=== PATIENT | male | born 1950 | race Caucasian/White ===

== ENCOUNTER 2018-05-24 09:47 | Emergency (ER) | payer MEDICARE, SELFPAY ==
[2018-05-24 09:50] VITALS: BP 138/83; PULSE 81; RESP 18; TEMP 36.7; O2SAT 98; BMI 30.6
--- NOTE | 2018-05-24 10:05 | ED.DCSUM_ITS ---
- ER Visit Summary Date of Service: 05/24/18 Chief Complaint: [] Nausea this morning History of Present Illness: The patient is a 68 M [] 3 cardiac stents his cardiovascular status has been stable he has had no fever cough chest pain or abdominal pain indicates he went to sleep feeling fine he woke up today persistently nauseated he was able to eat and drink he has had normal bowel bladder habits, no fever no cough no exposure to tainted food or sick individuals or antibiotics he is on antacid type medications but generally all of his health conditions including his chronic condition has been stable with no complications, his symptoms are not related to exertion or intake of food Physical Examination: [] 140/80 afebrile General, no distress resting comfortably HEENT is generally unremarkable The neck is supple no adenopathy Cardiovascular, regular rate and rhythm Lungs, clear bilateral Abdomen, soft nontender guarding organomegaly Extremities, no clubbing cyanosis or edema Neurologic, awake alert answering questions appropriately moving all 4 extremities Test Results: [] Emergency Department Course and Treatment: [] All of his complaints his screening labs EKG fluids IV EKG screening labs troponin are all generally unremarkable, UA negative, CT of the abdomen shows about a 2 mm right proximal ureteral kidney stone creatinine 1.34, patient on CT was also found to have distended bladder but he indicates after he returned from CT he had to void he voided quite a bit a urine he does not feels if his urinary retention and does not feel the urge to void and again he is taking Flomax for BPH Patient is feeling better Long conversation with him he wants to go home he has seen Dr. Lopez of [facility] urology he will follow-up with them return for change in symptoms he is discharged on Zofran [place] PRN and will return for change in symptoms Treatment Plan: [] Disposition: [] Home stable Impression: [] 2-3 mm right proximal ureteral kidney stone, creatinine 1.34 This note was generated with [employer] dictation software. It may contain incorrect words, spelling, and punctuation that were not noted in review of the chart prior to signing ED Disposition - Plan for ED Patient: Referrals: Jamie Humphrey MD [Primary Care Provider] -
--- NOTE | 2018-05-24 10:05 | CT_ITS ---
STUDY: CT ABDOMEN AND PELVIS WITHOUT CONTRAST REASON FOR EXAM: Male, 68 years old. Nausea. Hypertension. RADIATION DOSAGE (If Supplied By Facility): CTDIvol = ( 14.85 ) mGy, DLP = ( 797.43 ) mGycm TECHNIQUE: Transaxial images were obtained from the dome of the diaphragm to the symphysis pubis without oral contrast, and without intravenous contrast. Sagittal and coronal images were reconstructed. Individualized dose optimization techniques were used for this CT. COMPARISON: Comparison is made with prior study dated April 15, 2017. FINDINGS: Stable 7 mm noncalcified nodule in the peripheral lateral aspect of the left lower lobe as seen on axial image #18. Mild degree of scarring at the lung bases. Coronary artery calcification. Normal liver. Normal gallbladder and extrahepatic biliary system. Normal spleen. Normal pancreas. Normal bilateral adrenal glands. 6 mm nonobstructive calculus in the inferior pole of the right kidney. There is a 3 mm calculus in the proximal portion of the right ureter suggestive of obstructive calculus. 2 mm nonobstructive calculus in the upper pole of the left kidney. Punctate calcification in the lower pole calyx of the left kidney. Normal visualized stomach. Normal small intestine. Normal colon. The appendix is visualized and appears normal. There is diffuse atherosclerotic calcification of the abdominal aorta and its major visceral branches., without a demonstrated aneurysm. Normal inferior vena cava. Normal retroperitoneum. Distended urinary bladder. There are prostatic calcifications. There is a left-sided inguinal hernia containing adipose tissue. There are diffuse degenerative changes of the visualized lumbar spine. Stable grade 1 anterior listhesis of L4 on L5. CT/Abdomen/Pelvis without Cont IMPRESSION: 3 mm calculus in the proximal right ureter. Nonobstructive bilateral intrarenal calculi. Distended urinary bladder. Electronically Signed: Gen Hill MD at 11:23 EST , Service support ,
--- NOTE | 2018-05-24 10:05 | EKG12_ITS ---
Test Reason : N AND V Blood Pressure : / mmHG Vent. Rate : 087 BPM Atrial Rate : 087 BPM P-R Int : 152 ms QRS Dur : 068 ms QT Int : 368 ms P-R-T Axes : -13 -14 026 degrees QTc Int : 442 ms Normal sinus rhythm Normal ECG Confirmed by PATRICIA MONTERO, GERONIMO ([id number]), news videotape editor TON SMALL ([id number]) on 05/28/2018 4:52:42 PM Referred By: CYNTHIA Confirmed By:GERONIMO GOMEZ MD
[2018-05-24] MEDS: Ondansetron 4 MG/2 ML Vial IV (10:12)
[2018-05-24] MEDS: 0.9% Normal Saline 1,000 ML 125 ML IV (10:12)
[2018-05-24 10:18] LABS: Absolute Lymphocyte Count 1.67 X10^3/ul (0.83-4.51); Absolute Neutrophil Count 4.9 X10^3/uL (2.0-7.7); Basophil# 0.02 X10^3/uL; Basophil% 0.3 % (0-1); Eosinophil# 0.19 X10^3/uL; Eosinophils% 2.6 % (0-5); Hemoglobin 14.9 g/dl (13.0-16.5); Lymphocyte # 1.67 X10^3/ul (4.0); Lymphocyte % 23.1 % (19-41); Mean Corp Hgb Conc 33.9 g/gl (32-36); Mean Corpuscular Hgb 30.9 pg (27.0-32.0); Mean Corpuscular Volume 91.3 fL (80-94); Mean Platelet Vol. 9.6 fl (6.2-12.0); Monocyte# 0.47 X10^3/uL; Monocyte% 6.5 % (0-10); Neutrophil # 4.85 X10^3/uL (2.7-7.7); Neutrophil % 66.9 % (47-70); Platelet Count 187 K/mm3 (150-450); RBC Distribution Width CV 13.5 % (11.6-14.6); RBC Distribution Width SD 44.7 fl (35.1-43.9); Red Blood Count 4.82 M/mm3 (4.6-6.2); White Blood Count 7.2 K/mm3 (4.4-11.0)
[2018-05-24 10:21] LABS: POSITIVE COUNT NO; POSITIVE DIFFERENTIAL NO; POSITIVE MORPHOLOGY NO
[2018-05-24 10:38] LABS: AST(SGOT) 13 U/L (15-37); Alanine Aminotransfer ALT/SGPT 16 U/L (16-61); Albumin, Serum 3.7 g/dL (3.2-5.0); Alkaline Phosphatase 86 U/L (45-117); Anion Gap 12 (5-15); BUN 18 mg/dL (7-18); Calcium,Total 8.8 mg/dL (8.5-10.1); Chloride 107 mmol/L (98-107); Creatinine, Serum 1.38 mg/dL (0.70-1.30); EST Glomerular Filtration Rate 54 mL/min (>60); Est Glom Filt Rate - Afr Amer 65 mL/min (>60); Estimated Creatinine Clearance 44.95 ml/min; Glucose 153 mg/dL (74-106); Lipase 107 U/L (73-393); Potassium 4.2 mmol/L (3.5-5.1); Protein, Total 7.7 g/dL (6.4-8.2); Sodium Level 142 mmol/L (136-145)
[2018-05-24 12:18] LABS: Bacteria 0 SEEN /hpf (None Seen); Mucous, Urine 0 SEEN /hpf (<or=2+); Red Blood Cells-Urine 0 SEEN /hpf (0-5); Squamous Epithelial Cells - UA 0 SEEN /hpf (0-5)
[2018-05-24 12:22] LABS: Color, Urine Yellow (Yellow); Glucose, Dipstick 100 mg/dl (Normal); Ketone-Dipstick Negative (Negative); Leukocyte Esterase-Dipstick Negative /ul (Negative); Nitrite-Dipstick Negative (Negative); Occult Blood-Urine Negative /ul (Negative); Protein-Dipstick Negative (Negative); Urine Bilirubin Dipstick Negative (Negative); Urine Clarity Clear (Clear); Urine Urobilinogen Normal (Normal)
[2018-05-24 12:31] LABS: White Blood Cells 0-5 SEEN /hpf (0-5)
--- NOTE | 2018-05-24 13:12 | ED.DEP ---
ED Disposition - Plan for ED Patient: Instructions: ED Stone Kidney Undescended No Sx, ED Stone Renal W Colic Referrals: Jamie Humphrey MD [Primary Care Provider] - Additional Instructions: These follow-up with your urologist
[2018-05-24 13:37] VITALS: BP 115/74; PULSE 82; RESP 16; O2SAT 97
--- NOTE | 2018-05-24 13:49 | DCINST.ED_ITS ---
ED Disposition - Plan for ED Patient: Instructions: ED Stone Kidney Undescended No Sx, ED Stone Renal W Colic Prescriptions: Hydrocodone Bitart/Apap 5-325 [[place] 5MG-325MG] 1 tab PO Q4H PRN PRN 2 Days #7 tab PRN Reason: Pain Ondansetron [Zofran Odt] 4 mg PO Q8H PRN PRN #10 tab PRN Reason: Nausea Referrals: Jamie Humphrey MD [Primary Care Provider] - Additional Instructions: These follow-up with your urologist
== END 2018-05-24 13:51 | disposition home or self-care (01) ==
PROVIDERS: Emergency Provider Emergency Medicine; Family Provider Family Medicine; PCP Family Medicine
DX: N20.1 Calculus of ureter (principal); N40.0 Benign prostatic hyperplasia without lower urinary tract symptoms; Z79.899 Other long term (current) drug therapy
CPT/HCPCS: 74176; 80048; 80076; 81001; 83690; 84484; 85025; 93005; 96361; 96374; 99283; J7030; J7040; A4216; J2405

== ENCOUNTER → 2018-07-10 | Outpatient (CLI) | payer MEDICARE, SELFPAY ==
[2018-06-28 14:48] VITALS: BMI 30.2
--- NOTE | 2018-07-10 10:16 | STRESSREP_ITS ---
Stress Test Report Date: 07-10-18 Procedure: Exercise tolerance test/imaging study Indications: Chest pain; CAD; PCI Consent: Per the patient Procedure: The patient exercised on a Bartolo protocol for 6 minutes completing Stage II achieving a peak heart rate of 162 bpm (108 % predicted maximal heart rate) with a peak blood pressure 154/76 mmHg and a peak MET capacity of 7 METs. The baseline ECG demonstrated normal sinus rhythm. The peak exercise ECG demonstrated no obvious ECG changes. There was a rare PVC during recovery. The functional capacity was considered average. There was [no complaint of chest discomfort during exercise or recovery]. The examination was discontinued secondary to nausea and leg discomfort. Impression: 1. Technically adequate (percent predicted maximal heart rate greater than 85%) exercise tolerance test 2. Peak exercise ECG with no obvious ECG changes 3. There was a rare PVC during recovery 4. Nuclear images pending Myocardial perfusion imaging study: Technique: The patient was injected with 11.9 mCi of technetium 99m Cardiolite and subsequently rest SPECT Cardiolite nuclear imaging was obtained in the horizontal long, vertical long, and short axis views. The patient exercised on a Bartolo protocol for 6 minutes completing Stage II achieving a peak heart rate of 162 bpm (108 % predicted maximal heart rate) with a peak blood pressure 154/76 mmHg and a peak MET capacity of 7 METs. The patient was injected with 33.2 mCi of technetium 99m Cardiolite and subsequently stress SPECT Cardiolite nuclear imaging was obtained in the horizontal long, vertical long, and short axis views. A gated Cardiolite study at peak stress was obtained. Interpretation: Rest and stress SPECT Cardiolite nuclear imaging status post realignment, normalization, and attenuation correction, demonstrates the appearance of extracardiac/gastrointestinal tracer uptake being more prominent at rest as opposed to stress. At rest there appears to be relative to form tracer uptake with the exception of a small area of subtle diminished tracer uptake near the apical segments. Status post stress there appears to be relative uniform tracer uptake with the exception of diminished tracer uptake near the apical segments being somewhat more prominent compared to rest. [There is end systolic thickening and brightening]. The gated Cardiolite study demonstrates [myocardial thickening and inward wall motion]. The reported LVEF is 69 %. Impression: 1. Rest and stress SPECT Cardiolite nuclear imaging demonstrate nocardial perfusion changes potentially compatible with physiologic apical thinning and shifting soft tissue attenuation/artifact although an area of stress-induced myocardial ischemia in the apical areas cannot necessarily be excluded. 2. The gated Cardiolite study reports an LVEF of 69 %. This note was generated with [employer]ation software. It may contain incorrect words, spelling, and punctuation that were not noted in checking the note before signing.
== END | disposition home or self-care (01) ==
PROVIDERS: Family Provider Family Medicine; PCP Family Medicine; Referring Provider Internal Medicine Cardiovascular Disease; Visit Provider Internal Medicine Cardiovascular Disease
DX: I25.10 Atherosclerotic heart disease of native coronary artery without angina pectoris (principal); Z95.5 Presence of coronary angioplasty implant and graft
CPT/HCPCS: 78452; 93017; A9500; A4216

== ENCOUNTER 2018-07-20 07:49 | Day surgery (SDC) | payer MEDICARE, SELFPAY ==
[2018-06-28 14:48] VITALS: BMI 30.2
[2018-07-12 14:00] VITALS: BMI 30.2
--- NOTE | 2018-07-12 14:25 | RAD_ITS ---
STUDY: X-RAY CHEST REASON FOR EXAM: Male, 68 years old. Chest pain TECHNIQUE: PA and lateral views of the chest. COMPARISON: None. FINDINGS: The lungs are clear and expanded. There is no demonstrated pleural abnormality. Normal size heart. Normal mediastinum and raimundo. Normal visualized pulmonary arteries. Normal visualized aortic arch and descending thoracic aorta. Normal visualized thoracic spine. Normal visualized ribs, clavicles, and shoulders. There is no demonstrated abnormality of the visualized soft tissue structures of the upper abdomen. RAD/Chest PA and Lateral IMPRESSION: Normal x-ray examination of the chest. Electronically Signed: Raffaele Alfonso DO at 14:40 EDT Tel , Service support ,
[2018-07-12 16:45] LABS: Hemoglobin 14.8 g/dl (13.0-16.5); Mean Corp Hgb Conc 35.2 g/gl (32-36); Mean Corpuscular Hgb 31.1 pg (27.0-32.0); Mean Corpuscular Volume 88.2 fL (80-94); Mean Platelet Vol. 10.5 fl (6.2-12.0); Platelet Count 203 K/mm3 (150-450); RBC Distribution Width CV 13.5 % (11.6-14.6); RBC Distribution Width SD 43.3 fl (35.1-43.9); Red Blood Count 4.76 M/mm3 (4.6-6.2); White Blood Count 7.3 K/mm3 (4.4-11.0)
[2018-07-12 16:47] LABS: Scan Indicated on CBC? Y/N NO
[2018-07-12 16:48] LABS: Partial Thromboplast Time 29.1 Seconds (24.1-36.2)
[2018-07-12 17:15] LABS: Anion Gap 7 (5-15); BUN 15 mg/dL (7-18); Calcium,Total 8.7 mg/dL (8.5-10.1); Chloride 106 mmol/L (98-107); Creatinine, Serum 1.25 mg/dL (0.70-1.30); EST Glomerular Filtration Rate 61 mL/min (>60); Est Glom Filt Rate - Afr Amer 73 mL/min (>60); Glucose 85 mg/dL (74-106); Potassium 3.9 mmol/L (3.5-5.1); Sodium Level 140 mmol/L (136-145)
[2018-07-19 10:20] VITALS: BMI 30.2
--- NOTE | 2018-07-20 11:09 | CL.D_ITS ---
Patient Name: CORDELIA BALL Study Date: 07/20/2018 Performing: Javan Silva MD Ht: 66.14 inches 168 cm : 1950 Wt: 187.39 lbs 85 kg Age: 68 Gender: male BSA: 1.95 PROCEDURE(S) PERFORMED TQ15-PCP/COR/LV CLINICAL PROFILE AND INDICATIONS Indications: Suspected CAD Heart Failure: None Stress/Imaging Date: 07/10/2018Stress Test with SPECT MPI: Positive Angina Classification Anginal Classification w/in 2 Weeks: CCS II CAD Presentations: Stable angina. CONCLUSIONS Elevated Left Ventricular End Diastolic Pressure Normal Left Ventricular systolic function LVEF: by LV gram 65 % [place] Multivessel CAD RECOMMENDATIONS Risk factor modification Medical therapy Surgery consult for coronary revascularization DESCRIPTION OF PROCEDURE The patient arrived to the procedure lab. The risks and benefits of the procedure as well as a full d escription of our services here and current unavailability of surgical backup were fully explained to the patient and/or their significant other prior to the catheterization. The Timeout was completed, verifying the correct patient and procedure. The patient's procedural site was prepped and draped in the usual fashion. Local anesthetic was given subcutaneously to right radial region with Lidocaine 2% . Using a modified Seldinger technique, arterial access was obtained via the right radial artery, a 6 Fr sheath was inserted. Right Coronary Artery selective angiography was then performed in multiple v iews using a 5 Fr. 4.0 [place] catheter. Left Coronary Artery selective angiography was performed in mu ltiple views using a 5 Fr. 4.0 [place] catheter.The arterial sheath was pulled and a TR Band was applie d for hemostasis CORONARY ANGIOGRAPHY DOMINANCE: Right Dominant LEFT HEART ASSESSMENT Left Ventricular Ejection Fraction: by LV Gram 65 % Normal LV wall motion Elevated Left Ventricular End Diastolic Pressure LVEDP: 15 mmHg LEFT MAIN: Mild luminal irregularities LEFT ANTERIOR DECENDING ARTERY: PROX LAD: Moderate calcification, Previously placed stent has an instent Distal: 85 % restenosis DIAGONAL 1: Proximal - Diffuse: 50-75 % Stenosis CIRCUMFLEX ARTERY: PROX CIRC: 75 % Stenosis, Previously placed stent is patent MID CIRC: Diffuse: 75 % Stenosis RIGHT CORONARY ARTERY: Mild luminal irregularities MID RCA: 75 % Stenosis RT PDA: Proximal - Long: Diffuse: 85 % Stenosis VALVE FINDINGS: Normal Aortic Valve function Normal Mitral Valve function AORTIC ROOT: Angiographically normal COMPLICATIONS No Complications PROCEDURE MEDICATIONS Versed 1 mg IV Fentanyl 50 mcg IV Versed 1 mg IV Fentanyl 50 mcg IV Oxygen: 2 L/min via nasal cannula SUMMARY OF HEMODYNAMIC DATA Time AIR REST ECG 08:10:43 AO 102/56 (72) SA 10:02:55 LV 108/13, 26 10:11:55 LV 114/8, 13 10:12:02 LV 106/9, 15 10:13:21 LV 106/7, 10 10:13:28 LVp 108/23, 31 10:13:36 AOp 112/56 (80) 10:13:41 LV 112/56, 59 10:13:46 Signed By Javan Silva MD On 07/20/2018 11:08:37 AM Javan Silva MD
== END 2018-07-20 13:00 | disposition home or self-care (01) ==
LOC: CLSP 07:50
PROVIDERS: Family Provider Family Medicine; PCP Family Medicine; Referring Provider Internal Medicine Cardiovascular Disease; Visit Provider Internal Medicine Cardiovascular Disease
DX: I25.118 Atherosclerotic heart disease of native coronary artery with other forms of angina pectoris (principal); I11.0 Hypertensive heart disease with heart failure; I50.1 Left ventricular failure, unspecified; E78.5 Hyperlipidemia, unspecified; E11.9 Type 2 diabetes mellitus without complications; E03.9 Hypothyroidism, unspecified; N40.0 Benign prostatic hyperplasia without lower urinary tract symptoms; R07.9 Chest pain, unspecified; Z95.5 Presence of coronary angioplasty implant and graft; Z79.84 Long term (current) use of oral hypoglycemic drugs; Z79.82 Long term (current) use of aspirin; Z79.899 Other long term (current) drug therapy
CPT/HCPCS: 36415; 71046; 80048; 85027; 85610; 85730; 93458; 99152; 99153; J7040; C1769; C1894; Q9967

== ENCOUNTER → 2018-07-23 08:44 | Outpatient (CLI) | payer MEDICARE, SELFPAY ==
[2018-07-19 10:20] VITALS: BMI 30.2
[2018-07-23 09:44] LABS: Anion Gap 7 (5-15); BUN 17 mg/dL (7-18); BUN/Creat Ratio 12.5 RATIO (10-20); Calcium,Total 8.4 mg/dL (8.5-10.1); Chloride 106 mmol/L (98-107); Creatinine, Serum 1.36 mg/dL (0.70-1.30); EST Glomerular Filtration Rate 55 mL/min (>60); Est Glom Filt Rate - Afr Amer 67 mL/min (>60); Glucose 238 mg/dL (74-106); Potassium 4.3 mmol/L (3.5-5.1); Sodium Level 139 mmol/L (136-145)
== END ==
PROVIDERS: Family Provider Family Medicine; PCP Family Medicine; Referring Provider Internal Medicine Cardiovascular Disease; Visit Provider Internal Medicine Cardiovascular Disease
DX: E11.9 Type 2 diabetes mellitus without complications (principal)
CPT/HCPCS: 36415; 80048

== ENCOUNTER → 2018-11-27 08:40 | Outpatient (CLI) | payer MEDICARE, SELFPAY ==
[2018-11-16 14:40] VITALS: BMI 28.8
--- NOTE | 2018-11-27 09:08 | CR.HP_ITS ---
CR - History & Physical - General Arrival date:: 11/27/18 Date of CR Evaluation:: 11/27/18 Referring Physician: DR. GOMEZ Primary Diagnosis: CABG - History of Present Cardiac Event Onset Date: Enter Onset Date of cardiac illnesses in Comment field below Current stable Angina Pectoris:: No Acute Myocardial Infarction within 12 months:: No Coronary Artery Bypass Graft:: Yes Heart valve replacement or repair:: No PTCA or coronary stenting:: Yes - ,, Heart or Heart-Lung Transplant:: No Heart Failure EF <35%:: No Type of Symptoms:: CHEST PRESSURE Interventions with present event:: CABG X4 - Medications Home Medications: Ambulatory Orders Medication Instructions Recorded Citalopram Hydrobromide 10 mg PO DAILY 05/24/18 [Citalopram HBr] Finasteride 5 mg PO DAILY 05/24/18 Glimepiride 2 mg PO DAILY 05/24/18 Levothyroxine [Synthroid] 100 mcg PO DAILY 05/24/18 Metformin HCl 1,000 mg PO BID 05/24/18 Sitagliptin Phosphate [Januvia] 50 mg PO DAILY 05/24/18 Tamsulosin HCl 0.4 mg PO DAILY 05/24/18 nitroglycerin 0.4 mg sublingual 0.4 mg SUBLINGUAL Q5-15M PRN 06/21/18 tablet atorvastatin 40 mg tablet 40 mg PO QHS #90 tab 07/20/18 aspirin 81 mg tablet,delayed 81 mg PO DAILY 11/16/18 release clopidogrel 75 mg tablet 75 mg PO DAILY #30 tab 11/16/18 omeprazole 40 mg capsule,delayed 20 mg PO DAILY cap 11/16/18 release - Allergies Allergies/Adverse Reactions: Allergies phenazopyridine [From Pyridium] Adverse Reaction (Unknown, Verified 11/16/18 14:40) Unknown beta blockers Adverse Reaction (Unknown, Uncoded 07/19/18 10:22) Intolerant - Sleep Disorder Evaluation Hx of Sleep Apnea: No Do you snore loudly (louder than talking or can be heard through closed doors)?: No Do you often feel tired/ fatigued/ sleepy during daytime?: Yes Has anyone observed you stop breathing during sleep?: No History of Hypertension (for STOP score): No STOP Results: Negative Advanced Directives - Advanced Directives Power of Development Coach: Yes Living Will: Yes Advance Directives Information Provided: Yes Advance Directives on File: No - PT ENCOURAGED TO BRING COPIES OF THESE IN TO FILE IN HR DNR Order?:: No Past Medical History - Past Medical Illness Medical History: Past Medical History (Last Updated 11/26/18 @ 11:11 by KRISTY Starr) Presence of stent in coronary artery (Chronic) Onset Date: ~09/19/05 Z95.5 PTCA/DORI to the prox LAD , Stent to Cx 1995 Type 2 diabetes mellitus (Chronic) E11.9 Atherosclerotic heart disease of [place] coronary artery without angina pectoris (Chronic) I25.10 Essential hypertension (Chronic) I10 Acquired hypothyroidism (Chronic) E03.9 History of agent [place] exposure Z77.098 BPH (benign prostatic hyperplasia) N40.0 Benign neoplasm of colon D12.6 - Past Surgical History Surgical History: Past Surgical History (Last Reviewed 11/16/18 @ 15:35 by KRISTY Starr) Status post coronary artery bypass graft (Chronic) Onset Date: ~09/12/18 Z95.1 CABG x4-ACOSTA to the mid LAD; SVG to the first diagonal branch; SVG to the first OM branch; SVG to the PDA. Presence of coronary angioplasty implant and graft Z95.5 PCI CX 1995,PCI LAD 2001, PCI/DORI to procx LAD 2005; Per cath 09/19/05, LAD- stent present mid segment which was patent, CX-stent present mid segment which was patent with 20% stenosi in stent History of appendectomy Z90.49 History of left heart catheterization (LHC) Z98.890 PCI CX 1995,PCI LAD 2001, PCI/DORI to procx LAD 2005; Per cath 09/19/05, LAD- stent present mid segment which was patent, CX-stent present mid segment which was patent with 20% stenosi in stent History of tonsillectomy Z90.89 - Family History Summary Family History: Family History (Last Reviewed 11/16/18 @ 15:35 by KRISTY Starr) Mother CHF (congestive heart failure) Hypertension Father CAD (coronary artery disease) Myocardial infarction Cancer Colon Social History - Smoking History Smoking Status: Never smoker - Alcohol Use Alcohol Usage: No - Substance Abuse Hx Substance Use: No - Occupation Occupation (List type of work in comments):: Retired - Hobbies, Recreation, Social Activities Hobbies: Reading, Other - GARDENING,PLAY CARDS Recreational Activities: I am able to engage in most, but not all activities Social Environment - Status Marital Status: - Current Living Arrangements Living Environment:: Spouse - Children How many children do you have?: 1 Do any of your children live nearby?: No - Safety Do you feel safe in your surroundings?: Yes - Assistance Do you need any assistance at home?: NONE Review of Systems - Review of Systems Hints: Right click = Denies (Slash). Left click = Reports ([place]) Review of Present Symptoms: Reports: Shortness of Breath with Exertion, Fatigue, Appetite - Normal, Sleep - Normal - DIFFICULTY WAKING UP IN MIDDLE OF NIGHT AND RETURNING BACK TO SLEEP. Denies: Shortness of Breath at Rest, PVD, Operative Discomfort, Angina, Wound Healing, Dizziness/Lightheadedness, Heart Arrhythmia/Irregularities, Appetite - Special Diet, Sexual Changes - Pain Is Patient Pain Free?: Yes Risk Factor Assessment - Chief Complaint Chief Complaint: CURRENT CABG PT WHO PRESENTS TODAY TO CR FOR INITIAL EVALUATION - Vital Signs Temperature: 98.6 F Respiratory Rate: 16 Pulse Ox: 95 Blood Pressure: 98/58 Nailbeds:: PINK - Pulse Pulse Rate: 80 Pulse Rhythm: Regular - Hypertension How long have you been treated?: PT DENIES HAVING HTN On medication(s)?: YES, PREVENTITIVE FOR KIDNEY Blood Pressure Sitting - Left Arm: 98/58 - Stress Stress: Recent - RECENTLY HAD SD - Diabetes Diabetic History: Type II Nutrition Referral for Diabetes: No - Obesity Height: 5 ft 6 in Weight:: 179 lb Weight in Pounds: 179.0 lbs Weight Source: Standing Scale Body Mass Index (BMI): 28.8 Nutritional Referral for Obesity: No - Physical Inactivity Physical Inactivity: Recreational activity - Risk Stratification Risk Guidelines: Lowest Risk: Risk Factor for Smoking, Risk Factor for Dyslipidemia, Risk Factor for Diabetes - 5.7 , Risk Factor for Obesity, Risk Factor for Hypertension, Risk Factor for Sedentary Lifestyle, Moderate Risk: Risk Factor for Depression - ACTUALLY STARTED AFTER MY FIRST STENT - For Smoking Smoking Risk Guidelines: Smoking Low Risk: None or quit greater than 6 months ago. Smoking Moderate Risk: Smoker or quit 6 months or less ago. Smoking High Risk: Smoker - For Dyslipidemia Dyslipidemia Risk Guidelines: Low Risk: Moderate Risk: High Risk: 15-25% fat 25.1-29% fat >/= 30% fat. <7% sat fat 7-9% sat fat >9% sat fat. <150 mg chol 150-299 mg chol >/= 300 mg chol. LDL <100 LDL 100-129 LDL >/= 130. Chol/HDL ratio <5.0 Chol/HDL ratio 5.0-6.0 Chol/HDL ratio >6.0. Triglycerides <100 Triglycerides 100-149 Triglycerides >/= 150 - For Diabetes Mellitus Diabetes Risk Guidelines: Diabetes Low Risk: HgA1c <6.5% and/or FBG <120. Diabetes Moderate Risk: HgA1c 6.6-7.9% and/or FBG 120-180. Diabetes High Risk: HgA1c >/= 8% and/or FBG >180 - For Obesity/Overweight Obesity/Overweight Risk Guidelines: Obesity Low Risk: BMI <25.0. Obesity Moderate Risk: BMI 25-29.9. Obesity High Risk: BMI >/= 30.0 - For Hypertension Hypertension Risk Guidelines: Hypertension Low Risk: Systolic <120 and Diastolic <80. Hypertension Moderate Risk: Systolic 120-139 and Diastolic 80-89. Hypertension High Risk: Systolic >/= 140 and Diastolic >/= 90 - For Sedentary Lifestyle Sedentary Lifestyle Risk Guidelines: Sedentary Lifestyle Low Risk: >/= 1,500 kcal/week. Sedentary Lifestyle Moderate Risk: 700-1,499 kcal/week. Sedentary Lifestyle High Risk: < 700 kcal/week - For Depression Depression Risk Guidelines: Depression Low Risk: Not clinically depressed. Depression Moderate Risk: Mildly depressed. Depression High Risk: Clinically depressed - Family History Family History: Family History (Last Reviewed 11/16/18 @ 15:35 by KRISTY Starr) Mother CHF (congestive heart failure) Hypertension Father CAD (coronary artery disease) Myocardial infarction Cancer Motivation - Motivation to Participate On a scale of 1 to 10, how prepared are you to commit to attending program?: 10 What do you see as barriers to successfully being able to complete the program?: NONE What do you see as the benefits of succesfully completing the program? In other words, what do you hope to get out of participating in the program?: ELIMINATE FATIGUE AND STREGTHEN MUSCLES Are there issues you are dealing with that will interfere with completing the program?: POSSIBLY HEALTH Do you have a spouse or signficant other, family or friends who will help support you to complete the program?: SPOUSE
[2018-11-27 09:38] VITALS: BP 98/58; PULSE 80; RESP 16; TEMP 37; O2SAT 95; BMI 28.8
--- NOTE | 2018-11-27 09:39 | CR.ITP_ITS ---
General Information - General Information Admitting Diagnosis: CABG Special Needs: NONE Oxygen: NONE - Education/Goals Barriers to Learning: None Individual Counseling: Initial Assessment: Diabetes, Stress Cardiac Rehabilitation Goals: 1. Maintain the individual as the primary focus of care. 2. To improve the patient's quality of life. 3. Identification of cardiac risk factors and provide cardiac risk factor management. 4. Enhance the psychosocial status of the patient. 5. Reconditioning enough to allow the patient to resume customary activities. 6. Control symptoms of cardiac disease Scale for measuring improvement of personal goals: Enter appropriate number in Comments. 2 = Unchanged. 3 = Slightly Better. 4 = Moderate Improvement. 5 = Met my Goal Personal Goals: Initial Assessment: Improve management of stress and emotions, Improve energy level, Improve muscle strength and endurance, Improve diet and eating habits (eat healthier) Exercise - Initial Assessment - Visit Date of Eval: 11/27/18 - Stages of Change Stages of Change:: Action - Physician Prescribed Exercise Modalities: Treadmill, Biodyne, Airdyne, NuStep, SciFit Frequency (days/week): 3x/week for 12 weeks [36 sessions] Intensity: 60-80% age predicted maximum heart rate reserve Target Heart Rate:: 98-127 - Hypertension Do any of the following apply?: Medication Resting Blood Pressure:: 98/58 - Intervention Home Exercise/Activity Goal:: Moderate Exercise 30 min/day x 5 days/wk - Education Goals:: Warm-up, RPE DARIO Scale, S/S, Safe Exercise, Self-Monitoring Nutrition - Initial Assessment - Program Goals Nutrition Program Goals: LDL <70. Total Cholesterol <200. HDL >45. Triglycerides <150. HgbA1C <7%. BMI <25 - Stages of Change Stages of Change:: Action - Diabetes Diabetes:: Yes Hgb A1C: 5.7 Insulin: No Do you monitor your blood sugar at home?: Yes - ENCOURAGED PT TO BRING MONITOR TO CR - Weight Management Height: 5 ft 6 in Weight:: 179 lb - Intervention Referral to dietitian:: No Referral to Diabetic Clinic:: No - PT STATES IS DIAB WELL FOR MANY YEARS AND HAS GRASP ON DIET Will attend diet classes:: Yes - IN CR Tobacco - Initial Assessment - Program Goals Tobacco Program Goals: Complete smoking cessation. Attend education classes. Improve Knowledge Test score - Stage of Change Stages of Change:: Action - Learning Barriers Learning Barriers: Ready to Learn - Family Support Do you have family support?: Yes - - Tobacco Use Tobacco Use: Non-smoker - Education Attended class for:: Treating Heart Disease, How The Heart Works, What it means to have Heart Disease, How Coronary Artery Disease is Diagnosed, Heart Procedures, What Heart Medications Do, Risk Factors & Modifications, Living an Active Life, Nutrition, Emotions & Heart Disease, Stress Management & Relaxation, Sleep Disorders & Heart Disease Psychosocial - Initial Assess - Target Goals Target Goals: Assess presence or absence of depression. Using a valid screening tool, maximizes coping skills. Positive support system - Stages of Change Stages of Change:: Action - Psychosocial Test Tool Used:: HANDS Depression Questionnaire - Intervention PS - Interventions: Yes Attend Stress Management Classes - IN CR CLASSROOM, Yes Uses Stress Management Skills, No Referral to Mental Health, No Referral to [facility] Case Management, No Referral to Physician - Education Gave educational materials for:: Coping techniques, Signs & symptoms of depression, Stress management, Relaxation techniques - INFORMED ABOUT EDUCATION MATERIAL AVAILABLE ON LINE WELL IN CLASSROOM - Patient/Program Goal Preventative Medication(s):: Aspirin, Clopidogrel, Statin/lipid - Assistive Devices Assistive Devices:: None Fall Risk Assessed:: No Patient Health Questionnaire Initial Assessment 1. Little interest or pleasure in doing things: Several days 2. Feeling down, depressed, or hopeless: Several days 3. Trouble falling or staying asleep, or sleeping too much: Several days 4. Feeling tired or having little energy: More than half the days 5. Poor appetite or overeating: Not at all 6. Feeling bad about yourself -- or that you are a failure or have let yourself or your family down: Not at all 7. Trouble concentrating on things, such as reading the newspaper or watching television: Not at all 8. Moving or speaking so slowly that other people could have noticed. Or the opposite - being so fidgety or restless that you have been moving around a lot more than usual: Not at all 9. Thoughts that you would be better off , or of hurting yourself in some way: Not at all How difficult have these problems made it for you to do your work, take care of things at home, or get along with other people?: Not difficult at all Total Score: 5 RACHEL-Q SV Test - Statements CAD is a disease of the arteries in the heart: False Examples of risk factors for heart disease: True Angina is chest pain or discomfort: True The benefits of resistance training include: True Eating more meat and dairy products: False Anti-platelet medications such as aspirin are important: True The only effective way to manage stress: False An exercise warm-up slowly increases heart rate: I Don't Know Prepared, processed foods usually have high sodium: True Depression is common after a heart attack: True The statin medications lower cholesterol: True To control blood pressure, lower the amount of sodium: I Don't Know If someone gets chest discomfort during walking: False Transfats are partially hydrogenated vegetable oils: True Sleep apnea that is not treated increases the risk: I Don't Know To control cholesterol, one should become a vegetarian: False Someone knows if he/she is exercising at the right level: I Don't Know Diabetes cannot be prevented with exercise & health eating: I Don't Know Stress is a large risk for heart attack: I Don't Know A diet that can help lower blood pressure is rich in: I Don't Know - Total Score Total Correct Responses: 13 Self-Efficacy Initial Assessment We would like to know how confident you are in doing certain activities. Please select your confidence level for:: Select your confidence level for the following using the scale 1-10 where 1 is not at all confident and 10 is totally confident. Your score is the average of all 6 responses. Fatigue: How confident are you that you can keep the fatigue caused by your disease from interfering with the things you want to do? Select Number: 8 Physical Discomfort or Pain: How confident are you that you can keep the physical discomfort or pain of your disease from interfering with the things you want to do? Select Number: 9 Emotional Distress: How confident are you that you can keep the emotional distress caused by your disease from interfering with the things you want to do? Select Number: 7 Other Symptoms or Health Problems: How confident are you that you can keep other symptoms or health problems from interfering with the things you want to do? Select Number: 7 Different Tasks and Activities: How confident are you that you can do the different tasks and activities needed to manage your health condition so as to reduce your need to see a doctor? Select Number: 7 Medication: How confident are you that you can do things other than just taking medication to reduce how much your illness affects your everyday life? Select Number: 7 Total Score:: 7 Nutrition Survey - Nutrition Survey Instructions Scoring Instructions: Scoring is as follows: Yes = 1 points. No = 0 point. Patient score that is >/=12 is considered to be at potential nutritional risk and could benefit from a referral to a registered dietitian. - Nutrition Survey Initial Have you lost >10 lbs over the past 2 months without trying?: No Are you following a special diet at home for diabetes, low fat, or low salt?: Yes Are you interested in meeting with a dietitian for help understanding your diet?: No Do you eat less than 3 meals a day?: No Do you eat fatty meats (ott, sausage, ribs, etc), fried foods, desserts, large amounts of salad dressings, margarine, butter, or cheese most days?: No Do you have food allergies? [Enter types in comment field]: No Do you eat in restaurants more than 3 times a week?: No Do you season food with salt, seasoning salt, or garlic salt?: Yes Do you used canned, boxed, frozen meals, or soups, seasoning packets?: Yes Total Score:: 3
[2018-11-27 09:57] VITALS: BP 98/58
== END ==
PROVIDERS: Family Provider Family Medicine; PCP Family Medicine; Referring Provider Internal Medicine Cardiovascular Disease; Visit Provider Internal Medicine Cardiovascular Disease
DX: Z95.1 Presence of aortocoronary bypass graft (principal)

== ENCOUNTER 2018-11-30 09:15 | Outpatient (RCR) | payer MEDICARE, SELFPAY ==
[2018-11-27 09:38] VITALS: BMI 28.8
== END 2018-12-01 23:59 ==
LOC: CR 09:15
PROVIDERS: Family Provider Family Medicine; PCP Family Medicine; Referring Provider Internal Medicine Cardiovascular Disease; Visit Provider Internal Medicine Cardiovascular Disease
DX: Z95.1 Presence of aortocoronary bypass graft (principal)
CPT/HCPCS: 93798

== ENCOUNTER 2018-12-31 09:15 | Outpatient (RCR) | payer MEDICARE, SELFPAY ==
[2018-11-27 09:38] VITALS: BMI 28.8
== END 2018-12-31 23:59 ==
LOC: CR 09:15
PROVIDERS: Family Provider Family Medicine; PCP Family Medicine; Referring Provider Internal Medicine Cardiovascular Disease; Visit Provider Internal Medicine Cardiovascular Disease
DX: Z95.1 Presence of aortocoronary bypass graft (principal)
CPT/HCPCS: 93798

== ENCOUNTER 2019-01-30 09:15 | Outpatient (RCR) | payer MEDICARE, SELFPAY ==
[2018-11-27 09:38] VITALS: BMI 28.8
--- NOTE | 2019-01-25 08:47 | CR.ITP_ITS ---
Exercise - 60-Day Assessment - Visit Date of Eval: 01/25/19 Session #:: 24 - has only missed one session due to conflict - Stages of Change Stages of Change:: Action - Physician Prescribed Exercise Modalities: Treadmill, Rower, Airdyne, NuStep Frequency (days/week): 3 Duration (Minutes):: 30-45 Intensity: 60-80% age predicted maximum heart rate reserve METs - Progression: 0.5-1.0 MET, RPE 11-14 WEEK: 4 no increase due to patient's perceived exertion ratings Target Heart Rate:: 98-127 w max HR 132 - Hypertension Resting Blood Pressure:: 120/64 Peak Exercise Blood Pressure:: 164/78 Medication Changes:: No - Intervention Home Exercise/Activity Goal:: Moderate Exercise 30 min/day x 5 days/wk - Education Goals:: Warm-up, RPE DARIO Scale, S/S, Safe Exercise, Self-Monitoring - Exercise Program Goals Exercise Program Goals: Aerobic Activity >30 min Nutrition - Initial Assessment - Program Goals Nutrition Program Goals: LDL <70. Total Cholesterol <200. HDL >45. Triglycerides <150. HgbA1C <7%. BMI <25 - Diabetes Do you monitor your blood sugar at home?: Yes - ENCOURAGED PT TO BRING MONITOR TO CR Nutrition - 60-Day Assessment - Program Goals Nutrition Program Goals: LDL <70. Total Cholesterol <200. HDL >45. Triglycerides <150. HgbA1C <7%. BMI <25 - Visit Date of Eval: 01/25/19 - Stages of Change Stages of Change:: Action - Lipids Has the patient seen the dietitian?: No - Diabetes Diabetes:: No Insulin: No Non-Insulin Dependent?: No - Weight Management Weight:: 181 lb - Intervention Referral to dietitian:: No Referral to Diabetic Clinic:: No Will attend diet classes:: Yes - Education Attended class for:: Healthy eating Tobacco - Initial Assessment - Program Goals Tobacco Program Goals: Complete smoking cessation. Attend education classes. Improve Knowledge Test score - Learning Barriers Learning Barriers: Ready to Learn Tobacco - 60-Day Assessment - Program Goals Tobacco Program Goals: Complete smoking cessation. Attend education classes. Improve Knowledge Test score - Stage of Change Stages of Change:: Action - Learning Barriers Learning Barriers: Participates in education - Family Support Do you have family support?: Yes - Tobacco Use Tobacco Use: Non-smoker Do you use smokeless tobacco?: No - Intervention Smoking Cessation Referral:: No Individual Education/Counseling:: No Education Schedule Given:: Yes - Education Attended class for:: Heart Procedures, What Heart Medications Do, Risk Factors & Modifications, Living an Active Life, Nutrition, Emotions & Heart Disease, Stress Management & Relaxation, Sleep Disorders & Heart Disease Psychosocial - Initial Assess - Target Goals Target Goals: Assess presence or absence of depression. Using a valid screening tool, maximizes coping skills. Positive support system - Psychosocial Test Tool Used:: HANDS Depression Questionnaire - Assistive Devices Fall Risk Assessed:: No Psychosocial - 60-Day Assess - Target Goals Target Goals: Assess presence or absence of depression. Using a valid screening tool, maximizes coping skills. Positive support system - Psychosocial Test Tool Used:: HANDS Depression Questionnaire - Intervention PS - Interventions: Yes Attend Stress Management Classes, Yes Uses Stress Management Skills, No Referral to Mental Health, No Referral to [facility] Case Management, No Referral to Physician - Education Attended classes for:: Coping techniques, Signs & symptoms of depression, Stress management, Relaxation techniques - Patient/Program Goal Preventative Medication(s):: Aspirin - Patient is compliant with medications, GRISELDA inhibitor, Clopidogrel, Beta lissa, Statin/lipid - Assistive Devices Assistive Devices:: None Fall Risk Assessed:: Yes Patient Health Questionnaire 60-Day Re-eval Assessment 1. Little interest or pleasure in doing things: Several days 2. Feeling down, depressed, or hopeless: Not at all 3. Trouble falling or staying asleep, or sleeping too much: Several days 4. Feeling tired or having little energy: Not at all 5. Poor appetite or overeating: Not at all 6. Feeling bad about yourself -- or that you are a failure or have let yourself or your family down: Not at all 7. Trouble concentrating on things, such as reading the newspaper or watching television: Not at all 8. Moving or speaking so slowly that other people could have noticed. Or the opposite - being so fidgety or restless that you have been moving around a lot more than usual: Not at all 9. Thoughts that you would be better off , or of hurting yourself in some way: Not at all How difficult have these problems made it for you to do your work, take care of things at home, or get along with other people?: Not difficult at all Total Score: 2 Self-Efficacy 60-Day Re-eval Assessment We would like to know how confident you are in doing certain activities. Please select your confidence level for:: Select your confidence level for the following using the scale 1-10 where 1 is not at all confident and 10 is totally confident. Your score is the average of all 6 responses. Fatigue: How confident are you that you can keep the fatigue caused by your disease from interfering with the things you want to do? Select Number: 9 Physical Discomfort or Pain: How confident are you that you can keep the physical discomfort or pain of your disease from interfering with the things you want to do? Select Number: 10 Emotional Distress: How confident are you that you can keep the emotional distress caused by your disease from interfering with the things you want to do? Select Number: 10 Other Symptoms or Health Problems: How confident are you that you can keep other symptoms or health problems from interfering with the things you want to do? Select Number: 10 Different Tasks and Activities: How confident are you that you can do the different tasks and activities needed to manage your health condition so as to reduce your need to see a doctor? Select Number: 10 Medication: How confident are you that you can do things other than just taking medication to reduce how much your illness affects your everyday life? Select Number: 10 Total Score:: 9
[2019-01-25 08:55] VITALS: BP 120/64; BP 164/78
== END 2019-01-31 23:59 ==
LOC: CR 09:15
PROVIDERS: Family Provider Family Medicine; PCP Family Medicine; Referring Provider Internal Medicine Cardiovascular Disease; Visit Provider Internal Medicine Cardiovascular Disease
DX: Z95.1 Presence of aortocoronary bypass graft (principal)
CPT/HCPCS: 93798

== ENCOUNTER 2019-02-25 09:15 | Outpatient (RCR) | payer MEDICARE, SELFPAY ==
[2018-11-27 09:38] VITALS: BMI 28.8
[2019-02-01 01:03] VITALS: BP 120/64; BP 164/78
== END 2019-03-02 23:59 ==
LOC: CR 09:15
PROVIDERS: Family Provider Family Medicine; PCP Family Medicine; Referring Provider Internal Medicine Cardiovascular Disease; Visit Provider Internal Medicine Cardiovascular Disease
DX: Z95.1 Presence of aortocoronary bypass graft (principal)
CPT/HCPCS: 93798

== ENCOUNTER 2020-06-06 08:47 | Emergency (ER) | payer MEDICARE, SELFPAY ==
[2020-05-14 14:33] VITALS: BMI 29.2
[2020-06-06 08:48] VITALS: BP 112/60; PULSE 89; RESP 17; TEMP 36.6; O2SAT 100; BMI 28.1
--- NOTE | 2020-06-06 09:12 | ED.VIS.GEN ---
History of Present Illness Chief Complaint: Abd Pain Informant: Patient Narrative: 70-year-old male presenting with sharp mid abdominal pain for 5 weeks. He states the pain is different in severity depending on the timeframe. Currently he states is 5/10. Last night he states it was 9/10. Patient has no associated nausea, vomiting, diarrhea, constipation. Patient states that he has seen his nurse practitioner. He is not had imaging done previously. Patient states that he recently was told his A1c is greater than 10. Patient also is stating that he has history of urinary retention and has to self catheterize himself. Past Medical History - Allergies and Home Meds Allergies/Adverse Reactions: Allergies phenazopyridine [From Pyridium] Adverse Reaction (Unknown, Verified 06/06/20 08:48) Vomiting beta blockers Adverse Reaction (Unknown, Uncoded 06/06/20 08:48) Intolerant- Extreme fatigue Primary Care Physician: Jamie Humphrey MD [Primary Care Provider] - Servando Juarez MD [STAFF PHYSICIAN] - Surgical History: noncontributory Lives: Spouse/ Significant Other Smoking Status: Never smoker Alcohol: None Drugs: None Review of Systems General: Denies: Chills, Fever, Sweats Eyes: Denies: Visual changes - bilaterally, Diplopia ENT: Denies: Rhinorrhea, Sore throat Cardiovascular: Denies: Chest pain, Palpitations Respiratory: Denies: Dyspnea, Cough, Dyspnea on exertion Gastrointestinal: Reports: Abdominal pain. Denies: Nausea, Vomiting, Diarrhea, Constipation Genitourinary: Denies: Dysuria, Hematuria Musculoskeletal: Denies: Myalgias, Arthralgias, - Skin: Denies: Abscess Neurological: Denies: Headache, Weakness Psych: Denies: Depression, Anxiety Physical Exam Vital Signs/Narrative: Vital Signs Temp Pulse Resp BP Pulse Ox 06/06/20 08:48 97.9 F 89 17 112/60 100 Inital Vital Signs reviewed: Yes General: Well nourished, No Acute Distress Head: Normocephalic, Atraumatic Eyes: Perrl, EOMI ENT: Moist mucous membranes, No rhinorrhea Cardiovascular: Regular rate, Regular rhythm Respiratory: No distress, CTA bilaterally Abdomen: Soft, Nondistended, Tender - Periumbilical tenderness. Nonperitoneal. Back: Nontender, Normal Inspection Extremities: Nontender, No edema Skin: Normal color, No rash. Negative for: Cyanosis, Diaphoresis Neurological: Alert, Oriented x3, Cranial nerves II-XII grossly intact Psychological: Normal affect, Normal Mood Diagnostic/Tx/Re-eval Clinical Impression(s) from Imaging Studies Abdomen/Pelvis CT 06/06/20 09:26 IMPRESSION: 4 cm pancreatic mass. Leading differential consideration is neoplastic disease. Further evaluation with MRI is recommended. Small bilateral nonobstructing renal calculi. Mild urinary bladder thickening. Diverticulosis. Mild fecal stasis. Electronically Signed: Cristian Vargas MD at 10:48 EST Tel , Service support , ADDENDUM: 06/06/20 1101 IMPRESSION: 4 cm pancreatic mass. Leading differential consideration is neoplastic disease. Further evaluation with MRI is recommended. Small bilateral nonobstructing renal calculi. Mild urinary bladder thickening. Diverticulosis. Mild fecal stasis. N.B. : The above information has been verbally conveyed by Cristian Vargas MD to Zaid Johnson MD, on 06/06/2020 10:54:07 (ET). Electronically Signed: Cristian Vargas MD at 10:48 EST Tel , Service support , Laboratory Data 06/06/20 06/06/20 06/06/20 09:17 09:30 09:30 WBC Cancelled Corrected WBC Cancelled RBC Cancelled Hgb Cancelled Hct Cancelled MCV Cancelled MCH Cancelled MCHC Cancelled RDW Std Deviation Cancelled RDW Coeff of Mary [place] Cancelled Plt Count Cancelled MPV Cancelled Immature Gran % (Auto) Cancelled Neut % (Auto) Cancelled Lymph % (Auto) Cancelled [place] % (Auto) Cancelled Eos % (Auto) Cancelled Baso % (Auto) Cancelled Absolute Neuts (auto) Cancelled Absolute Lymphs (auto) Cancelled Total Counted Cancelled Neutrophils % (Manual) Cancelled Band Neutrophils % Cancelled Lymphocytes % (Manual) Cancelled Monocytes % (Manual) Cancelled Eosinophils % (Manual) Cancelled Basophils % (Manual) Cancelled Metamyelocytes % Cancelled Myelocytes % Cancelled Promyelocytes % Cancelled Blast Cells % Cancelled Plasma Cell % (Manual) Cancelled Other Cells % Cancelled Nucleated RBC % Cancelled Nucleated RBCs/100 WBC Cancelled Differential Comment Cancelled Diff Path Review Cancelled Hypersegmented Neuts Cancelled Atypical Lymphocytes Cancelled Reactive Lymphocytes Cancelled Smudge Cells Cancelled Toxic Granulation Cancelled Toxic Vacuolation Cancelled Dohle Bodies Cancelled Matthew Rods Cancelled Platelet Estimate Cancelled Plt Morphology Comment Cancelled RBC Morphology Cancelled Polychromasia Cancelled Hypochromasia Cancelled Poikilocytosis Cancelled Basophilic Stippling Cancelled Anisocytosis Cancelled Microcytosis Cancelled Macrocytosis Cancelled Spherocytes Cancelled Sickle Cells Cancelled Target Cells Cancelled Tear Drop Cells Cancelled Ovalocytes Cancelled Stomatocytes Cancelled [place] 5 Bodies Cancelled [place] Cells Cancelled Bite Cells Cancelled Crenated Cell Cancelled Acanthocytes (Spur) Cancelled Rouleaux Cancelled Schistocytes Cancelled Sodium 136 Potassium 4.2 Chloride 107 Carbon Dioxide 25.0 Anion Gap 4 L BUN 22 H Creatinine 1.49 H Estim Creat Clear Calc 40.44 Est GFR (MDRD) Af Amer 60 Est GFR (MDRD) Non-Af 49 L BUN/Creatinine Ratio 14.8 Glucose 160 H Calcium 8.9 Total Bilirubin 0.70 Direct Bilirubin 0.19 AST 14 L ALT 24 Alkaline Phosphatase 152 H Total Protein 7.5 Albumin 3.6 Globulin 3.9 Albumin/Globulin Ratio 0.9 Lipase 139 Urine Color Urine Clarity Urine pH Ur Specific [place] Urine Protein Urine Glucose (UA) Urine Ketones Urine Occult Blood Urine Nitrite Urine Bilirubin Urine Urobilinogen Ur Leukocyte Esterase Urine RBC Urine WBC Ur Squamous Epith Cells Urine Bacteria Urine Mucus 06/06/20 06/06/20 10:09 11:30 WBC 5.1 Corrected WBC RBC 5.05 Hgb 12.7 L Hct 41.6 MCV 82.4 MCH 25.1 L MCHC 30.5 L RDW Std Deviation 41.1 RDW Coeff of [place] 13.9 Plt Count 175 MPV 10.6 Immature Gran % (Auto) 0.400 Neut % (Auto) 67.2 Lymph % (Auto) 21.4 [place] % (Auto) 8.6 Eos % (Auto) 1.8 Baso % (Auto) 0.6 Absolute Neuts (auto) 3.5 Absolute Lymphs (auto) 1.10 Total Counted Neutrophils % (Manual) Band Neutrophils % Lymphocytes % (Manual) Monocytes % (Manual) Eosinophils % (Manual) Basophils % (Manual) Metamyelocytes % Myelocytes % Promyelocytes % Blast Cells % Plasma Cell % (Manual) Other Cells % Nucleated RBC % 0 Nucleated RBCs/100 WBC Differential Comment Diff Path Review Hypersegmented Neuts Atypical Lymphocytes Reactive Lymphocytes Smudge Cells Toxic Granulation Toxic Vacuolation Dohle Bodies Matthew Rods Platelet Estimate Plt Morphology Comment RBC Morphology Polychromasia Hypochromasia Poikilocytosis Basophilic Stippling Anisocytosis Microcytosis Macrocytosis Spherocytes Sickle Cells Target Cells Tear Drop Cells Ovalocytes Stomatocytes [place] 5 Bodies Juice Cells Bite Cells Crenated Cell Acanthocytes (Spur) Rouleaux Schistocytes Sodium Potassium Chloride Carbon Dioxide Anion Gap BUN Creatinine Estim Creat Clear Calc Est GFR (MDRD) Af Amer Est GFR (MDRD) Non-Af BUN/Creatinine Ratio Glucose Calcium Total Bilirubin Direct Bilirubin AST ALT Alkaline Phosphatase Total Protein Albumin Globulin Albumin/Globulin Ratio Lipase Urine Color Straw Urine Clarity Clear Urine pH 7.0 Ur Specific [place] 1.005 Urine Protein Negative Urine Glucose (UA) 1000 H Urine Ketones Negative Urine Occult Blood 10 H Urine Nitrite Negative Urine Bilirubin Negative Urine Urobilinogen Normal Ur Leukocyte Esterase 25 H Urine RBC 0 SEEN Urine WBC 0-5 SEEN Ur Squamous Epith Cells 0 SEEN Urine Bacteria 0 SEEN Urine Mucus 0 SEEN - Medical Decision Making 1-year-old male presenting with abdominal pain which he states is been present for 5 weeks. He has not had any imaging. He states he is not vomiting. He is not had a fever or chills. Patient's blood work showed no leukocytosis hemoglobin however stable BUN/creatinine 22/1.19 the only LFT that is abnormal is an alk phos of 152. Lipase is negative. CT of the abdomen pelvis with IV contrast identifies a 4 cm in creatinine mass. It also appeared to have some bladder thickening however his urinalysis is normal. [facility] and [facility] up an appointment with him for Monday. Patient was prescribed Percocet for pain. He will make follow-up appointment outpatient. He is given return precautions. Impression: 1. 4 cm pancreatic mass 2. Abdominal pain 3. Bladder wall thickening ED Disposition - Plan for ED Patient: Disposition: Home or Assisted Living Instructions: What Is Pancreatic Cancer? Prescriptions: Oxycodone HCl/Acetaminophen [Percocet 5/325] 1 tab PO Q6H PRN PRN 3 Days #12 tab PRN Reason: Pain Prescription Printed Referrals: Jamie Humphrey MD [Primary Care Provider] - Servando Juarez MD [STAFF PHYSICIAN] -
--- NOTE | 2020-06-06 09:26 | CT_ITS ---
We are attempting to reach an attending provider to discuss findings. An addendum with communication details will be sent when the communication is complete. STUDY: CT ABDOMEN AND PELVIS WITH CONTRAST REASON FOR EXAM: Male, 70 years old. abdominal pain RADIATION DOSAGE (If Supplied By Facility): CTDIvol = ( 15.45 ) mGy, DLP = ( 888.73 ) mGycm TECHNIQUE: Transaxial images were obtained from the dome of the diaphragm to the symphysis pubis without oral contrast. IV 100mL Isovue-300 was administered. Sagittal and coronal images were reconstructed. Individualized dose optimization techniques were used for this CT. COMPARISON: None. FINDINGS: The visualized lung bases are unremarkable. There is decreased attenuation of the liver consistent with steatosis. Normal gallbladder and extrahepatic biliary system. Normal spleen. There is approximately 2 x 4 cm pancreatic mass (axial image #33 series 2) there is atrophy of the tail of the pancreas. Normal bilateral adrenal glands. There are up to 3 mm calcifications of the right kidney. There are up to 3 mm calcifications of the left kidney. There is no hydronephrosis. Normal visualized stomach. Normal small intestine. There are multiple colonic diverticula consistent with diverticulosis. There is mild amount of retained stool within the colon. The appendix is visualized and appears normal. There is atherosclerotic calcification of the abdominal aorta. There is mild circumferential thickening of the urinary bladder without demonstrated perivesicular inflammatory changes. There are diffuse degenerative changes of the visualized lumbar spine. CT/Abdomen/Pelvis W IV Cont ONLY IMPRESSION: 4 cm pancreatic mass. Leading differential consideration is neoplastic disease. Further evaluation with MRI is recommended. Small bilateral nonobstructing renal calculi. Mild urinary bladder thickening. Diverticulosis. Mild fecal stasis. Electronically Signed: Cristian Vargas MD at 10:48 EST Tel , Service support ,
[2020-06-06 09:57] LABS: ALB/GLOB Ratio 0.9 RATIO (0.9-2.4); AST(SGOT) 14 U/L (15-37); Alanine Aminotransfer ALT/SGPT 24 U/L (16-61); Albumin, Serum 3.6 g/dL (3.2-5.0); Alkaline Phosphatase 152 U/L (45-117); Anion Gap 4 (5-15); BUN 22 mg/dL (7-18); BUN/Creat Ratio 14.8 RATIO (10-20); Bilirubin, Direct 0.19 mg/dL (0.00-0.30); Calcium,Total 8.9 mg/dL (8.5-10.1); Chloride 107 mmol/L (98-107); Creatinine, Serum 1.49 mg/dL (0.70-1.30); EST Glomerular Filtration Rate 49 mL/min (>60); Est Glom Filt Rate - Afr Amer 60 mL/min (>60); Estimated Creatinine Clearance 40.44 ml/min; Globulin 3.9 g/dL (2.2-4.2); Glucose 160 mg/dL (74-106); Potassium 4.2 mmol/L (3.5-5.1); Protein, Total 7.5 g/dL (6.4-8.2); Sodium Level 136 mmol/L (136-145)
[2020-06-06 10:13] LABS: Absolute Neutrophil Count 3.5 X10^3/uL (2.0-7.7); Basophil# 0.03 X10^3/uL; Basophil% 0.6 % (0-1); Eosinophil# 0.09 X10^3/uL; Eosinophils% 1.8 % (0-5); Hematocrit 41.6 % (40-54); Hemoglobin 12.7 g/dL (13.0-16.5); Lymphocyte % 21.4 % (19-41); Mean Corp Hgb Conc 30.5 g/dL (32-36); Mean Corpuscular Hgb 25.1 pg (27.0-32.0); Mean Corpuscular Volume 82.4 fL (80-94); Mean Platelet Vol. 10.6 fl (6.2-12.0); Monocyte# 0.44 X10^3/uL; Monocyte% 8.6 % (0-10); NRBC Flagged by Analyzer 0 % (0-5); Neutrophil # 3.45 X10^3/uL (2.7-7.7); Neutrophil % 67.2 % (47-70); Platelet Count 175 K/mm3 (150-450); RBC Distribution Width CV 13.9 % (11.6-14.6); RBC Distribution Width SD 41.1 fl (35.1-43.9); Red Blood Count 5.05 M/mm3 (4.6-6.2); White Blood Count 5.1 K/mm3 (4.4-11.0)
[2020-06-06] MEDS: 0.9% Normal Saline 1,000 ML 1000 ML IV (10:30)
[2020-06-06 10:57] VITALS: BP 128/69; PULSE 78; RESP 15; O2SAT 100
[2020-06-06] MEDS: Morphine 4 MG/ML Syringe IV (10:58)
[2020-06-06] MEDS: Ondansetron 4 MG/2 ML Vial IV (10:58)
[2020-06-06 11:05] LABS: Lipase 139 U/L (73-393)
[2020-06-06 11:38] LABS: Bacteria 0 SEEN /hpf (None Seen); Mucous, Urine 0 SEEN /hpf (<or=2+); Red Blood Cells-Urine 0 SEEN /hpf (0-5); Squamous Epithelial Cells - UA 0 SEEN /hpf (0-5)
[2020-06-06 11:41] LABS: Color, Urine Straw (Yellow); Glucose, Dipstick 1000 mg/dl (Normal); Ketone-Dipstick Negative (Negative); Leukocyte Esterase-Dipstick 25 /ul (Negative); Nitrite-Dipstick Negative (Negative); Occult Blood-Urine 10 /ul (Negative); Protein-Dipstick Negative (Negative); Specific Gravity, Urine 1.005 (1.002-1.030); Urine Bilirubin Dipstick Negative (Negative); Urine Clarity Clear (Clear); Urine Urobilinogen Normal (Normal)
[2020-06-06 11:51] LABS: White Blood Cells 0-5 SEEN /hpf (0-5)
[2020-06-06 13:39] VITALS: BP 128/65; PULSE 72; RESP 18; O2SAT 97
== END 2020-06-06 13:45 | disposition home or self-care (01) ==
PROVIDERS: Emergency Provider Student in an Organized Health Care Education/Training Program; PCP Family Medicine
DX: K86.89 Other specified diseases of pancreas (principal); R10.9 Unspecified abdominal pain; Z79.82 Long term (current) use of aspirin
CPT/HCPCS: 74177; 80053; 81001; 82248; 83690; 85025; 96374; 96375; 99284; J7030; Q9967; A4216; J2405

== ENCOUNTER → 2020-06-16 07:48 | Outpatient (CLI) | payer MEDICARE, SELFPAY ==
[2020-06-08 15:55] VITALS: BMI 28.9
--- NOTE | 2020-06-16 07:50 | MRI_ITS ---
STUDY: MR MRCP WITHOUT CONTRAST REASON FOR EXAM: Male, 70 years old. pancreatic mass, follow up to ct TECHNIQUE: Standard MRCP technique was utilized. COMPARISON: CT 06/06/2020 FINDINGS: Gall Bladder: Multiple small stones layering in the dependent portion the gallbladder. Cystic duct: Normal with no demonstrated fixed filling defect. Intrahepatic ducts: Normal visualized intrahepatic ducts with no demonstrated fixed filling defect, dilation or stricture. Common hepatic duct: Normal with no demonstrated fixed filling defect, dilation or stricture. Common bile duct: Normal with no demonstrated fixed filling defect, dilation or stricture. Pancreatic duct: Narrowing of the pancreatic duct within the head and neck of the pancreas consistent with compression by the known mass worrisome for pancreatic carcinoma. Mild dilatation of the pancreatic duct proximal to the mass within the distal body and tail. MRI/MRCP Abdomen without Contrast IMPRESSION: 1. Cholelithiasis. 2. Narrowing of the pancreatic duct within the head and neck of the pancreas due to extrinsic compression by the mass with mild dilatation of the duct in the distal body and tail. Electronically Signed: Maximo Barker MD at 13:24 EDT Tel , Service support ,
== END ==
PROVIDERS: PCP Family Medicine; Referring Provider Internal Medicine Medical Oncology; Visit Provider Internal Medicine Medical Oncology
DX: K86.89 Other specified diseases of pancreas (principal)
CPT/HCPCS: 74181

== ENCOUNTER 2020-07-15 07:49 | Day surgery (SDC) | payer MEDICARE, SELFPAY ==
[2020-07-10 09:26] VITALS: BMI 28.0
[2020-07-15] VITALS (9 sets, daily range): BP systolic 105–121; BP diastolic 51–74; PULSE 59–69; RESP 14–16; TEMP 36.6–37.1; O2SAT 97–100; BMI 27.9
--- NOTE | 2020-07-15 06:00 | HP_ITS ---
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 Is patient in pain?: No Allergies phenazopyridine [From Pyridium] Adverse Reaction (Unknown, Verified 07/10/20 09:27) Vomiting beta blockers Adverse Reaction (Unknown, Uncoded 07/06/20 14:13) Intolerant- Extreme fatigue Medications Finasteride 5 mg PO DAILY 05/24/18 [History Confirmed 07/10/20] Levothyroxine [Synthroid] 100 mcg PO DAILY 05/24/18 [History Confirmed 07/10/20] Tamsulosin HCl 0.4 mg PO DAILY 05/24/18 [History Confirmed 07/10/20] atorvastatin 40 mg tablet 40 mg PO QHS #90 tablet 07/20/18 [Rx Confirmed 07/10/20] aspirin 81 mg tablet,delayed release 81 mg PO DAILY 11/16/18 [History Confirmed 07/10/20] clopidogrel 75 mg tablet 75 mg PO DAILY #90 tablet 04/04/19 [Rx Confirmed 07/10/20] nitroglycerin 0.4 mg sublingual tablet 0.4 mg SL Q5-15M PRN #90 tablet 11/15/19 [Rx Confirmed 07/10/20] citalopram 20 mg tablet 20 mg PO DAILY 05/14/20 [History Confirmed 07/10/20] empagliflozin 25 mg tablet 25 mg PO DAILY 05/14/20 [History Confirmed 07/10/20] insulin glargine 100 unit/mL (3 mL) subcutaneous pen 40 unit SC QHS ml 05/14/20 [History Confirmed 07/10/20] latanoprost 0.005 % eye drops 1 drp EACH EYE QPM 05/14/20 [History Confirmed 07/10/20] Pantoprazole Sodium [Protonix] 40 mg PO DAILY 06/06/20 [History Confirmed 07/10/20] Oxycodone HCl/Acetaminophen [Percocet 5/325] 1 tablet PO Q6H PRN PRN 06/22/20 [History Confirmed 07/10/20] PFSH Medical History (Updated 07/10/20 @ 09:26 by Gina Rosen) Presence of stent in coronary artery (Chronic ~09/19/05) Type 2 diabetes mellitus (Chronic) Atherosclerotic heart disease of [place] coronary artery without angina pectoris (Chronic) Essential hypertension (Chronic) Acquired hypothyroidism (Chronic) Anxiety and depression (Acute) CAD (coronary artery disease) (Acute) GERD (gastroesophageal reflux disease) (Acute) History of agent [place] exposure (Acute) Pancreatic cancer (Acute) BPH (benign prostatic hyperplasia) (Chronic) Benign neoplasm of colon (Chronic) Urinary retention (Chronic) Surgical History (Updated 07/10/20 @ 09:26 by Gina Rosen) Status post coronary artery bypass graft (Chronic ~09/12/18) History of colonoscopy (Acute ~01/2020) Hx of heart artery stent (Acute) Presence of coronary angioplasty implant and graft (Chronic) History of left heart catheterization (LHC) (Resolved) Family History Mother CHF (congestive heart failure) Hypertension Cancer Cervical Father CAD (coronary artery disease) Myocardial infarction Cancer Colon Social History (Updated 07/10/20 @ 09:[address] Yoel Garrett MD) Smoking Status: Never smoker alcohol intake: current details: occasional substance use type: does not use HPI HPI HPI: CORDELIA BALL, is a 70 M who presents to the office today for HPI HPI Surgical H&P: Yes HPI: CORDELIA BALL, is a 70 M who presents to the office today for port placement. The patient is being treated for pancreatic cancer and intends to begin his chemotherapy a week from Monday. The patient is not having any issues at this time. He denies any nausea or vomiting. ROS General General: Yes weight change and fatigue; no appetite, colon cancer, breast cancer or weakness HEENT HEENT: No difficulty swallowing, eye injury, eye surgery, swollen glands or hoarseness Endo Endocrine: Yes thyroid disease and diabetes mellitus; no thyroid cancer, Hair loss, heat intolerance or cold intolerance Musc Musculoskeletal: No back problems, arthritis, rheumatoid arthritis, gout or joint pain Cardio Cardiovascular: Yes heart disease and heart stent; no murmur, pacemaker, atrial fibrillation, high blood pressure, heart attack, palpitations, shortness of breat with exertion or chest pain Psych Psychiatric: Yes depression and anxiety; no hearing voices Resp Respiratory: No shortness of breath, No sleep apnea, No cough, No COPD, No asthma, No emphysema, No wheezing Gastro Gastrointestinal: Yes abdominal pain, No nausea or vomiting, No diarrhea, No constipation, No blood in stool, Yes acid reflux, No hemorrhoids, No ulcers, No gallbladder problem, No black,tarry stools Janes Hematologic: Yes blood thinners, No blood disorders, No bleeding, No anemia, No blood clots Neuro Neurologic: No weakness Exam Const General: cooperative Orientation: alert, oriented x3 Resp Effort & Inspection: normal respiratory effort Auscultation: clear to auscultation bilaterally Cardio Rate: regular rate Rhythm: regular rhythm Heart Sounds: no murmurs GI Inspection: non-distended Palpation: soft, nontender Assessment & Plan Problems 1. Malignant neoplasm of head of pancreas C25.0 2. Encounter for insertion of venous access port Z45.2 Plan The patient needs chest port for chemotherapy. I discussed chest port placement with him and discussed the risks of the procedure. I discussed the risks including but not limited to bleeding, infection, pneumothorax, line infection or DVT. The patient understands the risks and is willing to proceed with right chest port placement. Yoel Garrett MD Pager: [facility] [address] [place] [address], [address] [place] [address] Office: Coding Level of Care Code Off vis,new,level 3 Diagnoses Malignant neoplasm of head of pancreas C25.0 ??Pancreatic malignancy location: head of pancreas Encounter for insertion of venous access port Z45.2 I have re-examined the patient. There are no clinical changes since date of exam.
[2020-07-15 08:30] LABS: Bedside Glucose 103 mg/dL (70-110)
[2020-07-15] MEDS: Lactated Ringers 1,000 ML 100 ML IV (08:31)
[2020-07-15] MEDS: Cefazolin 2 GM in 0.9% Normal Saline 100 ML IV (09:23)
[2020-07-15] MEDS: Bupiv/Epi 0.25% 30 ML Vial (09:28)
--- NOTE | 2020-07-15 09:55 | RAD_ITS ---
STUDY: X-RAY CHEST REASON FOR EXAM: Male, 70 years old. PACU TECHNIQUE: Single AP portable view of the chest. COMPARISON: 07/12/2018 FINDINGS: There has been median sternotomy/CABG. There is a right-sided [id number] with its tip overlying the SVC. Mild platelike atelectasis at the left lung base. The lungs are otherwise clear. There is no demonstrated pleural abnormality. Normal size heart. Normal mediastinum and raimundo. Normal visualized pulmonary arteries. There is atherosclerotic tortuosity of the aortic arch and descending thoracic aorta. Normal visualized thoracic spine. Normal visualized ribs, clavicles, and shoulders. There is no demonstrated abnormality of the visualized soft tissue structures of the upper abdomen. RAD/CXR for Line Placement IMPRESSION: No acute cardiopulmonary disease. Electronically Signed: Dain Sethi MD at 10:45 EDT Tel , Service support ,
--- NOTE | 2020-07-15 09:58 | PCM.OPRPT ---
Problem List (1) Encounter for adjustment and management of vascular access device Status: Resolved Report of Operation Date of Procedure: 07/15/20 Pre-Operative Diagnosis: Pancreatic cancer with need for vascular access for chemotherapy Post-Operative Diagnosis: Same Surgery/Procedure Performed:: Ultrasound and fluoroscopy guided right chest port placement utilizing right IJ Description of Procedure: After obtaining informed consent patient was brought back to the operating room MAC anesthesia was induced and the right chest and neck were prepped in normal sterile fashion. Ultrasound was used to evaluate both IJs and the right IJ was selected. Next, using a needle, the right IJ was accessed and a guidewire was passed on into the superior vena cava under fluoroscopy guidance. A small incision was made over the puncture site and the dilator introducer was placed over the guidewire. Next this was capped and the pocket was made for the port. 1% lidocaine with epinephrine was injected in the proposed port site. An incision was made with scalpel. Electrocautery was used to make a pocket under the skin and subcutaneous tissue. Hemostasis was obtained. Next, the catheter was tunneled up to the neck incision site and placed through the introducer. The peel-away introducer was removed and the position of the catheter was confirmed on fluoroscopy. Next, the catheter was trimmed and attached to the port with the locking device. Interrupted 2-0 Vicryl sutures were used to anchor the port to the chest wall and then the port was placed inside the pocket. The pocket was then flushed with saline and the port irrigated with saline. There was good blood return and the port flushed easily. Next, heparin was injected into the port. The skin was closed with subcutaneous interrupted 3-0 Vicryl sutures. A single 3-0 Vicryl sutures placed under the skin at the neck incision site. Steri-Strips were placed as well as op sites. Patient tolerated procedure well, was taken to PACU in stable condition. Chest x-ray will be obtained. Grafts/Implants Used: 8 [place] PowerPort - Admit VTE Documentation VTE Mechan Device Prophylaxis: SCD's
--- NOTE | 2020-07-15 09:59 | DCINST_ITS ---
Discharge Diet: No Restrictions - Pain medication may cause nausea. You should typically eat light foods as you take your pain medication. Discharge Activity: Return to Normal Activity, May Shower - with your bandage in place in 1-2 days after surgery. DO NOT SHOWER WHEN YOUR PORT IS ACCESSED. Lifting Restrictions: none Call your doctor if your incision/area has: Continuous Slow Oozing, Sudden Increased Bleeding, Increased Pain/ Swelling, Increased Redness Call your doctor if you observe: Fever of 101 or Higher Remove Dressing in (days):: 3 - When you remove the bandage, leave the steri- strips intact until they fall off. Allergies/Adverse Reactions: Allergies phenazopyridine [From Pyridium] Adverse Reaction (Unknown, Verified 07/14/20 10:53) Vomiting beta blockers Adverse Reaction (Unknown, Uncoded 07/14/20 10:53) Intolerant- Extreme fatigue Medications to take at Discharge Finasteride 5 mg PO DAILY 05/24/18 Levothyroxine [Synthroid] 100 mcg PO DAILY 05/24/18 Tamsulosin HCl 0.4 mg PO DAILY 05/24/18 atorvastatin 40 mg tablet 40 mg PO QHS #90 tablet 07/20/18 aspirin 81 mg tablet,delayed release 81 mg PO DAILY 11/16/18 clopidogrel 75 mg tablet 75 mg PO DAILY #90 tablet 04/04/19 nitroglycerin 0.4 mg sublingual tablet 0.4 mg SL Q5-15M PRN #90 tablet 11/15/19 citalopram 20 mg tablet 20 mg PO DAILY 05/14/20 empagliflozin 25 mg tablet 25 mg PO DAILY 05/14/20 insulin glargine 100 unit/mL (3 mL) subcutaneous pen 40 unit SC QHS ml 05/14/20 latanoprost 0.005 % eye drops 1 drp EACH EYE QPM 05/14/20 Pantoprazole Sodium [Protonix] 40 mg PO DAILY 06/06/20 Oxycodone HCl/Acetaminophen [Percocet 5/325] 1 tablet PO Q6H PRN PRN 06/22/20 Primary Care Physician: Jamie Humphrey MD [Primary Care Provider] - Test Results: Test results from this visit will be discussed in further detail at your follow- up appointment, if applicable. Please Follow Up With: Yoel Garrett MD When: Follow-up as needed
== END 2020-07-15 11:21 | disposition home or self-care (01) ==
LOC: SDC 07:49 → AC 07:50
PROVIDERS: PCP Family Medicine; Referring Provider Family Medicine; Visit Provider Surgery
DX: Z45.2 Encounter for adjustment and management of vascular access device (principal); I25.10 Atherosclerotic heart disease of native coronary artery without angina pectoris; E11.9 Type 2 diabetes mellitus without complications; K21.9 Gastro-esophageal reflux disease without esophagitis; F41.9 Anxiety disorder, unspecified; F32.9 Major depressive disorder, single episode, unspecified; N40.0 Benign prostatic hyperplasia without lower urinary tract symptoms; C25.0 Malignant neoplasm of head of pancreas; E03.9 Hypothyroidism, unspecified; I10 Essential (primary) hypertension; Z79.82 Long term (current) use of aspirin; Z79.4 Long term (current) use of insulin; Z79.899 Other long term (current) drug therapy; Z95.5 Presence of coronary angioplasty implant and graft; Z79.02 Long term (current) use of antithrombotics/antiplatelets
CPT/HCPCS: 00532; 36561; 71045; 77001; 82962; J7120; C1788

== ENCOUNTER 2020-09-26 07:52 | Emergency (ER) | payer MEDICARE, SELFPAY ==
[2020-09-21 08:40] VITALS: BMI 26.4
[2020-09-26] VITALS (12 sets, daily range): BP systolic 78–115; BP diastolic 39–57; PULSE 94–144; RESP 17–29; TEMP 38.3–40.4; O2SAT 94–98; BMI 26.6
--- NOTE | 2020-09-26 07:55 | EKG12_ITS ---
Test Reason : REPEAT Blood Pressure : / mmHG Vent. Rate : 111 BPM Atrial Rate : 111 BPM P-R Int : 124 ms QRS Dur : 088 ms QT Int : 400 ms P-R-T Axes : 031 -35 064 degrees QTc Int : 544 ms Sinus tachycardia Left axis deviation Septal infarct , age undetermined Abnormal ECG Confirmed by LEORA MONTERO, DEDRICK ([id number]), editor book RAMAKRISHNA CASTANON ([id number]) on 09/29/2020 8:46:55 AM Referred By: CL Confirmed By:DEDRICK COREY MD
--- NOTE | 2020-09-26 07:55 | RAD_ITS ---
HISTORY: fever. TECHNIQUE: XR Chest 1 View. # of images incl. paperwork: 1. COMPARISON: 07/15/2020. FINDINGS: CARDIOMEDIASTINAL STRUCTURES: Cardiac silhouette not enlarged. Mediastinal contour unchanged with calcification of the aortic knob, midline sternotomy, mediastinal clips, and right chest wall port. LUNGS: Mild left basilar atelectasis or scarring again seen. PLEURA: No pleural effusion or pneumothorax. OSSEOUS STRUCTURES: Degenerative change. RAD/Chest 1 View (Portable) IMPRESSION: No radiographic evidence of acute cardiopulmonary disease. at 0907 Reported and signed by: Carrol Colindres MD Electronically Signed: Carrol Colindres MD at 9:06 EDT Tel , Service support ,
--- NOTE | 2020-09-26 07:55 | CT_ITS ---
HISTORY: abdominal pain. TECHNIQUE: Helically acquired images were obtained of the abdomen and pelvis without oral or IV contrast as per renal stone protocol. A radiation dose optimization technique was used for this scan. # of images incl. paperwork: 485. COMPARISON: PET-CT 07/14/2020. FINDINGS: LUNG BASES: Stable 8 mm left lower lobe nodule adjacent to the diaphragm. Mild bibasilar atelectasis. Trace left pleural effusion. BOWEL: Bowel including appendix nondilated. Colonic diverticulosis without pericolonic inflammation. PERITONEUM: Mild intra-abdominal edema. Trace free fluid in the pelvis. LIVER/BILIARY TRACT: Periportal edema versus mild intrahepatic ductal dilatation. Limited evaluation for liver metastases on noncontrast examination. Varices. Gallbladder wall edema with mild density. SPLEEN: Non-enlarged. PANCREAS: Ill-defined 3.9 cm proximal pancreatic mass again seen with adjacent small lymph nodes. KIDNEYS AND URETERS: Bilateral renal calculi. Mild right hydroureteronephrosis and perinephric stranding secondary to 2 mm distal ureteral and 8mm ureterovesical junction calculi. No left hydronephrosis. ADRENAL GLANDS: Non-enlarged. VESSELS: No abdominal aortic aneurysm. Mild atherosclerosis. PELVIC ORGANS: [place] catheter and air in the partially distended bladder. BONES: Degenerative change. Mild anterolisthesis of L4-5. CT/Abdomen/Pelvis without Cont IMPRESSION: Mild right hydronephrosis secondary to 2 mm distal ureteral and 8mm UVJ calculi. Bilateral nephrolithiasis. Cholelithiasis with gallbladder wall edema, suspicious for acute cholecystitis. Mild periportal edema versus mild intrahepatic biliary ductal dilatation. Recommend follow-up ultrasound or MRCP to assess for biliary obstruction. Redemonstration of pancreatic mass. Stable 8mm left lower lobe pulmonary nodule. Colonic diverticulosis without acute diverticulitis. Individualized dose optimization techniques were used for this CT. at 0921 Reported and signed by: Carrol Colindres MD Electronically Signed: Carrol Colindres MD at 9:20 EDT Tel , Service support ,
--- NOTE | 2020-09-26 07:59 | EX.ED.DYSGE1 ---
HPI History of Present Illness Chief Complaint: Fever Informant: patient and EMS Narrative Narrative: 70-year-old male presents with concern for confusion and fever. Found to have a fever of 104 degrees F. Dealing with abdominal issues over the past few days including constipation. Currently being treated with chemotherapy for pancreatic cancer. Denies any pain at this time. Does appear significantly dehydrated. [facility] Medical History Acquired hypothyroidism Anxiety and depression Atherosclerotic heart disease of [place] coronary artery without angina pectoris Benign neoplasm of colon BPH (benign prostatic hyperplasia) CAD (coronary artery disease) Chemotherapy induced neutropenia Constipation Essential hypertension GERD (gastroesophageal reflux disease) History of agent [place] exposure Hypokalemia Pancreatic cancer Presence of stent in coronary artery (~09/19/05) Type 2 diabetes mellitus Urinary retention Home Medications finasteride 5 mg PO DAILY 05/24/18 [History Last Taken 05/23/18 5 MG] levothyroxine 100 mcg PO DAILY 05/24/18 [History Last Taken 07/15/20 06:00] tamsulosin 0.4 mg PO DAILY 05/24/18 [History Last Taken 05/23/18 0.4 MG] atorvastatin 40 mg tablet 40 mg PO QHS #90 tablet 07/20/18 [Rx Last Taken Unknown] aspirin 81 mg tablet,delayed release 81 mg PO DAILY 11/16/18 [History Last Taken Unknown] clopidogrel 75 mg tablet 75 mg PO DAILY #90 tablet 04/04/19 [Rx Last Taken 07/10/20] nitroglycerin 0.4 mg sublingual tablet 0.4 mg SL Q5-15M PRN #90 tablet 11/15/19 [Rx Last Taken Unknown] citalopram 20 mg tablet 20 mg PO DAILY 05/14/20 [History Last Taken Unknown] empagliflozin 25 mg tablet 25 mg PO DAILY 05/14/20 [History Last Taken Unknown] insulin glargine 100 unit/mL (3 mL) subcutaneous pen 40 unit SC QHS ml 05/14/20 [History Last Taken Unknown] latanoprost 0.005 % eye drops 1 drp EACH EYE QPM 05/14/20 [History Last Taken Unknown] pantoprazole 40 mg PO DAILY 06/06/20 [History Last Taken 07/15/20 06:00] oxycodone-acetaminophen 1 each PO Q6H PRN PRN #90 tablet 07/15/20 [Rx Last Taken Unknown] ibuprofen 200 mg PO BID PRN 07/20/20 [History Last Taken Unknown] lidocaine-prilocaine 1 applic TP DAILY PRN PRN 30 Days #1 tube 07/20/20 [Rx Last Taken Unknown] ondansetron 8 mg PO Q8H PRN PRN 10 Days #30 tab.rapdis 07/20/20 [Rx Last Taken Unknown] prochlorperazine maleate 10 mg PO Q6H PRN PRN 10 Days #30 tablet 07/20/20 [Rx Last Taken Unknown] Allergy/AdvReac Type Severity Reaction Status Date / Time phenazopyridine AdvReac Unknown Vomiting Verified 09/21/20 08:39 [From Pyridium] beta blockers AdvReac Unknown Intolerant- Uncoded 09/21/20 08:39 Extreme fatigue Family History Mother CHF (congestive heart failure) Hypertension Cancer Cervical Father CAD (coronary artery disease) Myocardial infarction Cancer Colon Surgical History History of colonoscopy (~01/2020) History of left heart catheterization (LHC) Hx of heart artery stent Presence of coronary angioplasty implant and graft Status post coronary artery bypass graft (~09/12/18) Social History Smoking Status: Never smoker alcohol intake: current details: occasional substance use type: does not use ROS ROS ED Constitutional Constitutional ED: Reports fever(s); Denies chills or sweats Eyes Eyes: Denies blurry vision, change in vision or diplopia ENT ENT ED: Denies rhinorrhea or sore throat Cardiovascular Cardiovascular: Denies chest pain, orthopnea, palpitations or racing heartbeat Respiratory/Chest Respiratory/Chest: Denies cough, dyspnea, dyspnea on exertion, orthopnea or sputum Gastrointestinal Gastrointestinal: Denies abdominal pain, constipation, diarrhea, melena, nausea or vomiting Genitourinary Genitourinary ED: Denies dysuria, hematuria or urinary frequency Musculoskeletal Musculoskeletal: Denies arthralgias, myalgias or neck pain Integumentary Denies rash Neurologic Neurologic: Denies headache(s), paresthesias or weakness Psychiatric Psychiatric: Denies anxiety or depression Hematologic/Lymphatic Hematologic/Lymphatic: Denies easy bleeding or easy bruising Allergic/Immunologic Allergic/Immunologic ED: Denies mouth swelling or tongue swelling EXAM Physical Exam Const Vital Signs: 09/26/20 07:53 09/26/20 07:58 09/26/20 08:01 Temperature 103.9 F H 104.7 F H 103.9 F H Temperature Source Temporal Core Temporal Pulse Rate 144 H 130 H Respiratory Rate 29 H 22 H Blood Pressure 114/53 L 115/56 L Blood Pressure Mean 73 75 Pulse Ox 94 94 Oxygen Delivery Method Room Air Nasal Cannula Room Air Oxygen Flow Rate (L/min) 3 09/26/20 09:48 Temperature 103.6 F H Temperature Source Core Pulse Rate 113 H Respiratory Rate 20 H Blood Pressure 92/50 L Blood Pressure Mean 64 Pulse Ox 96 Oxygen Delivery Method Nasal Cannula Oxygen Flow Rate (L/min) 3 Positive well nourished and well developed General Appearance ED: well developed HEENT Reports TM's clear and moist mucous membranes normocephalic and atraumatic Tympanic Membrane ED: Yes TM's clear Eyes PERRL and EOMs intact bilaterally Neck no lymphadenopathy, supple and no JVD Chest Wall Chest Narrative: [place] right chest wall without overlying skin changes. Well healed sternotomy scar. Resp normal respiratory effort and clear to auscultation bilaterally Cardio regular rate, S1 normal heart sound, S2 normal heart sound and no murmurs Peripheral Pulses: pulses 2+ throughout GI soft to palpation, non-tender and non-distended Back/Spine no CVA tenderness and no thoracic nor lumbar tenderness Extremity normal to inspection General Extremety ED: Negative for edema or tenderness General Extremity: Negative for edema Neuro oriented x3, CN's II-XII intact bilaterally and no sensory deficits noted Sensorium / Orientation: alert Motor Exam: strength 5/5 throughout Psych mental status grossly normal Skin no rashes or lesions noted MDM MDM MDM Narrative Medical decision making narrative: Patient febrile and tachycardic upon arrival. Mildly confused without focal deficit. 18,000 white blood cell count. Hypokalemic at 2.8. Hypomagnesemic. Elevated alk phos as well as transaminitis. Elevated high-sensitivity troponin. Patient given 2.5 L of normal saline. Patient covered with Zosyn and vancomycin. CT without contrast given the patient's acute renal insufficiency shows acute cholecystitis as well as ureterolithiasis. No evidence of urinary tract infection. Spoke initially with general surgeon on-call at [facility] Dr. Brothers who advised tertiary level care. Spoke with Dr. Leyva at [facility] at patient's request who is agreeable with transfer and admission. Patient's blood pressure between 95 and 100 with improving heart rate to approximately 100. Patient had also been given Tylenol with reduction of his core temperature. Lab Data Attestation: I reviewed the patient's lab results. Labs: Laboratory Results - last 24 hr 09/26/20 09/26/20 09/26/20 07:49 07:49 07:49 WBC 18.2 H RBC 4.59 L Hgb 12.7 L Hct 40.7 MCV 88.7 MCH 27.7 MCHC 31.2 L RDW Std Deviation 78.6 H RDW Coeff of [place] 25.1 H Plt Count 149 L MPV 9.3 Neut % (Auto) Not Reportable Absolute Neuts (auto) 11.3 H Absolute Lymphs (auto) 2.91 Total Counted 100 Neutrophils % (Manual) 57 Band Neutrophils % 5 Lymphocytes % (Manual) 16 L Monocytes % (Manual) 4 Metamyelocytes % 7 H Myelocytes % 9 H Promyelocytes % 2 H Nucleated RBCs/100 WBC 3 Diff Path Review May foll Toxic Granulation 1+ Platelet Estimate SLT DEC Plt Morphology Comment LARGE Polychromasia 1+ Hypochromasia 1+ Anisocytosis 1+ Microcytosis 1+ PT 15.6 H INR 1.3 APTT 35.2 Sodium 142 Potassium 2.8 L Chloride 107 Carbon Dioxide 16.0 L Anion Gap 19 H BUN 19 H Creatinine 2.27 H Estim Creat Clear Calc 26.54 Est GFR (MDRD) Af Amer 37 L Est GFR (MDRD) Non-Af 30 L BUN/Creatinine Ratio 8.4 L Glucose 216 H Lactic Acid Calcium 8.7 Magnesium Total Bilirubin 0.70 AST 89 H ALT 78 H Alkaline Phosphatase 3171 H Troponin I High Sens 379.5 H* Total Protein 7.2 Albumin 3.1 L Globulin 4.1 Albumin/Globulin Ratio 0.8 L Urine Color Urine Clarity Urine pH Ur Specific [place] Urine Protein Urine Glucose (UA) Urine Ketones Urine Occult Blood Urine Nitrite Urine Bilirubin Urine Urobilinogen Ur Leukocyte Esterase Urine RBC Urine WBC Ur Squamous Epith Cells Urine Bacteria Urine Mucus POC Glucose 09/26/20 09/26/20 09/26/20 07:49 08:04 08:25 WBC RBC Hgb Hct MCV MCH MCHC RDW Std Deviation RDW Coeff of [place] Plt Count MPV Neut % (Auto) Absolute Neuts (auto) Absolute Lymphs (auto) Total Counted Neutrophils % (Manual) Band Neutrophils % Lymphocytes % (Manual) Monocytes % (Manual) Metamyelocytes % Myelocytes % Promyelocytes % Nucleated RBCs/100 WBC Diff Path Review Toxic Granulation Platelet Estimate Plt Morphology Comment Polychromasia Hypochromasia Anisocytosis Microcytosis PT INR APTT Sodium Potassium Chloride Carbon Dioxide Anion Gap BUN Creatinine Estim Creat Clear Calc Est GFR (MDRD) Af Amer Est GFR (MDRD) Non-Af BUN/Creatinine Ratio Glucose Lactic Acid 9.7 H* Calcium Magnesium 1.4 L Total Bilirubin AST ALT Alkaline Phosphatase Troponin I High Sens Total Protein Albumin Globulin Albumin/Globulin Ratio Urine Color Yellow Urine Clarity Cloudy Urine pH 6.0 Ur Specific [place] 1.010 Urine Protein 30 H Urine Glucose (UA) 1000 H Urine Ketones Negative Urine Occult Blood 150 H Urine Nitrite Negative Urine Bilirubin Negative Urine Urobilinogen Normal Ur Leukocyte Esterase 25 H Urine RBC 0-5 SEEN Urine WBC 0-5 SEEN Ur Squamous Epith Cells 0 SEEN Urine Bacteria 3+ Urine Mucus 0 SEEN POC Glucose 09/26/20 09:14 WBC RBC Hgb Hct MCV MCH MCHC RDW Std Deviation RDW Coeff of [place] Plt Count MPV Neut % (Auto) Absolute Neuts (auto) Absolute Lymphs (auto) Total Counted Neutrophils % (Manual) Band Neutrophils % Lymphocytes % (Manual) Monocytes % (Manual) Metamyelocytes % Myelocytes % Promyelocytes % Nucleated RBCs/100 WBC Diff Path Review Toxic Granulation Platelet Estimate Plt Morphology Comment Polychromasia Hypochromasia Anisocytosis Microcytosis PT INR APTT Sodium Potassium Chloride Carbon Dioxide Anion Gap BUN Creatinine Estim Creat Clear Calc Est GFR (MDRD) Af Amer Est GFR (MDRD) Non-Af BUN/Creatinine Ratio Glucose Lactic Acid Calcium Magnesium Total Bilirubin AST ALT Alkaline Phosphatase Troponin I High Sens Total Protein Albumin Globulin Albumin/Globulin Ratio Urine Color Urine Clarity Urine pH Ur Specific [place] Urine Protein Urine Glucose (UA) Urine Ketones Urine Occult Blood Urine Nitrite Urine Bilirubin Urine Urobilinogen Ur Leukocyte Esterase Urine RBC Urine WBC Ur Squamous Epith Cells Urine Bacteria Urine Mucus POC Glucose 194 H Radiography Chest X-Ray - ED: 1 View, Read by ED Physician, Read by Radiologist and Normal Diagnostic Testing: Radiology Impression Abdomen/Pelvis CT 09/26/20 07:55 IMPRESSION: Mild right hydronephrosis secondary to 2 mm distal ureteral and 8mm UVJ calculi. Bilateral nephrolithiasis. Cholelithiasis with gallbladder wall edema, suspicious for acute cholecystitis. Mild periportal edema versus mild intrahepatic biliary ductal dilatation. Recommend follow-up ultrasound or MRCP to assess for biliary obstruction. Redemonstration of pancreatic mass. Stable 8mm left lower lobe pulmonary nodule. Colonic diverticulosis without acute diverticulitis. Individualized dose optimization techniques were used for this CT. at 0921 Reported and signed by: Carrol Colindres MD Electronically Signed: Carrol Colindres MD at 9:20 EDT Tel , Service support , Chest X-Ray 09/26/20 07:55 IMPRESSION: No radiographic evidence of acute cardiopulmonary disease. at 0907 Reported and signed by: Carrol Colindres MD Electronically Signed: Carrol Colindres MD at 9:06 EDT Tel , Service support , Rhythm Strip Rhythm Strip: Sinus Tach Rate: 147 Ectopy: None EKG Initial EKG: Attestation: I personally reviewed and interpreted this EKG as follows: Interpretation: Sinus Tachycardia Comments: Sinus tachycardia at 147 bpm. No evidence of acute ischemia. Left axis deviation. Nonspecific ST changes. Treatment and Re-Evaluation Comments:: Patient reevaluated at 0945 and heart rate is improving. Capillary refill less than 3 seconds. Patient mentation greatly improved. Critical Care Time Critical Care Time: Yes Critical care time (excluding procedures): 75-104 minutes, Including time spent:, Discussing w/Patient &/or Family/[employer]vel Operator, Discussing w/Consultants, Arranging Admission or Transfer, Performing Direct Patient Care at Bedside and - (80 minutes) Discharge Plan Triage Chief Complaint: Fever ED Provider: Carson Weston Dx/Rx/DC Orders Clinical Impression: Septic shock, Pancreatic cancer, Hypokalemia, Acute kidney insufficiency, Acute cholecystitis, Ureterolithiasis, Elevated troponin, Hypomagnesemia Prescriptions: No Action aspirin [Adult Low Dose Aspirin] 81 mg tablet,delayed release (DR/EC) 81 mg PO DAILY RF: 0 nitroglycerin 0.4 mg tablet, sublingual 0.4 mg SL Q5-15M PRN (Reason: Pain) Qty: 90 RF: 3 Lantus Solostar U-100 Insulin 100 unit/mL (3 mL) insulin pen 40 unit SC QHS RF: 0 citalopram 20 mg tablet 20 mg PO DAILY RF: 0 latanoprost 0.005 % drops 1 drp EACH EYE QPM RF: 0 Jardiance 25 mg tablet 25 mg PO DAILY RF: 0 levothyroxine 100 MCG tablet 100 mcg PO DAILY RF: 0 tamsulosin 0.4 MG capsule 0.4 mg PO DAILY RF: 0 finasteride 5 MG tablet 5 mg PO DAILY RF: 0 pantoprazole 40 MG tablet 40 mg PO DAILY RF: 0 oxycodone-acetaminophen 1 EACH tablet 1 each PO Q6H PRN PRN (Reason: Pain Score 4-10) Qty: 90 RF: 0 ibuprofen 200 MG tablet 200 mg PO BID PRN (Reason: Pain 1-10 Or Fever) RF: 0 prochlorperazine maleate 10 MG tablet 10 mg PO Q6H PRN PRN (Reason: Not Specified) 10 Days Qty: 30 RF: 2 ondansetron 8 MG tablet,disintegrating 8 mg PO Q8H PRN PRN (Reason: Nausea) 10 Days Qty: 30 RF: 3 lidocaine-prilocaine 30 GM cream 1 applic TP DAILY PRN PRN (Reason: Not Specified) 30 Days Qty: 1 RF: 2 atorvastatin 40 mg tablet 40 mg PO QHS Qty: 90 RF: 3 clopidogrel 75 mg tablet 75 mg PO DAILY Qty: 90 RF: 3 Primary Care Provider: Jamie Humphrey Referrals: Jamie Humphrey MD [Primary Care Provider] - Disposition Disposition: Acute Care [facility]
[2020-09-26 08:03] LABS: Hematocrit 40.7 % (40-54); Hemoglobin 12.7 g/dL (13.0-16.5); Mean Corp Hgb Conc 31.2 g/dL (32-36); Mean Corpuscular Hgb 27.7 pg (27.0-32.0); Mean Corpuscular Volume 88.7 fL (80-94); Mean Platelet Vol. 9.3 fl (6.2-12.0); POSITIVE COUNT YES; POSITIVE MORPHOLOGY YES; Platelet Count 149 K/mm3 (150-450); RBC Distribution Width CV 25.1 % (11.6-14.6); RBC Distribution Width SD 78.6 fl (35.1-43.9); Red Blood Count 4.59 M/mm3 (4.6-6.2)
[2020-09-26 08:09] LABS: Differential Indicated MANUAL DIFF; White Blood Count 18.2 K/mm3 (4.4-11.0)
[2020-09-26] MEDS: 0.9% Normal Saline 1,000 ML 999 ML IV (08:17)
[2020-09-26] MEDS: Acetaminophen 650 MG Suppository RC ×2 (08:17→13:16)
[2020-09-26 08:18] LABS: International Normalized Ratio 1.3; Prothrombin Time (Protime)PT. 15.6 SECONDS (11.7-14.9)
[2020-09-26 08:19] LABS: Partial Thromboplast Time 35.2 Seconds (24.1-36.2)
[2020-09-26 08:35] LABS: Mucous, Urine 0 SEEN /hpf (<or=2+); Squamous Epithelial Cells - UA 0 SEEN /hpf (0-5)
[2020-09-26 08:40] LABS: Color, Urine Yellow (Yellow); Glucose, Dipstick 1000 mg/dl (Normal); Ketone-Dipstick Negative (Negative); Leukocyte Esterase-Dipstick 25 /ul (Negative); Nitrite-Dipstick Negative (Negative); Occult Blood-Urine 150 /ul (Negative); Protein-Dipstick 30 mg/dl (Negative); Urine Bilirubin Dipstick Negative (Negative); Urine Clarity Cloudy (Clear); Urine Urobilinogen Normal (Normal)
[2020-09-26 08:40] LABS: Lactic Acid 9.7 mmol/L (0.4-1.9)
[2020-09-26 08:42] LABS: ALB/GLOB Ratio 0.8 RATIO (0.9-2.4); AST(SGOT) 89 U/L (15-37); Alanine Aminotransfer ALT/SGPT 78 U/L (16-61); Albumin, Serum 3.1 g/dL (3.2-5.0); Anion Gap 19 (5-15); BUN 19 mg/dL (7-18); BUN/Creat Ratio 8.4 RATIO (10-20); Calcium,Total 8.7 mg/dL (8.5-10.1); Chloride 107 mmol/L (98-107); Creatinine, Serum 2.27 mg/dL (0.70-1.30); EST Glomerular Filtration Rate 30 mL/min (>60); Est Glom Filt Rate - Afr Amer 37 mL/min (>60); Estimated Creatinine Clearance 26.54 ml/min; Globulin 4.1 g/dL (2.2-4.2); Glucose 216 mg/dL (74-106); Potassium 2.8 mmol/L (3.5-5.1); Protein, Total 7.2 g/dL (6.4-8.2); Sodium Level 142 mmol/L (136-145); Troponin-I HS 379.5 pg/mL (3.0-78.5)
--- NOTE | 2020-09-26 08:49 | ED.RN ---
dr rivera at 0842 of sepsis alert. awaiting new orders
[2020-09-26 08:58] LABS: Lymphocyte 16 % (19-41); Metamyelocyte 7 % (0-1); Monocyte 4 % (0-10); Myelocyte 9 % (0-0); Neutrophil-Band 5 % (0-5); Neutrophil-Segmented 57 % (47-70); Nucleated Red Bld Cells,Manual 3 % (0-5); Promyelocyte 2 % (0-0); Total Cells Counted 100 (MANUAL DIFF)
[2020-09-26 08:59] LABS: Absolute Lymphocyte Count 2.91 X10^3/uL (0.83-4.51); Absolute Neutrophil Count 11.3 X10^3/uL (2.0-7.7)
[2020-09-26 09:00] LABS: Anisocytosis 1+; Hypochromasia 1+; Microcytosis 1+; Platelet Estimate SLT DEC (ADEQ); Platelet Morphology LARGE; Polychromasia 1+; Toxic Granulation 1+
[2020-09-26 09:02] LABS: Alkaline Phosphatase 3171 U/L (45-117)
[2020-09-26 09:04] LABS: Bacteria 3+ /hpf (None Seen); Red Blood Cells-Urine 0-5 SEEN /hpf (0-5); White Blood Cells 0-5 SEEN /hpf (0-5)
[2020-09-26 09:20] LABS: Bedside Glucose 194 mg/dL (70-110)
[2020-09-26 09:41] LABS: Magnesium 1.4 mg/dL (1.6-2.6)
--- NOTE | 2020-09-26 09:55 | NURSING ---
0932 CALLED [facility], NO BEDS 0944 CALLED [facility], NO BEDS
--- NOTE | 2020-09-26 09:56 | NURSING ---
0952 CALLED [facility] MAIN ABOUT TRANSFER. TALKED TO KIP
--- NOTE | 2020-09-26 10:39 | NURSING ---
[facility] MAIN H71 BED 34 REPORT [phone]
--- NOTE | 2020-09-26 10:40 | NURSING ---
CALLED [facility], ETA IS 45 MIN
[2020-09-26] MEDS: Potassium Chloride 10mEq/100mL 10 MEQ/100 ML IV.SOLN. 100 MEQ IV BOLUS ×2 (10:44→12:58)
[2020-09-26] MEDS: Ondansetron 4 MG/2 ML Vial IV (11:06)
--- NOTE | 2020-09-26 11:18 | EKG12_ITS ---
Test Reason : WEAKNESS Blood Pressure : / mmHG Vent. Rate : 147 BPM Atrial Rate : 147 BPM P-R Int : 112 ms QRS Dur : 084 ms QT Int : 310 ms P-R-T Axes : -07 -70 069 degrees QTc Int : 485 ms Sinus tachycardia with occasional Premature ventricular complexes Left axis deviation Abnormal ECG Confirmed by LEORA MONTERO, DEDRICK ([id number]), editorial clerk RAMAKRISHNA CASTANON ([id number]) on 09/29/2020 8:49:15 AM Referred By: KELLIE Confirmed By:DEDRICK COREY MD
[2020-09-26 11:19] LABS: Troponin-I HS 1134.2 pg/mL (3.0-78.5)
--- NOTE | 2020-09-26 11:35 | NURSING ---
CALLED [facility], PUT PATIENT ON WILL CALL. NEED A DIFFERENT BED
[2020-09-26] MEDS: Magnesium Sulfate 2 GM IV IV (11:52)
[2020-09-26 12:09] LABS: Reflex Lactate? Y
[2020-09-26 13:05] LABS: Lactic Acid 8.9 mmol/L (0.4-1.9)
[2020-09-26] MEDS: Aspirin 300 MG Suppository RC (13:16)
--- NOTE | 2020-09-26 20:10 | ED.RN ---
lab called with positive blood cultures. lab called with gram stain negative rods. spoke with robert perdomo at [facility]. she was made aware of test results. at this time
--- NOTE | 2020-09-26 23:11 | ED.RN ---
[facility] notified of second set of blood cultures nurse made aware
--- NOTE | 2020-09-28 12:05 | ED.RN ---
CALLED [facility] AND RELAYED BLOOD CULTURE RESULTS TO MOLLY JOHN
[2020-09-28 13:47] LABS: Pathologist Review Reviewed
== END 2020-09-26 13:45 | disposition short-term general hospital (02) ==
PROVIDERS: Emergency Provider Emergency Medicine; PCP Family Medicine
DX: A41.9 Sepsis, unspecified organism (principal); R65.21 Severe sepsis with septic shock; C25.9 Malignant neoplasm of pancreas, unspecified; E87.6 Hypokalemia; N28.9 Disorder of kidney and ureter, unspecified; K81.9 Cholecystitis, unspecified; N20.1 Calculus of ureter; E83.42 Hypomagnesemia; I25.10 Atherosclerotic heart disease of native coronary artery without angina pectoris
CPT/HCPCS: 36591; 71045; 74176; 80053; 81001; 82962; 83605; 83735; 84484; 85025; 85610; 85730; 87040; 87077; 87086; 87088; 87186; 87426; 93005; 96365; 96366; 96367; 96375; 99285; J7030; J7050; A4216; J2405

== ENCOUNTER 2020-11-17 09:07 | Emergency (ER) | payer MEDICARE, SELFPAY ==
[2020-11-16 15:59] VITALS: BMI 24.7
[2020-11-17 09:08] VITALS: BP 110/72; PULSE 89; RESP 18; TEMP 36.2; O2SAT 99; BMI 24.3
[2020-11-17 09:11] VITALS: BP 110/72; PULSE 89; RESP 18; TEMP 36.2; O2SAT 99
--- NOTE | 2020-11-17 09:19 | CT_ITS ---
STUDY: CT ABDOMEN AND PELVIS WITH CONTRAST REASON FOR EXAM: Male, 70 years old. Abdominal pain -- IV PO Contrast. Patient is jaundiced. History of pancreatic carcinoma. RADIATION DOSAGE (If Supplied By Facility): CTDIvol = ( 13.48 ) mGy, DLP = ( 717.16 ) mGycm TECHNIQUE: Transaxial images were obtained from the dome of the diaphragm to the symphysis pubis with oral contrast. Oral and amp; IV Gastrografin and amp; 100mL Isovue-300 was administered. Sagittal and coronal images were reconstructed. Individualized dose optimization techniques were used for this CT. COMPARISON: Comparison is made with prior study dated 09/26/2020. FINDINGS: Stable 8 mm noncalcified nodule in the peripheral lateral aspect of the left lower lobe. Increased markings in the left lower lobe suggestive of a atelectasis. Coronary artery calcification. Prior CABG. There are multiple hypodense nodules scattered throughout the liver in keeping with metastatic deposits. There is evidence of a dilated intrahepatic biliary ducts as well as the common bile duct. Multiple small gallstones are seen along the dependent portion of the gallbladder. The gallbladder is slightly distended. Borderline cardiomegaly. There is a 2.8 cm x 1.9 cm inhomogeneous mass in the region of the head of the pancreas extending into the uncinate process of the pancreas. There is evidence of atrophy of the body and tail portions of the pancreas. Intraluminal filling defect is seen within the proximal portion of the superior mesenteric vein suggestive of a subocclusive thrombus. Normal bilateral adrenal glands. Mildly dilated right ureter down to a 1 cm calculus at the right ureterovesical junction. Normal left kidney. Normal visualized stomach. Normal small intestine. Normal colon. The appendix is visualized and appears normal. There is diffuse atherosclerotic calcification of the abdominal aorta, without a demonstrated aneurysm. Normal inferior vena cava. Normal retroperitoneum. Diffuse thickening of the urinary bladder wall. Normal abdominal wall. There are degenerative changes of the visualized lumbar spine. Grade 1 anterolisthesis of L4 on L5. CT/Abdomen/Pelvis WITH Contrast IMPRESSION: Liver metastasis. Dilated intrahepatic ducts and common bile duct due to a mass in the region of the head and uncinate process of the pancreas. 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 Diffuse thickening of the urinary bladder. Electronically Signed: Gen Hill MD at 12:06 EDT , Service support ,
--- NOTE | 2020-11-17 09:21 | EDS_ITS ---
HPI HPI - GI History of Present Illness Chief Complaint: Abd Pain Detail of Chief Complaint: Jaundice Informant: patient Abdominal Pain/Flank Pain Onset: Month(s) Context: Gradual Onset Timing: Continuous Location: Epigastric Worsened by: Nothing Relieved by: - (Percocet) Nausea/Vomiting/Emesis GI Symptom: Negative for Nausea and Vomiting Diarrhea/Melena/Hematochezia GI Symptom: Negative for Diarrhea, Melena and Hematochezia Associated Symptoms Associated Symptoms: Negative for Dysuria and Frequency Narrative Narrative: Presents with jaundice that was noticed yesterday. Patient saw his oncologist yesterday who noticed the jaundice. Patient states his oncologist referred him to the emergency department. Patient has a history of pancreatic cancer. Patient admits to upper abdominal pain. Patient states the pain is better with Percocet. Patient denies any nausea or vomiting. Patient denies any diarrhea, melena, or hematochezia. Patient states his urine has been darker than usual. Patient denies any fevers or chills. [facility] Medical History Acquired hypothyroidism Anxiety and depression Atherosclerotic heart disease of [place] coronary artery without angina pectoris Benign neoplasm of colon BPH (benign prostatic hyperplasia) CAD (coronary artery disease) Chemotherapy induced neutropenia Constipation Essential hypertension GERD (gastroesophageal reflux disease) History of agent [place] exposure Hypokalemia Pancreatic cancer Port-A-Cath in place Presence of stent in coronary artery (~09/19/05) Type 2 diabetes mellitus Urinary retention Home Medications levothyroxine 100 mcg PO DAILY 05/24/18 [History Last Taken 11/17/20] atorvastatin 40 mg tablet 40 mg PO QHS #90 tablet 07/20/18 [Rx Last Taken 11/16/20] aspirin 81 mg tablet,delayed release 81 mg PO DAILY 11/16/18 [History Last Taken 11/16/20] nitroglycerin 0.4 mg sublingual tablet 0.4 mg SL Q5-15M PRN #90 tablet 11/15/19 [Rx Last Taken Unknown] citalopram 20 mg tablet 20 mg PO DAILY 05/14/20 [History Last Taken 11/16/20] insulin glargine 100 unit/mL (3 mL) subcutaneous pen 16 unit SC QHS ml 05/14/20 [History Last Taken 11/16/20] latanoprost 0.005 % eye drops 1 drp EACH EYE QPM 05/14/20 [History Last Taken 11/16/20] ibuprofen 200 mg PO BID PRN 07/20/20 [History Last Taken Unknown] lidocaine-prilocaine 1 applic TP DAILY PRN PRN 30 Days #1 tube 07/20/20 [Rx Last Taken Unknown] ondansetron 8 mg PO Q8H PRN PRN 10 Days #30 tab.rapdis 07/20/20 [Rx Last Taken Unknown] prochlorperazine maleate 10 mg PO Q6H PRN PRN 10 Days #30 tablet 07/20/20 [Rx Last Taken Unknown] oxycodone-acetaminophen 5 mg-325 mg tablet 1 tab PO Q6H PRN PRN 30 Days #90 tab 10/19/20 [Rx Last Taken 11/17/20] insulin aspart U-100 [Novolog Flexpen U-100 Insulin] TIDCM 11/17/20 [History Last Taken Unknown] Allergy/AdvReac Type Severity Reaction Status Date / Time phenazopyridine AdvReac Unknown Vomiting Verified 11/17/20 09:08 [From Pyridium] beta blockers AdvReac Unknown Intolerant- Uncoded 11/17/20 09:08 Extreme fatigue Family History Mother CHF (congestive heart failure) Hypertension Cancer Cervical Father CAD (coronary artery disease) Myocardial infarction Cancer Colon Surgical History History of colonoscopy (~01/2020) History of left heart catheterization (LHC) Hx of heart artery stent Presence of coronary angioplasty implant and graft Status post coronary artery bypass graft (~09/12/18) Social History Smoking Status: Never smoker alcohol intake: current details: occasional substance use type: does not use ROS ROS ED Constitutional Constitutional ED: Denies chills or fever(s) Eyes Eyes: Denies blurry vision or change in vision ENT ENT ED: Denies rhinorrhea or sore throat Cardiovascular Cardiovascular: Denies chest pain or palpitations Respiratory/Chest Respiratory/Chest: Denies cough or dyspnea Gastrointestinal Gastrointestinal: Reports abdominal pain; Denies nausea or vomiting Genitourinary Genitourinary ED: Denies dysuria or hematuria Musculoskeletal Musculoskeletal: Denies back pain or neck pain Integumentary Denies abscess or rash Neurologic Neurologic: Denies headache(s) or weakness Allergic/Immunologic Allergic/Immunologic ED: Denies mouth swelling or urticaria EXAM Physical Exam Const Vital Signs: 11/17/20 09:08 11/17/20 09:11 11/17/20 11:32 Temperature 97.2 F L 97.2 F L 96.9 F L Temperature Source Temporal Temporal Temporal Pulse Rate 89 89 66 Respiratory Rate 18 18 16 Blood Pressure 110/72 110/72 108/69 Blood Pressure Mean 84 84 82 Pulse Ox 99 99 99 Oxygen Delivery Method Room Air Room Air Room Air Positive well nourished and well developed General Appearance ED: well developed HEENT Reports moist mucous membranes Eyes General Eye ED: Yes scleral icterus Neck supple and no JVD Resp normal respiratory effort and clear to auscultation bilaterally Cardio regular rate, regular rhythm and no murmurs GI normal to inspection, nondistended, normoactive bowel sounds Palpation: soft and tender epigastric; Negative for guarding or rebound tenderness present Extremity normal to inspection General Extremety ED: Negative for edema or tenderness General Extremity: Negative for edema Neuro oriented x3, CN's II-XII intact bilaterally and no sensory deficits noted Sensorium / Orientation: alert Motor Exam: strength 5/5 throughout Psych mental status grossly normal Skin no rashes or lesions noted General Skin Exam: jaundice MDM MDM MDM Narrative Medical decision making narrative: CBC shows a mild anemia with a hemoglobin of 11.4 hematocrit 35.8. Comprehensive metabolic profile showed a total bilirubin of 11.5 and a direct bilirubin of 9.57. Alk phos was 1581, ALT was 305, AST was 322. Creatinine was 1.6 and BUN was 24. Urinalysis showed leukocyte esterase of 500 with 50-100 white blood cells and 2+ bacteria. Patient was given a dose of Rocephin for this. CT scan of the abdomen pelvis was obtained. There are liver metastases. There are dilated intrahepatic and common bile ducts due to a mass in the region of the head and uncinate process of the pancreas. Case was discussed with Dr. Nj. He recommended transferring the patient to a facility that can do biliary stenting. There were no beds available at [facility] where the patient has previously seen a floor director. Case was discussed with Dr. Goff from [facility]. He accepted the patient to [facility]. Patient will be transferred there. Patient understood and was agreeable with the plan. All questions were answered. Lab Data Attestation: I reviewed the patient's lab results. Labs: Laboratory Results - last 24 hr 11/17/20 11/17/20 11/17/20 09:25 09:25 12:00 WBC 4.2 L RBC 3.96 L Hgb 11.4 L Hct 35.8 L MCV 90.4 MCH 28.8 MCHC 31.8 L RDW Std Deviation 61.2 H RDW Coeff of [place] 18.4 H Plt Count 105 L MPV 10.6 Immature Gran % (Auto) 0.200 Neut % (Auto) 66.6 Lymph % (Auto) 17.[address] [place] % (Auto) 11.7 H Eos % (Auto) 4.3 Baso % (Auto) 0.2 Absolute Neuts (auto) 2.8 Absolute Lymphs (auto) 0.71 L Nucleated RBC % 0 Sodium 133 L Potassium 4.0 Chloride 101 Carbon Dioxide 26.0 Anion Gap 6 BUN 24 H Creatinine 1.60 H Estim Creat Clear Calc 37.66 Est GFR (MDRD) Af Amer 55 L Est GFR (MDRD) Non-Af 45 L BUN/Creatinine Ratio 15.0 Glucose 131 H Calcium 9.0 Total Bilirubin 11.50 H Direct Bilirubin 9.57 H AST 322 H ALT 305 H Alkaline Phosphatase 1581 H Total Protein 7.7 Albumin 2.8 L Globulin 4.9 H Urine Color [place] Urine Clarity Sl. Cloudy Urine pH 5.0 Ur Specific [place] 1.015 Urine Protein 100 H Urine Glucose (UA) Normal Urine Ketones Negative Urine Occult Blood 25 H Urine Nitrite Negative Urine Bilirubin 3 H Urine Urobilinogen 4 H Ur Leukocyte Esterase 500 H Urine RBC 0-5 SEEN Urine WBC 50-100 SEEN Ur Squamous Epith Cells 0-5 SEEN Urine Bacteria 2+ Urine Mucus RARE Radiography Diagnostic Testing: Radiology Impression Abdomen/Pelvis CT 11/17/20 09:19 IMPRESSION: Liver metastasis. Dilated intrahepatic ducts and common bile duct due to a mass in the region of the head and uncinate process of the pancreas. 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 Diffuse thickening of the urinary bladder. 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, Pancreatic cancer, Urinary tract infection Prescriptions: No Action aspirin [Adult Low Dose Aspirin] 81 mg tablet,delayed release (DR/EC) 81 mg PO DAILY RF: 0 nitroglycerin 0.4 mg tablet, sublingual 0.4 mg SL Q5-15M PRN (Reason: Pain) Qty: 90 RF: 3 Lantus Solostar U-100 Insulin 100 unit/mL (3 mL) insulin pen 16 unit SC QHS RF: 0 citalopram 20 mg tablet 20 mg PO DAILY RF: 0 latanoprost 0.005 % drops 1 drp EACH EYE QPM RF: 0 oxycodone-acetaminophen 5-325 mg tablet 1 tab PO Q6H PRN PRN (Reason: Pain Score 4-10) 30 Days Qty: 90 RF: 0 levothyroxine 100 MCG tablet 100 mcg PO DAILY RF: 0 ibuprofen 200 MG tablet 200 mg PO BID PRN (Reason: Pain 1-10 Or Fever) RF: 0 prochlorperazine maleate 10 MG tablet 10 mg PO Q6H PRN PRN (Reason: Not Specified) 10 Days Qty: 30 RF: 2 ondansetron 8 MG tablet,disintegrating 8 mg PO Q8H PRN PRN (Reason: Nausea) 10 Days Qty: 30 RF: 3 lidocaine-prilocaine 30 GM cream 1 applic TP DAILY PRN PRN (Reason: Not Specified) 30 Days Qty: 1 RF: 2 insulin aspart U-100 [Novolog Flexpen U-100 Insulin] 100 unit/mL (3 mL) Insulin Pen TIDCM RF: 0 atorvastatin 40 mg tablet 40 mg PO QHS Qty: 90 RF: 3 Primary Care Provider: Jamie Humphrey Referrals: Jamie Humphrey MD [Primary Care Provider] - Disposition Disposition: Acute Care Hospital Discharge Location: [facility]
[2020-11-17 09:35] LABS: Absolute Lymphocyte Count 0.71 X10^3/uL (0.83-4.51); Absolute Neutrophil Count 2.8 X10^3/uL (2.0-7.7); Basophil# 0.01 X10^3/uL; Basophil% 0.2 % (0-1); Eosinophil# 0.18 X10^3/uL; Eosinophils% 4.3 % (0-5); Hematocrit 35.8 % (40-54); Hemoglobin 11.4 g/dL (13.0-16.5); Lymphocyte # 0.71 X10^3/ul (0.83-4.51); Mean Corp Hgb Conc 31.8 g/dL (32-36); Mean Corpuscular Hgb 28.8 pg (27.0-32.0); Mean Corpuscular Volume 90.4 fL (80-94); Mean Platelet Vol. 10.6 fl (6.2-12.0); Monocyte# 0.49 X10^3/uL; Monocyte% 11.7 % (0-10); NRBC Flagged by Analyzer 0 % (0-5); Neutrophil # 2.78 X10^3/uL (2.7-7.7); Neutrophil % 66.6 % (47-70); Platelet Count 105 K/mm3 (150-450); RBC Distribution Width CV 18.4 % (11.6-14.6); RBC Distribution Width SD 61.2 fl (35.1-43.9); Red Blood Count 3.96 M/mm3 (4.6-6.2); White Blood Count 4.2 K/mm3 (4.4-11.0)
[2020-11-17 10:02] LABS: AST(SGOT) 322 U/L (15-37); Alanine Aminotransfer ALT/SGPT 305 U/L (16-61); Albumin, Serum 2.8 g/dL (3.2-5.0); Alkaline Phosphatase 1581 U/L (45-117); Anion Gap 6 (5-15); BUN 24 mg/dL (7-18); Bilirubin, Direct 9.57 mg/dL (0.00-0.30); Chloride 101 mmol/L (98-107); EST Glomerular Filtration Rate 45 mL/min (>60); Est Glom Filt Rate - Afr Amer 55 mL/min (>60); Estimated Creatinine Clearance 37.66 ml/min; Globulin 4.9 g/dL (2.2-4.2); Glucose 131 mg/dL (74-106); Protein, Total 7.7 g/dL (6.4-8.2); Sodium Level 133 mmol/L (136-145)
[2020-11-17 11:32] VITALS: BP 108/69; PULSE 66; RESP 16; TEMP 36.1; O2SAT 99
[2020-11-17 12:06] LABS: Color, Urine Amber (Yellow); Glucose, Dipstick Normal (Normal); Ketone-Dipstick Negative (Negative); Leukocyte Esterase-Dipstick 500 /ul (Negative); Nitrite-Dipstick Negative (Negative); Occult Blood-Urine 25 /ul (Negative); Protein-Dipstick 100 mg/dl (Negative); Specific Gravity, Urine 1.015 (1.002-1.030); Urine Clarity Sl. Cloudy (Clear); Urine Urobilinogen 4 mg/dl (Normal)
[2020-11-17 12:13] LABS: Urine Bilirubin Dipstick 3 mg/dL (Negative)
[2020-11-17 12:14] LABS: White Blood Cells 50-100 SEEN /hpf (0-5)
[2020-11-17 12:16] LABS: Bacteria 2+ /hpf (None Seen); Mucous, Urine RARE /hpf (<or=2+); Red Blood Cells-Urine 0-5 SEEN /hpf (0-5); Squamous Epithelial Cells - UA 0-5 SEEN /hpf (0-5)
[2020-11-17] MEDS: Ceftriaxone 1 GM/50 ML BAG IV (13:22)
--- NOTE | 2020-11-17 13:51 | NURSING ---
[facility] [address] RO[address] A NURSE TO NURSE [phone]
--- NOTE | 2020-11-17 14:12 | NURSING ---
CALLED [facility], TALKED TO NESSA, ETA IS 30 MIN
[2020-11-17] MEDS: Morphine 4 MG/ML Syringe IV (14:24)
== END 2020-11-17 14:57 | disposition short-term general hospital (02) ==
PROVIDERS: Emergency Provider Emergency Medicine; PCP Family Medicine
DX: C25.9 Malignant neoplasm of pancreas, unspecified (principal); K80.21 Calculus of gallbladder without cholecystitis with obstruction; N39.0 Urinary tract infection, site not specified; Z79.82 Long term (current) use of aspirin; E03.9 Hypothyroidism, unspecified; F41.9 Anxiety disorder, unspecified; F32.9 Major depressive disorder, single episode, unspecified; I25.10 Atherosclerotic heart disease of native coronary artery without angina pectoris; N40.1 Benign prostatic hyperplasia with lower urinary tract symptoms; R33.8 Other retention of urine; I10 Essential (primary) hypertension; K21.9 Gastro-esophageal reflux disease without esophagitis; E11.9 Type 2 diabetes mellitus without complications; Z79.899 Other long term (current) drug therapy; Z79.4 Long term (current) use of insulin; Z95.1 Presence of aortocoronary bypass graft
CPT/HCPCS: 74177; 80048; 80076; 81001; 85025; 96365; 96375; 99285; J7050; Q9967; A4216

== ENCOUNTER → 2021-01-11 07:41 | Outpatient (CLI) | payer MEDICARE, SELFPAY ==
--- NOTE | 2021-01-11 07:43 | CT_ITS ---
STUDY: CT ABDOMEN AND PELVIS WITH CONTRAST REASON FOR EXAM: Male, 71 years old. ASSESS DISEASE STATUS -- IV AND ORAL CONTRAST. Patient has a history of pancreatic carcinoma and chemotherapy. RADIATION DOSAGE (If Supplied By Facility): CTDIvol = ( 9.55 ) mGy, DLP = ( 626.64 ) mGycm TECHNIQUE: Transaxial images were obtained from the dome of the diaphragm to the symphysis pubis with oral contrast. Oral and amp; IV Readi-CAT and amp; 100mL Isovue-300 was administered. Sagittal and coronal images were reconstructed. Individualized dose optimization techniques were used for this CT. COMPARISON: Comparison is made with prior study dated 11/17/2020. FINDINGS: Stable 8 mm noncalcified nodule in the peripheral lateral aspect of the left lower lobe. Stable minimal increased linear markings at the left lung base suggestive of a scarring. Tiny left pleural effusion. Coronary artery calcification. Prior CABG. Multiple hypodense nodules scattered throughout both the right and left lobes of the liver in keeping with diffuse metastatic disease. These have increased both in number and size as compared to prior study. There now is evidence of a new perihepatic and perisplenic fluid. Small gallstones are seen within the dependent portion of the gallbladder. A stent is seen within the common bile duct extending into the right hepatic duct. Normal spleen. There is a 3.3 cm x 3.5 cm heterogeneous mass in the head of the pancreas and uncinate process of the pancreas. This has progressed as compared to prior study. Normal bilateral adrenal glands. Normal right kidney. Normal left kidney. Free fluid is seen along the [place] gutters bilaterally more prominent on the right side. Small amount of fluid is also seen in the pelvis. Normal visualized stomach. Normal small intestine. There is evidence of soft tissue density involving the terminal ileum extending into the cecum. This measures 4.5 cm x 3.2 cm. Linear barium is seen within the soft tissue mass. The appendix is visualized and appears normal. Normal abdominal aorta. Normal inferior vena cava. Normal retroperitoneum. Normal urinary bladder. Normal abdominal wall. There are diffuse degenerative changes of the visualized lumbar spine. Minimal anterior listhesis of L4 on L5. CT/Abdomen/Pelvis WITH Contrast IMPRESSION: Diffuse hepatic metastasis. There has been increase in both number and size of the metastatic deposits within the liver. Ascites. Cholelithiasis. Soft tissue mass in the region of the terminal ileum and cecum. Electronically Signed: Gen Hill MD at 15:10 EDT , Service support ,
[2021-01-11] MEDS: 0.9% Saline Lock 10 ML Syringe IV (08:05)
== END ==
PROVIDERS: PCP Family Medicine; Referring Provider Internal Medicine Medical Oncology; Visit Provider Internal Medicine Medical Oncology
DX: C25.9 Malignant neoplasm of pancreas, unspecified (principal)
CPT/HCPCS: 74177; Q9967; A4216

== ENCOUNTER 2021-02-06 08:44 | Inpatient (IN) | payer MEDICARE, SELFPAY ==
[2021-02-06] VITALS (27 sets, daily range): BP systolic 90–147; BP diastolic 46–122; PULSE 64–104; RESP 11–27; TEMP 37.1–38.4; O2SAT 93–100; BMI 21.1; BMI 22.8
--- NOTE | 2021-02-06 08:57 | RAD_ITS ---
STUDY: X-RAY CHEST REASON FOR EXAM: Male, 71 years old. Fever. TECHNIQUE: Single AP portable view of the chest. COMPARISON: 09/26/2020. FINDINGS: Position of right-sided Port-A-Cath with its tip in the atriocaval junction. Mild stranding/scarring in the left lung base. There is no demonstrated pleural abnormality. Sternal cerclage wires are present from a prior sternotomy. Normal cardiac silhouette. Normal mediastinum and raimundo. Normal visualized pulmonary arteries. There is atherosclerotic calcification of the aortic arch with tortuosity. Stable osseous structures. There is no demonstrated abnormality of the visualized soft tissue structures of the upper abdomen. RAD/Chest 1 View (Portable) IMPRESSION: Linear atelectasis or scarring in the left base. No active pulmonary disease. Electronically Signed: Ramy Booker MD at 10:22 EDT Tel , Service support ,
--- NOTE | 2021-02-06 08:57 | EKG12_ITS ---
Test Reason : FEVER Blood Pressure : / mmHG Vent. Rate : 100 BPM Atrial Rate : 100 BPM P-R Int : 108 ms QRS Dur : 076 ms QT Int : 358 ms P-R-T Axes : 032 -45 050 degrees QTc Int : 461 ms Sinus rhythm with short NE Left axis deviation Low voltage QRS (Limb Leads) Abnormal ECG Confirmed by PATRICIA MONTERO, GERONIMO ([id number]), publishing editor RAMAKRISHNA CASTANON ([id number]) on 02/08/2021 10:29:58 AM Referred By: KELLIE Confirmed By:GERONIMO GOMEZ MD
--- NOTE | 2021-02-06 09:00 | EX.ED.DYSGE1 ---
HPI History of Present Illness Chief Complaint: Fever Informant: patient Onset/Context/Timing Onset: Today Context: Gradual Onset Current Severity: Moderate Maximum Severity: Moderate Narrative Narrative: Patient presents secondary to fever. He has a history of pancreatic cancer currently undergoing chemotherapy. Most recent chemotherapy treatment was 2 days ago. Patient states he woke early this morning with fever and generalized body aches. No fever. No vomiting. No diarrhea. He denies urinary symptoms. [facility] Medical History Acquired hypothyroidism Anxiety and depression Atherosclerotic heart disease of [place] coronary artery without angina pectoris Benign neoplasm of colon BPH (benign prostatic hyperplasia) CAD (coronary artery disease) Cancer related pain Chemotherapy induced neutropenia Constipation Encounter for education Essential hypertension GERD (gastroesophageal reflux disease) History of agent [place] exposure Hypokalemia Pancreatic cancer Port-A-Cath in place Presence of stent in coronary artery (~09/19/05) Type 2 diabetes mellitus Urinary retention Home Medications levothyroxine 100 mcg PO DAILY 05/24/18 [History Last Taken 11/17/20] atorvastatin 40 mg tablet 40 mg PO QHS #90 tablet 07/20/18 [Rx Last Taken 11/16/20] aspirin 81 mg tablet,delayed release 81 mg PO DAILY 11/16/18 [History Last Taken 11/16/20] nitroglycerin 0.4 mg sublingual tablet 0.4 mg SL Q5-15M PRN #90 tablet 11/15/19 [Rx Last Taken Unknown] citalopram 20 mg tablet 20 mg PO DAILY 05/14/20 [History Last Taken 11/16/20] insulin glargine 100 unit/mL (3 mL) subcutaneous pen 16 unit SC QHS ml 05/14/20 [History Last Taken 11/16/20] latanoprost 0.005 % eye drops 1 drp EACH EYE QPM 05/14/20 [History Last Taken 11/16/20] ibuprofen 200 mg PO BID PRN 07/20/20 [History Last Taken Unknown] lidocaine-prilocaine 1 applic TP DAILY PRN PRN 30 Days #1 tube 07/20/20 [Rx Last Taken Unknown] ondansetron 8 mg PO Q8H PRN PRN 10 Days #30 tab.rapdis 07/20/20 [Rx Last Taken Unknown] prochlorperazine maleate 10 mg PO Q6H PRN PRN 10 Days #30 tablet 07/20/20 [Rx Last Taken Unknown] insulin aspart U-100 [Novolog Flexpen U-100 Insulin] TIDCM 11/17/20 [History Last Taken Unknown] dexamethasone 4 mg tablet 4 mg PO DAILY #20 tab 12/15/20 [Rx Last Taken Unknown] fentanyl 25 mcg/hr transdermal patch 1 patch TRANSDERMAL ea 02/04/21 [History Last Taken Unknown] oxycodone-acetaminophen 5 - 325 tab PO TID 02/06/21 [History Last Taken Unknown] Allergy/AdvReac Type Severity Reaction Status Date / Time phenazopyridine AdvReac Unknown Vomiting Verified 02/04/21 08:20 [From Pyridium] beta blockers AdvReac Unknown Intolerant- Uncoded 01/05/21 08:57 Extreme fatigue Family History Mother CHF (congestive heart failure) Hypertension Cancer Cervical Father CAD (coronary artery disease) Myocardial infarction Cancer Colon Surgical History History of colonoscopy (~01/2020) History of left heart catheterization (LHC) Hx of heart artery stent Presence of coronary angioplasty implant and graft Status post coronary artery bypass graft (~09/12/18) Social History Smoking Status: Never smoker alcohol intake: current details: occasional substance use type: does not use ROS ROS ED Constitutional Constitutional ED: Reports fever(s) Eyes Eyes: Denies change in vision ENT ENT ED: Denies sore throat Cardiovascular Cardiovascular: Denies chest pain or palpitations Respiratory/Chest Respiratory/Chest: Denies cough or dyspnea Gastrointestinal Gastrointestinal: Denies abdominal pain, diarrhea or vomiting Genitourinary Genitourinary ED: Denies dysuria Musculoskeletal Musculoskeletal: Reports myalgias Integumentary Denies rash Neurologic Neurologic: Reports weakness Psychiatric Psychiatric: Denies depression Allergic/Immunologic Allergic/Immunologic ED: Denies urticaria EXAM Physical Exam Const Vital Signs: 02/06/21 08:44 02/06/21 08:45 02/06/21 09:02 Temperature 101.2 F H Temperature Source Temporal Pulse Rate 98 104 H Respiratory Rate 20 H 18 Blood Pressure 147/122 H 99/50 L Blood Pressure Mean 130 66 Pulse Ox 98 100 Oxygen Delivery Method Room Air Room Air Room Air 02/06/21 10:05 02/06/21 10:07 02/06/21 11:10 Temperature 99.4 F H 100 F H Temperature Source Oral Oral Pulse Rate 89 76 Respiratory Rate 11 L 13 Blood Pressure 91/48 L 105/55 L Blood Pressure Mean 62 71 Pulse Ox 100 100 Oxygen Delivery Method Room Air Room Air 02/06/21 11:44 02/06/21 12:28 Temperature 98.7 F 99 F Temperature Source Oral Oral Pulse Rate 79 Respiratory Rate 14 Blood Pressure 93/50 L Blood Pressure Mean 64 Pulse Ox Oxygen Delivery Method Positive well nourished and well developed General Appearance ED: well developed HEENT Reports moist mucous membranes Eyes PERRL and EOMs intact bilaterally Chest Wall inspection of chest normal and palpation of chest normal Resp normal respiratory effort and clear to auscultation bilaterally Cardio Rate: tachycardic GI non-tender Auscultation: hypoactive bowel sounds Palpation: soft Extremity normal to inspection Neuro oriented x3 Sensorium / Orientation: alert Psych mental status grossly normal Skin no rashes or lesions noted MDM MDM MDM Narrative Medical decision making narrative: Sepsis work-up was initiated. Patient was given Tylenol for fever. Lab Data Attestation: I reviewed the patient's lab results. Labs: Laboratory Results - last 24 hr 02/06/21 02/06/21 02/06/21 09:30 09:30 09:30 WBC 9.4 RBC 3.29 L Hgb 9.8 L Hct 30.3 L MCV 92.1 MCH 29.8 MCHC 32.3 RDW Std Deviation 64.1 H RDW Coeff of [place] 19.3 H Plt Count 136 L MPV 10.8 Immature Gran % (Auto) 0.500 Neut % (Auto) 97.9 H Lymph % (Auto) 0.8 L [place] % (Auto) 0.7 Eos % (Auto) 0.0 Baso % (Auto) 0.1 Absolute Neuts (auto) 9.2 H Absolute Lymphs (auto) 0.08 L Nucleated RBC % 0 Platelet Estimate SLT DEC Hypochromasia 1+ Anisocytosis 1+ PT 17.2 H INR 1.5 APTT 31.4 Sodium 135 L Potassium 4.3 Chloride 104 Carbon Dioxide 20.0 L Anion Gap 11 BUN 34 H Creatinine 1.23 Estim Creat Clear Calc 44.95 Est GFR (MDRD) Af Amer 74 Est GFR (MDRD) Non-Af 61 BUN/Creatinine Ratio 27.6 H Glucose 126 H Lactic Acid Calcium 8.0 L Total Bilirubin 5.00 H AST 116 H ALT 85 H Alkaline Phosphatase 1429 H Total Protein 6.1 L Albumin 1.8 L Globulin 4.3 H Albumin/Globulin Ratio 0.4 L Urine Color Urine Clarity Urine pH Ur Specific [facility] Urine Protein Urine Glucose (UA) Urine Ketones Urine Occult Blood Urine Nitrite Urine Bilirubin Urine Urobilinogen Ur Leukocyte Esterase Urine RBC Urine WBC Ur Squamous Epith Cells Urine Bacteria Urine Mucus 02/06/21 02/06/21 09:30 11:04 WBC RBC Hgb Hct MCV MCH MCHC RDW Std Deviation RDW Coeff of [place] Plt Count MPV Immature Gran % (Auto) Neut % (Auto) Lymph % (Auto) [place] % (Auto) Eos % (Auto) Baso % (Auto) Absolute Neuts (auto) Absolute Lymphs (auto) Nucleated RBC % Platelet Estimate Hypochromasia Anisocytosis PT INR APTT Sodium Potassium Chloride Carbon Dioxide Anion Gap BUN Creatinine Estim Creat Clear Calc Est GFR (MDRD) Af Amer Est GFR (MDRD) Non-Af BUN/Creatinine Ratio Glucose Lactic Acid 6.2 H* Calcium Total Bilirubin AST ALT Alkaline Phosphatase Total Protein Albumin Globulin Albumin/Globulin Ratio Urine Color Yellow Urine Clarity Sl. Cloudy Urine pH 5.0 Ur Specific [facility] 1.015 Urine Protein 30 H Urine Glucose (UA) Normal Urine Ketones 5 H Urine Occult Blood 25 H Urine Nitrite Negative Urine Bilirubin 3 H Urine Urobilinogen 12 H Ur Leukocyte Esterase 500 H Urine RBC 0 SEEN Urine WBC 5-10 SEEN Ur Squamous Epith Cells 0-5 SEEN Urine Bacteria 3+ Urine Mucus 0 SEEN Radiography Chest X-Ray - ED: 1 View, Read by ED Physician and Chronic Changes Diagnostic Testing: Clinical Impression(s) from Imaging Studies Chest X-Ray 02/06/21 08:57 IMPRESSION: Linear atelectasis or scarring in the left base. No active pulmonary disease. Electronically Signed: Ramy Booker MD at 10:22 EDT Tel , Service support , Abdomen/Pelvis CT 02/06/21 10:58 IMPRESSION: No change in known metastatic pancreatic carcinoma with a biliary stent with pneumobilia, hepatic metastases, small amount of ascites, and small left pleural effusion. Electronically Signed: Maximo Barker MD at 12:52 EDT Tel , Service support , EKG Initial EKG: Attestation: I personally reviewed and interpreted this EKG as follows: Interpretation: Sinus Rhythm (Sinus at 100 with no acute ischemia.) Treatment and Re-Evaluation Comments:: Patient's blood pressure did drop down into the high 80s/low 90s systolic. This did respond well to 2 L IV fluid bolus. Patient's lab work reveals a white count of 9.4 with a left shift. Chemistry studies reveal mildly elevated BUN but normal creatinine. Lactic acid elevated at 6.2. LFTs elevated similar to prior. Bilirubin does appear to be slightly climbing. Urinalysis does reveal infection with 3+ bacteria. With the patient having a known biliary stent and slight increase in bilirubin I did obtain a CT scan of the abdomen and pelvis. No significant changes noted when compared to prior study. Patient has been treated with Rocephin and blood and urine culture sent. Covid test was negative. Patient will be admitted to the hospital for treatment. Discharge Plan Triage Chief Complaint: Fever ED Provider: Mandi Lala Dx/Rx/DC Orders Clinical Impression: UTI (urinary tract infection), Septic shock Prescriptions: No Action aspirin [Adult Low Dose Aspirin] 81 mg tablet,delayed release (DR/EC) 81 mg PO DAILY RF: 0 nitroglycerin 0.4 mg tablet, sublingual 0.4 mg SL Q5-15M PRN (Reason: Pain) Qty: 90 RF: 3 Lantus Solostar U-100 Insulin 100 unit/mL (3 mL) insulin pen 16 unit SC QHS RF: 0 citalopram 20 mg tablet 20 mg PO DAILY RF: 0 latanoprost 0.005 % drops 1 drp EACH EYE QPM RF: 0 dexamethasone [Decadron] 4 mg tablet 4 mg PO DAILY Qty: 20 RF: 0 fentanyl 25 mcg/hr patch 72 hour 1 patch transdermal RF: 0 levothyroxine 100 MCG tablet 100 mcg PO DAILY RF: 0 ibuprofen 200 MG tablet 200 mg PO BID PRN (Reason: Pain 1-10 Or Fever) RF: 0 prochlorperazine maleate 10 MG tablet 10 mg PO Q6H PRN PRN (Reason: Not Specified) 10 Days Qty: 30 RF: 2 ondansetron 8 MG tablet,disintegrating 8 mg PO Q8H PRN PRN (Reason: Nausea) 10 Days Qty: 30 RF: 3 lidocaine-prilocaine 30 GM cream 1 applic TP DAILY PRN PRN (Reason: Not Specified) 30 Days Qty: 1 RF: 2 insulin aspart U-100 [Novolog Flexpen U-100 Insulin] 100 unit/mL (3 mL) Insulin Pen TIDCM RF: 0 oxycodone-acetaminophen 5-325 mg tablet 5 - 325 tab PO TID RF: 0 atorvastatin 40 mg tablet 40 mg PO QHS Qty: 90 RF: 3 Primary Care Provider: Jamie Humphrey Referrals: Jamie Humphrey MD [Primary Care Provider] - Disposition Disposition: Acute Care [facility]
[2021-02-06] MEDS: Acetaminophen 325 MG Tablet 650 MG PO (09:21)
[2021-02-06] MEDS: 0.9% Normal Saline 1,000 ML 999 ML IV ×2 (09:53→10:47)
[2021-02-06 09:56] LABS: Absolute Lymphocyte Count 0.08 X10^3/uL (0.83-4.51); Absolute Neutrophil Count 9.2 X10^3/uL (2.0-7.7); Basophil# 0.01 X10^3/uL; Basophil% 0.1 % (0-1); Hematocrit 30.3 % (40-54); Hemoglobin 9.8 g/dL (13.0-16.5); Lymphocyte # 0.08 X10^3/ul (0.83-4.51); Lymphocyte % 0.8 % (19-41); Mean Corp Hgb Conc 32.3 g/dL (32-36); Mean Corpuscular Hgb 29.8 pg (27.0-32.0); Mean Corpuscular Volume 92.1 fL (80-94); Mean Platelet Vol. 10.8 fl (6.2-12.0); Monocyte# 0.07 X10^3/uL; Monocyte% 0.7 % (0-10); NRBC Flagged by Analyzer 0 % (0-5); Neutrophil # 9.21 X10^3/uL (2.7-7.7); Neutrophil % 97.9 % (47-70); POSITIVE DIFFERENTIAL YES; Platelet Count 136 K/mm3 (150-450); RBC Distribution Width CV 19.3 % (11.6-14.6); RBC Distribution Width SD 64.1 fl (35.1-43.9); Red Blood Count 3.29 M/mm3 (4.6-6.2); White Blood Count 9.4 K/mm3 (4.4-11.0)
[2021-02-06 09:58] LABS: Differential Indicated SCAN CRITERIA MET
[2021-02-06 10:04] LABS: International Normalized Ratio 1.5; Prothrombin Time (Protime)PT. 17.2 SECONDS (11.7-14.9)
[2021-02-06 10:05] LABS: Partial Thromboplast Time 31.4 Seconds (24.1-36.2)
[2021-02-06 10:29] LABS: ALB/GLOB Ratio 0.4 RATIO (0.9-2.4); AST(SGOT) 116 U/L (15-37); Alanine Aminotransfer ALT/SGPT 85 U/L (16-61); Albumin, Serum 1.8 g/dL (3.2-5.0); Alkaline Phosphatase 1429 U/L (45-117); Anion Gap 11 (5-15); BUN 34 mg/dL (7-18); BUN/Creat Ratio 27.6 RATIO (10-20); Chloride 104 mmol/L (98-107); Creatinine, Serum 1.23 mg/dL (0.70-1.30); EST Glomerular Filtration Rate 61 mL/min (>60); Est Glom Filt Rate - Afr Amer 74 mL/min (>60); Estimated Creatinine Clearance 44.95 ml/min; Globulin 4.3 g/dL (2.2-4.2); Glucose 126 mg/dL (74-106); Lactic Acid 6.2 mmol/L (0.4-1.9); Potassium 4.3 mmol/L (3.5-5.1); Protein, Total 6.1 g/dL (6.4-8.2); Sodium Level 135 mmol/L (136-145)
[2021-02-06 10:33] LABS: Anisocytosis 1+; Hypochromasia 1+; Platelet Estimate SLT DEC (ADEQ)
--- NOTE | 2021-02-06 10:58 | CT_ITS ---
STUDY: CT ABDOMEN AND PELVIS WITH CONTRAST REASON FOR EXAM: Male, 71 years old. fever -- biliary stent with increasing bilirubin level RADIATION DOSAGE (If Supplied By Facility): CTDIvol = ( 11.95 ) mGy, DLP = ( 578.12 ) mGycm TECHNIQUE: Transaxial images were obtained from the dome of the diaphragm to the symphysis pubis without oral contrast. IV 75mL Isovue-370 was administered. Sagittal and coronal images were reconstructed. Individualized dose optimization techniques were used for this CT. COMPARISON: 01/11/2021 FINDINGS: Small left pleural effusion. The visualized portions of the heart are within normal limits. Small amount of ascites. No change in the innumerable masses of decreased attenuation throughout the liver consistent with metastatic disease. No change in the biliary stent with pneumobilia. Normal spleen. No change in the 3.5 cm mass of the head and neck of the pancreas consistent with known pancreatic carcinoma. Normal bilateral adrenal glands. Normal right kidney. Normal left kidney. Normal visualized stomach. Normal small intestine. There are multiple colonic diverticula consistent with diverticulosis. There is non-visualization of the appendix. Normal abdominal aorta. Normal inferior vena cava. Normal retroperitoneum. Normal urinary bladder. Normal abdominal wall. Mild levoscoliosis of the lumbar spine with degenerative disc disease. CT/Abdomen/Pelvis W IV Cont ONLY IMPRESSION: No change in known metastatic pancreatic carcinoma with a biliary stent with pneumobilia, hepatic metastases, small amount of ascites, and small left pleural effusion. Electronically Signed: Maximo Barker MD at 12:52 EDT Tel , Service support ,
[2021-02-06 11:07] LABS: Mucous, Urine 0 SEEN /hpf (<or=2+); Red Blood Cells-Urine 0 SEEN /hpf (0-5)
[2021-02-06 11:10] LABS: Color, Urine Yellow (Yellow); Glucose, Dipstick Normal (Normal); Ketone-Dipstick 5 mg/dl (Negative); Leukocyte Esterase-Dipstick 500 /ul (Negative); Nitrite-Dipstick Negative (Negative); Occult Blood-Urine 25 /ul (Negative); Protein-Dipstick 30 mg/dl (Negative); Specific Gravity, Urine 1.015 (1.002-1.030); Urine Clarity Sl. Cloudy (Clear); Urine Urobilinogen 12 mg/dl (Normal)
[2021-02-06 11:15] LABS: Urine Bilirubin Dipstick 3 mg/dL (Negative)
[2021-02-06 11:17] LABS: Bacteria 3+ /hpf (None Seen); Squamous Epithelial Cells - UA 0-5 SEEN /hpf (0-5); White Blood Cells 5-10 SEEN /hpf (0-5)
--- NOTE | 2021-02-06 12:01 | ED.RN ---
called pharmacy regarding atb.
[2021-02-06] MEDS: Ceftriaxone 1 GM/50 ML BAG IV (12:08)
[2021-02-06] MEDS: 0.9% Normal Saline 1,000 ML 150 ML IV ×3 (12:59→21:08)
--- NOTE | 2021-02-06 13:19 | PCM.HP.STD ---
HPI - General General Date of Admission: 02/06/21 Date of Service: 02/06/21 Chief Complaint: Fever HPI Narrative CORDELIA BALL, is a 71 M with past medical history significant for pancreatic cancer currently undergoing chemo (last chemo was on 02/04/2021) who presented with fever and chills. Patient woke up on the morning of his admission with significant fever and chills. Denied any shortness of breath, no sore throat no headache. Patient denied any frequency no dysuria. He however performs self-catheterization. Was seen in the emergency department and assessment of septic shock secondary to urinary source was made. Management with aggressive IV fluid resuscitation initiated and patient admitted to the ICU for subsequent management [facility] Medical History Acquired hypothyroidism Anxiety and depression Atherosclerotic heart disease of [place] coronary artery without angina pectoris Benign neoplasm of colon BPH (benign prostatic hyperplasia) CAD (coronary artery disease) Cancer related pain Chemotherapy induced neutropenia Constipation Encounter for education Essential hypertension GERD (gastroesophageal reflux disease) History of agent [place] exposure Hypokalemia Pancreatic cancer Port-A-Cath in place Presence of stent in coronary artery (~09/19/05) Type 2 diabetes mellitus Urinary retention Home Medications levothyroxine 100 mcg PO DAILY 05/24/18 [History Last Taken 11/17/20] atorvastatin 40 mg tablet 40 mg PO QHS #90 tablet 07/20/18 [Rx Last Taken 11/16/20] aspirin 81 mg tablet,delayed release 81 mg PO DAILY 11/16/18 [History Last Taken 11/16/20] nitroglycerin 0.4 mg sublingual tablet 0.4 mg SL Q5-15M PRN #90 tablet 11/15/19 [Rx Last Taken Unknown] citalopram 20 mg tablet 20 mg PO DAILY 05/14/20 [History Last Taken 11/16/20] insulin glargine 100 unit/mL (3 mL) subcutaneous pen 16 unit SC QHS ml 05/14/20 [History Last Taken 11/16/20] latanoprost 0.005 % eye drops 1 drp EACH EYE QPM 05/14/20 [History Last Taken 11/16/20] ibuprofen 200 mg PO BID PRN 07/20/20 [History Last Taken Unknown] lidocaine-prilocaine 1 applic TP DAILY PRN PRN 30 Days #1 tube 07/20/20 [Rx Last Taken Unknown] ondansetron 8 mg PO Q8H PRN PRN 10 Days #30 tab.rapdis 07/20/20 [Rx Last Taken Unknown] prochlorperazine maleate 10 mg PO Q6H PRN PRN 10 Days #30 tablet 07/20/20 [Rx Last Taken Unknown] insulin aspart U-100 [Novolog Flexpen U-100 Insulin] TIDCM 11/17/20 [History Last Taken Unknown] dexamethasone 4 mg tablet 4 mg PO DAILY #20 tab 12/15/20 [Rx Last Taken Unknown] fentanyl 25 mcg/hr transdermal patch 1 patch TRANSDERMAL ea 02/04/21 [History Last Taken Unknown] oxycodone-acetaminophen 5 - 325 tab PO TID 02/06/21 [History Last Taken Unknown] Allergy/AdvReac Type Severity Reaction Status Date / Time phenazopyridine AdvReac Unknown Vomiting Verified 02/04/21 08:20 [From Pyridium] beta blockers AdvReac Unknown Intolerant- Uncoded 01/05/21 08:57 Extreme fatigue Family History Mother CHF (congestive heart failure) Hypertension Cancer Cervical Father CAD (coronary artery disease) Myocardial infarction Cancer Colon Surgical History History of colonoscopy (~01/2020) History of left heart catheterization (LHC) Hx of heart artery stent Presence of coronary angioplasty implant and graft Status post coronary artery bypass graft (~09/12/18) Social History Smoking Status: Never smoker alcohol intake: current details: occasional substance use type: does not use ROS ROS Narrative GENERAL: fever, chills, night sweats, HEENT: denies headache, sinus congestion, RESPIRATORY: denies cough, sputum production, CARDIAC: denies chest pain, palpitations, orthopnea, GASTROINTESTINAL: denies abdominal pain, nausea, GENITOURINARY: denies dysuria, urgency, frequency, EXTREMITY: denies swelling MUSCULOSKELETAL: denies current joint pain or tenderness NEUROLOGIC: denies focal numbness, weakness, tingling HEMATOLOGIC: denies easy bruising and/or hemorrhage INTEGUMENT: denies rashes PSYCHIATRIC: denies suicidal or homicidal ideation Vital Signs Vital Signs Vital Signs: 02/06/21 08:44 02/06/21 08:45 02/06/21 09:02 Temperature 101.2 F H Temperature Source Temporal Pulse Rate 98 104 H Respiratory Rate 20 H 18 Blood Pressure 147/122 H 99/50 L Blood Pressure Mean 130 66 Pulse Ox 98 100 Oxygen Delivery Method Room Air Room Air Room Air 02/06/21 10:05 02/06/21 10:07 02/06/21 11:10 Temperature 99.4 F H 100 F H Temperature Source Oral Oral Pulse Rate 89 76 Respiratory Rate 11 L 13 Blood Pressure 91/48 L 105/55 L Blood Pressure Mean 62 71 Pulse Ox 100 100 Oxygen Delivery Method Room Air Room Air 02/06/21 11:44 02/06/21 12:28 02/06/21 13:11 Temperature 98.7 F 99 F 99 F Temperature Source Oral Oral Oral Pulse Rate 79 79 Respiratory Rate 14 27 H Blood Pressure 93/50 L 97/46 L Blood Pressure Mean 64 63 Pulse Ox 94 Oxygen Delivery Method Room Air Weight Weight: 59.421 kg Body Mass Index (BMI) 21.1 Physical Exam Narrative GENERAL: cooperative HEENT: Atraumatic; EYES; Anicteric, Normal Conjunctiva NECK; supple, normal thyroid, RESPIRATORY: Diminished to auscultation CARDIOVASCULAR: Regular S1 S2, GI: soft, normoactive bowel sounds, : No Renal angle tenderness; EXTREMITIES: No edema, no clubbing, MUSCULOSKELETAL: no muscle waisting NEURO: Awake; no lateralizing signs. SKIN: No Rash PSYCH; Flat affect Results Lab / Micro Data Result Diagrams: 02/06/21 09:30 02/06/21 09:30 Labs: Laboratory Results - last 24 hr 02/06/21 09:30: WBC 9.4, RBC 3.29 L, Hgb 9.8 L, Hct 30.3 L, MCV 92.1, MCH 29.8, MCHC 32.3, RDW Std Deviation 64.1 H, RDW Coeff of [place] 19.3 H, Plt Count 136 L, MPV 10.8, Immature Gran % (Auto) 0.500, Neut % (Auto) 97.9 H, Lymph % (Auto) 0.8 L, [place] % (Auto) 0.7, Eos % (Auto) 0.0, Baso % (Auto) 0.1, Absolute Neuts (auto) 9.2 H, Absolute Lymphs (auto) 0.08 L, Nucleated RBC % 0, Platelet Estimate SLT DEC, Hypochromasia 1+, Anisocytosis 1+ 02/06/21 09:30: PT 17.2 H, INR 1.5, APTT 31.4 02/06/21 09:30: Sodium 135 L, Potassium 4.3, Chloride 104, Carbon Dioxide 20.0 L, Anion Gap 11, BUN 34 H, Creatinine 1.23, Estim Creat Clear Calc 44.95, Est GFR (MDRD) Af Amer 74, Est GFR (MDRD) Non-Af 61, BUN/Creatinine Ratio 27.6 H, Glucose 126 H, Calcium 8.0 L, Total Bilirubin 5.00 H, AST 116 H, ALT 85 H, Alkaline Phosphatase 1429 H, Total Protein 6.1 L, Albumin 1.8 L, Globulin 4.3 H, Albumin/Globulin Ratio 0.4 L 02/06/21 09:30: Lactic Acid 6.2 H* 02/06/21 11:04: Urine Color Yellow, Urine Clarity Sl. Cloudy, Urine pH 5.0, Ur Specific [place] 1.015, Urine Protein 30 H, Urine Glucose (UA) Normal, Urine Ketones 5 H, Urine Occult Blood 25 H, Urine Nitrite Negative, Urine Bilirubin 3 H, Urine Urobilinogen 12 H, Ur Leukocyte Esterase 500 H, Urine RBC 0 SEEN, Urine WBC 5-10 SEEN, Ur Squamous Epith Cells 0-5 SEEN, Urine Bacteria 3+, Urine Mucus 0 SEEN Micro: Microbiology 02/06/21 09:03 Nasal Secretion SARS-CoV-2 Antigen (Rapid) - Final Radiology Impression Chest X-Ray 02/06/21 08:57 IMPRESSION: Linear atelectasis or scarring in the left base. No active pulmonary disease. Electronically Signed: Ramy Booker MD at 10:22 EDT Tel , Service support , Abdomen/Pelvis CT 02/06/21 10:58 IMPRESSION: No change in known metastatic pancreatic carcinoma with a biliary stent with pneumobilia, hepatic metastases, small amount of ascites, and small left pleural effusion. Electronically Signed: Maximo Barker MD at 12:52 EDT Tel , Service support , Assessment & Plan Assessment/Plan (1) Septic shock: (2) UTI (urinary tract infection): PLAN: Patient is a 71-year-old gentleman with history of pancreatic CA currently undergoing chemo who presented with fever and chills. An assessment of septic shock secondary to acute cystitis made admitted to the intensive care unit for further management 1. Septic shock ?Secondary to acute cystitis. Patient has history of urinary retention for which she performs self-catheterization. Urinalysis obtained on admission was consistent with cystitis. Patient was also found to be hypotensive with lactic acid levels greater than 6.. Patient initial management consisted of aggressive IV fluid resuscitation, broad-spectrum antibiotic therapy after cultures have been sent. Patient subsequent response being monitored with serial lactic acid level as well as monitoring of his blood pressure. If patient fails to respond to IV fluid resuscitation patient be started on pressors 2. Pancreatic CA ?Currently undergoing chemo as outpatient 3. History of obstructive jaundice ?Secondary to patient's pancreatic CA patient has a biliary stent. CT of the abdomen and obtained demonstrated metastatic pancreatic CA with biliary stent with pneumobilia (no change) 4. Coronary artery disease ?Status post CABG with subsequent stent placement 5. Chronic pain syndrome ?Secondary to patient pancreatic CA did continue patient home pain regimen 6. Diabetes mellitus type II -patient's oral hypoglycemics held. Placed on long acting insulin, Accu-Cheks a.c. and at bedtime and covered with sliding scale insulin 7. Dyslipidemia -Patient is on statin therapy, continued at home dose 8. Depression ?Patient is on SSRI 9. Hypothyroidism - Patient is on levothyroxine home dose continued 10. DVT prophylaxis ?SC Lovenox Advance planning; did discuss with the patientregarding advanced directives as well as CODE STATUS. Did explain the various scenarios involved ( FULL CODE, DNR CCA, DNR CCA with no intubation, and DNR CC and what each meant) patient elected to full code with CPR and intubation if needed. Order was placed. Time spent on discussion 18 minutes. Total CC time spent on patient including initial evaluation, review of diagnostic business data analyst orders and subsequent reexamination with regards to response to therapy; 75 minutes Charges/Coding Multi Select Codes Hospitalists' Procedures Procedures: 68534 Critial Care 1st Hr, [address] Critial Care Addl 30 Min and 50169 Advncd Care Plan 30 Min
[2021-02-06 13:50] LABS: Reflex Lactate? Y
[2021-02-06 14:37] LABS: Lactic Acid 1.3 mmol/L (0.4-1.9)
--- NOTE | 2021-02-06 16:04 | SEPSISNOTE ---
Sepsis Note Physical Exam/Vitals Subjective: GENERAL: cooperative HEENT: Atraumatic; EYES; Anicteric, Normal Conjunctiva NECK; supple, normal thyroid, RESPIRATORY: Diminished to auscultation CARDIOVASCULAR: Regular S1 S2, GI: soft, normoactive bowel sounds, : No Renal angle tenderness; EXTREMITIES: No edema, no clubbing, MUSCULOSKELETAL: no muscle waisting NEURO: Awake; no lateralizing signs. SKIN: No Rash PSYCH; Flat affect Objective: Chest X-Ray 02/06/21 08:57 IMPRESSION: Linear atelectasis or scarring in the left base. No active pulmonary disease. Electronically Signed: Ramy Booker MD at 10:22 EDT Tel , Service support , Abdomen/Pelvis CT 02/06/21 10:58 IMPRESSION: No change in known metastatic pancreatic carcinoma with a biliary stent with pneumobilia, hepatic metastases, small amount of ascites, and small left pleural effusion. Electronically Signed: Maximo Barker MD at 12:52 EDT Tel , Service support , Temp Pulse Resp BP Pulse Ox 99 F 69 16 106/65 95 02/06/21 13:11 02/06/21 15:00 02/06/21 15:00 02/06/21 15:00 02/06/21 15:00 02/06/21 02/06/21 02/06/21 14:05 11:04 09:30 WBC RBC Hgb Hct MCV MCH MCHC RDW Std Deviation RDW Coeff of Mary Ann Plt Count MPV Immature Gran % (Auto) Neut % (Auto) Lymph % (Auto) [place] % (Auto) Eos % (Auto) Baso % (Auto) Absolute Neuts (auto) Absolute Lymphs (auto) Nucleated RBC % Platelet Estimate Hypochromasia Anisocytosis PT INR APTT Sodium Potassium Chloride Carbon Dioxide Anion Gap BUN Creatinine Estim Creat Clear Calc Est GFR (MDRD) Af Amer Est GFR (MDRD) Non-Af BUN/Creatinine Ratio Glucose Lactic Acid 1.3 6.2 H* Calcium Total Bilirubin AST ALT Alkaline Phosphatase Total Protein Albumin Globulin Albumin/Globulin Ratio Urine Color Yellow Urine Clarity Sl. Cloudy Urine pH 5.0 Ur Specific [place] 1.015 Urine Protein 30 H Urine Glucose (UA) Normal Urine Ketones 5 H Urine Occult Blood 25 H Urine Nitrite Negative Urine Bilirubin 3 H Urine Urobilinogen 12 H Ur Leukocyte Esterase 500 H Urine RBC 0 SEEN Urine WBC 5-10 SEEN Ur Squamous Epith Cells 0-5 SEEN Urine Bacteria 3+ Urine Mucus 0 SEEN 02/06/21 02/06/21 02/06/21 09:30 09:30 09:30 WBC 9.4 RBC 3.29 L Hgb 9.8 L Hct 30.3 L MCV 92.1 MCH 29.8 MCHC 32.3 RDW Std Deviation 64.1 H RDW Coeff of Mary Ann 19.3 H Plt Count 136 L MPV 10.8 Immature Gran % (Auto) 0.500 Neut % (Auto) 97.9 H Lymph % (Auto) 0.8 L [place] % (Auto) 0.7 Eos % (Auto) 0.0 Baso % (Auto) 0.1 Absolute Neuts (auto) 9.2 H Absolute Lymphs (auto) 0.08 L Nucleated RBC % 0 Platelet Estimate SLT DEC Hypochromasia 1+ Anisocytosis 1+ PT 17.2 H INR 1.5 APTT 31.4 Sodium 135 L Potassium 4.3 Chloride 104 Carbon Dioxide 20.0 L Anion Gap 11 BUN 34 H Creatinine 1.23 Estim Creat Clear Calc 44.95 Est GFR (MDRD) Af Amer 74 Est GFR (MDRD) Non-Af 61 BUN/Creatinine Ratio 27.6 H Glucose 126 H Lactic Acid Calcium 8.0 L Total Bilirubin 5.00 H AST 116 H ALT 85 H Alkaline Phosphatase 1429 H Total Protein 6.1 L Albumin 1.8 L Globulin 4.3 H Albumin/Globulin Ratio 0.4 L Urine Color Urine Clarity Urine pH Ur Specific [place] Urine Protein Urine Glucose (UA) Urine Ketones Urine Occult Blood Urine Nitrite Urine Bilirubin Urine Urobilinogen Ur Leukocyte Esterase Urine RBC Urine WBC Ur Squamous Epith Cells Urine Bacteria Urine Mucus Assessment/Plan Patient responded to initial aggressive resuscitation as evidenced by significant decrease in his lactic acid level as well as his blood pressure stabilizing with MAP greater than 65 Attestation Sepsis Attestation: Sepsis re-evaluation was performed
[2021-02-06 16:30] LABS: Bedside Glucose 78 mg/dL (70-110)
[2021-02-06] MEDS: Latanoprost 0.005% 1 Bottle 1 DRP OPHTHALMIC (21:08)
[2021-02-06] MEDS: oxyCODONE 5 MG Tablet PO (21:09)
[2021-02-06] MEDS: Atorvastatin Calcium 40 MG Tablet PO (21:09)
[2021-02-06 21:21] LABS: Bedside Glucose 139 mg/dL (70-110)
[2021-02-07] VITALS (14 sets, daily range): BP systolic 84–115; BP diastolic 42–73; PULSE 66–86; RESP 12–20; TEMP 36.6–37.6; O2SAT 93–100
[2021-02-07] MEDS: 0.9% Normal Saline 1,000 ML 150 ML IV (02:49)
[2021-02-07] MEDS: oxyCODONE 5 MG Tablet PO ×3 (05:26→21:19)
[2021-02-07] MEDS: Levothyroxine 100 MCG Tablet PO (05:26)
--- NOTE | 2021-02-07 05:26 | EX.PCM.CONCC ---
Assessment & Plan Assessment/Plan (1) Bacteremia: PLAN: RECOMMENDATIONS: 1. Continue antimicrobials. 2. Stop continuous IV fluids. 3. Send type and screen. 4. Continue to monitor H&H and transfuse if hemoglobin drops below 7 g/dL. 5. Obtain infectious diseases consultation. 6. If platelet count continues to drop, discontinue Lovenox. 7. Encourage incentive spirometer use and mobilize patient as tolerated. IMPRESSIONS: 1. Gram-negative sepsis The patient presented to the hospital with a fever and evidence of endorgan dysfunction, but was never hemodynamically unstable. He did receive supplemental IV fluid hydration and was placed on antimicrobials. Blood cultures are positive for gram-negative rods with either or GI source as the likely etiology. The patient does have a history of ESBL E. coli. The patient will remain on appropriate antimicrobials for now. Recommend infectious diseases consultation. 2. Anemia/thrombocytopenia The patient has a history of chronic anemia and thrombocytopenia, having just recently received chemotherapy and IV fluids. There are no overt signs of blood loss. Continue to monitor H&H daily. Transfuse if hemoglobin drops below 7 g/dL. Will send type and screen today. 3. History of metastatic pancreatic cancer/coronary artery disease status post CABG/diabetes mellitus/chronic pain syndrome/hypothyroidism Complicates care, management, recovery and prognosis. Continue home medications as indicated. This note was generated with [employer] dictation software. It may contain incorrect words, spelling, and punctuation that were not noted in checking the note before signing. HPI Consult Data Date of Consult: 02/07/21 HPI Narrative Reason for Consultation: Septic shock HPI Narrative: The patient is a 71-year-old male, with a history as outlined below, who presented to the emergency department on February 06 with fever, malaise and body aches. The patient has a known history of metastatic pancreatic cancer and is currently being followed by Dr. Nj of oncology. The patient was started on a combination of Gemzar/Arbaxane on January 21. He just received chemotherapy 3 days ago. On presentation to the emergency department, the patient was noted to be febrile, but was otherwise hemodynamically stable on room air. Laboratory evaluation revealed evidence of stable anemia with a hemoglobin of 9.8 g/dL and thrombocytopenia with a platelet count of 136,000. Chemistry profile revealed a bicarbonate of 20 and creatinine of 1.23. Lactate was elevated to 6.2. Total bilirubin was increased to 5.0. Urine analysis was notable for leukocyte esterase and 3+ urine bacteria. Chest x-ray failed to demonstrate an acute cardiopulmonary process. CT abdomen/pelvis demonstrated no significant change in the patient's known metastatic pancreatic carcinoma along with a small amount of ascites and small left pleural effusion. Rapid coronavirus testing was negative. The patient received supplemental IV fluid hydration and was placed on antimicrobials. He was subsequently admitted to the medical intensive care unit. This morning, the lab notified us that the patient's blood cultures were positive for gram-negative rods. Both of these cultures were obtained from the patient's chest wall port. Per nursing report, the patient never had to be started on vasopressor support overnight. On review of his prior cultures, it does appear that the patient has a history of ESBL E. coli. The patient feels well this morning and denies any abdominal pain, nausea or vomiting. [facility] Medical History Acquired hypothyroidism Anxiety and depression Atherosclerotic heart disease of [place] coronary artery without angina pectoris Benign neoplasm of colon BPH (benign prostatic hyperplasia) CAD (coronary artery disease) Cancer related pain Chemotherapy induced neutropenia Constipation Encounter for education Essential hypertension GERD (gastroesophageal reflux disease) History of agent [place] exposure Hypokalemia Pancreatic cancer Port-A-Cath in place Presence of stent in coronary artery (~09/19/05) Type 2 diabetes mellitus Urinary retention Home Medications levothyroxine 100 mcg PO DAILY 05/24/18 [History Last Taken 11/17/20] atorvastatin 40 mg tablet 40 mg PO QHS #90 tablet 07/20/18 [Rx Last Taken 02/05/21] aspirin 81 mg tablet,delayed release 81 mg PO DAILY 11/16/18 [History Last Taken 02/05/21] nitroglycerin 0.4 mg sublingual tablet 0.4 mg SL Q5-15M PRN #90 tablet 11/15/19 [Rx Last Taken Unknown] citalopram 20 mg tablet 20 mg PO DAILY 05/14/20 [History Last Taken 02/05/21] insulin glargine 100 unit/mL (3 mL) subcutaneous pen 6 unit SC QHS ml 05/14/20 [History Last Taken 02/05/21] latanoprost 0.005 % eye drops 1 drp EACH EYE QPM 05/14/20 [History Last Taken 11/16/20] lidocaine-prilocaine 1 applic TP DAILY PRN PRN 30 Days #1 tube 07/20/20 [Rx Last Taken Unknown] ondansetron 8 mg PO Q8H PRN PRN 10 Days #30 tab.rapdis 07/20/20 [Rx Last Taken Unknown] prochlorperazine maleate 10 mg PO Q6H PRN PRN 10 Days #30 tablet 07/20/20 [Rx Last Taken Unknown] insulin aspart U-100 [Novolog Flexpen U-100 Insulin] TIDCM 11/17/20 [History Last Taken 02/05/21] fentanyl 25 mcg/hr transdermal patch 1 patch TRANSDERMAL ea 02/04/21 [History Last Taken 02/05/21] Xalatan 1 drp EACH EYE DAILY 02/06/21 [History Last Taken 02/05/21] oxycodone-acetaminophen 5 - 325 tab PO TID 02/06/21 [History Last Taken Unknown] Allergy/AdvReac Type Severity Reaction Status Date / Time phenazopyridine AdvReac Unknown Vomiting Verified 02/04/21 08:20 [From Pyridium] beta blockers AdvReac Unknown Intolerant- Uncoded 01/05/21 08:57 Extreme fatigue Family History Mother CHF (congestive heart failure) Hypertension Cancer Cervical Father CAD (coronary artery disease) Myocardial infarction Cancer Colon Surgical History History of colonoscopy (~01/2020) History of left heart catheterization (LHC) Hx of heart artery stent Presence of coronary angioplasty implant and graft Status post coronary artery bypass graft (~09/12/18) Social History Smoking Status: Never smoker alcohol intake: current details: occasional substance use type: does not use ROS Constitutional Constitutional: Reports fever(s) and malaise Eyes Eyes: Denies blurry vision or change in vision ENT HEENT: Denies dizziness, epistaxis or headache(s) Cardiovascular Cardiovascular: Denies chest pain, dizziness or dyspnea Respiratory/Chest Respiratory/Chest: Denies chest tightness, cough or dyspnea Gastrointestinal Gastrointestinal: Denies abdominal pain, diarrhea, nausea or vomiting Genitourinary Genitourinary: Denies difficulty urinating Musculoskeletal Musculoskeletal: Reports myalgias Integumentary Integumentary: Denies lesions, rash or skin ulcer Neurologic Neurologic: Denies abnormal gait or abnormal speech Psychiatric Psychiatric: Reports anxiety and depression Endocrine Endocrinology: Reports fatigue Hematologic/Lymphatic Hematologic/Lymphatic: Denies easy bleeding or easy bruising Physical Exam Const alert and no apparent distress General Appearance: cooperative HEENT normocephalic, head/scalp atraumatic and moist oral mucous membranes Eyes PERRL and EOMs intact bilaterally Neck supple General: trachea midline Chest inspection of chest normal Chest Narrative: Chest wall port in place. Resp normal respiratory effort Auscultation: Negative for rales, rhonchi or wheezes Cardio regular rate and regular rhythm GI normal to inspection, nondistended, normoactive bowel sounds Extremity no clubbing, cyanosis or edema Skin no rashes or lesions noted Neuro CN's II-XII intact bilaterally and no focal motor deficits Psych cooperative and affect normal Lab / Micro Data Result Diagrams: 02/07/21 05:30 02/07/21 05:30 Labs: Laboratory Results - last 24 hr 02/06/21 09:30: WBC 9.4, RBC 3.29 L, Hgb 9.8 L, Hct 30.3 L, MCV 92.1, MCH 29.8, MCHC 32.3, RDW Std Deviation 64.1 H, RDW Coeff of Mary Ann 19.3 H, Plt Count 136 L, MPV 10.8, Immature Gran % (Auto) 0.500, Neut % (Auto) 97.9 H, Lymph % (Auto) 0.8 L, [place] % (Auto) 0.7, Eos % (Auto) 0.0, Baso % (Auto) 0.1, Absolute Neuts (auto) 9.2 H, Absolute Lymphs (auto) 0.08 L, Nucleated RBC % 0, Platelet Estimate SLT DEC, Hypochromasia 1+, Anisocytosis 1+ 02/06/21 09:30: PT 17.2 H, INR 1.5, APTT 31.4 02/06/21 09:30: Sodium 135 L, Potassium 4.3, Chloride 104, Carbon Dioxide 20.0 L, Anion Gap 11, BUN 34 H, Creatinine 1.23, Estim Creat Clear Calc 44.95, Est GFR (MDRD) Af Amer 74, Est GFR (MDRD) Non-Af 61, BUN/Creatinine Ratio 27.6 H, Glucose 126 H, Calcium 8.0 L, Total Bilirubin 5.00 H, AST 116 H, ALT 85 H, Alkaline Phosphatase 1429 H, Total Protein 6.1 L, Albumin 1.8 L, Globulin 4.3 H, Albumin/Globulin Ratio 0.4 L 02/06/21 09:30: Lactic Acid 6.2 H* 02/06/21 11:04: Urine Color Yellow, Urine Clarity Sl. Cloudy, Urine pH 5.0, Ur Specific [place] 1.015, Urine Protein 30 H, Urine Glucose (UA) Normal, Urine Ketones 5 H, Urine Occult Blood 25 H, Urine Nitrite Negative, Urine Bilirubin 3 H, Urine Urobilinogen 12 H, Ur Leukocyte Esterase 500 H, Urine RBC 0 SEEN, Urine WBC 5-10 SEEN, Ur Squamous Epith Cells 0-5 SEEN, Urine Bacteria 3+, Urine Mucus 0 SEEN 02/06/21 14:05: Lactic Acid 1.3 02/06/21 16:28: POC Glucose 78 02/06/21 21:13: POC Glucose 139 H Micro: Microbiology 02/06/21 09:30 Blood Culture (Wb) - Venous Blood Culture - Preliminary 02/06/21 09:30 Blood Culture (Wb) - Venous Blood Culture - Preliminary 02/06/21 09:03 Nasal Secretion SARS-CoV-2 Antigen (Rapid) - Final Radiology Impression Chest X-Ray 02/06/21 08:57 IMPRESSION: Linear atelectasis or scarring in the left base. No active pulmonary disease. Electronically Signed: Ramy Booker MD at 10:22 EDT Tel , Service support , Abdomen/Pelvis CT 02/06/21 10:58 IMPRESSION: No change in known metastatic pancreatic carcinoma with a biliary stent with pneumobilia, hepatic metastases, small amount of ascites, and small left pleural effusion. Electronically Signed: Maximo Barker MD at 12:52 EDT Tel , Service support , Charges/Coding Visit Charges Inpatient E&M: 80615 Init Hosp L3
[2021-02-07 05:57] LABS: Absolute Lymphocyte Count 0.27 X10^3/uL (0.83-4.51); Absolute Neutrophil Count 6.9 X10^3/uL (2.0-7.7); Hematocrit 23.9 % (40-54); Hemoglobin 7.6 g/dL (13.0-16.5); Lymphocyte # 0.27 X10^3/ul (0.83-4.51); Lymphocyte % 3.7 % (19-41); Mean Corp Hgb Conc 31.8 g/dL (32-36); Mean Corpuscular Volume 94.5 fL (80-94); Mean Platelet Vol. 11.5 fl (6.2-12.0); Monocyte# 0.16 X10^3/uL; Monocyte% 2.2 % (0-10); NRBC Flagged by Analyzer 0 % (0-5); Neutrophil # 6.85 X10^3/uL (2.7-7.7); Neutrophil % 93.6 % (47-70); POSITIVE COUNT YES; POSITIVE DIFFERENTIAL YES; POSITIVE MORPHOLOGY YES; Platelet Count 81 K/mm3 (150-450); RBC Distribution Width CV 19.6 % (11.6-14.6); Red Blood Count 2.53 M/mm3 (4.6-6.2); White Blood Count 7.3 K/mm3 (4.4-11.0)
[2021-02-07 06:04] LABS: Differential Indicated SCAN CRITERIA MET
[2021-02-07 06:14] LABS: Anion Gap 6 (5-15); BUN 31 mg/dL (7-18); Calcium,Total 7.1 mg/dL (8.5-10.1); Chloride 111 mmol/L (98-107); Creatinine, Serum 0.76 mg/dL (0.70-1.30); EST Glomerular Filtration Rate 108 mL/min (>60); Est Glom Filt Rate - Afr Amer 130 mL/min (>60); Estimated Creatinine Clearance 59.37 ml/min; Glucose 129 mg/dL (74-106); Magnesium 1.8 mg/dL (1.6-2.6); Potassium 4.2 mmol/L (3.5-5.1); Sodium Level 139 mmol/L (136-145)
--- NOTE | 2021-02-07 07:22 | PN.HOSP_ITS ---
Subjective Subjective Patient seen blood pressure remained stable blood cultures so far positive for gram-negative rods Objective Data Objective Data Vital Signs: Vital Signs Temp Pulse Resp BP Pulse Ox 99.2 F H 69 18 113/64 100 02/07/21 04:00 02/07/21 06:00 02/07/21 06:00 02/07/21 06:00 02/07/21 06:00 Oxygen Delivery Method Room Air Weight: 66.5 kg Body Mass Index (BMI) 22.8 Intake & Output: Intake and Output for Last 24 Hours 02/05/21 02/06/21 02/07/21 23:59 23:59 22:59 Intake Total 4015 / 4090 1075 / 1075 Output Total 700 / 700 Balance 4015 / 3790 375 / 375 Lab / Micro Data Result Diagrams: 02/07/21 05:30 02/07/21 05:30 Labs: Laboratory Results - last 24 hr 02/06/21 09:30: WBC 9.4, RBC 3.29 L, Hgb 9.8 L, Hct 30.3 L, MCV 92.1, MCH 29.8, MCHC 32.3, RDW Std Deviation 64.1 H, RDW Coeff of Mary Ann 19.3 H, Plt Count 136 L, MPV 10.8, Immature Gran % (Auto) 0.500, Neut % (Auto) 97.9 H, Lymph % (Auto) 0.8 L, [place] % (Auto) 0.7, Eos % (Auto) 0.0, Baso % (Auto) 0.1, Absolute Neuts (auto) 9.2 H, Absolute Lymphs (auto) 0.08 L, Nucleated RBC % 0, Platelet Estimate SLT DEC, Hypochromasia 1+, Anisocytosis 1+ 02/06/21 09:30: PT 17.2 H, INR 1.5, APTT 31.4 02/06/21 09:30: Sodium 135 L, Potassium 4.3, Chloride 104, Carbon Dioxide 20.0 L , Anion Gap 11, BUN 34 H, Creatinine 1.23, Estim Creat Clear Calc 44.95, Est GFR (MDRD) Af Amer 74, Est GFR (MDRD) Non-Af 61, BUN/Creatinine Ratio 27.6 H, Glucose 126 H, Calcium 8.0 L, Total Bilirubin 5.00 H, AST 116 H, ALT 85 H, Alkaline Phosphatase 1429 H, Total Protein 6.1 L, Albumin 1.8 L, Globulin 4.3 H, Albumin/Globulin Ratio 0.4 L 02/06/21 09:30: Lactic Acid 6.2 H* 02/06/21 11:04: Urine Color Yellow, Urine Clarity Sl. Cloudy, Urine pH 5.0, Ur Specific [place] 1.015, Urine Protein 30 H, Urine Glucose (UA) Normal, Urine Ketones 5 H, Urine Occult Blood 25 H, Urine Nitrite Negative, Urine Bilirubin 3 H, Urine Urobilinogen 12 H, Ur Leukocyte Esterase 500 H, Urine RBC 0 SEEN, Urine WBC 5-10 SEEN, Ur Squamous Epith Cells 0-5 SEEN, Urine Bacteria 3+, Urine Mucus 0 SEEN 02/06/21 14:05: Lactic Acid 1.3 02/06/21 16:28: POC Glucose 78 02/06/21 21:13: POC Glucose 139 H 02/07/21 05:30: WBC 7.3, RBC 2.53 L, Hgb 7.6 L, Hct 23.9 L, MCV 94.5 H, MCH 30.0, MCHC 31.8 L, RDW Std Deviation 66.0 H, RDW Coeff of Mary Ann 19.6 H, Plt Count 81 L, MPV 11.5, Immature Gran % (Auto) 0.500, Neut % (Auto) 93.6 H, Lymph % (Auto) 3.7 L, [place] % (Auto) 2.2, Eos % (Auto) 0.0, Baso % (Auto) 0.0, Absolute Neuts (auto) 6.9, Absolute Lymphs (auto) 0.27 L, Nucleated RBC % 0 02/07/21 05:30: Sodium 139, Potassium 4.2, Chloride 111 H, Carbon Dioxide 22.0, Anion Gap 6, BUN 31 H, Creatinine 0.76, Estim Creat Clear Calc 59.37, Est GFR (MDRD) Af Amer 130, Est GFR (MDRD) Non-Af 108, BUN/Creatinine Ratio 41.0 H, Glucose 129 H, Calcium 7.1 L, Magnesium 1.8 Micro: Microbiology 02/06/21 09:30 Blood Culture (Wb) - Venous Blood Culture - Preliminary 02/06/21 09:30 Blood Culture (Wb) - Venous Blood Culture - Preliminary 02/06/21 09:03 Nasal Secretion SARS-CoV-2 Antigen (Rapid) - Final Radiography Diagnostic Testing: Radiology Impression Chest X-Ray 02/06/21 08:57 IMPRESSION: Linear atelectasis or scarring in the left base. No active pulmonary disease. Electronically Signed: Ramy Booker MD at 10:22 EDT Tel , Service support , Abdomen/Pelvis CT 02/06/21 10:58 IMPRESSION: No change in known metastatic pancreatic carcinoma with a biliary stent with pneumobilia, hepatic metastases, small amount of ascites, and small left pleural effusion. Electronically Signed: Maximo Barker MD at 12:52 EDT Tel , Service support , Physical Exam Narrative GENERAL: cooperative HEENT: Atraumatic; EYES; Anicteric, Normal Conjunctiva NECK; supple, normal thyroid, RESPIRATORY: Diminished to auscultation CARDIOVASCULAR: Regular S1 S2, GI: soft, normoactive bowel sounds, : No Renal angle tenderness; EXTREMITIES: No edema, no clubbing, MUSCULOSKELETAL: no muscle waisting NEURO: Awake; no lateralizing signs. SKIN: No Rash PSYCH; Flat affect Assessment & Plan Assessment/Plan (1) Septic shock: (2) UTI (urinary tract infection): PLAN: Patient is a 71-year-old gentleman with history of pancreatic CA currently undergoing chemo who presented with fever and chills. An assessment of septic shock secondary to acute cystitis made admitted to the intensive care unit for further management 1. Septic shock ?Secondary to acute cystitis. Patient has history of urinary retention for which she performs self-catheterization. Urinalysis obtained on admission was consistent with cystitis. Patient was also found to be hypotensive with lactic acid levels greater than 6.. Patient initial management consisted of aggressive IV fluid resuscitation, broad-spectrum antibiotic therapy after cultures have been sent. Patient subsequent response being monitored with serial lactic acid level as well as monitoring of his blood pressure. If patient fails to respond to IV fluid resuscitation patient be started on pressors -02/07/2021;Patient seen blood pressure remained stable blood cultures so far positive for gram-negative 2. Pancreatic CA ?Currently undergoing chemo as outpatient 3. History of obstructive jaundice ?Secondary to patient's pancreatic CA patient has a biliary stent. CT of the abdomen and obtained demonstrated metastatic pancreatic CA with biliary stent with pneumobilia (no change) 4. Coronary artery disease ?Status post CABG with subsequent stent placement 5. Chronic pain syndrome ?Secondary to patient pancreatic CA did continue patient home pain regimen 6. Diabetes mellitus type II -patient's oral hypoglycemics held. Placed on long acting insulin, Accu-Cheks a.c. and at bedtime and covered with sliding scale insulin 7. Dyslipidemia -Patient is on statin therapy, continued at home dose 8. Depression ?Patient is on SSRI 9. Hypothyroidism - Patient is on levothyroxine home dose continued 10. DVT prophylaxis ?SC Lovenox Charges/Coding Visit Charges Inpatient E&M: 94765 [facility] Hosp L3
[2021-02-07 08:01] LABS: Bedside Glucose 133 mg/dL (70-110)
[2021-02-07] MEDS: 0.9% Saline Lock 10 ML Syringe IV (10:04)
[2021-02-07] MEDS: Aspirin E.C. 81 MG Tablet PO (10:05)
[2021-02-07] MEDS: Enoxaparin 40 MG/0.4 ML Syringe SC (10:05)
[2021-02-07] MEDS: Citalopram 20 MG Tablet PO (10:05)
[2021-02-07] MEDS: Ceftriaxone 1 GM/50 ML BAG IV (10:14)
[2021-02-07] MEDS: Famotidine 20 MG Tablet PO (10:15)
--- NOTE | 2021-02-07 10:32 | NURSING ---
report called to BABITA Gutierrez. to [id number] per . ICU staff in attendance
[2021-02-07 12:40] LABS: Bedside Glucose 246 mg/dL (70-110)
[2021-02-07] MEDS: Insulin Lispro 100 UNIT/ML INSULN.PEN SC ×3 (13:10→21:17)
[2021-02-07] MEDS: Senna/Docusate Sodium 1 Tablet 2 TABLET PO (14:30)
[2021-02-07 16:01] LABS: Bedside Glucose 268 mg/dL (70-110)
--- NOTE | 2021-02-07 19:36 | PCS.PANDOC ---
PANDEMIC DOCUMENTATION INITIATED: Date: 11/16/2020 Time: 190
[2021-02-07] MEDS: Latanoprost 0.005% 1 Bottle 1 DRP OPHTHALMIC (21:17)
[2021-02-07] MEDS: Atorvastatin Calcium 40 MG Tablet PO (21:19)
[2021-02-07 21:26] LABS: Bedside Glucose 263 mg/dL (70-110)
[2021-02-08 02:40] VITALS: BP 114/56; PULSE 84; RESP 17; TEMP 37.2; O2SAT 93
[2021-02-08] MEDS: oxyCODONE 5 MG Tablet PO ×3 (06:34→22:05)
[2021-02-08] MEDS: Levothyroxine 100 MCG Tablet PO (06:34)
[2021-02-08] MEDS: Insulin Lispro 100 UNIT/ML INSULN.PEN SC ×4 (06:34→22:06)
[2021-02-08 06:36] LABS: Absolute Lymphocyte Count 0.22 X10^3/uL (0.83-4.51); Absolute Neutrophil Count 7.5 X10^3/uL (2.0-7.7); Basophil# 0.01 X10^3/uL; Basophil% 0.1 % (0-1); Hematocrit 27.5 % (40-54); Hemoglobin 8.8 g/dL (13.0-16.5); Lymphocyte # 0.22 X10^3/ul (0.83-4.51); Lymphocyte % 2.8 % (19-41); Mean Corpuscular Hgb 29.9 pg (27.0-32.0); Mean Corpuscular Volume 93.5 fL (80-94); Mean Platelet Vol. 11.6 fl (6.2-12.0); Monocyte% 1.3 % (0-10); NRBC Flagged by Analyzer 0 % (0-5); Neutrophil # 7.46 X10^3/uL (2.7-7.7); Neutrophil % 95.4 % (47-70); POSITIVE DIFFERENTIAL YES; POSITIVE MORPHOLOGY YES; Platelet Count 103 K/mm3 (150-450); RBC Distribution Width CV 19.6 % (11.6-14.6); RBC Distribution Width SD 65.1 fl (35.1-43.9); Red Blood Count 2.94 M/mm3 (4.6-6.2); White Blood Count 7.8 K/mm3 (4.4-11.0)
[2021-02-08 06:46] LABS: Bedside Glucose 236 mg/dL (70-110)
[2021-02-08 06:49] LABS: Anion Gap 4 (5-15); BUN 30 mg/dL (7-18); BUN/Creat Ratio 35.2 RATIO (10-20); Calcium,Total 7.7 mg/dL (8.5-10.1); Chloride 111 mmol/L (98-107); Creatinine, Serum 0.85 mg/dL (0.70-1.30); EST Glomerular Filtration Rate 94 mL/min (>60); Est Glom Filt Rate - Afr Amer 113 mL/min (>60); Estimated Creatinine Clearance 69.85 ml/min; Glucose 236 mg/dL (74-106); Potassium 4.2 mmol/L (3.5-5.1); Sodium Level 138 mmol/L (136-145)
[2021-02-08 07:09] LABS: Differential Indicated SCAN CRITERIA MET
[2021-02-08 07:33] VITALS: O2SAT 93
[2021-02-08 08:02] LABS: Anisocytosis 2+
--- NOTE | 2021-02-08 08:12 | PN.CC_ITS ---
Assessment & Plan Assessment/Plan (1) Bacteremia: PLAN: RECOMMENDATIONS: 1. Continue empiric antimicrobials pending culture results. 2. Walking oximetry prior to discharge 3. Okay to continue Lovenox for now 4. Continue to monitor H&H and transfuse if hemoglobin drops below 7 g/dL. 5. Hemodynamically stable on room air. Will sign off from a critical care perspective IMPRESSIONS: 1. Probable E. coli sepsis The patient presented to the hospital with a fever and evidence of endorgan dysfunction, but was never hemodynamically unstable. He did receive supplemental IV fluid hydration and was placed on antimicrobials. Clinical suspicion of urinary source leading to bacteremia. Patient appears to be improving on the current antimicrobials. The patient does have a history of ESBL E. coli. The patient will remain on appropriate antimicrobials for now. Recommend infectious diseases consultation, especially if ESBL. However, patient currently hemodynamically stable on room air. Will sign off from a critical care perspective 2. Anemia/thrombocytopenia The patient has a history of chronic anemia and thrombocytopenia, having just recently received chemotherapy and IV fluids. There are no overt signs of blood loss. Continue to monitor H&H daily. Transfuse if hemoglobin drops below 7 g/dL. Patient has had some improvement in counts. This is likely secondary to initial suppression secondary to problem #1 in the setting of metastatic pancreatic cancer 3. History of metastatic pancreatic cancer/coronary artery disease status post CABG/diabetes mellitus/chronic pain syndrome/hypothyroidism Complicates care, management, recovery and prognosis. Continue home medications as indicated. This note was generated with Cell>Point dictation software. It may contain incorrect words, spelling, and punctuation that were not noted in checking the note before signing. Subjective Subjective The patient was transferred out of the intensive care unit overnight. Patient has reported significant diarrhea that he associates with the antibiotics, but otherwise has remained hemodynamically stable on room air. Patient is denying any chest pain or dysuria. Objective Data Objective Data Vital Signs: Vital Signs Temp Pulse Resp BP Pulse Ox 37.2 C 84 17 114/56 L 93 02/08/21 02:40 02/08/21 02:40 02/08/21 02:40 02/08/21 02:40 02/08/21 02:40 Oxygen Delivery Method Room Air Weight: 65.952 kg Body Mass Index (BMI) 22.8 Intake & Output: Intake and Output for Last 24 Hours 02/07/21 02/07/21 02/08/21 00:59 23:59 23:59 Intake Total 600 / 600 Output Total 750 / 750 Balance -150 / -150 Medical Nutrition Assessment Dietitian: Malnutrition Criteria Met Start: 02/07/21 10:10 Freq: Status: Active Protocol: Document 02/07/21 10:10 NICHOLAS (Rec: 02/07/21 10:10 [facility] [id number]) Nutrition Malnutrition Evidence of Malnutrition Exists Yes Malnutrition (severe): Chronic Evidenced By Suboptimal Energy Intake ( Severe),Weight Loss (Severe), Physical Changes (Severe) Clinical Problem Chronic Disease or Condition Related Malnutrition Etiology related to cancer and chemo treatment w/ inability to consume adequate nutrition to meet estimated nutritional needs Signs/Symptoms as evidenced by <50% po intake and 14% wt loss x 7 months prior to admission. Pt also appears to have muscle/fat loss of temporal, orbital, clavicle regions and arm/legs. Status Active Problem Recommendation Dietitian Recommendations/Changes Will liberalize diet to Regular w/ 8 oz ensure enlive w/ meals d/t signs/symptoms of malnutrition Lab / Micro Data Result Diagrams: 02/08/21 05:44 02/08/21 05:44 Labs: Laboratory Results - last 24 hr 02/07/21 12:36: POC Glucose 246 H 02/07/21 15:51: POC Glucose 268 H 02/07/21 21:15: POC Glucose 263 H 02/08/21 05:44: WBC 7.8, RBC 2.94 L, Hgb 8.8 L, Hct 27.5 L, MCV 93.5, MCH 29.9, MCHC 32.0, RDW Std Deviation 65.1 H, RDW Coeff of Mary Ann 19.6 H, Plt Count 103 L, MPV 11.6, Immature Gran % (Auto) 0.400, Neut % (Auto) 95.4 H, Lymph % (Auto) 2.8 L, [place] % (Auto) 1.3, Eos % (Auto) 0.0, Baso % (Auto) 0.1, Absolute Neuts (auto) 7.5, Absolute Lymphs (auto) 0.22 L, Nucleated RBC % 0, Anisocytosis 2+ 02/08/21 05:44: Sodium 138, Potassium 4.2, Chloride 111 H, Carbon Dioxide 23.0, Anion Gap 4 L, BUN 30 H, Creatinine 0.85, Estim Creat Clear Calc 69.85, Est GFR (MDRD) Af Amer 113, Est GFR (MDRD) Non-Af 94, BUN/Creatinine Ratio 35.2 H, Glucose 236 H, Calcium 7.7 L 02/08/21 06:33: POC Glucose 236 H Micro: Microbiology 02/06/21 09:30 Blood Culture (Wb) - Venous Blood Culture - Preliminary Presumptive E. coli GNR lactose hazardous waste material technician 02/06/21 09:30 Blood Culture (Wb) - Venous Blood Culture - Final Escherichia coli 02/06/21 11:04 Urine, Random Urine Culture - Preliminary Gram negative deanna 02/06/21 09:03 Nasal Secretion SARS-CoV-2 Antigen (Rapid) - Final Physical Exam Const alert and no apparent distress General Appearance: cooperative HEENT normocephalic, head/scalp atraumatic and moist oral mucous membranes Eyes PERRL and EOMs intact bilaterally Neck supple General: trachea midline Chest inspection of chest normal Chest Narrative: Chest wall port in place. Resp normal respiratory effort Auscultation: Negative for rales, rhonchi or wheezes Cardio regular rate and regular rhythm GI normal to inspection, nondistended, normoactive bowel sounds Extremity no clubbing, cyanosis or edema Skin no rashes or lesions noted Neuro CN's II-XII intact bilaterally and no focal motor deficits Psych cooperative and affect normal Charges/Coding Visit Charges Inpatient E&M: 08449 Subs Hosp L2
[2021-02-08] MEDS: Aspirin E.C. 81 MG Tablet PO (08:27)
[2021-02-08 08:28] VITALS: BP 131/73; PULSE 80; RESP 16; TEMP 37.1; O2SAT 96
[2021-02-08 09:00] VITALS: RESP 18
--- NOTE | 2021-02-08 09:15 | CASEMGMT ---
Social Work Note Per solid waste manager questions, pt has not completed HCPOA or LW and declined wanting information. Lilo Lopez HAIR SPRING WINDER, AUTOMOBILE REPAIR SERVICE ESTIMATOR
--- NOTE | 2021-02-08 09:26 | CASEMGMT ---
Addendum entered by Bernadette Rivera 02/08/21 09:33: Pt also sees Shira cardio Original Note: DORA JOSHI Assessment: Face to Face with pt for initial transition planning/care coordination assessment. RN ADI introduced self and role at [facility], pt voices understanding and consents to assessment. Pt is A/O x4 and answers all questions appropriately at this time. Pt sitting up in bed in no distress. Care providers, pharmacy, and demographics verified/updated. Admitting Dx: septic shock PCP:Kam Specialists:alejandra Nj Preferred Pharmacy: [facility] Insurance: [employer] [facility] Prescription Benefit: yes LW/HPOA: Pt denies having a LW/DPOA and denies need for info regarding AD. LNOK: Tyra Ness, ; Ramón Ness, son Living Arrangements: Pt lives with in a two story house with 4 steps to enter with a rail. Pt states he does not usually use the main level. Pt reports being I in ADL's and denies concerns at home. Transportation: Pt drives self and denies concerns with transportation. DME/HHC/SNF: Pt has a FWW and grab bars in the bathroom. Pt states this summer he had sepsis and had IV atb at home through [facility]. He states should he need IV atb again or HHC, he would prefer [facility]. Pt denies SNF stays. Pt states no concerns with going home at time of dc. Pt currently does not have therapy ordered. Pt states he feels his strength is normal to at home. He will notify staff if he feels he needs therapy while in the hospital. He states it depends on how long he will be here. Pt states no further concerns/needs. CM to follow. Advised pt to ask CM if any further question/concerns/needs arise, voices understanding. Pt Goal: Home Plan: Home with possible HHC pending course of treatment.
[2021-02-08] MEDS: Enoxaparin 40 MG/0.4 ML Syringe SC (10:37)
[2021-02-08] MEDS: Ceftriaxone 1 GM/50 ML BAG IV (10:37)
[2021-02-08] MEDS: Citalopram 20 MG Tablet PO (10:37)
[2021-02-08] MEDS: Famotidine 20 MG Tablet PO (10:38)
[2021-02-08 11:56] LABS: Bedside Glucose 312 mg/dL (70-110)
--- NOTE | 2021-02-08 14:33 | CASEMGMT ---
RN had asked SW to see pt as pt seems down. SW met w/pt in room, pt confirms history of depression for 20 years. Pt was diagnosed with cancer in June, so this has added to the depression. Pt takes Celexa, does think it helps. Pt states he has been on it for 4-5 years. Pt does not think talking about it helps however. Pt does identify and son as good supports, pt has been for 49 years. SW explained will remain available should pt want to speak with SW again. JANNETH Pena
--- NOTE | 2021-02-08 14:49 | PCM.CONS.GEN ---
Assessment & Plan Assessment/Plan (1) Bacteremia: PLAN: Ecoli bacteremia, suspect urinary source due to re-use of straight cath at home. On ceftriaxone, improved. Counseled him to stop re-using catheters. Will follow, thank you (2) Pancreatic cancer: QUALIFIERS: Pancreatic malignancy location: head of pancreas Qualified Code(s): C25.0 - Malignant neoplasm of head of pancreas (3) Septic shock: HPI Consult Data Date of Consult: 02/08/21 HPI Narrative HPI Narrative: CORDELIA BALL, is a 71 M with metastatic pancreatic cancer, recent chemo via R chest port. No issues with port. Does straight cath at home, does re-use catheters. No recent change in urine. No change in chronic abd pain. On 02/06 developed new fever, not feeling well. Came to ED, bcx (+), started on pressor, now on ceftriaxone and feeling better. Full ROS performed and neg except as noted above. Has had covid vaccine x3. [facility] Medical History Acquired hypothyroidism Anxiety and depression Atherosclerotic heart disease of [place] coronary artery without angina pectoris Benign neoplasm of colon BPH (benign prostatic hyperplasia) CAD (coronary artery disease) Cancer related pain Chemotherapy induced neutropenia Constipation Encounter for education Essential hypertension GERD (gastroesophageal reflux disease) History of agent [place] exposure Hypokalemia Pancreatic cancer Port-A-Cath in place Presence of stent in coronary artery (~09/19/05) Type 2 diabetes mellitus Urinary retention Home Medications levothyroxine 100 mcg PO DAILY 05/24/18 [History Last Taken 11/17/20] atorvastatin 40 mg tablet 40 mg PO QHS #90 tablet 07/20/18 [Rx Last Taken 02/05/21] aspirin 81 mg tablet,delayed release 81 mg PO DAILY 11/16/18 [History Last Taken 02/05/21] nitroglycerin 0.4 mg sublingual tablet 0.4 mg SL Q5-15M PRN #90 tablet 11/15/19 [Rx Last Taken Unknown] citalopram 20 mg tablet 20 mg PO DAILY 05/14/20 [History Last Taken 02/05/21] insulin glargine 100 unit/mL (3 mL) subcutaneous pen 6 unit SC QHS ml 05/14/20 [History Last Taken 02/05/21] latanoprost 0.005 % eye drops 1 drp EACH EYE QPM 05/14/20 [History Last Taken 11/16/20] lidocaine-prilocaine 1 applic TP DAILY PRN PRN 30 Days #1 tube 07/20/20 [Rx Last Taken Unknown] ondansetron 8 mg PO Q8H PRN PRN 10 Days #30 tab.rapdis 07/20/20 [Rx Last Taken Unknown] prochlorperazine maleate 10 mg PO Q6H PRN PRN 10 Days #30 tablet 07/20/20 [Rx Last Taken Unknown] insulin aspart U-100 [Novolog Flexpen U-100 Insulin] TIDCM 11/17/20 [History Last Taken 02/05/21] fentanyl 25 mcg/hr transdermal patch 1 patch TRANSDERMAL ea 02/04/21 [History Last Taken 02/05/21] Xalatan 1 drp EACH EYE DAILY 02/06/21 [History Last Taken 02/05/21] oxycodone-acetaminophen 5 - 325 tab PO TID 02/06/21 [History Last Taken Unknown] Allergy/AdvReac Type Severity Reaction Status Date / Time phenazopyridine AdvReac Unknown Vomiting Verified 02/04/21 08:20 [From Pyridium] beta blockers AdvReac Unknown Intolerant- Uncoded 01/05/21 08:57 Extreme fatigue Family History Mother CHF (congestive heart failure) Hypertension Cancer Cervical Father CAD (coronary artery disease) Myocardial infarction Cancer Colon Surgical History History of colonoscopy (~01/2020) History of left heart catheterization (LHC) Hx of heart artery stent Presence of coronary angioplasty implant and graft Status post coronary artery bypass graft (~09/12/18) Social History Smoking Status: Never smoker alcohol intake: current details: occasional substance use type: does not use Physical Exam Const alert and no apparent distress General Appearance: cooperative Exam Limitations: no limitations HEENT normocephalic and head/scalp atraumatic Eyes PERRL and EOMs intact bilaterally Neck supple and No nodes Resp normal air movement and clear to auscultation bilaterally Cardio regular rate and regular rhythm GI normal to inspection, nondistended, normoactive bowel sounds Extremity no clubbing, cyanosis or edema Skin no rashes or lesions noted Skin Narrative: R chest port no inflammation Neuro CN's II-XII intact bilaterally Medical Records Data Medical Nutrition Assessment Dietitian: Malnutrition Criteria Met Start: 02/07/21 10:10 Freq: Status: Active Protocol: Document 02/07/21 10:10 NICHOLAS (Rec: 02/07/21 10:10 [facility] [id number]) Nutrition Malnutrition Evidence of Malnutrition Exists Yes Malnutrition (severe): Chronic Evidenced By Suboptimal Energy Intake ( Severe),Weight Loss (Severe), Physical Changes (Severe) Clinical Problem Chronic Disease or Condition Related Malnutrition Etiology related to cancer and chemo treatment w/ inability to consume adequate nutrition to meet estimated nutritional needs Signs/Symptoms as evidenced by <50% po intake and 14% wt loss x 7 months prior to admission. Pt also appears to have muscle/fat loss of temporal, orbital, clavicle regions and arm/legs. Status Active Problem Recommendation Dietitian Recommendations/Changes Will liberalize diet to Regular w/ 8 oz ensure enlive w/ meals d/t signs/symptoms of malnutrition Lab / Micro Data Result Diagrams: 02/08/21 05:44 02/08/21 05:44 Labs: Laboratory Results - last 24 hr 02/07/21 15:51: POC Glucose 268 H 02/07/21 21:15: POC Glucose 263 H 02/08/21 05:44: WBC 7.8, RBC 2.94 L, Hgb 8.8 L, Hct 27.5 L, MCV 93.5, MCH 29.9, MCHC 32.0, RDW Std Deviation 65.1 H, RDW Coeff of Mary Ann 19.6 H, Plt Count 103 L, MPV 11.6, Immature Gran % (Auto) 0.400, Neut % (Auto) 95.4 H, Lymph % (Auto) 2.8 L, [place] % (Auto) 1.3, Eos % (Auto) 0.0, Baso % (Auto) 0.1, Absolute Neuts (auto) 7.5, Absolute Lymphs (auto) 0.22 L, Nucleated RBC % 0, Anisocytosis 2+ 02/08/21 05:44: Sodium 138, Potassium 4.2, Chloride 111 H, Carbon Dioxide 23.0, Anion Gap 4 L, BUN 30 H, Creatinine 0.85, Estim Creat Clear Calc 69.85, Est GFR (MDRD) Af Amer 113, Est GFR (MDRD) Non-Af 94, BUN/Creatinine Ratio 35.2 H, Glucose 236 H, Calcium 7.7 L 02/08/21 06:33: POC Glucose 236 H 02/08/21 11:28: POC Glucose 312 H Micro: Microbiology 02/06/21 09:30 Blood Culture (Wb) - Venous Blood Culture - Preliminary Presumptive E. coli GNR lactose manager site 02/06/21 09:30 Blood Culture (Wb) - Venous Blood Culture - Final Escherichia coli 02/06/21 11:04 Urine, Random Urine Culture - Preliminary Gram negative deanna
--- NOTE | 2021-02-08 16:10 | PCM.PN.HOSP ---
Subjective Subjective Patient reports he is feeling much better than he did on admission. Rigors have resolved and his weakness is improved and patient is anxious to be able to go home soon. Objective Data Objective Data Vital Signs: Vital Signs Temp Pulse Resp BP Pulse Ox 98.8 F 80 18 131/73 H 96 02/08/21 08:28 02/08/21 08:28 02/08/21 09:00 02/08/21 08:28 02/08/21 08:28 Oxygen Delivery Method Room Air Weight: 65.952 kg Body Mass Index (BMI) 22.8 Intake & Output: Intake and Output for Last 24 Hours 02/07/21 02/07/21 02/08/21 00:59 23:59 23:59 Intake Total 950 / 950 Output Total 1000 / 1000 Balance -50 / -50 Medical Nutrition Assessment Dietitian: Malnutrition Criteria Met Start: 02/07/21 10:10 Freq: Status: Active Protocol: Document 02/07/21 10:10 NICHOLAS (Rec: 02/07/21 10:10 NICHOLAS [id number]) Nutrition Malnutrition Evidence of Malnutrition Exists Yes Malnutrition (severe): Chronic Evidenced By Suboptimal Energy Intake ( Severe),Weight Loss (Severe), Physical Changes (Severe) Clinical Problem Chronic Disease or Condition Related Malnutrition Etiology related to cancer and chemo treatment w/ inability to consume adequate nutrition to meet estimated nutritional needs Signs/Symptoms as evidenced by <50% po intake and 14% wt loss x 7 months prior to admission. Pt also appears to have muscle/fat loss of temporal, orbital, clavicle regions and arm/legs. Status Active Problem Recommendation Dietitian Recommendations/Changes Will liberalize diet to Regular w/ 8 oz ensure enlive w/ meals d/t signs/symptoms of malnutrition Lab / Micro Data Result Diagrams: 02/08/21 05:44 02/08/21 05:44 Labs: Laboratory Results - last 24 hr 02/07/21 21:15: POC Glucose 263 H 02/08/21 05:44: WBC 7.8, RBC 2.94 L, Hgb 8.8 L, Hct 27.5 L, MCV 93.5, MCH 29.9, MCHC 32.0, RDW Std Deviation 65.1 H, RDW Coeff of Mary Ann 19.6 H, Plt Count 103 L, MPV 11.6, Immature Gran % (Auto) 0.400, Neut % (Auto) 95.4 H, Lymph % (Auto) 2.8 L, [place] % (Auto) 1.3, Eos % (Auto) 0.0, Baso % (Auto) 0.1, Absolute Neuts (auto) 7.5, Absolute Lymphs (auto) 0.22 L, Nucleated RBC % 0, Anisocytosis 2+ 02/08/21 05:44: Sodium 138, Potassium 4.2, Chloride 111 H, Carbon Dioxide 23.0, Anion Gap 4 L, BUN 30 H, Creatinine 0.85, Estim Creat Clear Calc 69.85, Est GFR (MDRD) Af Amer 113, Est GFR (MDRD) Non-Af 94, BUN/Creatinine Ratio 35.2 H, Glucose 236 H, Calcium 7.7 L 02/08/21 06:33: POC Glucose 236 H 02/08/21 11:28: POC Glucose 312 H Micro: Microbiology 02/06/21 09:30 Blood Culture (Wb) - Venous Blood Culture - Preliminary Presumptive E. coli GNR lactose auto glass installer 02/06/21 09:30 Blood Culture (Wb) - Venous Blood Culture - Final Escherichia coli 02/06/21 11:04 Urine, Random Urine Culture - Preliminary Gram negative deanna 02/06/21 09:03 Nasal Secretion SARS-CoV-2 Antigen (Rapid) - Final Physical Exam Const alert, oriented x3, no apparent distress and average body habitus Exam Limitations: no limitations HEENT head/scalp atraumatic, moist oral mucous membranes and oropharynx normal Head and Scalp: normocephalic Resp normal respiratory effort, no retractions, no use of accessory muscles and clear to auscultation bilaterally Auscultation: Negative for crackles, rales, rhonchi or wheezes Cardio regular rate, regular rhythm, S1 normal heart sound, S2 normal heart sound, no murmurs, no rub, no gallops, no clicks and no JVD GI normal to inspection, nondistended, normoactive bowel sounds, soft to palpation, non-tender and non-distended Extremity no clubbing, cyanosis or edema Peripheral Pulses: Yes pulses 2+ throughout Skin no rashes or lesions noted, no wounds, skin turgor normal, no jaundice, no petechiae and no mottling Neuro oriented x3, moves all extremities and no focal motor deficits Sensorium / Orientation: awake and alert Speech: speech normal Psych Psych Narrative: Affect is slightly flat Mood & Affect: depressed Assessment & Plan Assessment/Plan (1) Septic shock: (2) Bacteremia: (3) UTI (urinary tract infection): (4) Normocytic anemia: PLAN: Septic shock secondary to E. coli bacteremia from a urinary tract infection -Shock has resolved -Continue ceftriaxone -Somewhat resistant organism -Patient likely got this from self cathing and reutilizing catheters -Discussed using new catheters that are sterile with each self cathing event to avoid recurrent infections -We will plan for probable p.o. antibiotic at discharge with discharge pending likely in the next 24 hours if patient continues to feel well -Clinically much improved -ID is evaluated the patient and appreciate input Chronic normocytic anemia -Likely related to his chemotherapy -Hemoglobin stable -Monitor Pancreatic cancer-metastatic -Patient is currently undergoing chemo as an outpatient -We will have patient follow-up with oncology after discharge History of obstructive jaundice -Currently no issues -Patient has biliary stent that was placed related to his pancreatic cancer CAD/HTN/HPL -Continue home statin therapy -History of CABG with subsequent stent placement -Continue aspirin Hypothyroidism -Continue levothyroxine DM-2 -Basal insulin was ordered today -Continue sliding scale -Continue Accu-Cheks before meals and at bedtime -Restart home medications upon discharge -Blood sugars have been elevated but patient has not been on basal insulin Depression -Continue home medications -Commend follow-up with PCP as patient does feel that his SSRI is not helping him all that much at this time -Anticipate some of this is situational with his recent diagnosis of metastatic pancreatic cancer as well -Social work is following DVT prophylaxis -Subcu Lovenox CODE STATUS -Full code Charges/Coding Visit Charges Inpatient E&M: 78799 Subs Hosp L2
[2021-02-08 16:19] LABS: AST(SGOT) 150 U/L (15-37); Alanine Aminotransfer ALT/SGPT 108 U/L (16-61); Albumin, Serum 1.4 g/dL (3.2-5.0); Alkaline Phosphatase 1103 U/L (45-117); Bilirubin, Direct 3.26 mg/dL (0.00-0.30); Globulin 4.1 g/dL (2.2-4.2); Protein, Total 5.5 g/dL (6.4-8.2)
[2021-02-08 16:26] VITALS: BP 125/70; PULSE 85; RESP 16; TEMP 36.8; O2SAT 96
[2021-02-08 17:00] LABS: Bedside Glucose 216 mg/dL (70-110)
[2021-02-08 21:46] VITALS: BP 135/64; PULSE 85; RESP 16; TEMP 37.6; O2SAT 99
[2021-02-08] MEDS: Latanoprost 0.005% 1 Bottle 1 DRP OPHTHALMIC (22:04)
[2021-02-08] MEDS: fentaNYL 25 MCG Patch TD (22:05)
[2021-02-08] MEDS: Atorvastatin Calcium 40 MG Tablet PO (22:08)
[2021-02-08 22:51] LABS: Bedside Glucose 157 mg/dL (70-110)
[2021-02-09 03:34] VITALS: BP 119/61; PULSE 85; RESP 18; TEMP 37.1; O2SAT 96
[2021-02-09] MEDS: Levothyroxine 100 MCG Tablet PO (06:36)
[2021-02-09] MEDS: Insulin Lispro 100 UNIT/ML INSULN.PEN SC (06:36)
[2021-02-09] MEDS: oxyCODONE 5 MG Tablet PO (06:36)
[2021-02-09 06:40] LABS: Bedside Glucose 159 mg/dL (70-110)
[2021-02-09] MEDS: Aspirin E.C. 81 MG Tablet PO (07:15)
[2021-02-09 07:38] VITALS: BP 104/64; PULSE 82; RESP 16; TEMP 37.4; O2SAT 96
[2021-02-09 08:18] LABS: Absolute Lymphocyte Count 0.26 X10^3/uL (0.83-4.51); Absolute Neutrophil Count 2.7 X10^3/uL (2.0-7.7); Hematocrit 26.6 % (40-54); Hemoglobin 8.7 g/dL (13.0-16.5); Lymphocyte # 0.26 X10^3/ul (0.83-4.51); Lymphocyte % 8.4 % (19-41); Mean Corp Hgb Conc 32.7 g/dL (32-36); Mean Corpuscular Hgb 30.3 pg (27.0-32.0); Mean Corpuscular Volume 92.7 fL (80-94); Mean Platelet Vol. 11.1 fl (6.2-12.0); Monocyte# 0.09 X10^3/uL; Monocyte% 2.9 % (0-10); NRBC Flagged by Analyzer 0 % (0-5); Neutrophil # 2.72 X10^3/uL (2.7-7.7); Neutrophil % 88.1 % (47-70); POSITIVE COUNT YES; POSITIVE DIFFERENTIAL YES; POSITIVE MORPHOLOGY YES; Platelet Count 86 K/mm3 (150-450); RBC Distribution Width CV 19.8 % (11.6-14.6); Red Blood Count 2.87 M/mm3 (4.6-6.2); White Blood Count 3.1 K/mm3 (4.4-11.0)
[2021-02-09 08:23] LABS: Differential Indicated SCAN CRITERIA MET
[2021-02-09 08:35] LABS: Anion Gap 4 (5-15); BUN 23 mg/dL (7-18); BUN/Creat Ratio 31.7 RATIO (10-20); Calcium,Total 7.7 mg/dL (8.5-10.1); Chloride 111 mmol/L (98-107); Creatinine, Serum 0.72 mg/dL (0.70-1.30); EST Glomerular Filtration Rate 113 mL/min (>60); Est Glom Filt Rate - Afr Amer 137 mL/min (>60); Estimated Creatinine Clearance 59.37 ml/min; Glucose 143 mg/dL (74-106); Potassium 3.9 mmol/L (3.5-5.1); Sodium Level 139 mmol/L (136-145)
[2021-02-09] MEDS: Ceftriaxone 1 GM/50 ML BAG IV (10:35)
[2021-02-09] MEDS: Citalopram 20 MG Tablet PO (10:36)
[2021-02-09] MEDS: Enoxaparin 40 MG/0.4 ML Syringe SC (10:36)
[2021-02-09] MEDS: Famotidine 20 MG Tablet PO (10:36)
--- NOTE | 2021-02-09 11:11 | CASEMGMT ---
RN CM in to pt room. Pt to be dc'd on PO atb. Pt denies need for HHC for SN for cath teaching, prevention of infection. Pt states he is capable. Pt denies further needs at this time.
--- NOTE | 2021-02-09 11:44 | DS.PCM_ITS ---
Providers Date of Admission: 02/06/21 Primary Care Physician: Dr. Jamie Humphrey MD Consultations 02/06/21 13:15 Consult: [facility] Helper / Pulmonary Medicine Routine Consulting Provider: Pulmonary Medicine ba Arora Reason for Consult: septic shock EMERGENT Consult: No Notified: Yes Date Notified: 02/06/21 Time Notified: 13:16 Method of Notification: Text Method of Consult:: In-Person Comments:: NOTIFIED OF CONSULT 02/07/21 06:26 Consult: Infectious Disease Routine Consulting Provider: Jeancarlos Mari Reason for Consult: Admit with gram negative Sepsis, h/o ESBL E coli EMERGENT Consult: No Notified: Yes Date Notified: 02/07/21 Time Notified: 07:32 Method of Notification: Answering Service Method of Consult:: In-Person Reason For Visit: SEPTIC SHOCK Diagnosis Discharge Diagnosis (1) Septic shock: Status: Acute Code(s): A41.9 - Sepsis, unspecified organism; R65.21 - Severe sepsis with septic shock (2) Bacteremia: Status: Acute Code(s): R78.81 - Bacteremia (3) UTI (urinary tract infection): Status: Acute Code(s): N39.0 - Urinary tract infection, site not specified (4) Normocytic anemia: Status: Acute Code(s): D64.9 - Anemia, unspecified Medications at Discharge Home Medications levothyroxine 100 mcg PO DAILY 05/24/18 atorvastatin 40 mg tablet 40 mg PO QHS #90 tablet 07/20/18 aspirin 81 mg tablet,delayed release 81 mg PO DAILY 11/16/18 nitroglycerin 0.4 mg sublingual tablet 0.4 mg SL Q5-15M PRN #90 tablet 11/15/19 citalopram 20 mg tablet 20 mg PO DAILY 05/14/20 insulin glargine 100 unit/mL (3 mL) subcutaneous pen 6 unit SC QHS ml 05/14/20 latanoprost 0.005 % eye drops 1 drp EACH EYE QPM 05/14/20 lidocaine-prilocaine 1 applic TP DAILY PRN PRN 30 Days #1 tube 07/20/20 ondansetron 8 mg PO Q8H PRN PRN 10 Days #30 tab.rapdis 07/20/20 prochlorperazine maleate 10 mg PO Q6H PRN PRN 10 Days #30 tablet 07/20/20 insulin aspart U-100 [Novolog Flexpen U-100 Insulin] TIDCM 11/17/20 fentanyl 25 mcg/hr transdermal patch 1 patch TRANSDERMAL ea 02/04/21 Xalatan 1 drp EACH EYE DAILY 02/06/21 oxycodone-acetaminophen 5 - 325 tab PO TID 02/06/21 cefdinir 300 mg PO BID #14 cap 02/09/21 Hospital Course Operations None Procedures PICC line placement Summary of Care Provided Minutes Spent on Discharge: 42 Hospital Course: Mr. Teague is a 71-year-old white male who presented to the emergency department [facility] on 02/06/2021 with a chief complaint of fever. The patient was diagnosed with pancreatic cancer and was undergoing chemotherapy. On the day of admission his most recent chemotherapy treatment was 2 days prior to admission. On the day of admission he reported he awoke early on that morning with a fever and generalized malaise and myalgias. He denied any other significant symptoms but did indicate he perform self- catheterization at home and has been reusing catheters. Cultures were obtained prior to admission in the emergency department he was started on aggressive IV fluid resuscitation and IV antibiotics. Laboratory data on admission showed an elevated serum creatinine at 1.23, an elevated lactate at 6.2, and elevated bilirubin at 5.0. His UA was consistent with a urinary tract infection. His chest x-ray was unremarkable. A CT of his abdomen pelvis was performed and showed no significant change with regards to his metastatic pancreatic carcinoma but did show a small amount of ascites and small left pleural effusion. His rapid Covid test was negative. Blood cultures on the a.m. of 02/07/2021 are positive for gram-negative rods in both of these cultures were obtained from his med port. His blood pressure and other vital signs responded well to IV hydration and he did not require pressors but given the fact that his lactate was greater than four he did meet the criteria for septic shock. He was maintained on IV antibiotics and his cultures resulted positive for a fairly resistant E. coli organism. Infectious disease did evaluate the patient during his hospitalization and Omnicef 300 mg twice daily for another 7 days was recommended at discharge. The patient was able to be transferred out of the ICU on 02/08/2021 to the general medical floor where he did well. He was maintained on ceftriaxone until discharge and again was changed to Omnicef prior to discharge for at home completion with oral antibiotics. His home medications were continued throughout his hospitalization. He was able to maneuver independently without the need of any home therapies at discharge. He was instructed to follow-up with infectious disease in 2 weeks with regards to his bacteremia as well as not reutilizing catheters for his self-catheterization. He voiced understanding and understood the importance prior to discharge. He is also to follow-up with his PCP in 1-2 weeks. Discharge diagnoses: Septic shock E. coli bacteremia-organism is somewhat resistant E. coli urinary tract infection Pancytopenia secondary to acute infection and chemotherapy Metastatic pancreatic cancer History of obstructive jaundice status post biliary stent CAD Hypertension Hyperlipidemia Hypothyroidism DM-2 Depression Physical Exam Const alert, oriented x3, no apparent distress and average body habitus Constitutional Narrative: Older white male lying in bed, appears comfortable, nontoxic General Appearance: cooperative, comfortable, well kempt and well developed Orientation / Consciousness: awake Exam Limitations: no limitations HEENT normocephalic, head/scalp atraumatic, hearing grossly normal bilaterally, moist oral mucous membranes and oropharynx normal Eyes PERRL, EOMs intact bilaterally and conjunctivae normal Eyes Narrative: No scleral icterus Neck no lymphadenopathy, supple and no JVD Neck Narrative: Trachea midline no thyroid enlargement Resp normal respiratory effort, no retractions, no use of accessory muscles and clear to auscultation bilaterally Auscultation: Negative for crackles, rales, rhonchi or wheezes Cardio regular rate, regular rhythm, S1 normal heart sound, S2 normal heart sound, no murmurs, no rub, no gallops, no clicks and no JVD GI normal to inspection, nondistended, normoactive bowel sounds, soft to palpation, non-tender and non-distended Extremity no clubbing, cyanosis or edema Skin no rashes or lesions noted, no wounds, skin turgor normal, no jaundice, no petechiae and no mottling Neuro oriented x3, moves all extremities and no focal motor deficits Sensorium / Orientation: awake and alert Speech: speech normal Psych Psych Narrative: More interactive today with good eye contact and happy to be going home Mood & Affect: depressed Medical Records Data Medical Nutrition Assessment Dietitian: Malnutrition Criteria Met Start: 02/07/21 10:10 Freq: Status: Active Protocol: Document 02/07/21 10:10 NICHOLAS (Rec: 02/07/21 10:10 [facility] [id number]) Nutrition Malnutrition Evidence of Malnutrition Exists Yes Malnutrition (severe): Chronic Evidenced By Suboptimal Energy Intake ( Severe),Weight Loss (Severe), Physical Changes (Severe) Clinical Problem Chronic Disease or Condition Related Malnutrition Etiology related to cancer and chemo treatment w/ inability to consume adequate nutrition to meet estimated nutritional needs Signs/Symptoms as evidenced by <50% po intake and 14% wt loss x 7 months prior to admission. Pt also appears to have muscle/fat loss of temporal, orbital, clavicle regions and arm/legs. Status Active Problem Recommendation Dietitian Recommendations/Changes Will liberalize diet to Regular w/ 8 oz ensure enlive w/ meals d/t signs/symptoms of malnutrition Weight / BMI Weight Weight: 65.3 kg Body Mass Index (BMI) 22.8 ABG / Lab / Microbiology Data Result Diagrams: 02/09/21 08:05 02/09/21 08:05 Laboratory: Laboratory Results - last 24 hr 02/08/21 05:44: Total Bilirubin 3.80 H, Direct Bilirubin 3.26 H, AST 150 H, ALT 108 H, Alkaline Phosphatase 1103 H, Total Protein 5.5 L, Albumin 1.4 L, Globulin 4.1 02/08/21 11:28: POC Glucose 312 H 02/08/21 16:38: POC Glucose 216 H 02/08/21 22:00: POC Glucose 157 H 02/09/21 06:35: POC Glucose 159 H 02/09/21 08:05: WBC 3.1 L, RBC 2.87 L, Hgb 8.7 L, Hct 26.6 L, MCV 92.7, MCH 30.3, MCHC 32.7, RDW Std Deviation 66.0 H, RDW Coeff of Mary Ann 19.8 H, Plt Count 86 L, MPV 11.1, Immature Gran % (Auto) 0.600, Neut % (Auto) 88.1 H, Lymph % (Auto) 8.4 L, [place] % (Auto) 2.9, Eos % (Auto) 0.0, Baso % (Auto) 0.0, Absolute Neuts (auto) 2.7, Absolute Lymphs (auto) 0.26 L, Nucleated RBC % 0, Diff Path Review August02/09/21 08:05: Sodium 139, Potassium 3.9, Chloride 111 H, Carbon Dioxide 24.0, Anion Gap 4 L, BUN 23 H, Creatinine 0.72, Estim Creat Clear Calc 59.37, Est GFR (MDRD) Af Amer 137, Est GFR (MDRD) Non-Af 113, BUN/Creatinine Ratio 31.7 H, Glucose 143 H, Calcium 7.7 L Microbiology: Microbiology 02/06/21 09:30 Blood Culture (Wb) - Venous Blood Culture - Final Escherichia coli 02/06/21 11:04 Urine, Random Urine Culture - Final Escherichia coli 02/06/21 09:30 Blood Culture (Wb) - Venous Blood Culture - Final Escherichia coli 02/06/21 09:03 Nasal Secretion SARS-CoV-2 Antigen (Rapid) - Final D/C Instructions Discharge Diet: No restrictions, Low fat / Low cholesterol and 1800 Calorie C ontrol Diet Discharge Activity: Return to Normal Activity Meaningful Use Info Meaningful Use Diagnoses (Choose all that apply): None applicable Discharge Plan Admission Admit Date/Time: 02/06/21 13:12 Primary Reason for Your Visit: Sepsis Attending Provider: Ethel Aparicio Primary Care Provider: Jamie Humphrey Consulting Providers: Bartolo Mario ; Duc Pittman ; Rose Murray PILOT CAN ROUTER ; Jeancarlos Mari Discharge Orders/Prescriptions Prescriptions: New cefdinir 300 mg capsule 300 mg PO BID Qty: 14 RF: 0 Continued aspirin [Adult Low Dose Aspirin] 81 mg tablet,delayed release (DR/EC) 81 mg PO DAILY RF: 0 nitroglycerin 0.4 mg tablet, sublingual 0.4 mg SL Q5-15M PRN (Reason: Pain) Qty: 90 RF: 3 Lantus Solostar U-100 Insulin 100 unit/mL (3 mL) insulin pen 6 unit SC QHS RF: 0 citalopram 20 mg tablet 20 mg PO DAILY RF: 0 latanoprost 0.005 % drops 1 drp EACH EYE QPM RF: 0 fentanyl 25 mcg/hr patch 72 hour 1 patch transdermal RF: 0 levothyroxine 100 MCG tablet 100 mcg PO DAILY RF: 0 prochlorperazine maleate 10 MG tablet 10 mg PO Q6H PRN PRN (Reason: Not Specified) 10 Days Qty: 30 RF: 2 ondansetron 8 MG tablet,disintegrating 8 mg PO Q8H PRN PRN (Reason: Nausea) 10 Days Qty: 30 RF: 3 lidocaine-prilocaine 30 GM cream 1 applic TP DAILY PRN PRN (Reason: Not Specified) 30 Days Qty: 1 RF: 2 insulin aspart U-100 [Novolog Flexpen U-100 Insulin] 100 unit/mL (3 mL) Insulin Pen TIDCM RF: 0 oxycodone-acetaminophen 5-325 mg tablet 5 - 325 tab PO TID RF: 0 Xalatan 1 drp EACH EYE DAILY RF: 0 atorvastatin 40 mg tablet 40 mg PO QHS Qty: 90 RF: 3 Referrals / Follow Up: Jamie Humphrey MD [Primary Care Provider] - 02/23/21 8:35 am Jeancarlos Mari MD [STAFF PHYSICIAN] - Within 2 Weeks (Hospital follow-up) Disposition Disposition (needs filled in before D/C Order can be placed): Home, Self Care Charges/Coding Visit Charges Inpatient E&M: 42002 Disch Hosp
[2021-02-09 11:56] LABS: Bedside Glucose 133 mg/dL (70-110)
[2021-02-09 13:50] VITALS: BP 123/75; PULSE 90; RESP 16; TEMP 36.8; O2SAT 97
[2021-02-09] MEDS: 0.9% Saline Lock 10 ML Syringe IV (14:19)
[2021-02-09 15:03] LABS: Pathologist Review Reviewed
--- NOTE | 2021-02-10 16:08 | CASEMGMT ---
DORA JOSHI Discharge Follow-Up Phone Call. Di: Fara Strata: 3 Discharge Date: 02/09/21 Adm Dx: Septic shock Call to pt to inquire about how he has been doing since being discharged from the hospital. Pt states he's doing okay but it's been rough, stating he is just taking things slowly. His and son are are home w/him. 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 He denies having questions about the discharge instructions. Reviewed w/pt appt w/Dr Humphrey on 02/23 and he is aware an appt is to be scheduled w/Dr Mari. He denies having any concerns or needs. Jez TORRES RN CM
== END 2021-02-09 16:17 | disposition home or self-care (01) | DRG 698 ==
LOC: ED 12:57 → ICU 13:33 → MS3 02-08 07:02 → ICU 02-08 15:36
PROVIDERS: Internal Medicine Infectious Disease; Admitting Provider Internal Medicine; Emergency Provider Emergency Medicine; PCP Family Medicine; Visit Provider Internal Medicine
DX: T83.518A Infection and inflammatory reaction due to other urinary catheter, initial encounter (principal); A41.51 Sepsis due to Escherichia coli [E. coli]; R65.21 Severe sepsis with septic shock; D61.810 Antineoplastic chemotherapy induced pancytopenia; K83.1 Obstruction of bile duct; E43 Unspecified severe protein-calorie malnutrition; N39.0 Urinary tract infection, site not specified; C78.7 Secondary malignant neoplasm of liver and intrahepatic bile duct; C25.0 Malignant neoplasm of head of pancreas; T45.1X5A Adverse effect of antineoplastic and immunosuppressive drugs, initial encounter; Z23 Encounter for immunization; Z51.11 Encounter for antineoplastic chemotherapy; I25.10 Atherosclerotic heart disease of native coronary artery without angina pectoris; F32.A Depression, unspecified; F41.9 Anxiety disorder, unspecified; E03.9 Hypothyroidism, unspecified; I10 Essential (primary) hypertension; K21.9 Gastro-esophageal reflux disease without esophagitis; N40.0 Benign prostatic hyperplasia without lower urinary tract symptoms; E11.9 Type 2 diabetes mellitus without complications; G89.4 Chronic pain syndrome; E78.5 Hyperlipidemia, unspecified; E87.6 Hypokalemia; Y73.8 Miscellaneous gastroenterology and urology devices associated with adverse incidents, not elsewhere classified; Z57.4 Occupational exposure to toxic agents in agriculture; Z79.4 Long term (current) use of insulin; Z79.890 Hormone replacement therapy; Z79.899 Other long term (current) drug therapy; Z95.1 Presence of aortocoronary bypass graft; Z79.82 Long term (current) use of aspirin; Z86.19 Personal history of other infectious and parasitic diseases; Z68.22 Body mass index [BMI] 22.0-22.9, adult
CPT/HCPCS: 36415; 36591; 71045; 74177; 80048; 80053; 80076; 81001; 82962; 83605; 83735; 85025; 85610; 85730; 86850; 86900; 86901; 87040; 87077; 87086; 87088; 87186; 87426; 93005; 96367; 96413; 96417; 97802; 99284; G0008; J7030; J7040; J7050; Q9967; 90686; A4216; J2405; J3490; J9201; J9264

== ENCOUNTER 2021-02-14 05:27 | Observation (INO) | payer MEDICARE, SELFPAY ==
[2021-02-14] VITALS (12 sets, daily range): BP systolic 90–129; BP diastolic 48–68; PULSE 80–110; RESP 11–16; TEMP 36.1–37.2; O2SAT 94–98; BMI 24.4; BMI 22.9
[2021-02-14 06:06] LABS: Mucous, Urine 0 SEEN /hpf (<or=2+); Red Blood Cells-Urine 0 SEEN /hpf (0-5); Squamous Epithelial Cells - UA 0 SEEN /hpf (0-5); White Blood Cells 0 SEEN /hpf (0-5)
[2021-02-14 06:07] LABS: Color, Urine Amber (Yellow); Glucose, Dipstick Normal (Normal); Ketone-Dipstick 5 mg/dl (Negative); Leukocyte Esterase-Dipstick 25 /ul (Negative); Nitrite-Dipstick Positive (Negative); Occult Blood-Urine 10 /ul (Negative); Protein-Dipstick 30 mg/dl (Negative); Urine Clarity Clear (Clear); Urine Urobilinogen 8 mg/dl (Normal)
--- NOTE | 2021-02-14 06:14 | EX.ED.DYSGE1 ---
HPI History of Present Illness Chief Complaint: Confusion Narrative Narrative: Patient is a 71-year-old male with history of pancreatic cancer. He stays at home with his and son. He reports that he has been receiving chemotherapy for multiple months. Reportedly he has been having intermittent bouts of confusion and there is concern from family that he may be becoming septic as he has had this happen in the past and therefore sent in for evaluation. Upon arrival to the ER the patient is awake alert and oriented x3 and his main complaint is pain in the buttocks region. [facility] Medical History Acquired hypothyroidism Anxiety and depression Atherosclerotic heart disease of [place] coronary artery without angina pectoris Benign neoplasm of colon BPH (benign prostatic hyperplasia) CAD (coronary artery disease) Cancer related pain Chemotherapy induced neutropenia Constipation Encounter for education Essential hypertension GERD (gastroesophageal reflux disease) History of agent [place] exposure Hypokalemia Normocytic anemia Pancreatic cancer Pancreatic cancer Port-A-Cath in place Presence of stent in coronary artery (~09/19/05) Type 2 diabetes mellitus Urinary retention Home Medications levothyroxine 100 mcg PO DAILY 05/24/18 [History Last Taken 11/17/20] atorvastatin 40 mg tablet 40 mg PO QHS #90 tablet 07/20/18 [Rx Last Taken 02/05/21] aspirin 81 mg tablet,delayed release 81 mg PO DAILY 11/16/18 [History Last Taken 02/05/21] nitroglycerin 0.4 mg sublingual tablet 0.4 mg SL Q5-15M PRN #90 tablet 11/15/19 [Rx Last Taken Unknown] citalopram 20 mg tablet 20 mg PO DAILY 05/14/20 [History Last Taken 02/05/21] insulin glargine 100 unit/mL (3 mL) subcutaneous pen 6 unit SC QHS ml 05/14/20 [History Last Taken 02/05/21] latanoprost 0.005 % eye drops 1 drp EACH EYE QPM 05/14/20 [History Last Taken 11/16/20] lidocaine-prilocaine 1 applic TP DAILY PRN PRN 30 Days #1 tube 07/20/20 [Rx Last Taken Unknown] ondansetron 8 mg PO Q8H PRN PRN 10 Days #30 tab.rapdis 07/20/20 [Rx Last Taken Unknown] prochlorperazine maleate 10 mg PO Q6H PRN PRN 10 Days #30 tablet 07/20/20 [Rx Last Taken Unknown] insulin aspart U-100 [Novolog Flexpen U-100 Insulin] TIDCM 11/17/20 [History Last Taken 02/05/21] fentanyl 25 mcg/hr transdermal patch 1 patch TRANSDERMAL ea 02/04/21 [History Last Taken 02/05/21] Xalatan 1 drp EACH EYE DAILY 02/06/21 [History Last Taken 02/05/21] oxycodone-acetaminophen 5 - 325 tab PO TID 02/06/21 [History Last Taken Unknown] cefdinir 300 mg PO BID #14 cap 02/09/21 [Rx Last Taken Unknown] Allergy/AdvReac Type Severity Reaction Status Date / Time phenazopyridine AdvReac Unknown Vomiting Verified 02/04/21 08:20 [From Pyridium] beta blockers AdvReac Unknown Intolerant- Uncoded 01/05/21 08:57 Extreme fatigue Family History Mother CHF (congestive heart failure) Hypertension Cancer Cervical Father CAD (coronary artery disease) Myocardial infarction Cancer Colon Surgical History History of colonoscopy (~01/2020) History of left heart catheterization (LHC) Hx of heart artery stent Presence of coronary angioplasty implant and graft Status post coronary artery bypass graft (~09/12/18) Social History Smoking Status: Never smoker alcohol intake: current details: occasional substance use type: does not use ROS ROS ED Constitutional Constitutional ED: Denies chills or fever(s) ENT ENT ED: Denies rhinorrhea or sore throat Cardiovascular Cardiovascular: Denies chest pain Respiratory/Chest Respiratory/Chest: Denies cough or dyspnea Gastrointestinal Gastrointestinal: Reports abdominal pain; Denies diarrhea, nausea or vomiting Genitourinary Genitourinary ED: Denies dysuria Musculoskeletal Musculoskeletal: Denies myalgias Integumentary Denies Abrasions or rash Neurologic Neurologic: Denies headache(s) EXAM Physical Exam Const Vital Signs: 02/14/21 05:28 02/14/21 05:35 Temperature 98.9 F 98.9 F Temperature Source Temporal Temporal Pulse Rate 110 H 110 H Respiratory Rate 16 16 Blood Pressure 90/68 90/68 Blood Pressure Mean 75 75 Pulse Ox 98 98 Oxygen Delivery Method Room Air Room Air Positive cachectic General Appearance ED: cachectic Nutritional Appearance: cachectic HEENT HEENT Narrative: Mucous membranes are dry and tacky Eyes PERRL and EOMs intact bilaterally General Eye ED: Yes scleral icterus Neck supple and no JVD Neck Narrative: No meningeal signs Resp normal respiratory effort and clear to auscultation bilaterally Cardio Rate: other Other Details: Tachycardic rate with regular rhythm. Radial pulses are +2-4 bilaterally are equal and symmetric GI non-tender and non-distended GI Narrative: Abdomen is soft nontender nondistended with hypoactive bowel sounds no voluntary guarding no rigidity no pulsatile mass Auscultation: hypoactive bowel sounds Palpation: soft Narrative: No testicular swelling or masses noted no overlying soft tissue changes to suggest Alhaji's gangrene Extremity Extremity Narrative: Patient has +2 pitting edema to the bilateral lower extremities that is equal and symmetric Neuro oriented x3 and CN's II-XII intact bilaterally Sensorium / Orientation: alert Psych Psych Narrative: Patient has a flat affect Skin Skin Narrative: Patient has a combination stage I and II sacral decubitus ulcer present that is approximately 3 cm in diameter. His skin turgor is increased consistent with dehydration. Skin is also jaundiced in color. MDM MDM MDM Narrative Medical decision making narrative: Patient presented to the ER awake alert and oriented. However with reports of intermittent confusion and the fact he is immunosuppressed because of his pancreatic cancer as well as chemotherapy I did elect to perform basic work-up. His urine did show changes consistent with infection therefore this will be sent for culture and he will be started on Rocephin. At this time blood work is pending as well as imaging studies. Patient may need placed in the hospital especially if he is neutropenic or has changes consistent with acute kidney injury. However as I do not have his complete work-up resulted at this time he will be signed out to the oncoming provider. Lab Data Labs: Laboratory Results - last 24 hr 02/14/21 02/14/21 05:55 06:35 WBC 1.1 L* RBC 3.40 L Hgb 10.0 L Hct 31.4 L MCV 92.4 MCH 29.4 MCHC 31.8 L RDW Std Deviation 65.2 H RDW Coeff of Mary Ann 20.5 H Plt Count 65 L MPV 12.0 Immature Gran % (Auto) 3.600 H Neut % (Auto) 10.8 L Lymph % (Auto) 31.5 [place] % (Auto) 53.2 H Eos % (Auto) 0.0 Baso % (Auto) 0.9 Absolute Neuts (auto) 0.1 L Absolute Lymphs (auto) 0.35 L Nucleated RBC % 10.8 H Urine Color [place] Urine Clarity Clear Urine pH 6.0 Ur Specific [place] 1.010 Urine Protein 30 H Urine Glucose (UA) Normal Urine Ketones 5 H Urine Occult Blood 10 H Urine Nitrite Positive H Urine Bilirubin 3 H Urine Urobilinogen 8 H Ur Leukocyte Esterase 25 H Urine RBC 0 SEEN Urine WBC 0 SEEN Ur Squamous Epith Cells 0 SEEN Urine Bacteria 1+ Urine Mucus 0 SEEN Discharge Plan Triage Chief Complaint: Confusion ED Provider: Santos Sarah Dx/Rx/DC Orders Clinical Impression: Urinary tract infection, Neutropenia Prescriptions: No Action aspirin [Adult Low Dose Aspirin] 81 mg tablet,delayed release (DR/EC) 81 mg PO DAILY RF: 0 nitroglycerin 0.4 mg tablet, sublingual 0.4 mg SL Q5-15M PRN (Reason: Pain) Qty: 90 RF: 3 Lantus Solostar U-100 Insulin 100 unit/mL (3 mL) insulin pen 6 unit SC QHS RF: 0 citalopram 20 mg tablet 20 mg PO DAILY RF: 0 latanoprost 0.005 % drops 1 drp EACH EYE QPM RF: 0 fentanyl 25 mcg/hr patch 72 hour 1 patch transdermal RF: 0 levothyroxine 100 MCG tablet 100 mcg PO DAILY RF: 0 prochlorperazine maleate 10 MG tablet 10 mg PO Q6H PRN PRN (Reason: Not Specified) 10 Days Qty: 30 RF: 2 ondansetron 8 MG tablet,disintegrating 8 mg PO Q8H PRN PRN (Reason: Nausea) 10 Days Qty: 30 RF: 3 lidocaine-prilocaine 30 GM cream 1 applic TP DAILY PRN PRN (Reason: Not Specified) 30 Days Qty: 1 RF: 2 insulin aspart U-100 [Novolog Flexpen U-100 Insulin] 100 unit/mL (3 mL) Insulin Pen TIDCM RF: 0 oxycodone-acetaminophen 5-325 mg tablet 5 - 325 tab PO TID RF: 0 Xalatan 1 drp EACH EYE DAILY RF: 0 cefdinir 300 mg capsule 300 mg PO BID Qty: 14 RF: 0 atorvastatin 40 mg tablet 40 mg PO QHS Qty: 90 RF: 3 Primary Care Provider: Jamie Humphrey Referrals: Jamie Humphrey MD [Primary Care Provider] - Disposition Disposition: Acute Care Hospital [facility]
[2021-02-14 06:16] LABS: Bacteria 1+ /hpf (None Seen); Urine Bilirubin Dipstick 3 mg/dL (Negative)
--- NOTE | 2021-02-14 06:41 | RAD_ITS ---
STUDY: X-RAY CHEST REASON FOR EXAM: Male, 71 years old. cough TECHNIQUE: Single AP portable view of the chest. COMPARISON: 02/06/2021 FINDINGS: Right subclavian chest port which is unchanged. Status post median sternotomy. Alveolar opacity in the lower left lung consistent with left lower lobe pneumonia or atelectasis. There is no demonstrated pleural abnormality. Normal size heart. Normal mediastinum and raimundo. Normal visualized pulmonary arteries. Normal visualized aortic arch and descending thoracic aorta. Normal visualized thoracic spine. Normal visualized ribs, clavicles, and shoulders. There is no demonstrated abnormality of the visualized soft tissue structures of the upper abdomen. RAD/Chest 1 View (Portable) IMPRESSION: Left lower lobe pneumonia or atelectasis. Electronically Signed: Maximo Barker MD at 7:17 EST Tel , Service support ,
[2021-02-14 06:45] LABS: Absolute Lymphocyte Count 0.35 X10^3/uL (0.83-4.51); Absolute Neutrophil Count 0.1 X10^3/uL (2.0-7.7); Basophil# 0.01 X10^3/uL; Basophil% 0.9 % (0-1); Hematocrit 31.4 % (40-54); Lymphocyte # 0.35 X10^3/ul (0.83-4.51); Lymphocyte % 31.5 % (19-41); Mean Corp Hgb Conc 31.8 g/dL (32-36); Mean Corpuscular Hgb 29.4 pg (27.0-32.0); Mean Corpuscular Volume 92.4 fL (80-94); Monocyte# 0.59 X10^3/uL; Monocyte% 53.2 % (0-10); NRBC Flagged by Analyzer 10.8 % (0-5); Neutrophil # 0.12 X10^3/uL (2.7-7.7); Neutrophil % 10.8 % (47-70); POSITIVE COUNT YES; POSITIVE DIFFERENTIAL YES; POSITIVE MORPHOLOGY YES; Platelet Count 65 K/mm3 (150-450); RBC Distribution Width CV 20.5 % (11.6-14.6); RBC Distribution Width SD 65.2 fl (35.1-43.9)
[2021-02-14 06:46] LABS: Differential Indicated SCAN CRITERIA MET; White Blood Count 1.1 K/mm3 (4.4-11.0)
[2021-02-14 06:55] LABS: International Normalized Ratio 1.4; Partial Thromboplast Time 38.5 Seconds (24.1-36.2); Prothrombin Time (Protime)PT. 16.3 SECONDS (11.7-14.9)
[2021-02-14 07:08] LABS: BNP,B-Type NATRIURETIC PEPTIDE 110.1 pg/mL (0-100); Differential Comment SCANNED
[2021-02-14 07:09] LABS: Platelet Estimate MOD DEC (ADEQ)
[2021-02-14] MEDS: Ceftriaxone 1 GM/50 ML BAG IV (07:12)
[2021-02-14 07:14] LABS: AST(SGOT) 79 U/L (15-37); Alanine Aminotransfer ALT/SGPT 79 U/L (16-61); Albumin, Serum 1.4 g/dL (3.2-5.0); Alkaline Phosphatase 1453 U/L (45-117); Anion Gap 9 (5-15); BUN 33 mg/dL (7-18); BUN/Creat Ratio 31.7 RATIO (10-20); Bilirubin, Direct 4.31 mg/dL (0.00-0.30); Chloride 106 mmol/L (98-107); Creatinine, Serum 1.04 mg/dL (0.70-1.30); EST Glomerular Filtration Rate 74 mL/min (>60); Est Glom Filt Rate - Afr Amer 90 mL/min (>60); Estimated Creatinine Clearance 55.03 ml/min; Globulin 4.5 g/dL (2.2-4.2); Glucose 162 mg/dL (74-106); Magnesium 1.8 mg/dL (1.6-2.6); Potassium 4.3 mmol/L (3.5-5.1); Protein, Total 5.9 g/dL (6.4-8.2); Sodium Level 137 mmol/L (136-145)
[2021-02-14 07:15] LABS: Lactic Acid 3.5 mmol/L (0.4-1.9)
--- NOTE | 2021-02-14 07:27 | ED.RN ---
per dr davies to hold the rocephin antibiotic.
[2021-02-14 07:40] LABS: Ammonia < 10.0 umol/L (11-32)
[2021-02-14] MEDS: Lactated Ringers 1,000 ML 999 ML IV (07:44)
[2021-02-14] MEDS: 0.9% Normal Saline 1,000 ML 75 ML IV ×2 (10:22→22:08)
[2021-02-14 10:58] LABS: Reflex Lactate? Y
[2021-02-14 11:55] LABS: Bedside Glucose 201 mg/dL (70-110)
[2021-02-14 12:35] LABS: Lactic Acid 2.3 mmol/L (0.4-1.9)
--- NOTE | 2021-02-14 13:38 | NURSING ---
admission assessment completed by this RN. Noted fentanyl patch to right shoulder, secured with tape. Per son, to be changed 02/14 HS.
[2021-02-14] MEDS: oxyCODONE 5 MG Tablet PO ×2 (13:46→22:05)
[2021-02-14] MEDS: Acetaminophen 325 MG Tablet 650 MG PO (13:46)
[2021-02-14] MEDS: Citalopram 20 MG Tablet PO (13:47)
[2021-02-14] MEDS: Enoxaparin 40 MG/0.4 ML Syringe SC (13:47)
--- NOTE | 2021-02-14 16:32 | PCM.HP.STD ---
HPI - General General Date of Admission: 02/14/21 Date of Service: 02/14/21 Chief Complaint: Confusion HPI Narrative CORDELIA BALL, is a 71 M who presented to the emergency department [facility] on 02/14/2021 with increasing confusion. He lives at home with his and his son and has been undergoing chemotherapy for pancreatic cancer. He had a recent admission for E. coli bacteremia from 02/06 through 02/09/2021 and was discharged home on Omnicef at the recommendation of infectious disease. Unfortunately at discharge his urine culture sensitivity was identified as E. coli which matches blood cultures but the sensitivities had not resulted in upon review today it is noted that the sensitivities for his urine cultures are slightly different than his blood cultures. This does however make me question where his bacteremia came from as I would anticipate his blood and urine culture sensitivities be the same if his bacteremia was from his urine culture. The patient states upon discharge he was feeling well but shortly after he got home he began having lower abdominal pain that was suprapubic in nature, intermittent confusion, general malaise, and decreased oral intake. He was alert and oriented upon arrival to the emergency department today. His blood pressures initially on admission were borderline but improved with volume resuscitation. He was also noted to be tachycardic which improved with volume resuscitation. His CBC shows a pancytopenia with a slightly worse white count stable hemoglobin and a slightly worse platelet count. His INR was 1.4. His chemistries were overall unremarkable although his BUN has elevated since discharge from 23-33 indicating probable dehydration. His serum creatinine has also gone from 0.72 on discharge to 1.04 on readmission. Was his lactic acid was mildly elevated at 3.5 and has trended down with hydration. His total bilirubin was mildly elevated at 5 but this is baseline for him. He has chronically elevated liver functions that are stable. His ammonia is less than 10. His urine shows positive nitrites, positive trace, no whites and 1+ bacteria. He was initially given ceftriaxone in the emergency department but upon review of his cultures his urine is actually resistant where his blood cultures were sensitive to ceftriaxone and he was given cefepime on admission. [facility] Medical History Acquired hypothyroidism Anxiety and depression Atherosclerotic heart disease of [place] coronary artery without angina pectoris Benign neoplasm of colon BPH (benign prostatic hyperplasia) CAD (coronary artery disease) Cancer related pain Chemotherapy induced neutropenia Constipation Encounter for education Essential hypertension GERD (gastroesophageal reflux disease) History of agent Carpenter exposure Hypokalemia Normocytic anemia Pancreatic cancer Pancreatic cancer Port-A-Cath in place Presence of stent in coronary artery (~09/19/05) Type 2 diabetes mellitus Urinary retention Home Medications levothyroxine 100 mcg PO DAILY 05/24/18 [History Last Taken 02/13/21] atorvastatin 40 mg tablet 40 mg PO QHS #90 tablet 07/20/18 [Rx Last Taken 02/13/21] aspirin 81 mg tablet,delayed release 81 mg PO DAILY 11/16/18 [History Last Taken 02/13/21] nitroglycerin 0.4 mg sublingual tablet 0.4 mg SL Q5-15M PRN #90 tablet 11/15/19 [Rx Last Taken Unknown] citalopram 20 mg tablet 20 mg PO DAILY 05/14/20 [History Last Taken 02/13/21] insulin glargine 100 unit/mL (3 mL) subcutaneous pen 6 unit SC QHS ml 05/14/20 [History Last Taken 02/05/21] latanoprost 0.005 % eye drops 1 drp EACH EYE QPM 05/14/20 [History Last Taken 11/16/20] lidocaine-prilocaine 1 applic TP DAILY PRN PRN 30 Days #1 tube 07/20/20 [Rx Last Taken Unknown] ondansetron 8 mg PO Q8H PRN PRN 10 Days #30 tab.rapdis 07/20/20 [Rx Last Taken Unknown] prochlorperazine maleate 10 mg PO Q6H PRN PRN 10 Days #30 tablet 07/20/20 [Rx Last Taken Unknown] insulin aspart U-100 [Novolog Flexpen U-100 Insulin] sliding scale dose TIDCM 11/17/20 [History Last Taken 02/05/21] fentanyl 25 mcg/hr transdermal patch 1 patch TRANSDERMAL ea 02/04/21 [History Last Taken 02/11/21] oxycodone-acetaminophen 5 - 325 tab PO TID PRN PRN 02/06/21 [History Last Taken 02/13/21] cefdinir 300 mg PO BID #14 cap 02/09/21 [Rx Last Taken 02/13/21] Allergy/AdvReac Type Severity Reaction Status Date / Time phenazopyridine AdvReac Unknown Vomiting Verified 02/04/21 08:20 [From Pyridium] beta blockers AdvReac Unknown Intolerant- Uncoded 01/05/21 08:57 Extreme fatigue Family History Mother CHF (congestive heart failure) Hypertension Cancer Cervical Father CAD (coronary artery disease) Myocardial infarction Cancer Colon Surgical History History of colonoscopy (~01/2020) History of left heart catheterization (LHC) Hx of heart artery stent Presence of coronary angioplasty implant and graft Status post coronary artery bypass graft (~09/12/18) Social History Smoking Status: Never smoker alcohol intake: current details: occasional substance use type: does not use ROS Constitutional Constitutional: Reports fatigue and weakness; Denies anorexia, change in weight, chills, fever(s), malaise, night sweats or other Eyes Eyes: Denies blurry vision, change in eye color, change in vision, discharge from eye(s), double vision, erythema, eye pain, loss of vision or other ENT HEENT: Denies abnormal hearing, dysphagia, ear pain, epistaxis, headache(s), hearing loss, nasal congestion, nasal discharge, post nasal drip, sinus pressure, sore throat or other Cardiovascular Cardiovascular: Denies chest pain, claudication, dyspnea on exertion, edema, lightheadedness, orthopnea, palpitations, paroxysmal nocturnal dyspnea, rapid heart rate, syncope or other Respiratory/Chest Respiratory/Chest: Denies cough, dyspnea, excessive phlegm production, hemoptysis, productive cough, shortness of breath at rest, shortness of breath with exertion, wheezing or other Gastrointestinal Gastrointestinal: Reports abdominal pain; Denies coffee ground emesis, constipation, diarrhea, dyspepsia, hematemesis, hematochezia, loose stools, melena, nausea, vomiting or other Genitourinary Genitourinary: Reports difficulty urinating; Denies burning urination, dysuria, hematuria, nocturia, urinary frequency, urinary hesitancy, urinary incontinence, urinary urgency or other Musculoskeletal Musculoskeletal: Denies arthralgias, back pain, joint pain, joint stiffness, joint swelling, myalgias, neck pain or other Neurologic Neurologic: Denies abnormal gait, abnormal speech, confusion, disequilibrium, dizziness, focal weakness, headache(s), numbness, paresthesias, seizure-like activity, seizures, syncope, tingling, tremor(s) or other Psychiatric Psychiatric: Denies anxiety, depression, homicidal ideation, suicidal ideation or other Endocrine Endocrinology: Denies change in body appearance, cold intolerance, excessive sweating, heat intolerance, polydipsia, polyuria or other Hematologic/Lymphatic Hematologic/Lymphatic: Denies anemia, easy bleeding, easy bruising, lymphadenopathy or other Allergic/Immunologic Allergic/Immunologic: Denies rhinitis, hives, eczemia, asthma or other Vital Signs Vital Signs Vital Signs: 02/14/21 05:28 02/14/21 05:35 02/14/21 07:18 Temperature 98.9 F 98.9 F 97 F L Temperature Source Temporal Temporal Temporal Pulse Rate 110 H 110 H 90 Pulse Strength Respiratory Rate 16 16 16 Blood Pressure 90/68 90/68 129/60 H Blood Pressure Mean 75 75 83 Blood Pressure Source Blood Pressure Position Blood Pressure Location Pulse Ox 98 98 97 Oxygen Delivery Method Room Air Room Air Room Air 02/14/21 07:44 02/14/21 07:45 02/14/21 08:23 Temperature 97.6 F L 98.7 F Temperature Source Temporal Oral Pulse Rate 99 98 101 H Pulse Strength Respiratory Rate 11 L 11 L 16 Blood Pressure 120/48 L 120/48 L 100/61 Blood Pressure Mean 72 72 74 Blood Pressure Source Monitor Blood Pressure Position Semi-Fowlers Blood Pressure Location Left Arm Pulse Ox 94 94 97 Oxygen Delivery Method Room Air Room Air Room Air 02/14/21 09:50 02/14/21 11:09 02/14/21 11:57 Temperature Temperature Source Pulse Rate 91 Pulse Strength Weak (1+) Respiratory Rate Blood Pressure Blood Pressure Mean Blood Pressure Source Blood Pressure Position Blood Pressure Location Pulse Ox 98 Oxygen Delivery Method Room Air 02/14/21 14:46 02/14/21 15:38 Temperature 98.4 F Temperature Source Oral Pulse Rate 87 81 Pulse Strength Respiratory Rate 14 Blood Pressure 97/58 L Blood Pressure Mean 71 Blood Pressure Source Monitor Blood Pressure Position Supine Blood Pressure Location Left Arm Pulse Ox 96 Oxygen Delivery Method Room Air Weight Weight: 64.5 kg Body Mass Index (BMI) 22.9 Physical Exam Const alert, oriented x3 and no apparent distress Constitutional Narrative: Thin white male lying in bed, appears comfortable, nontoxic, very pleasant, no confusion at this time General Appearance: cooperative HEENT normocephalic, head/scalp atraumatic and hearing grossly normal bilaterally HEENT Narrative: Lips are and mouth are dry, Mallampati 2, no thrush Eyes PERRL, EOMs intact bilaterally and conjunctivae normal Eyes Narrative: Mild scleral icterus Neck no lymphadenopathy, supple, no JVD and no carotid bruits Resp normal respiratory effort, no retractions, no use of accessory muscles and clear to auscultation bilaterally Auscultation: Negative for crackles, rales, rhonchi or wheezes Cardio regular rhythm, S1 normal heart sound, S2 normal heart sound, no murmurs, no rub, no gallops, no clicks and no JVD Cardio Narrative: Mild tachycardia GI normal to inspection, nondistended, normoactive bowel sounds, soft to palpation and non-distended Palpation: tender suprapubic Extremity no clubbing, cyanosis or edema Extremity Narrative: Decreased lean muscle mass Peripheral Pulses: Yes pulses 2+ throughout Neuro oriented x3, CN's II-XII intact bilaterally, moves all extremities and no focal motor deficits Neuro Narrative: Generalized weakness Sensorium / Orientation: awake, alert and oriented to person Speech: speech normal Psych Psych Narrative: Mood is slightly depressed and affect is flat Results Medical Records Data Medical Nutrition Assessment Dietitian: Malnutrition Criteria Met Start: 02/14/21 11:38 Freq: Status: Active Protocol: Document 02/14/21 11:38 NICHOLAS (Rec: 02/14/21 11:39 [facility] [id number]) Nutrition Malnutrition Evidence of Malnutrition Exists Yes Evidenced By Suboptimal Energy Intake ( Severe),Weight Loss (Severe), Physical Changes (Severe) Clinical Problem Chronic Disease or Condition Related Malnutrition Etiology related to cancer and chemo treatment w/ inability to consume adequate nutrition to meet estimated nutritional needs Signs/Symptoms as evidenced by <50% po intake and 16.6% wt loss x 7 months prior to admission. Pt also appears to have muscle/fat loss of temporal, orbital, clavicle regions and arm/legs. Status Active Problem Recommendation Dietitian Recommendations/Changes Will continue diet as ordered Will continue ONS w/ medpass Will provide magic cup or ensure pudding w/ meals Lab / Micro Data Result Diagrams: 02/14/21 06:35 02/14/21 06:35 Labs: Laboratory Results - last 24 hr 02/14/21 05:55: Urine Color [place], Urine Clarity Clear, Urine pH 6.0, Ur Specific [place] 1.010, Urine Protein 30 H, Urine Glucose (UA) Normal, Urine Ketones 5 H, Urine Occult Blood 10 H, Urine Nitrite Positive H, Urine Bilirubin 3 H, Urine Urobilinogen 8 H, Ur Leukocyte Esterase 25 H, Urine RBC 0 SEEN, Urine WBC 0 SEEN, Ur Squamous Epith Cells 0 SEEN, Urine Bacteria 1+, Urine Mucus 0 SEEN 02/14/21 06:35: WBC 1.1 L*, RBC 3.40 L, Hgb 10.0 L, Hct 31.4 L, MCV 92.4, MCH 29.4, MCHC 31.8 L, RDW Std Deviation 65.2 H, RDW Coeff of Mary [place] 20.5 H, Plt Count 65 L, MPV 12.0, Immature Gran % (Auto) 3.600 H, Neut % (Auto) 10.8 L, Lymph % (Auto) 31.5, [place] % (Auto) 53.2 H, Eos % (Auto) 0.0, Baso % (Auto) 0.9, Absolute Neuts (auto) 0.1 L, Absolute Lymphs (auto) 0.35 L, Nucleated RBC % 10.8 H, Differential Comment SCANNED, Diff Path Review August, Platelet Estimate MOD DEC 02/14/21 06:35: PT 16.3 H, INR 1.4, APTT 38.5 H 02/14/21 06:35: Sodium 137, Potassium 4.3, Chloride 106, Carbon Dioxide 22.0, Anion Gap 9, BUN 33 H, Creatinine 1.04, Estim Creat Clear Calc 55.03, Est GFR (MDRD) Af Amer 90, Est GFR (MDRD) Non-Af 74, BUN/Creatinine Ratio 31.7 H, Glucose 162 H, Calcium 8.0 L, Magnesium 1.8, Total Bilirubin 5.00 H, Direct Bilirubin 4.31 H, AST 79 H, ALT 79 H, Alkaline Phosphatase 1453 H, Total Protein 5.9 L, Albumin 1.4 L, Globulin 4.5 H 02/14/21 06:35: Ammonia < 10.0 L, B-Natriuretic Peptide Cancelled 02/14/21 06:35: Lactic Acid 3.5 H* 02/14/21 06:35: B-Natriuretic Peptide 110.1 H 02/14/21 11:45: Lactic Acid 2.3 H* 02/14/21 11:47: POC Glucose 201 H Micro: Microbiology 02/14/21 07:05 Nasal Secretion SARS-CoV-2 Antigen (Rapid) - Final Radiology Impression Chest X-Ray 02/14/21 06:41 IMPRESSION: Left lower lobe pneumonia or atelectasis. Electronically Signed: Maximo Barker MD at 7:17 EST Tel , Service support , Assessment & Plan Assessment/Plan (1) UTI (urinary tract infection): (2) Pancytopenia: PLAN: Recent septic shock secondary to E. coli bacteremia from a urinary tract infection -Shock has resolved -Unfortunately urine cultures are not sensitive to ceftriaxone and likely were not sensitive to the Omnicef he was discharged on -Both blood and urine cultures were sensitive to cefepime--> will treat with this at this time -Consult ID -Both the blood and the urine E. coli were somewhat resistant organisms -Patient likely got this from self cathing and reutilizing catheters -Discussed using new catheters that are sterile with each self cathing event to avoid recurrent infections at previous admission and patient is now using new catheters -IV fluids at 75 cc/h -Lactic acid is trending down -IV bolus of 1000 cc given in emergency department -Repeat cultures are pending--> blood and urine Lactic acidosis -Secondary to persistent urinary tract infection despite adequately treated bacteremia and hypotension/dehydration -Improved on repeat Pancytopenia -Patient with chronic normocytic anemia likely related to his chemotherapy -Patient with chronic thrombocytopenia that slightly worse--> may be related to infection versus antibiotics -Continue to monitor -Neutropenia is new -I am wondering if these are related to his Omnicef at discharge as these are side effects of this antibiotic -Antibiotics were changed to cefepime -Continue to monitor Pancreatic cancer-metastatic -Patient is currently undergoing chemo as an outpatient -We will have patient follow-up with oncology after discharge History of obstructive jaundice -Currently no issues -Patient has biliary stent that was placed related to his pancreatic cancer CAD/HTN/HPL -Continue home statin therapy -History of CABG with subsequent stent placement -Continue aspirin Hypothyroidism -Continue levothyroxine DM-2 -Continue Lantus 60 units at at bedtime -Start sliding scale -Start Accu-Cheks before meals and at bedtime Severe malnutrition -Has been seen by dietitian at last hospitalization -We will add oral supplements for diet with Ensure Depression -Continue home medications -Commend follow-up with PCP as patient does feel that his SSRI is not helping him all that much at this time -Anticipate some of this is situational with his recent diagnosis of metastatic pancreatic cancer as well -Social work is following DVT prophylaxis -Subcu Lovenox CODE STATUS -Full code Charges/Coding Visit Charges Inpatient E&M: 13667 Init Hosp L3
[2021-02-14 16:46] LABS: Bedside Glucose 169 mg/dL (70-110)
[2021-02-14] MEDS: Atorvastatin Calcium 40 MG Tablet PO (21:01)
[2021-02-14] MEDS: Latanoprost 0.005% 1 Bottle 1 DRP OPHTHALMIC (21:27)
[2021-02-14] MEDS: fentaNYL 25 MCG Patch TD (21:31)
--- NOTE | 2021-02-14 21:45 | NURSING ---
Fentanyl patch witnessed by Mamta and this RN being flushed down the toilet.
--- NOTE | 2021-02-14 21:45 | NURSING ---
Fentanyl patch witnessed by Oriana Cali RN flushed down toilet
[2021-02-15] VITALS (9 sets, daily range): BP systolic 101–115; BP diastolic 54–73; PULSE 86–102; RESP 16–18; TEMP 36.7–36.8; O2SAT 94–96
[2021-02-15 00:36] LABS: Bedside Glucose 112 mg/dL (70-110)
[2021-02-15] MEDS: oxyCODONE 5 MG Tablet PO ×3 (06:20→21:05)
[2021-02-15] MEDS: Levothyroxine 100 MCG Tablet PO (06:20)
[2021-02-15 06:41] LABS: Bedside Glucose 218 mg/dL (70-110)
[2021-02-15] MEDS: Insulin Lispro 100 UNIT/ML INSULN.PEN SC ×3 (06:47→17:09)
[2021-02-15 07:21] LABS: Hematocrit 29.1 % (40-54); Hemoglobin 9.4 g/dL (13.0-16.5); Mean Corp Hgb Conc 32.3 g/dL (32-36); Mean Corpuscular Hgb 30.1 pg (27.0-32.0); Mean Corpuscular Volume 93.3 fL (80-94); Mean Platelet Vol. 12.4 fl (6.2-12.0); POSITIVE COUNT YES; POSITIVE DIFFERENTIAL YES; POSITIVE MORPHOLOGY YES; Platelet Count 73 K/mm3 (150-450); RBC Distribution Width CV 21.2 % (11.6-14.6); RBC Distribution Width SD 69.5 fl (35.1-43.9); Red Blood Count 3.12 M/mm3 (4.6-6.2); White Blood Count 1.6 K/mm3 (4.4-11.0)
[2021-02-15 07:22] LABS: Differential Indicated MANUAL DIFF
[2021-02-15 08:09] LABS: ALB/GLOB Ratio 0.3 RATIO (0.9-2.4); AST(SGOT) 60 U/L (15-37); Alanine Aminotransfer ALT/SGPT 72 U/L (16-61); Albumin, Serum 1.2 g/dL (3.2-5.0); Alkaline Phosphatase 1214 U/L (45-117); Anion Gap 7 (5-15); BUN 31 mg/dL (7-18); BUN/Creat Ratio 32.3 RATIO (10-20); Calcium,Total 7.8 mg/dL (8.5-10.1); Chloride 107 mmol/L (98-107); Creatinine, Serum 0.96 mg/dL (0.70-1.30); EST Glomerular Filtration Rate 82 mL/min (>60); Est Glom Filt Rate - Afr Amer 99 mL/min (>60); Estimated Creatinine Clearance 61.84 ml/min; Globulin 4.5 g/dL (2.2-4.2); Glucose 214 mg/dL (74-106); Magnesium 1.8 mg/dL (1.6-2.6); Phosphorus 2.2 mg/dL (2.5-4.9); Potassium 3.5 mmol/L (3.5-5.1); Protein, Total 5.7 g/dL (6.4-8.2); Sodium Level 136 mmol/L (136-145)
[2021-02-15] MEDS: Aspirin E.C. 81 MG Tablet PO (08:13)
[2021-02-15] MEDS: Enoxaparin 40 MG/0.4 ML Syringe SC (08:13)
[2021-02-15] MEDS: Citalopram 20 MG Tablet PO (08:13)
[2021-02-15 08:33] LABS: Anisocytosis 1+; Lymphocyte 31 % (19-41); Metamyelocyte 1 % (0-1); Monocyte 34 % (0-10); Myelocyte 6 % (0-0); Neutrophil-Segmented 24 % (47-70); Platelet Estimate MOD DEC (ADEQ); Promyelocyte 4 % (0-0); Red Cell Morphology N CHROM NORMAL (NORM C&C); Total Cells Counted 100 (MANUAL DIFF)
[2021-02-15 08:34] LABS: Absolute Neutrophil Count 0.4 X10^3/uL (2.0-7.7)
[2021-02-15] MEDS: Ensure Clear 120 ML Liquid PO ×2 (08:48→17:10)
--- NOTE | 2021-02-15 11:23 | CASEMGMT ---
Palliative screening tool completed and pt does not qualify at this time. SStyani RN CM
[2021-02-15 11:26] LABS: Bedside Glucose 175 mg/dL (70-110)
[2021-02-15] MEDS: 0.9% Normal Saline 1,000 ML 75 ML IV (12:58)
[2021-02-15 13:13] LABS: Pathologist Review Reviewed
--- NOTE | 2021-02-15 13:51 | PN.HOSP_ITS ---
Subjective Subjective Patient seen and examined. He had no active complaints. He was admitted yesterday for confusion which is thought to be due to UTI. He denies any fever, chills, nausea vomiting or burning with urination. Review of systems otherwise negative. He has remained hemodynamically stable. Objective Data Objective Data Vital Signs: Vital Signs Temp Pulse Resp BP Pulse Ox 98.2 F 90 16 101/57 L 95 02/15/21 09:30 02/15/21 11:34 02/15/21 09:30 02/15/21 09:30 02/15/21 11:08 Oxygen Delivery Method Room Air Weight: 145 lb 15.136 oz Body Mass Index (BMI) 22.9 Intake & Output: Intake and Output for Last 24 Hours 02/13/21 02/14/21 02/15/21 23:59 23:59 23:59 Intake Total 1922.18 / 1922.18 1340 / 1340 Output Total 150 / 1600 1450 / 1450 Balance 1772.18 / 322.18 -110 / -110 Medical Nutrition Assessment Dietitian: Malnutrition Criteria Met Start: 02/14/21 11:38 Freq: Status: Active Protocol: Document 02/14/21 11:38 NICHOLAS (Rec: 02/14/21 11:39 [facility] [id number]) Nutrition Malnutrition Evidence of Malnutrition Exists Yes Evidenced By Suboptimal Energy Intake ( Severe),Weight Loss (Severe), Physical Changes (Severe) Clinical Problem Chronic Disease or Condition Related Malnutrition Etiology related to cancer and chemo treatment w/ inability to consume adequate nutrition to meet estimated nutritional needs Signs/Symptoms as evidenced by <50% po intake and 16.6% wt loss x 7 months prior to admission. Pt also appears to have muscle/fat loss of temporal, orbital, clavicle regions and arm/legs. Status Active Problem Recommendation Dietitian Recommendations/Changes Will continue diet as ordered Will continue ONS w/ medpass Will provide magic cup or ensure pudding w/ meals Lab / Micro Data Result Diagrams: 02/15/21 06:30 02/15/21 06:30 Labs: Laboratory Results - last 24 hr 02/14/21 06:35: Diff Path Review Reviewed 02/14/21 16:41: POC Glucose 169 H 02/14/21 21:59: POC Glucose 112 H 02/15/21 06:27: POC Glucose 218 H 02/15/21 06:30: WBC 1.6 L, RBC 3.12 L, Hgb 9.4 L, Hct 29.1 L, MCV 93.3, MCH 30.1, MCHC 32.3, RDW Std Deviation 69.5 H, RDW Coeff of [place] 21.2 H, Plt Count 73 L, MPV 12.4 H, Neut % (Auto) Not Reportable, Absolute Neuts (auto) 0.4 L, Absolute Lymphs (auto) 0.50 L, Total Counted 100, Neutrophils % (Manual) 24 L, Lymphocytes % (Manual) 31, Monocytes % (Manual) 34 H, Metamyelocytes % 1, Myelocytes % 6 H, Promyelocytes % 4 H, Diff Path Review August, Platelet Estimate MOD DEC, RBC Morphology N CHROM, Anisocytosis 1+ 02/15/21 06:30: Sodium 136, Potassium 3.5, Chloride 107, Carbon Dioxide 22.0, Anion Gap 7, BUN 31 H, Creatinine 0.96, Estim Creat Clear Calc 61.84, Est GFR (MDRD) Af Amer 99, Est GFR (MDRD) Non-Af 82, BUN/Creatinine Ratio 32.3 H, Glucose 214 H, Calcium 7.8 L, Phosphorus 2.2 L, Magnesium 1.8, Total Bilirubin 4.60 H, AST 60 H, ALT 72 H, Alkaline Phosphatase 1214 H, Total Protein 5.7 L, Albumin 1.2 L, Globulin 4.5 H, Albumin/Globulin Ratio 0.3 L 02/15/21 11:21: POC Glucose 175 H Micro: Microbiology 02/14/21 05:55 Urine, Catheterized Urine Culture - Preliminary GPC Poss Enterococcus sp 02/14/21 07:05 Nasal Secretion SARS-CoV-2 Antigen (Rapid) - Final Physical Exam Const alert, oriented x3 and no apparent distress Constitutional Narrative: looks frail and pale Exam Limitations: no limitations Nutritional Appearance: thin HEENT head/scalp atraumatic Head and Scalp: normocephalic Mouth: dry mucous membranes Eyes PERRL Neck no lymphadenopathy Resp normal respiratory effort, no retractions, no use of accessory muscles and clear to auscultation bilaterally Cardio regular rate, regular rhythm, S1 normal heart sound, S2 normal heart sound and no murmurs GI normal to inspection, nondistended, normoactive bowel sounds, soft to palpation and non-distended Extremity normal to inspection, full ROM and no clubbing, cyanosis or edema Peripheral Pulses: Yes pulses 2+ throughout Skin no rashes or lesions noted Neuro oriented x3, CN's II-XII intact bilaterally and moves all extremities Sensorium / Orientation: awake and alert Psych affect normal Assessment & Plan Assessment/Plan (1) UTI (urinary tract infection): PLAN: #Acute metabolic encephalopathy due to UTI * Patient was recently managed for septic shock due to UTI. Urine cultures grew E. coli which was not sensitive to ceftriaxone. Blood culture E. coli that was sensitive to ceftriaxone though. Patient was discharged on Omnicef but it appears that the urine bug was not sensitive to Omnicef as it was not sensitive to ceftriaxone. * Patient now on IV cefepime. * Patient self caths at home area utilizes the catheters. Patient has been counseled about using sterile catheters and not reusing catheters. * Been gently hydrated with IV fluids. * ID consulted. Blood and urine cultures pending. * #Lactic acidosis: Improving with IV fluids. Will monitor. #Pancytopenia: Likely due to his chemotherapy. Will monitor. #Metastatic pancreatic cancer: Follow-up with oncology on outpatient basis for chemotherapy #Coronary artery disease: S/p CABG and stents. On aspirin and statin #Hypothyroidism: On Synthroid #Type 2 diabetes mellitus: On Lantus 6 units nightly. Insulin sliding scale. Checks AC at bedtime. #Hypertension: Continue BP meds #Hyperlipidemia: On statin #Depression: On citalopram DVT prophylaxis: Lovenox Charges/Coding Visit Charges Inpatient E&M: 80730 Subs Hosp L2
--- NOTE | 2021-02-15 14:47 | PCM.CONS.GEN ---
Assessment & Plan Assessment/Plan (1) Neutropenia: PLAN: UA with 1-10k enterococcus. Will check stool pcr panel. On cefepime. Recent ecoli in bcx and ucx. Covid neg here. May need onc consult and/or neupogen given his ANC. If he develops fever, would repeat cxs, cxr, and add iv vanc. Will start nystatin for mucositis. Will follow, thank you, d/w nursing HPI Consult Data Date of Consult: 02/15/21 HPI Narrative HPI Narrative: CORDELIA BALL, is a 71 M with pancreatic cancer, recent admit with ecoli bacteremia, discharged 02/09 on omnicef. Taking abx as planned, but 02/12 developed fever, some lower abd pain, diarrhea, shakes. No blood in stool. No issues with R chest port. Straight caths at home, no change in urine. No rash or aches. Came to ED, cxs sent, given ceftriaxone then cefepime. Feeling much better today, still with diarrhea. Full ROS performed and neg except as noted above. [facility] Medical History Acquired hypothyroidism Anxiety and depression Atherosclerotic heart disease of [place] coronary artery without angina pectoris Benign neoplasm of colon BPH (benign prostatic hyperplasia) CAD (coronary artery disease) Cancer related pain Chemotherapy induced neutropenia Constipation Encounter for education Essential hypertension GERD (gastroesophageal reflux disease) History of agent [place] exposure Hypokalemia Normocytic anemia Pancreatic cancer Pancreatic cancer Port-A-Cath in place Presence of stent in coronary artery (~09/19/05) Type 2 diabetes mellitus Urinary retention Home Medications levothyroxine 100 mcg PO DAILY 05/24/18 [History Last Taken 02/13/21] atorvastatin 40 mg tablet 40 mg PO QHS #90 tablet 07/20/18 [Rx Last Taken 02/13/21] aspirin 81 mg tablet,delayed release 81 mg PO DAILY 11/16/18 [History Last Taken 02/13/21] nitroglycerin 0.4 mg sublingual tablet 0.4 mg SL Q5-15M PRN #90 tablet 11/15/19 [Rx Last Taken Unknown] citalopram 20 mg tablet 20 mg PO DAILY 05/14/20 [History Last Taken 02/13/21] insulin glargine 100 unit/mL (3 mL) subcutaneous pen 6 unit SC QHS ml 05/14/20 [History Last Taken 02/05/21] latanoprost 0.005 % eye drops 1 drp EACH EYE QPM 05/14/20 [History Last Taken 11/16/20] lidocaine-prilocaine 1 applic TP DAILY PRN PRN 30 Days #1 tube 07/20/20 [Rx Last Taken Unknown] ondansetron 8 mg PO Q8H PRN PRN 10 Days #30 tab.rapdis 07/20/20 [Rx Last Taken Unknown] prochlorperazine maleate 10 mg PO Q6H PRN PRN 10 Days #30 tablet 07/20/20 [Rx Last Taken Unknown] insulin aspart U-100 [Novolog Flexpen U-100 Insulin] sliding scale dose TIDCM 11/17/20 [History Last Taken 02/05/21] fentanyl 25 mcg/hr transdermal patch 1 patch TRANSDERMAL ea 02/04/21 [History Last Taken 02/11/21] oxycodone-acetaminophen 5 - 325 tab PO TID PRN PRN 02/06/21 [History Last Taken 02/13/21] cefdinir 300 mg PO BID #14 cap 02/09/21 [Rx Last Taken 02/13/21] Allergy/AdvReac Type Severity Reaction Status Date / Time phenazopyridine AdvReac Unknown Vomiting Verified 02/04/21 08:20 [From Pyridium] beta blockers AdvReac Unknown Intolerant- Uncoded 01/05/21 08:57 Extreme fatigue Family History Mother CHF (congestive heart failure) Hypertension Cancer Cervical Father CAD (coronary artery disease) Myocardial infarction Cancer Colon Surgical History History of colonoscopy (~01/2020) History of left heart catheterization (LHC) Hx of heart artery stent Presence of coronary angioplasty implant and graft Status post coronary artery bypass graft (~09/12/18) Social History Smoking Status: Never smoker alcohol intake: current details: occasional substance use type: does not use Physical Exam Const alert, oriented x3 and no apparent distress General Appearance: cooperative Exam Limitations: no limitations HEENT head/scalp atraumatic HEENT Narrative: Mouth with sores Eyes PERRL and EOMs intact bilaterally Neck supple and No nodes Resp normal air movement and clear to auscultation bilaterally Cardio regular rate and regular rhythm GI normal to inspection, nondistended, normoactive bowel sounds Extremity no clubbing, cyanosis or edema Skin no rashes or lesions noted Neuro CN's II-XII intact bilaterally Medical Records Data Medical Nutrition Assessment Dietitian: Malnutrition Criteria Met Start: 02/14/21 11:38 Freq: Status: Active Protocol: Document 02/14/21 11:38 SLA (Rec: 02/14/21 11:39 SLA [id number]) Nutrition Malnutrition Evidence of Malnutrition Exists Yes Evidenced By Suboptimal Energy Intake ( Severe),Weight Loss (Severe), Physical Changes (Severe) Clinical Problem Chronic Disease or Condition Related Malnutrition Etiology related to cancer and chemo treatment w/ inability to consume adequate nutrition to meet estimated nutritional needs Signs/Symptoms as evidenced by <50% po intake and 16.6% wt loss x 7 months prior to admission. Pt also appears to have muscle/fat loss of temporal, orbital, clavicle regions and arm/legs. Status Active Problem Recommendation Dietitian Recommendations/Changes Will continue diet as ordered Will continue ONS w/ medpass Will provide magic cup or ensure pudding w/ meals Lab / Micro Data Result Diagrams: 02/15/21 06:30 02/15/21 06:30 Labs: Laboratory Results - last 24 hr 02/14/21 06:35: Diff Path Review Reviewed 02/14/21 16:41: POC Glucose 169 H 02/14/21 21:59: POC Glucose 112 H 02/15/21 06:27: POC Glucose 218 H 02/15/21 06:30: WBC 1.6 L, RBC 3.12 L, Hgb 9.4 L, Hct 29.1 L, MCV 93.3, MCH 30.1, MCHC 32.3, RDW Std Deviation 69.5 H, RDW Coeff of [place] 21.2 H, Plt Count 73 L, MPV 12.4 H, Neut % (Auto) Not Reportable, Absolute Neuts (auto) 0.4 L, Absolute Lymphs (auto) 0.50 L, Total Counted 100, Neutrophils % (Manual) 24 L, Lymphocytes % (Manual) 31, Monocytes % (Manual) 34 H, Metamyelocytes % 1, Myelocytes % 6 H, Promyelocytes % 4 H, Diff Path Review May foll, Platelet Estimate MOD DEC, RBC Morphology N CHROM, Anisocytosis 1+ 02/15/21 06:30: Sodium 136, Potassium 3.5, Chloride 107, Carbon Dioxide 22.0, Anion Gap 7, BUN 31 H, Creatinine 0.96, Estim Creat Clear Calc 61.84, Est GFR (MDRD) Af Amer 99, Est GFR (MDRD) Non-Af 82, BUN/Creatinine Ratio 32.3 H, Glucose 214 H, Calcium 7.8 L, Phosphorus 2.2 L, Magnesium 1.8, Total Bilirubin 4.60 H, AST 60 H, ALT 72 H, Alkaline Phosphatase 1214 H, Total Protein 5.7 L, Albumin 1.2 L, Globulin 4.5 H, Albumin/Globulin Ratio 0.3 L 02/15/21 11:21: POC Glucose 175 H Micro: Microbiology 02/14/21 05:55 Urine, Catheterized Urine Culture - Preliminary GPC Poss Enterococcus sp
--- NOTE | 2021-02-15 15:35 | CASEMGMT ---
Readmission chart review: 02/06-02/09/21 Septic shock 02/14-current UTI, bacteremia Pt self caths and was found to have ecoli bacteremia during initial visit and pt was discharged home on po antibx. Pt declined need for any [facility] for education/teaching regarding self cath. Pt is currently being treated with chemo for pancreatitic cancer. Pt was sent home on Cefdinir but now urine culture that resulted after discharge on 02/09/21 is not showing that it's sensitive to ceftriaxone. Pt now placed on Cefepime IV at this time. Pt had also been re-using catheters and was advised to use a new, sterile catheter each time and states he has been doing this since discharge. Pt does have f/u appt scheduled with Dr. Humphrey on 02/23/21 already. CM to follow for any further discharge planning/needs. Courtney JOHN CM
[2021-02-15] MEDS: NYSTATIN 500,000 UNIT/5 ML UDC 500000 UNIT PO ×2 (17:12→21:05)
[2021-02-15 17:55] LABS: Bedside Glucose 213 mg/dL (70-110)
[2021-02-15] MEDS: Latanoprost 0.005% 1 Bottle 1 DRP OPHTHALMIC (21:01)
[2021-02-15] MEDS: Atorvastatin Calcium 40 MG Tablet PO (21:05)
[2021-02-15 21:16] LABS: Bedside Glucose 135 mg/dL (70-110)
[2021-02-16] VITALS (11 sets, daily range): BP systolic 89–117; BP diastolic 50–73; PULSE 76–110; RESP 14–18; TEMP 36.2–37.1; O2SAT 96–100
[2021-02-16] MEDS: 0.9% Normal Saline 1,000 ML 75 ML IV (01:44)
[2021-02-16] MEDS: oxyCODONE 5 MG Tablet PO ×3 (05:02→21:02)
[2021-02-16] MEDS: Levothyroxine 100 MCG Tablet PO (05:02)
[2021-02-16 05:46] LABS: Hematocrit 32.2 % (40-54); Hemoglobin 10.4 g/dL (13.0-16.5); Mean Corp Hgb Conc 32.3 g/dL (32-36); Mean Corpuscular Volume 92.8 fL (80-94); Mean Platelet Vol. 11.3 fl (6.2-12.0); POSITIVE COUNT YES; POSITIVE MORPHOLOGY YES; Platelet Count 120 K/mm3 (150-450); RBC Distribution Width CV 21.7 % (11.6-14.6); RBC Distribution Width SD 71.1 fl (35.1-43.9); Red Blood Count 3.47 M/mm3 (4.6-6.2); White Blood Count 4.4 K/mm3 (4.4-11.0)
[2021-02-16 05:56] LABS: Differential Indicated MANUAL DIFF
[2021-02-16 06:18] LABS: Absolute Neutrophil Count 1.9 X10^3/uL (2.0-7.7)
[2021-02-16 06:19] LABS: Absolute Lymphocyte Count 1.33 X10^3/uL (0.83-4.51); Atypical Lymphocyte 1+ %; Eosinophil 2 % (0-5); Lymphocyte 30 % (19-41); Metamyelocyte 2 % (0-1); Monocyte 13 % (0-10); Myelocyte 4 % (0-0); Neutrophil-Band 8 % (0-5); Neutrophil-Segmented 35 % (47-70); Platelet Estimate SLT DEC (ADEQ); Promyelocyte 6 % (0-0); Toxic Granulation 3+
[2021-02-16 06:20] LABS: Anisocytosis 2+; Polychromasia 1+; Red Cell Morphology NORM C+C NORMAL (NORM C&C)
[2021-02-16 06:40] LABS: Bedside Glucose 109 mg/dL (70-110)
[2021-02-16 06:40] LABS: ALB/GLOB Ratio 0.3 RATIO (0.9-2.4); AST(SGOT) 99 U/L (15-37); Alanine Aminotransfer ALT/SGPT 78 U/L (16-61); Albumin, Serum 1.3 g/dL (3.2-5.0); Alkaline Phosphatase 1256 U/L (45-117); Anion Gap 10 (5-15); BUN 27 mg/dL (7-18); BUN/Creat Ratio 34.9 RATIO (10-20); Calcium,Total 7.9 mg/dL (8.5-10.1); Chloride 109 mmol/L (98-107); Creatinine, Serum 0.77 mg/dL (0.70-1.30); EST Glomerular Filtration Rate 105 mL/min (>60); Est Glom Filt Rate - Afr Amer 127 mL/min (>60); Estimated Creatinine Clearance 59.37 ml/min; Globulin 4.7 g/dL (2.2-4.2); Glucose 112 mg/dL (74-106); Potassium 3.2 mmol/L (3.5-5.1); Sodium Level 138 mmol/L (136-145)
[2021-02-16] MEDS: NYSTATIN 500,000 UNIT/5 ML UDC 500000 UNIT PO ×4 (09:18→21:00)
[2021-02-16] MEDS: Aspirin E.C. 81 MG Tablet PO (09:20)
[2021-02-16] MEDS: Potassium Chloride Oral Tablet 20 MEQ 40 MEQ PO (09:21)
[2021-02-16] MEDS: Enoxaparin 40 MG/0.4 ML Syringe SC (09:21)
[2021-02-16] MEDS: Citalopram 20 MG Tablet PO (09:21)
[2021-02-16 12:19] LABS: Pathologist Review Reviewed
[2021-02-16 12:25] LABS: Pathologist Review Reviewed
--- NOTE | 2021-02-16 13:53 | PN.HOSP_ITS ---
Subjective Subjective Patient seen and examined. He had no active complaints today and feels well. WBC is up to 4.4 today. His BP is running in the 90s systolic. Objective Data Objective Data Vital Signs: Vital Signs Temp Pulse Resp BP Pulse Ox 98.1 F 83 18 98/63 96 02/16/21 09:16 02/16/21 09:16 02/16/21 09:16 02/16/21 09:16 02/16/21 09:16 Oxygen Delivery Method Room Air Weight: 151 lb 3.794 oz Body Mass Index (BMI) 22.9 Intake & Output: Intake and Output for Last 24 Hours 02/14/21 02/15/21 02/16/21 23:59 23:59 23:59 Intake Total 1922.18 / 1922.18 1340 / 1460 2821.25 / 2821.25 Output Total 150 / 1600 1450 / 1450 400 / 400 Balance 1772.18 / 322.18 -110 / 10 2421.25 / 2421.25 Medical Nutrition Assessment Dietitian: Malnutrition Criteria Met Start: 02/14/21 11:38 Freq: Status: Active Protocol: Document 02/14/21 11:38 SLA (Rec: 02/14/21 11:39 SLA [id number]) Nutrition Malnutrition Evidence of Malnutrition Exists Yes Evidenced By Suboptimal Energy Intake ( Severe),Weight Loss (Severe), Physical Changes (Severe) Clinical Problem Chronic Disease or Condition Related Malnutrition Etiology related to cancer and chemo treatment w/ inability to consume adequate nutrition to meet estimated nutritional needs Signs/Symptoms as evidenced by <50% po intake and 16.6% wt loss x 7 months prior to admission. Pt also appears to have muscle/fat loss of temporal, orbital, clavicle regions and arm/legs. Status Active Problem Recommendation Dietitian Recommendations/Changes Will continue diet as ordered Will continue ONS w/ medpass Will provide magic cup or ensure pudding w/ meals Lab / Micro Data Result Diagrams: 02/16/21 05:36 02/16/21 05:36 Labs: Laboratory Results - last 24 hr 02/15/21 06:30: Diff Path Review Reviewed 02/15/21 17:08: POC Glucose 213 H 02/15/21 20:57: POC Glucose 135 H 02/16/21 05:36: WBC 4.4, RBC 3.47 L, Hgb 10.4 L, Hct 32.2 L, MCV 92.8, MCH 30.0, MCHC 32.3, RDW Std Deviation 71.1 H, RDW Coeff of [place] 21.7 H, Plt Count 120 L, MPV 11.3, Neut % (Auto) Not Reportable, Absolute Neuts (auto) 1.9 L, Absolute Lymphs (auto) 1.33, Neutrophils % (Manual) 35 L, Band Neutrophils % 8 H, Lymphocytes % (Manual) 30, Monocytes % (Manual) 13 H, Eosinophils % (Manual) 2, Metamyelocytes % 2 H, Myelocytes % 4 H, Promyelocytes % 6 H, Diff Path Review Reviewed, Atypical Lymphocytes 1+, Toxic Granulation 3+, Platelet Estimate SLT DEC, RBC Morphology NORM C+C, Polychromasia 1+, Anisocytosis 2+ 02/16/21 05:36: Sodium 138, Potassium 3.2 L, Chloride 109 H, Carbon Dioxide 19.0 L, Anion Gap 10, BUN 27 H, Creatinine 0.77, Estim Creat Clear Calc 59.37, Est GFR (MDRD) Af Amer 127, Est GFR (MDRD) Non-Af 105, BUN/Creatinine Ratio 34.9 H, Glucose 112 H, Calcium 7.9 L, Total Bilirubin 4.60 H, AST 99 H, ALT 78 H, Alkaline Phosphatase 1256 H, Total Protein 6.0 L, Albumin 1.3 L, Globulin 4.7 H, Albumin/Globulin Ratio 0.3 L 02/16/21 06:31: POC Glucose 109 Micro: Microbiology 02/14/21 07:05 Blood Culture (Wb) - Anticubital Right Blood Culture - Preliminary No growth in 48 hours. 02/14/21 06:50 Blood Culture (Wb) - Anticubital Left Blood Culture - Preliminary No growth in 48 hours. 02/14/21 05:55 Urine, Catheterized Urine Culture - Final Vancomycin Resist. E. faecium 02/14/21 07:05 Nasal Secretion SARS-CoV-2 Antigen (Rapid) - Final Physical Exam Const alert, oriented x3 and no apparent distress Constitutional Narrative: looks frail General Appearance: cooperative Exam Limitations: no limitations Nutritional Appearance: thin HEENT normocephalic, head/scalp atraumatic and hearing grossly normal bilaterally Head and Scalp: normocephalic Eyes PERRL, EOMs intact bilaterally and conjunctivae normal Eyes Narrative: Mild scleral icterus Neck no lymphadenopathy, supple, no JVD and no carotid bruits Resp normal respiratory effort, no retractions, no use of accessory muscles and clear to auscultation bilaterally Auscultation: Negative for crackles, rales, rhonchi or wheezes Cardio regular rate, regular rhythm, S1 normal heart sound, S2 normal heart sound, no murmurs, no rub, no gallops, no clicks and no JVD Cardio Narrative: Mild tachycardia GI normal to inspection, nondistended, normoactive bowel sounds, soft to palpation and non-distended Palpation: tender suprapubic Extremity normal to inspection, full ROM and no clubbing, cyanosis or edema Extremity Narrative: Decreased lean muscle mass Peripheral Pulses: Yes pulses 2+ throughout Skin no rashes or lesions noted Neuro oriented x3, CN's II-XII intact bilaterally, moves all extremities and no focal motor deficits Neuro Narrative: Generalized weakness Sensorium / Orientation: awake, alert and oriented to person Speech: speech normal Psych affect normal Psych Narrative: t Assessment & Plan Assessment/Plan (1) UTI (urinary tract infection): PLAN: #Acute metabolic encephalopathy due to UTI * on IV cefepime * urine cultures growing Vancomycin resistant E. faecium, sensitive to only gentamicin and linezolid. * Blood cultures negative so far * ID on board. Also on nystatin for mucositis * Await ID recommendation about antibiotics. * * #Lactic acidosis:improving. Stable #Pancytopenia:improved. Wbc is up to 4.4 today, with hb of 10.4 and platelets are up to 120. #Metastatic pancreatic cancer: Follow-up with oncology on outpatient basis for chemotherapy #Coronary artery disease: S/p CABG and stents. On aspirin and statin #Hypothyroidism: On Synthroid #Type 2 diabetes mellitus: On Lantus 6 units nightly. Insulin sliding scale. Checks AC at bedtime. #Hypertension: Continue BP meds #Hyperlipidemia: On statin #Depression: On citalopram DVT prophylaxis: Lovenox Charges/Coding Visit Charges Inpatient E&M: 12362 Subs Hosp L2
[2021-02-16 14:41] LABS: Bedside Glucose 109 mg/dL (70-110)
[2021-02-16 17:26] LABS: Bedside Glucose 108 mg/dL (70-110)
[2021-02-16] MEDS: Latanoprost 0.005% 1 Bottle 1 DRP OPHTHALMIC (21:00)
[2021-02-16] MEDS: Atorvastatin Calcium 40 MG Tablet PO (21:02)
[2021-02-16 21:30] LABS: Bedside Glucose 108 mg/dL (70-110)
[2021-02-17 02:55] VITALS: BP 100/62; PULSE 92; RESP 20; TEMP 36.3; O2SAT 94
[2021-02-17 03:00] VITALS: PULSE 90
[2021-02-17] MEDS: oxyCODONE 5 MG Tablet PO ×2 (05:06→13:50)
[2021-02-17] MEDS: Levothyroxine 100 MCG Tablet PO (05:06)
[2021-02-17 06:12] LABS: Hematocrit 29.8 % (40-54); Hemoglobin 9.4 g/dL (13.0-16.5); Mean Corp Hgb Conc 31.5 g/dL (32-36); Mean Corpuscular Hgb 29.4 pg (27.0-32.0); Mean Corpuscular Volume 93.1 fL (80-94); POSITIVE COUNT YES; POSITIVE DIFFERENTIAL YES; POSITIVE MORPHOLOGY YES; Platelet Count 111 K/mm3 (150-450); RBC Distribution Width CV 21.4 % (11.6-14.6); RBC Distribution Width SD 72.3 fl (35.1-43.9); White Blood Count 4.9 K/mm3 (4.4-11.0)
[2021-02-17 06:22] LABS: Differential Indicated MANUAL DIFF
[2021-02-17 06:35] LABS: Bedside Glucose 106 mg/dL (70-110)
[2021-02-17 07:00] VITALS: PULSE 88
[2021-02-17 07:10] LABS: Basophil 1 % (0-1); Eosinophil 1 % (0-5); Lymphocyte 8 % (19-41); Metamyelocyte 6 % (0-1); Monocyte 13 % (0-10); Myelocyte 8 % (0-0); Neutrophil-Band 1 % (0-5); Neutrophil-Segmented 62 % (47-70); Total Cells Counted 100 (MANUAL DIFF)
[2021-02-17 07:11] LABS: Absolute Lymphocyte Count 0.39 X10^3/uL (0.83-4.51); Absolute Neutrophil Count 3.8 X10^3/uL (2.0-7.7); Lymphocyte # 0.39 X10^3/ul (0.83-4.51)
[2021-02-17 07:13] LABS: Anisocytosis 2+; Macrocytosis 1+; Microcytosis 1+; Polychromasia 1+
[2021-02-17 07:14] LABS: Platelet Estimate SLT DEC (ADEQ)
[2021-02-17 07:19] LABS: ALB/GLOB Ratio 0.3 RATIO (0.9-2.4); AST(SGOT) 130 U/L (15-37); Alanine Aminotransfer ALT/SGPT 82 U/L (16-61); Albumin, Serum 1.2 g/dL (3.2-5.0); Alkaline Phosphatase 1324 U/L (45-117); Anion Gap 6 (5-15); BUN 27 mg/dL (7-18); BUN/Creat Ratio 35.2 RATIO (10-20); Calcium,Total 7.9 mg/dL (8.5-10.1); Chloride 110 mmol/L (98-107); Creatinine, Serum 0.77 mg/dL (0.70-1.30); EST Glomerular Filtration Rate 106 mL/min (>60); Est Glom Filt Rate - Afr Amer 128 mL/min (>60); Estimated Creatinine Clearance 59.37 ml/min; Globulin 4.3 g/dL (2.2-4.2); Glucose 113 mg/dL (74-106); Potassium 3.6 mmol/L (3.5-5.1); Protein, Total 5.5 g/dL (6.4-8.2); Sodium Level 138 mmol/L (136-145)
[2021-02-17 08:55] VITALS: BP 107/63; PULSE 86; RESP 18; TEMP 36.6; O2SAT 98
[2021-02-17] MEDS: Aspirin E.C. 81 MG Tablet PO (09:08)
[2021-02-17] MEDS: Enoxaparin 40 MG/0.4 ML Syringe SC (09:08)
[2021-02-17] MEDS: NYSTATIN 500,000 UNIT/5 ML UDC 500000 UNIT PO ×2 (09:08→13:50)
[2021-02-17] MEDS: Citalopram 20 MG Tablet PO (09:08)
[2021-02-17 12:06] LABS: Bedside Glucose 121 mg/dL (70-110)
[2021-02-17 14:14] LABS: Pathologist Review Reviewed
[2021-02-17 14:49] VITALS: BP 111/66; PULSE 98; RESP 15; TEMP 37.1; O2SAT 95
[2021-02-17 15:00] VITALS: PULSE 95
--- NOTE | 2021-02-17 15:15 | PCM.PN.ID ---
Physical Exam Narrative Feeling better, wants to go home. No fever. Diarrhea resolving. Const alert General Appearance: cooperative Resp Resp Narrative: diminished L base Cardio regular rate and regular rhythm GI normal to inspection, nondistended, normoactive bowel sounds Skin no rashes or lesions noted ID ID: Route of nutrition/ use of supplements: [] Nutritional Intake: [] IV Site: [] [place] Catheter: [] Assessment & Plan Assessment/Plan (1) Neutropenia: PLAN: UA with 1-10k enterococcus. Neg stool pcr panel. On cefepime. Recent ecoli in bcx and ucx. Covid neg here. Neutropenia resolved. May have had L base pneumonia on cxr and exam. Ok for d/c home with 3 days augmentin 875mg bid and doxy 100mg bid. Will follow as needed
--- NOTE | 2021-02-17 16:31 | PCM.DC.SUM ---
Providers Date of Admission: 02/14/21 Primary Care Physician: Dr. Jamie Humphrey MD Consultations 02/14/21 08:14 Consult: Infectious Disease Routine Consulting Provider: Jeancarlos Mari Reason for Consult: Bacteremia and UTI with ABX resistance EMERGENT Consult: No MD Notified: Yes Date Notified: 02/15/21 Time Notified: 07:31 Method of Notification: Text Reason For Visit: UTI/BACTERMIA Diagnosis Discharge Diagnosis (1) Neutropenia: Status: Acute Code(s): D70.9 - Neutropenia, unspecified Medications at Discharge Home Medications levothyroxine 100 mcg PO DAILY 05/24/18 atorvastatin 40 mg tablet 40 mg PO QHS #90 tablet 07/20/18 aspirin 81 mg tablet,delayed release 81 mg PO DAILY 11/16/18 nitroglycerin 0.4 mg sublingual tablet 0.4 mg SL Q5-15M PRN #90 tablet 11/15/19 citalopram 20 mg tablet 20 mg PO DAILY 05/14/20 insulin glargine 100 unit/mL (3 mL) subcutaneous pen 6 unit SC QHS ml 05/14/20 latanoprost 0.005 % eye drops 1 drp EACH EYE QPM 05/14/20 lidocaine-prilocaine 1 applic TP DAILY PRN PRN 30 Days #1 tube 07/20/20 ondansetron 8 mg PO Q8H PRN PRN 10 Days #30 tab.rapdis 07/20/20 prochlorperazine maleate 10 mg PO Q6H PRN PRN 10 Days #30 tablet 07/20/20 insulin aspart U-100 [Novolog Flexpen U-100 Insulin] sliding scale dose TIDCM 11/17/20 fentanyl 25 mcg/hr transdermal patch 1 patch TRANSDERMAL ea 02/04/21 oxycodone-acetaminophen 5 - 325 tab PO TID PRN PRN 02/06/21 amoxicillin-pot clavulanate [Augmentin] 1 tab PO BID #6 tab 02/17/21 doxycycline hyclate 100 mg PO BID #6 cap 02/17/21 Hospital Course Operations None Procedures None Summary of Care Provided Minutes Spent on Discharge: 45 Hospital Course: Patient is a 71-year-old male past medical history of pancreatic cancer who was admitted through the ED on 02/14/2021 with a complaint of worsening altered mental status. Patient had been undergoing chemotherapy for pancreatic cancer and had had a recent admission for E. coli bacteremia in the hospital from 02/06 through 02/09/2021. He was discharged on Omnicef. However at discharge, it appears that his urine cultures grew E. coli which match the blood cultures but the sensitivity of the E. coli in the urine was different from the E. coli in the blood. It therefore did not seem that the E. coli in the urine was responsive to Omnicef. At home, he was noted to be more confused with associated lower abdominal pain so he was brought back to the ED. He was also noted to be tachycardic and CBC showed pancytopenia. He was admitted and managed for acute metabolic encephalopathy due to UTI. He was started on cefepime based on the previous sensitivities. Urine and blood cultures were ordered. ID was consulted. Urine culture at this time culture vancomycin-resistant effusion. Blood cultures were negative after 48 hours and Covid test was also negative. Patient was discharged home on 02/17/2021 on p.o. Augmentin and p.o. doxycycline for 3 days. Patient seen and examined prior to discharge. Patient was noted to have brief episodes of confusion where he was not sure where he was unsure where he was and was also noted to have some episodes of paranoia. However he was able to carry on a regular conversation. Review of symptoms otherwise negative. Labs and vitals reviewed. Her medication regimen reconciled. He is to follow-up with his primary care doctor and oncologist. Physical Exam Const alert and no apparent distress Constitutional Narrative: looks frail, alert and oriented x 1. General Appearance: cooperative Orientation / Consciousness: awake and oriented to person Exam Limitations: no limitations Nutritional Appearance: thin HEENT normocephalic, head/scalp atraumatic and hearing grossly normal bilaterally Eyes PERRL, EOMs intact bilaterally and conjunctivae normal Eyes Narrative: Mild scleral icterus Neck no lymphadenopathy, supple, no JVD and no carotid bruits Resp normal respiratory effort, no retractions, no use of accessory muscles and clear to auscultation bilaterally Auscultation: Negative for crackles, rales, rhonchi or wheezes Cardio regular rate, regular rhythm, S1 normal heart sound, S2 normal heart sound, no murmurs, no rub, no gallops, no clicks and no JVD Cardio Narrative: Mild tachycardia GI normal to inspection, nondistended, normoactive bowel sounds, soft to palpation and non-distended Palpation: tender suprapubic Extremity normal to inspection, full ROM and no clubbing, cyanosis or edema Extremity Narrative: Decreased lean muscle mass Skin no rashes or lesions noted Neuro CN's II-XII intact bilaterally, moves all extremities and no focal motor deficits Neuro Narrative: Generalized weakness Sensorium / Orientation: awake, alert and oriented to person Speech: speech normal Psych affect normal Medical Records Data Medical Nutrition Assessment Dietitian: Malnutrition Criteria Met Start: 02/14/21 11:38 Freq: Status: Active Protocol: Document 02/14/21 11:38 SLA (Rec: 02/14/21 11:[address] [facility] [id number]) Nutrition Malnutrition Evidence of Malnutrition Exists Yes Evidenced By Suboptimal Energy Intake ( Severe),Weight Loss (Severe), Physical Changes (Severe) Clinical Problem Chronic Disease or Condition Related Malnutrition Etiology related to cancer and chemo treatment w/ inability to consume adequate nutrition to meet estimated nutritional needs Signs/Symptoms as evidenced by <50% po intake and 16.6% wt loss x 7 months prior to admission. Pt also appears to have muscle/fat loss of temporal, orbital, clavicle regions and arm/legs. Status Active Problem Recommendation Dietitian Recommendations/Changes Will continue diet as ordered Will continue ONS w/ medpass Will provide magic cup or ensure pudding w/ meals Weight / BMI Weight Weight: 149 lb 14.629 oz Body Mass Index (BMI) 22.9 ABG / Lab / Microbiology Data Result Diagrams: 02/17/21 05:50 02/17/21 05:50 Laboratory: Laboratory Results - last 24 hr 02/16/21 16:57: POC Glucose 108 02/16/21 20:58: POC Glucose 108 02/17/21 05:50: WBC 4.9, RBC 3.20 L, Hgb 9.4 L, Hct 29.8 L, MCV 93.1, MCH 29.4, MCHC 31.5 L, RDW Std Deviation 72.3 H, RDW Coeff of [place] 21.4 H, Plt Count 111 L, MPV 12.0, Neut % (Auto) Not Reportable, Absolute Neuts (auto) 3.8, Absolute Lymphs (auto) 0.39 L, Total Counted 100, Neutrophils % (Manual) 62, Band Neutrophils % 1, Lymphocytes % (Manual) 8 L, Monocytes % (Manual) 13 H, Eosinophils % (Manual) 1, Basophils % (Manual) 1, Metamyelocytes % 6 H, Myelocytes % 8 H, Diff Path Review Reviewed, Platelet Estimate SLT DEC, Polychromasia 1+, Anisocytosis 2+, Microcytosis 1+, Macrocytosis 1+ 02/17/21 05:50: Sodium 138, Potassium 3.6, Chloride 110 H, Carbon Dioxide 22.0, Anion Gap 6, BUN 27 H, Creatinine 0.77, Estim Creat Clear Calc 59.37, Est GFR (MDRD) Af Amer 128, Est GFR (MDRD) Non-Af 106, BUN/Creatinine Ratio 35.2 H, Glucose 113 H, Calcium 7.9 L, Total Bilirubin 4.30 H, AST 130 H, ALT 82 H, Alkaline Phosphatase 1324 H, Total Protein 5.5 L, Albumin 1.2 L, Globulin 4.3 H, Albumin/Globulin Ratio 0.3 L 02/17/21 06:25: POC Glucose 106 02/17/21 11:24: POC Glucose 121 H Microbiology: Microbiology 02/16/21 12:32 Stool Enteric Bacteriology - Final 02/14/21 07:05 Blood Culture (Wb) - Anticubital Right Blood Culture - Preliminary No growth in 48 hours. 02/14/21 06:50 Blood Culture (Wb) - Anticubital Left Blood Culture - Preliminary No growth in 48 hours. 02/14/21 05:55 Urine, Catheterized Urine Culture - Final Vancomycin Resist. E. faecium 02/14/21 07:05 Nasal Secretion SARS-CoV-2 Antigen (Rapid) - Final D/C Instructions Discharge Diet: Low fat / Low cholesterol Discharge Activity: Return to Normal Activity Weight Bearing Status: Weight bearing as tolerated Call your doctor if you observe: Fever of 101 or Higher, Shortness of breath and Swelling in the ankles Meaningful Use Info Meaningful Use Diagnoses (Choose all that apply): None applicable Discharge Plan Admission Admit Date/Time: 02/14/21 07:27 Primary Reason for Your Visit: UTI, acute metabolic encephalopathy Attending Provider: Lisa Lopez Primary Care Provider: Jamie Humphrey Consulting Providers: Jeancarlos Mari Instructions Patient Instructions: ED Urinary Tract Infections in Men Discharge Orders/Prescriptions Prescriptions: New amoxicillin-pot clavulanate [Augmentin] 875-125 mg tablet 1 tab PO BID Qty: 6 RF: 0 doxycycline hyclate 100 mg capsule 100 mg PO BID Qty: 6 RF: 0 Continued aspirin [Adult Low Dose Aspirin] 81 mg tablet,delayed release (DR/EC) 81 mg PO DAILY RF: 0 nitroglycerin 0.4 mg tablet, sublingual 0.4 mg SL Q5-15M PRN (Reason: Pain) Qty: 90 RF: 3 Lantus Solostar U-100 Insulin 100 unit/mL (3 mL) insulin pen 6 unit SC QHS RF: 0 citalopram 20 mg tablet 20 mg PO DAILY RF: 0 latanoprost 0.005 % drops 1 drp EACH EYE QPM RF: 0 fentanyl 25 mcg/hr patch 72 hour 1 patch transdermal RF: 0 levothyroxine 100 MCG tablet 100 mcg PO DAILY RF: 0 prochlorperazine maleate 10 MG tablet 10 mg PO Q6H PRN PRN (Reason: Not Specified) 10 Days Qty: 30 RF: 2 ondansetron 8 MG tablet,disintegrating 8 mg PO Q8H PRN PRN (Reason: Nausea) 10 Days Qty: 30 RF: 3 lidocaine-prilocaine 30 GM cream 1 applic TP DAILY PRN PRN (Reason: Not Specified) 30 Days Qty: 1 RF: 2 insulin aspart U-100 [Novolog Flexpen U-100 Insulin] 100 unit/mL (3 mL) Insulin Pen TIDCM RF: 0 oxycodone-acetaminophen 5-325 mg tablet 5 - 325 tab PO TID PRN PRN (Reason: Pain) RF: 0 atorvastatin 40 mg tablet 40 mg PO QHS Qty: 90 RF: 3 Discontinued cefdinir 300 mg capsule 300 mg PO BID Qty: 14 RF: 0 Referrals / Follow Up: Jaime Humphrey MD [Primary Care Provider] - Within 2 Weeks Disposition Disposition (needs filled in before D/C Order can be placed): Home, Self Care Charges/Coding Visit Charges Inpatient E&M: 51480 Disch Hosp
== END 2021-02-17 17:46 | disposition home or self-care (01) | DRG 698 ==
LOC: ED 07:31 → PCU 07:43
PROVIDERS: Internal Medicine; Admitting Provider Family Medicine; Emergency Provider Emergency Medicine; PCP Family Medicine; Visit Provider Student in an Organized Health Care Education/Training Program
DX: N39.0 Urinary tract infection, site not specified (principal); C79.9 Secondary malignant neoplasm of unspecified site; C25.9 Malignant neoplasm of pancreas, unspecified; D70.9 Neutropenia, unspecified; D61.818 Other pancytopenia; E43 Unspecified severe protein-calorie malnutrition; Z79.4 Long term (current) use of insulin; E11.9 Type 2 diabetes mellitus without complications; Z79.899 Other long term (current) drug therapy; Z79.890 Hormone replacement therapy; Z79.82 Long term (current) use of aspirin; K21.9 Gastro-esophageal reflux disease without esophagitis; N40.0 Benign prostatic hyperplasia without lower urinary tract symptoms; T45.1X5A Adverse effect of antineoplastic and immunosuppressive drugs, initial encounter; G93.41 Metabolic encephalopathy; Z16.22 Resistance to vancomycin related antibiotics; E87.2 Acidosis; I25.10 Atherosclerotic heart disease of native coronary artery without angina pectoris; I10 Essential (primary) hypertension; E03.9 Hypothyroidism, unspecified; E78.5 Hyperlipidemia, unspecified; F32.A Depression, unspecified; Z68.22 Body mass index [BMI] 22.0-22.9, adult; L89.151 Pressure ulcer of sacral region, stage 1; Z57.4 Occupational exposure to toxic agents in agriculture
CPT/HCPCS: 36415; 71045; 80048; 80053; 80076; 81001; 82140; 82962; 83605; 83735; 83880; 84100; 85025; 85610; 85730; 87040; 87077; 87086; 87088; 87186; 87426; 87506; 92610; 96361; 96365; 96366; 96372; 96375; 96376; 97110; 97162; 97166; 97530; 97535; 97802; 99221; 99251; 99252; 99285; A4216; G0378; G0463

== ENCOUNTER 2021-02-19 08:15 | Observation (INO) | payer MEDICARE, SELFPAY ==
[2021-02-19 08:17] VITALS: BP 120/97; PULSE 18; RESP 91; TEMP 36.4; O2SAT 100; BMI 26.4
[2021-02-19 08:20] VITALS: BP 120/97; PULSE 83; RESP 18; TEMP 36.4; O2SAT 98
--- NOTE | 2021-02-19 08:41 | EKG12_ITS ---
Test Reason : WEAKNESS Blood Pressure : / mmHG Vent. Rate : 089 BPM Atrial Rate : 089 BPM P-R Int : 130 ms QRS Dur : 086 ms QT Int : 412 ms P-R-T Axes : 043 -48 063 degrees QTc Int : 501 ms Normal sinus rhythm Left anterior fascicular block Nonspecific T wave abnormality Abnormal ECG Confirmed by LEORA MONTERO, DEDRICK ([id number]), clinical editor RAMAKRISHNA CASTANON ([id number]) on 02/22/2021 1:11:11 PM Referred By: JEREMIAS Confirmed By:DEDRICK COREY MD
--- NOTE | 2021-02-19 08:42 | EDS_ITS ---
HPI History of Present Illness Chief Complaint: Weakness Informant: patient Onset/Context/Timing Onset: Days (3) Context: Gradual Onset Timing: Continuous Quality: weak Location: all over Current Severity: Severe Maximum Severity: Severe Worsened by: nothing Relieved by: nothing Associated Symptoms Associated Symptoms: diarrhea Narrative Narrative: Patient states he was discharged from the hospital 3 days ago and he is extremely weak to the point where he cannot stand. He states he was admitted for diarrhea, he was told he had some type of infection, he does not know any details. He states the diarrhea has not gotten worse but he has been still having it. He denies any pain anywhere including his abdomen or chest, trouble breathing, nausea or vomiting, fevers or chills. He usually self caths, and since he has been home he has not done so at all. Family presents saying they are interested in palliative care/hospice, however the patient states he does not want hospice. [facility] Medical History Acquired hypothyroidism Anxiety and depression Atherosclerotic heart disease of [place] coronary artery without angina pectoris Benign neoplasm of colon BPH (benign prostatic hyperplasia) CAD (coronary artery disease) Cancer related pain Chemotherapy induced neutropenia Constipation Encounter for education Essential hypertension GERD (gastroesophageal reflux disease) History of agent [place] exposure Hypokalemia Normocytic anemia Pancreatic cancer Pancreatic cancer Port-A-Cath in place Presence of stent in coronary artery (~09/19/05) Type 2 diabetes mellitus Urinary retention Home Medications levothyroxine 100 mcg PO DAILY 05/24/18 [History Last Taken 02/13/21] atorvastatin 40 mg tablet 40 mg PO QHS #90 tablet 07/20/18 [Rx Last Taken 02/13/21] aspirin 81 mg tablet,delayed release 81 mg PO DAILY 11/16/18 [History Last Taken 02/13/21] nitroglycerin 0.4 mg sublingual tablet 0.4 mg SL Q5-15M PRN #90 tablet 11/15/19 [Rx Last Taken Unknown] citalopram 20 mg tablet 20 mg PO DAILY 05/14/20 [History Last Taken 02/13/21] insulin glargine 100 unit/mL (3 mL) subcutaneous pen 6 unit SC QHS ml 05/14/20 [History Last Taken 02/05/21] latanoprost 0.005 % eye drops 1 drp EACH EYE QPM 05/14/20 [History Last Taken 11/16/20] lidocaine-prilocaine 1 applic TP DAILY PRN PRN 30 Days #1 tube 07/20/20 [Rx Last Taken Unknown] ondansetron 8 mg PO Q8H PRN PRN 10 Days #30 tab.rapdis 07/20/20 [Rx Last Taken Unknown] prochlorperazine maleate 10 mg PO Q6H PRN PRN 10 Days #30 tablet 07/20/20 [Rx Last Taken Unknown] insulin aspart U-100 [Novolog Flexpen U-100 Insulin] sliding scale dose TIDCM 11/17/20 [History Last Taken 02/05/21] fentanyl 25 mcg/hr transdermal patch 1 patch TRANSDERMAL ea 02/04/21 [History Last Taken 02/11/21] oxycodone-acetaminophen 5 - 325 tab PO TID PRN PRN 02/06/21 [History Last Taken 02/13/21] amoxicillin-pot clavulanate [Augmentin] 1 tab PO BID #6 tab 02/17/21 [Rx Last Taken Unknown] doxycycline hyclate 100 mg PO BID #6 cap 02/17/21 [Rx Last Taken Unknown] Allergy/AdvReac Type Severity Reaction Status Date / Time phenazopyridine AdvReac Unknown Vomiting Verified 02/04/21 08:20 [From Pyridium] beta blockers AdvReac Unknown Intolerant- Uncoded 01/05/21 08:57 Extreme fatigue Family History Mother CHF (congestive heart failure) Hypertension Cancer Cervical Father CAD (coronary artery disease) Myocardial infarction Cancer Colon Surgical History History of colonoscopy (~01/2020) History of left heart catheterization (LHC) Hx of heart artery stent Presence of coronary angioplasty implant and graft Status post coronary artery bypass graft (~09/12/18) Social History Smoking Status: Never smoker alcohol intake: current details: occasional substance use type: does not use ROS ROS ED Constitutional Constitutional ED: Reports fatigue and weakness; Denies chills or fever(s) Eyes Eyes: Denies change in vision or diplopia ENT ENT ED: Denies rhinorrhea or sore throat Cardiovascular Cardiovascular: Denies chest pain or palpitations Respiratory/Chest Respiratory/Chest: Denies cough or dyspnea Gastrointestinal Gastrointestinal: Reports diarrhea; Denies abdominal pain, nausea or vomiting Genitourinary Genitourinary ED: Denies dysuria or hematuria Musculoskeletal Musculoskeletal: Reports other Details: Edema in both lower legs for about the past month ; Denies back pain or neck pain Integumentary Denies abscess or rash Neurologic Neurologic: Denies headache(s), paresthesias or weakness Psychiatric Psychiatric: Denies anxiety or suicidal thoughts EXAM Physical Exam Const Vital Signs: 02/19/21 08:17 02/19/21 08:20 02/19/21 08:53 Temperature 97.5 F L 97.5 F L Temperature Source Oral Oral Pulse Rate 18 L 83 Respiratory Rate 91 H 18 Respiratory Effort Normal Non-Labored Respiratory Pattern Normal Blood Pressure 120/97 H 120/97 H Blood Pressure Mean 104 104 Pulse Ox 100 98 Oxygen Delivery Method Room Air Room Air 02/19/21 10:26 Temperature 98.2 F Temperature Source Temporal Pulse Rate 90 Respiratory Rate 16 Respiratory Effort Respiratory Pattern Blood Pressure 101/80 Blood Pressure Mean 87 Pulse Ox 94 Oxygen Delivery Method Room Air Positive well nourished and well developed Constitutional Narrative: Appears weak no distress General Appearance ED: well developed and NAD HEENT Reports dry mucous membranes normocephalic and atraumatic Mouth ED: Yes dry mucous membranes Mouth: dry mucous membranes Eyes PERRL and EOMs intact bilaterally Eyes Narrative: Mild scleral icterus Neck full ROM and supple Resp normal respiratory effort and clear to auscultation bilaterally Cardio regular rate, regular rhythm and no murmurs Rate: Negative for tachycardic GI non-tender and non-distended GI Narrative: Mild fluid wave Auscultation: normoactive bowel sounds Palpation: soft Back/Spine no CVA tenderness General Back: other FROM Extremity normal to inspection General Extremety ED: Yes edema; Negative for pulses abnormal or tenderness General Extremity: edema bilateral lower extremity Details: moderate; Negative for pulses abnormal Neuro oriented x3, CN's II-XII intact bilaterally and no sensory deficits noted Sensorium / Orientation: awake and alert Motor Exam: strength 5/5 throughout Skin no rashes or lesions noted and no wounds MDM MDM MDM Narrative Medical decision making narrative: From looking at the patient's recent admission records, he had pancytopenia, lower abdominal discomfort, urinary tract infection that appeared to have some antibiotic resistance. He had positive blood cultures earlier in the month with E. coli, but recent blood cultures are negative, and he was discharged on Augmentin and doxycycline for 3 days. Now urine does not appear to be grossly infected. Current work-up does not show obvious reason for his generalized weakness, it appears that he recently had been on chemotherapy for metastatic pancreatic cancer. It appears the patient does not want hospice at this time, however I do not think he is able to safely be discharged home at this time. Will admit to hospitalist and I think palliative care consultation would certainly be appropriate here as well. The patient is stable clinically and hemodynamically at this time. Lab Data Attestation: I reviewed the patient's lab results. Labs: Laboratory Results - last 24 hr 02/19/21 02/19/21 02/19/21 08:35 09:15 09:15 WBC 11.4 H RBC 3.19 L Hgb 9.5 L Hct 29.9 L MCV 93.7 MCH 29.8 MCHC 31.8 L RDW Std Deviation 71.7 H RDW Coeff of [place] 21.7 H Plt Count 180 MPV 10.3 Neut % (Auto) Not Reportable Absolute Neuts (auto) 9.5 H Absolute Lymphs (auto) 0.57 L Total Counted 100 Neutrophils % (Manual) 83 H Lymphocytes % (Manual) 5 L Monocytes % (Manual) 8 Metamyelocytes % 1 Myelocytes % 2 H Plasma Cell % (Manual) 1 Diff Path Review May foll Platelet Estimate ADEQUATE Hypochromasia 1+ Sodium 140 Potassium 3.5 Chloride 113 H Carbon Dioxide 21.0 Anion Gap 6 BUN 28 H Creatinine 0.90 Estim Creat Clear Calc 65.97 Est GFR (MDRD) Af Amer 107 Est GFR (MDRD) Non-Af 88 BUN/Creatinine Ratio 31.2 H Glucose 161 H Calcium 8.4 L Total Bilirubin 4.50 H Direct Bilirubin 3.67 H AST 116 H ALT 86 H Alkaline Phosphatase 1452 H Troponin I High Sens 8 Total Protein 6.0 L Albumin 1.4 L Globulin 4.6 H Urine Color Yellow Urine Clarity Sl. Cloudy Urine pH 6.0 Ur Specific [place] 1.020 Urine Protein 30 H Urine Glucose (UA) Normal Urine Ketones 5 H Urine Occult Blood 150 H Urine Nitrite Negative Urine Bilirubin 3 H Urine Urobilinogen 4 H Ur Leukocyte Esterase 25 H Urine RBC 10-25 SEEN Urine WBC 0-5 SEEN Ur Squamous Epith Cells 0-5 SEEN Urine Bacteria 1+ Urine Mucus 0 SEEN EKG Initial EKG: Attestation: I personally reviewed and interpreted this EKG as follows: Interpretation: Sinus Rhythm, No Acute Injury Pattern and LAFB Prior EKG tracings: available for review Prior: Unchanged Discharge Plan Dx/Rx/DC Orders Clinical Impression: Generalized weakness, Declining functional status, 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
[2021-02-19 09:04] LABS: Mucous, Urine 0 SEEN /hpf (<or=2+)
[2021-02-19 09:06] LABS: Color, Urine Yellow (Yellow); Glucose, Dipstick Normal (Normal); Ketone-Dipstick 5 mg/dl (Negative); Leukocyte Esterase-Dipstick 25 /ul (Negative); Nitrite-Dipstick Negative (Negative); Occult Blood-Urine 150 /ul (Negative); Protein-Dipstick 30 mg/dl (Negative); Urine Bilirubin Dipstick 3 mg/dL (Negative); Urine Clarity Sl. Cloudy (Clear); Urine Urobilinogen 4 mg/dl (Normal)
[2021-02-19 09:12] LABS: Bacteria 1+ /hpf (None Seen); Red Blood Cells-Urine 10-25 SEEN /hpf (0-5); Squamous Epithelial Cells - UA 0-5 SEEN /hpf (0-5); White Blood Cells 0-5 SEEN /hpf (0-5)
[2021-02-19] MEDS: 0.9% Normal Saline 1,000 ML 100 ML IV ×2 (09:19→18:30)
[2021-02-19 09:24] LABS: Hematocrit 29.9 % (40-54); Hemoglobin 9.5 g/dL (13.0-16.5); Mean Corp Hgb Conc 31.8 g/dL (32-36); Mean Corpuscular Hgb 29.8 pg (27.0-32.0); Mean Corpuscular Volume 93.7 fL (80-94); Mean Platelet Vol. 10.3 fl (6.2-12.0); POSITIVE COUNT YES; POSITIVE MORPHOLOGY YES; Platelet Count 180 K/mm3 (150-450); RBC Distribution Width CV 21.7 % (11.6-14.6); RBC Distribution Width SD 71.7 fl (35.1-43.9); Red Blood Count 3.19 M/mm3 (4.6-6.2); White Blood Count 11.4 K/mm3 (4.4-11.0)
[2021-02-19 09:27] LABS: Differential Indicated MANUAL DIFF
[2021-02-19 09:50] LABS: Lymphocyte 5 % (19-41); Metamyelocyte 1 % (0-1); Monocyte 8 % (0-10); Myelocyte 2 % (0-0); Neutrophil-Segmented 83 % (47-70); Plasma Cell 1 %; Total Cells Counted 100 (MANUAL DIFF)
[2021-02-19 09:51] LABS: Absolute Lymphocyte Count 0.57 X10^3/uL (0.83-4.51); Absolute Neutrophil Count 9.5 X10^3/uL (2.0-7.7); Hypochromasia 1+; Platelet Estimate ADEQUATE (ADEQ)
[2021-02-19 09:55] LABS: AST(SGOT) 116 U/L (15-37); Alanine Aminotransfer ALT/SGPT 86 U/L (16-61); Albumin, Serum 1.4 g/dL (3.2-5.0); Alkaline Phosphatase 1452 U/L (45-117); Anion Gap 6 (5-15); BUN 28 mg/dL (7-18); BUN/Creat Ratio 31.2 RATIO (10-20); Bilirubin, Direct 3.67 mg/dL (0.00-0.30); Calcium,Total 8.4 mg/dL (8.5-10.1); Chloride 113 mmol/L (98-107); EST Glomerular Filtration Rate 88 mL/min (>60); Est Glom Filt Rate - Afr Amer 107 mL/min (>60); Estimated Creatinine Clearance 65.97 ml/min; Globulin 4.6 g/dL (2.2-4.2); Glucose 161 mg/dL (74-106); Potassium 3.5 mmol/L (3.5-5.1); Sodium Level 140 mmol/L (136-145); Troponin-I HS 8 pg/mL (3.0-78.0)
[2021-02-19 10:26] VITALS: BP 101/80; PULSE 90; RESP 16; TEMP 36.8; O2SAT 94
--- NOTE | 2021-02-19 10:41 | HP.PCM.HOS_ITS ---
HPI - General General Date of Admission: 02/19/21 HPI Narrative CORDELIA BALL, is a 71 M with a PMh as outlined which includes metastatic pancreatic cancer who presents through the ED on 02/19/2021 with a complaint of weakness. He was just discharged from the hospital a few days ago after being admitted and managed for UTI. HE was discharged home on oral antibiotics. Patient has been very weak at home, and very debilitated since going home, and unable to even self cath due to weakness. He is barely able to ambulate as well. Family therefore brought him into the hospital. Vitals in the ED were Oxygen sat was 94% on room air, with blood pressure of 101/80, pulse rate of 90 and respiratory of 16 with temperature of 98.2 Fahrenheit. CBC showed hemoglobin of 9.5 with WBC of 11.4 and platelets of 180. Chemistry was essentially unremarkable with total bilirubin of 4.5 and albumin of 3.67F AST of 116 and ALT of 86 and ALP of 1452. Liver enzymes have been chronically elevated due to metastatic pancreatic cancer. Kidney function was within normal limits. Urinalysis showed 1+ bacteria. He is being admitted to manage for debility due to metastatic pancreatic cancer [facility] Medical History Acquired hypothyroidism Anxiety and depression Atherosclerotic heart disease of [place] coronary artery without angina pectoris Benign neoplasm of colon BPH (benign prostatic hyperplasia) CAD (coronary artery disease) Cancer related pain Chemotherapy induced neutropenia Constipation Encounter for education Essential hypertension GERD (gastroesophageal reflux disease) History of agent [place] exposure Hypokalemia Normocytic anemia Pancreatic cancer Pancreatic cancer Port-A-Cath in place Presence of stent in coronary artery (~09/19/05) Type 2 diabetes mellitus Urinary retention Home Medications levothyroxine 100 mcg PO DAILY 05/24/18 [History Last Taken 02/13/21] atorvastatin 40 mg tablet 40 mg PO QHS #90 tablet 07/20/18 [Rx Last Taken 02/13/21] aspirin 81 mg tablet,delayed release 81 mg PO DAILY 11/16/18 [History Last Taken 02/13/21] nitroglycerin 0.4 mg sublingual tablet 0.4 mg SL Q5-15M PRN #90 tablet 11/15/19 [Rx Last Taken Unknown] citalopram 20 mg tablet 20 mg PO DAILY 05/14/20 [History Last Taken 02/13/21] insulin glargine 100 unit/mL (3 mL) subcutaneous pen 6 unit SC QHS ml 05/14/20 [History Last Taken 02/05/21] latanoprost 0.005 % eye drops 1 drp EACH EYE QPM 05/14/20 [History Last Taken 11/16/20] lidocaine-prilocaine 1 applic TP DAILY PRN PRN 30 Days #1 tube 07/20/20 [Rx Last Taken Unknown] ondansetron 8 mg PO Q8H PRN PRN 10 Days #30 tab.rapdis 07/20/20 [Rx Last Taken Unknown] prochlorperazine maleate 10 mg PO Q6H PRN PRN 10 Days #30 tablet 07/20/20 [Rx Last Taken Unknown] insulin aspart U-100 [Novolog Flexpen U-100 Insulin] sliding scale dose TIDCM 11/17/20 [History Last Taken 02/05/21] fentanyl 25 mcg/hr transdermal patch 1 patch TRANSDERMAL ea 02/04/21 [History Last Taken 02/11/21] oxycodone-acetaminophen 5 - 325 tab PO TID PRN PRN 02/06/21 [History Last Taken 02/13/21] amoxicillin-pot clavulanate [Augmentin] 1 tab PO BID #6 tab 02/17/21 [Rx Last Taken Unknown] doxycycline hyclate 100 mg PO BID #6 cap 02/17/21 [Rx Last Taken Unknown] Allergy/AdvReac Type Severity Reaction Status Date / Time phenazopyridine AdvReac Unknown Vomiting Verified 02/04/21 08:20 [From Pyridium] beta blockers AdvReac Unknown Intolerant- Uncoded 01/05/21 08:57 Extreme fatigue Family History Mother CHF (congestive heart failure) Hypertension Cancer Cervical Father CAD (coronary artery disease) Myocardial infarction Cancer Colon Surgical History History of colonoscopy (~01/2020) History of left heart catheterization (LHC) Hx of heart artery stent Presence of coronary angioplasty implant and graft Status post coronary artery bypass graft (~09/12/18) Social History Smoking Status: Never smoker alcohol intake: current details: occasional substance use type: does not use ROS Constitutional Constitutional: Reports anorexia, fatigue, malaise and weakness; Denies change in weight, chills or fever(s) Eyes Eyes: Denies change in vision ENT HEENT: Reports dysphagia and headache(s); Denies abnormal hearing Cardiovascular Cardiovascular: Denies chest pain, dyspnea on exertion, edema or lightheadedness Respiratory/Chest Respiratory/Chest: Reports cough; Denies dyspnea, shortness of breath at rest or shortness of breath with exertion Gastrointestinal Gastrointestinal: Reports diarrhea; Denies abdominal pain, constipation, nausea or vomiting Genitourinary Genitourinary: Denies burning urination or dysuria Musculoskeletal Musculoskeletal: Denies arthralgias or joint pain Neurologic Neurologic: Denies confusion or dizziness Psychiatric Psychiatric: Denies anxiety or depression Endocrine Endocrinology: Denies change in body appearance Hematologic/Lymphatic Hematologic/Lymphatic: Denies anemia Vital Signs Vital Signs Vital Signs: 02/19/21 08:17 02/19/21 08:20 02/19/21 08:53 Temperature 97.5 F L 97.5 F L Temperature Source Oral Oral Pulse Rate 18 L 83 Respiratory Rate 91 H 18 Respiratory Effort Normal Non-Labored Respiratory Pattern Normal Blood Pressure 120/97 H 120/97 H Blood Pressure Mean 104 104 Pulse Ox 100 98 Oxygen Delivery Method Room Air Room Air 02/19/21 10:26 Temperature 98.2 F Temperature Source Temporal Pulse Rate 90 Respiratory Rate 16 Respiratory Effort Respiratory Pattern Blood Pressure 101/80 Blood Pressure Mean 87 Pulse Ox 94 Oxygen Delivery Method Room Air Weight Weight: 163 lb 9.328 oz Body Mass Index (BMI) 26.4 Physical Exam Const alert and oriented x3 General Appearance: cooperative Orientation / Consciousness: lethargic HEENT normocephalic, head/scalp atraumatic and hearing grossly normal bilaterally HEENT Narrative: dry mucosal membranes Eyes PERRL, EOMs intact bilaterally and conjunctivae normal Eyes Narrative: jaundiced sclera Neck no lymphadenopathy and supple Resp normal respiratory effort, no retractions, no use of accessory muscles and clear to auscultation bilaterally Cardio regular rate, regular rhythm, S1 normal heart sound, S2 normal heart sound and no murmurs GI normal to inspection, nondistended, normoactive bowel sounds, soft to palpation, non-tender and non-distended Extremity normal to inspection, full ROM and no clubbing, cyanosis or edema Peripheral Pulses: Yes pulses 2+ throughout Skin no rashes or lesions noted Neuro oriented x3 and CN's II-XII intact bilaterally Sensorium / Orientation: awake and alert Psych affect normal Results Lab / Micro Data Result Diagrams: 02/19/21 09:15 02/19/21 09:15 Labs: Laboratory Results - last 24 hr 02/19/21 08:35: Urine Color Yellow, Urine Clarity Sl. Cloudy, Urine pH 6.0, Ur Specific [place] 1.020, Urine Protein 30 H, Urine Glucose (UA) Normal, Urine Ketones 5 H, Urine Occult Blood 150 H, Urine Nitrite Negative, Urine Bilirubin 3 H, Urine Urobilinogen 4 H, Ur Leukocyte Esterase 25 H, Urine RBC 10-25 SEEN, Urine WBC 0-5 SEEN, Ur Squamous Epith Cells 0-5 SEEN, Urine Bacteria 1+, Urine Mucus 0 SEEN 02/19/21 09:15: Sodium 140, Potassium 3.5, Chloride 113 H, Carbon Dioxide 21.0, Anion Gap 6, BUN 28 H, Creatinine 0.90, Estim Creat Clear Calc 65.97, Est GFR (MDRD) Af Amer 107, Est GFR (MDRD) Non-Af 88, BUN/Creatinine Ratio 31.2 H, Glucose 161 H, Calcium 8.4 L, Total Bilirubin 4.50 H, Direct Bilirubin 3.67 H, AST 116 H, ALT 86 H, Alkaline Phosphatase 1452 H, Troponin I High Sens 8, Total Protein 6.0 L, Albumin 1.4 L, Globulin 4.6 H 02/19/21 09:15: WBC 11.4 H, RBC 3.19 L, Hgb 9.5 L, Hct 29.9 L, MCV 93.7, MCH 29.8, MCHC 31.8 L, RDW Std Deviation 71.7 H, RDW Coeff of [place] 21.7 H, Plt Count 180, MPV 10.3, Neut % (Auto) Not Reportable, Absolute Neuts (auto) 9.5 H, Absolute Lymphs (auto) 0.57 L, Total Counted 100, Neutrophils % (Manual) 83 H, L ymphocytes % (Manual) 5 L, Monocytes % (Manual) 8, Metamyelocytes % 1, Myeloc ytes % 2 H, Plasma Cell % (Manual) 1, Diff Path Review May foll, Platelet Estimate ADEQUATE, Hypochromasia 1+ Assessment & Plan Assessment/Plan (1) Generalized weakness: (2) Declining functional status: (3) Primary pancreatic cancer with metastasis to other site: PLAN: #Debility due to metastatic pancreatic cancer * Cancer has spread to his liver. * Patient was just discharged 2 days ago after being managed for UTI and acute metabolic encephalopathy. He has been very weak since he went home and is negative mainly able to self cath and is unable to ambulate or even get up from his bed. * I explained to patient that this worsening debility is likely due to his metastatic cancer and I do not expect that he will improve much. Patient is in agreement with this and is receptive to hospice consult. * We will therefore place hospice consult. * hydrate gently with IVF * #History of CAD s/p CABG and stents: On aspirin and statin #Hypothyroidism: On Synthroid #Type 2 diabetes mellitus: On Lantus 6 units nightly. Insulin sliding scale. Accu-Cheks AC at bedtime. #Hyperlipidemia: On statin #Depression: On citalopram DVT prophylaxis: Lovenox CODE STATUS: DNR CCA no intubation * Patient counseled extensively about different types of CODE STATUS including full code, DNR CCA and DNR CCA. Patient elects to be DNRCCA- no intubation. * Total [id number] time 16 minutes. Charges/Coding Visit Charges Inpatient E&M: 65241 Init Hosp L3 Multi Select Codes Hospitalists' Procedures Procedures: 95429 Advncd Care Plan 30 Min
[2021-02-19 10:59] VITALS: BP 111/53; PULSE 99; RESP 17; TEMP 36.8; O2SAT 96
[2021-02-19 12:16] VITALS: BMI 23.9
--- NOTE | 2021-02-19 12:23 | PCS.PANDOC ---
PANDEMIC DOCUMENTATION INITIATED: Date: 11/16/2020 Time: 190
--- NOTE | 2021-02-19 12:51 | NURSING ---
pt states that his oncologist is Dr. Nj and that at some point unsure if today or not, he was having a family meeting with Hospice to talk about their services. pt states he lives with his Aditi and has a son Agusto.
--- NOTE | 2021-02-19 13:52 | CASEMGMT ---
Addendum entered by Lilo Lopez 02/19/21 14:42: SW updated that pt's son Ed is present at [facility] and had questions regarding Hospice. SW in to speak with pt and pt's son Ed. Ed asked what the next steps are regarding Hospice. SW informed Ed that this worker made referral to [facility] and they were going to reach out to pt's to arrange Hospice meeting. Ed states he is the only visitor. SW informed Ed that in this circumstance, pt will be allowed to have more than one visitor. Ed states understanding, denied additional needs or concerns at this time. Original Note: Social Work Note SW received referral for Hospice consult. SW placed a call to [facility] and provided Hospice referral to Ren[facility]. SW faxed Hospice referral to [phone]. Lilo Lopez MONITOR WORKER, RN NICU
[2021-02-19 16:41] LABS: Bedside Glucose 142 mg/dL (70-110)
[2021-02-19 16:42] VITALS: BP 115/57; PULSE 93; RESP 16; TEMP 36.4; O2SAT 99
[2021-02-19] MEDS: Latanoprost 0.005% 1 Bottle 1 DRP EACH EYE (21:50)
[2021-02-19] MEDS: Atorvastatin Calcium 40 MG Tablet PO (21:51)
[2021-02-19 22:05] LABS: Bedside Glucose 131 mg/dL (70-110)
[2021-02-19 22:30] VITALS: BP 119/75; PULSE 88; RESP 14; TEMP 36.7; O2SAT 97
[2021-02-20 04:00] VITALS: BP 109/74; PULSE 90; RESP 14; TEMP 36.6; O2SAT 94
[2021-02-20] MEDS: 0.9% Normal Saline 1,000 ML 100 ML IV ×2 (04:21→14:16)
[2021-02-20 08:33] LABS: Hematocrit 27.7 % (40-54); Hemoglobin 8.7 g/dL (13.0-16.5); Mean Corp Hgb Conc 31.4 g/dL (32-36); Mean Corpuscular Hgb 29.7 pg (27.0-32.0); Mean Corpuscular Volume 94.5 fL (80-94); Mean Platelet Vol. 10.4 fl (6.2-12.0); POSITIVE COUNT YES; POSITIVE MORPHOLOGY YES; Platelet Count 145 K/mm3 (150-450); RBC Distribution Width CV 22.4 % (11.6-14.6); RBC Distribution Width SD 74.6 fl (35.1-43.9); Red Blood Count 2.93 M/mm3 (4.6-6.2); White Blood Count 9.8 K/mm3 (4.4-11.0)
[2021-02-20 08:37] LABS: Differential Indicated MANUAL DIFF
[2021-02-20] MEDS: Aspirin E.C. 81 MG Tablet PO (08:57)
[2021-02-20] MEDS: Citalopram 20 MG Tablet PO (08:57)
[2021-02-20] MEDS: Enoxaparin 40 MG/0.4 ML Syringe SC (08:57)
[2021-02-20 09:06] LABS: Bedside Glucose 98 mg/dL (70-110)
[2021-02-20 09:12] LABS: ALB/GLOB Ratio 0.3 RATIO (0.9-2.4); AST(SGOT) 101 U/L (15-37); Alanine Aminotransfer ALT/SGPT 76 U/L (16-61); Albumin, Serum 1.2 g/dL (3.2-5.0); Alkaline Phosphatase 1299 U/L (45-117); Anion Gap 5 (5-15); BUN 27 mg/dL (7-18); BUN/Creat Ratio 35.1 RATIO (10-20); Chloride 116 mmol/L (98-107); Creatinine, Serum 0.77 mg/dL (0.70-1.30); EST Glomerular Filtration Rate 105 mL/min (>60); Est Glom Filt Rate - Afr Amer 127 mL/min (>60); Estimated Creatinine Clearance 59.37 ml/min; Globulin 4.3 g/dL (2.2-4.2); Glucose 98 mg/dL (74-106); Potassium 3.4 mmol/L (3.5-5.1); Protein, Total 5.5 g/dL (6.4-8.2); Sodium Level 143 mmol/L (136-145)
[2021-02-20 09:16] LABS: Anisocytosis 1+; Eosinophil 1 % (0-5); Hypochromasia 1+; Lymphocyte 4 % (19-41); Metamyelocyte 9 % (0-1); Monocyte 1 % (0-10); Neutrophil-Band 5 % (0-5); Neutrophil-Segmented 80 % (47-70); Platelet Estimate ADEQUATE (ADEQ); Total Cells Counted 100 (MANUAL DIFF)
[2021-02-20 09:17] LABS: Absolute Lymphocyte Count 0.39 X10^3/uL (0.83-4.51); Absolute Neutrophil Count 8.3 X10^3/uL (2.0-7.7); Lymphocyte # 0.39 X10^3/ul (0.83-4.51); Neutrophil # 8.33 X10^3/uL (2.7-7.7)
[2021-02-20 11:46] LABS: Bedside Glucose 90 mg/dL (70-110)
--- NOTE | 2021-02-20 12:26 | PCM.PN.HOSP ---
Documented by User: Liane Bartlett NP-C 02/20/21 12:30 Subjective Subjective Patient seen and examined. Patient lying in bed no distress noted. Patient reports feeling very fatigued and weak. Objective Data Objective Data Vital Signs: Vital Signs Temp Pulse Resp BP Pulse Ox 97.9 F 90 14 109/74 94 02/20/21 04:00 02/20/21 04:00 02/20/21 04:00 02/20/21 04:00 02/20/21 04:00 Oxygen Delivery Method Room Air Weight: 148 lb 5.161 oz Body Mass Index (BMI) 23.9 Intake & Output: Intake and Output for Last 24 Hours 02/18/21 02/19/21 02/20/21 23:59 23:59 23:59 Intake Total 918.33 / 918.33 985 / 985 Output Total 120 / 120 Balance 918.33 / 918.33 865 / 865 Medical Nutrition Assessment Dietitian: Malnutrition Criteria Met Start: 02/19/21 14:43 Freq: Status: Active Protocol: Document 02/19/21 14:43 AG (Rec: 02/19/21 14:43 [id number]) Nutrition Malnutrition Evidence of Malnutrition Exists Yes Malnutrition (severe): Chronic Evidenced By Suboptimal Energy Intake ( Severe),Weight Loss (Severe) Clinical Problem Chronic Disease or Condition Related Malnutrition Etiology severe, chronic malnutrition r /t inadequate energy intake w/ increased energy needs d/t metastatic disease Signs/Symptoms as evidenced by estimated PO intake meeting <75% of estimated nutritional needs >3 months, unintentional wt loss of 21.7#/12.76% x 4 months Status Active Problem Recommendation Dietitian Recommendations/Changes regular diet given malnutrition, pending hospice consult. Ensure w/ medpass if pt agreeable to supplement. Lab / Micro Data Result Diagrams: 02/20/21 08:15 02/20/21 08:15 Labs: Laboratory Results - last 24 hr 02/19/21 16:36: POC Glucose 142 H 02/19/21 21:48: POC Glucose 131 H 02/20/21 08:15: WBC 9.8, RBC 2.93 L, Hgb 8.7 L, Hct 27.7 L, MCV 94.5 H, MCH 29.7, MCHC 31.4 L, RDW Std Deviation 74.6 H, RDW Coeff of Mary Ann 22.4 H, Plt Count 145 L, MPV 10.4, Neut % (Auto) Not Reportable, Absolute Neuts (auto) 8.3 H, Absolute Lymphs (auto) 0.39 L, Total Counted 100, Neutrophils % (Manual) 80 H, Band Neutrophils % 5, Lymphocytes % (Manual) 4 L, Monocytes % (Manual) 1, Eosinophils % (Manual) 1, Metamyelocytes % 9 H, Diff Path Review August, Platelet Estimate ADEQUATE, Hypochromasia 1+, Anisocytosis 1+ 02/20/21 08:15: Sodium 143, Potassium 3.4 L, Chloride 116 H, Carbon Dioxide 22.0, Anion Gap 5, BUN 27 H, Creatinine 0.77, Estim Creat Clear Calc 59.37, Est GFR (MDRD) Af Amer 127, Est GFR (MDRD) Non-Af 105, BUN/Creatinine Ratio 35.1 H, Glucose 98, Calcium 8.0 L, Total Bilirubin 3.40 H, AST 101 H, ALT 76 H, Alkaline Phosphatase 1299 H, Total Protein 5.5 L, Albumin 1.2 L, Globulin 4.3 H, Albumin/Globulin Ratio 0.3 L 02/20/21 08:55: POC Glucose 98 02/20/21 11:38: POC Glucose 90 Physical Exam Const alert, oriented x3 and no apparent distress HEENT head/scalp atraumatic Head and Scalp: normocephalic Eyes conjunctivae normal and no scleral icterus Neck full ROM and supple Resp normal respiratory effort, normal air movement and clear to auscultation bilaterally Cardio regular rate, regular rhythm, S1 normal heart sound and S2 normal heart sound GI normal to inspection, nondistended, normoactive bowel sounds, soft to palpation and non-tender Extremity normal to inspection, full ROM and no clubbing, cyanosis or edema Peripheral Pulses: Yes pulses 2+ throughout Skin no rashes or lesions noted, no wounds and skin turgor normal Neuro oriented x3, moves all extremities, no focal motor deficits and no sensory deficits noted Sensorium / Orientation: awake and alert Psych affect normal Assessment & Plan Assessment/Plan (1) Generalized weakness: (2) Primary pancreatic cancer with metastasis to other site: PLAN: 1. Debility secondary to metastatic pancreatic cancer -Hospice consulted -Continue IV hydration -PT and OT to eval and treat -CBC and CMP ordered daily 2. Diabetes mellitus type 2 -Continue home regimen Lantus -AC at bedtime blood sugars with sliding scale insulin ordered We will continue patient's other chronic medications in relation to chronic diseases including depression kind of mild hyperlipidemia, hypothyroidism, CAD DVT prophylaxis-Lovenox This patient was seen by Liane Bartlett NP-C under the supervision of Dr. Lopez Documented by User: Dr. Lisa Lopez MD 02/20/21 16:21 Objective Data Lab / Micro Data Result Diagrams: 02/20/21 08:15 02/20/21 08:15 Charges/Coding Addendum Addendum: Patient seen by Liane CALLOWAYC under my supervision Patient seen and examined. He had no complaints today. He still felt very weak and lethargic. Review of systems otherwise negative. He is awaiting hospice evaluation. O/E: Const alert and oriented x3 General Appearance: cooperative Orientation / Consciousness: lethargic HEENT normocephalic, head/scalp atraumatic and hearing grossly normal bilaterally HEENT Narrative: dry mucosal membranes Eyes PERRL, EOMs intact bilaterally and conjunctivae normal Eyes Narrative: jaundiced sclera Neck no lymphadenopathy and supple Resp normal respiratory effort, no retractions, no use of accessory muscles and clear to auscultation bilaterally Cardio regular rate, regular rhythm, S1 normal heart sound, S2 normal heart sound and no murmurs GI normal to inspection, nondistended, normoactive bowel sounds, soft to palpation, non-tender and non-distended Extremity normal to inspection, full ROM and no clubbing, cyanosis, 2+ pitting pedal edema bilaterally Peripheral Pulses: Yes pulses 2+ throughout Skin no rashes or lesions noted Neuro oriented x3 and CN's II-XII intact bilaterally Sensorium / Orientation: awake and alert Psych affect normal Plan is for hospice to evaluate patient today for probable hospice admission for metastatic pancreatic cancer. Continue home dose of Lantus. Insulin sliding scale. Accu-Cheks AC at bedtime. Lovenox for DVT prophylaxis. Prognosis remains very poor. Rest as per LATRELL Baez's note, which I have reviewed and endorsed. Visit Charges Inpatient E&M: 92977 Subs Hosp L2
[2021-02-20 14:11] VITALS: BP 126/72; PULSE 77; RESP 16; TEMP 37.1; O2SAT 97
--- NOTE | 2021-02-20 14:24 | CASEMGMT ---
This RN ADI to room with PHILLIP form, explanation done-pt voices understanding, and signs PHILLIP form. Original to chart and copy to pt. Pt voices no further questions/concerns/needs. SStaten DORA CM
--- NOTE | 2021-02-20 15:05 | CM.ED ---
HELDER met with Gordy, newspaper managing editor. Patient had signed up for Hospice. The family wants hospice in a SNF. [facility] is [facility]) [facility] and 3) [facility]. Gordy said that the signature with hospice is good thru Monday but if he is at the hospital he has to resign for Hospice on Monday. The family will be private pay at SNF. Gordy said that the son is taking the mother out to eat. The son requested, per Gordy, that he be called because his mom is Hard of Hearing. Plan: SNF with Hospice [facility]
[2021-02-20 17:01] LABS: Bedside Glucose 91 mg/dL (70-110)
--- NOTE | 2021-02-20 19:22 | CM.ED ---
HELDER called Kathi and left a voice mail regarding patient. HELDER faxed referral to Kath[facility] at [facility]. [facility]
[2021-02-20 20:30] VITALS: BP 107/67; PULSE 91; RESP 16; TEMP 37.1; O2SAT 94
--- NOTE | 2021-02-20 20:44 | NURSING ---
Patient declined all scheduled medications for this evening. We did his blood sugar early so he could go to sleep. Blood sugar was 80, he did take orange juice to prevent it from dropping during the night. Denies pain or other needs at this time. Will monitor closely.
[2021-02-20 20:46] LABS: Bedside Glucose 80 mg/dL (70-110)
[2021-02-21] MEDS: 0.9% Normal Saline 1,000 ML 100 ML IV ×3 (00:24→21:07)
[2021-02-21 04:55] VITALS: BP 147/81; PULSE 77; RESP 16; TEMP 36.9; O2SAT 96
[2021-02-21] MEDS: Loperamide 2 MG Capsule PO (05:07)
[2021-02-21 05:21] LABS: Bedside Glucose 112 mg/dL (70-110)
[2021-02-21 06:54] LABS: Hematocrit 25.7 % (40-54); Hemoglobin 8.3 g/dL (13.0-16.5); Mean Corp Hgb Conc 32.3 g/dL (32-36); Mean Corpuscular Hgb 30.6 pg (27.0-32.0); Mean Corpuscular Volume 94.8 fL (80-94); Mean Platelet Vol. 9.5 fl (6.2-12.0); POSITIVE COUNT YES; POSITIVE MORPHOLOGY YES; Platelet Count 142 K/mm3 (150-450); RBC Distribution Width CV 22.2 % (11.6-14.6); RBC Distribution Width SD 75.3 fl (35.1-43.9); Red Blood Count 2.71 M/mm3 (4.6-6.2); White Blood Count 10.2 K/mm3 (4.4-11.0)
[2021-02-21 06:56] LABS: Differential Indicated MANUAL DIFF
[2021-02-21 07:20] LABS: ALB/GLOB Ratio 0.3 RATIO (0.9-2.4); AST(SGOT) 123 U/L (15-37); Alanine Aminotransfer ALT/SGPT 77 U/L (16-61); Albumin, Serum 1.2 g/dL (3.2-5.0); Alkaline Phosphatase 1280 U/L (45-117); Anion Gap 2 (5-15); BUN 24 mg/dL (7-18); BUN/Creat Ratio 34.8 RATIO (10-20); Chloride 117 mmol/L (98-107); Creatinine, Serum 0.69 mg/dL (0.70-1.30); EST Glomerular Filtration Rate 119 mL/min (>60); Est Glom Filt Rate - Afr Amer 145 mL/min (>60); Estimated Creatinine Clearance 59.37 ml/min; Globulin 4.2 g/dL (2.2-4.2); Glucose 105 mg/dL (74-106); Potassium 3.3 mmol/L (3.5-5.1); Protein, Total 5.4 g/dL (6.4-8.2); Sodium Level 142 mmol/L (136-145)
[2021-02-21 07:24] LABS: Absolute Lymphocyte Count 0.72 X10^3/uL (0.83-4.51); Absolute Neutrophil Count 7.9 X10^3/uL (2.0-7.7); Lymphocyte 7 % (19-41); Metamyelocyte 2 % (0-1); Monocyte 8 % (0-10); Myelocyte 4 % (0-0); Neutrophil-Band 6 % (0-5); Neutrophil-Segmented 71 % (47-70); Platelet Estimate SLT DEC (ADEQ); Promyelocyte 2 % (0-0)
[2021-02-21 07:25] LABS: Anisocytosis 3+; Red Cell Morphology NORM C+C NORMAL (NORM C&C)
[2021-02-21 10:00] VITALS: BP 122/77; PULSE 90; RESP 20; TEMP 36.6; O2SAT 95
[2021-02-21] MEDS: Menthol/Lanolin/Calamine/Znox 113 GM Tube 1 APPLIC TOPICAL (10:33)
[2021-02-21] MEDS: fentaNYL 25 MCG Patch TD (10:41)
--- NOTE | 2021-02-21 11:48 | PN.HOSP_ITS ---
Documented by User: Liane Bartlett NP-C 02/21/21 11:50 Subjective Subjective Patient seen and examined. Patient complaining of increased pain, will reorder patient's oxycodone from home. Patient lying in bed no distress noted, no other needs voiced at this time. Objective Data Objective Data Vital Signs: Vital Signs Temp Pulse Resp BP Pulse Ox 98 F 90 20 H 122/77 H 95 02/21/21 10:00 02/21/21 10:00 02/21/21 10:00 02/21/21 10:00 02/21/21 10:00 Oxygen Delivery Method Room Air Weight: 148 lb 5.161 oz Body Mass Index (BMI) 23.9 Intake & Output: Intake and Output for Last 24 Hours 02/19/21 02/20/21 02/21/21 23:59 23:59 23:59 Intake Total 918.33 / 918.33 2176.67 / 2176.67 1999 Output Total 520 / 520 250 / 250 Balance 918.33 / 918.33 1656.67 / 1656.67 1750 / 1750 Medical Nutrition Assessment Dietitian: Malnutrition Criteria Met Start: 02/19/21 14:43 Freq: Status: Active Protocol: Document 02/19/21 14:43 AG (Rec: 02/19/21 14:43 AG [id number]) Nutrition Malnutrition Evidence of Malnutrition Exists Yes Malnutrition (severe): Chronic Evidenced By Suboptimal Energy Intake ( Severe),Weight Loss (Severe) Clinical Problem Chronic Disease or Condition Related Malnutrition Etiology severe, chronic malnutrition r /t inadequate energy intake w/ increased energy needs d/t metastatic disease Signs/Symptoms as evidenced by estimated PO intake meeting <75% of estimated nutritional needs >3 months, unintentional wt loss of 21.7#/12.76% x 4 months Status Active Problem Recommendation Dietitian Recommendations/Changes regular diet given malnutrition, pending hospice consult. Ensure w/ medpass if pt agreeable to supplement. Lab / Micro Data Result Diagrams: 02/21/21 06:40 02/21/21 06:40 Labs: Laboratory Results - last 24 hr 02/20/21 16:56: POC Glucose 91 02/20/21 20:37: POC Glucose 80 02/21/21 05:13: POC Glucose 112 H 02/21/21 06:40: WBC 10.2, RBC 2.71 L, Hgb 8.3 L, Hct 25.7 L, MCV 94.8 H, MCH 30.6, MCHC 32.3, RDW Std Deviation 75.3 H, RDW Coeff of Mary Ann 22.2 H, Plt Count 142 L, MPV 9.5, Neut % (Auto) Not Reportable, Absolute Neuts (auto) 7.9 H, A bsolute Lymphs (auto) 0.72 L, Neutrophils % (Manual) 71 H, Band Neutrophils % 6 H, Lymphocytes % (Manual) 7 L, Monocytes % (Manual) 8, Metamyelocytes % 2 H, Myelocytes % 4 H, Promyelocytes % 2 H, Diff Path Review August, Platelet Estimate SLT DEC, RBC Morphology NORM C+C, Anisocytosis 3+ 02/21/21 06:40: Sodium 142, Potassium 3.3 L, Chloride 117 H, Carbon Dioxide 23.0, Anion Gap 2 L, BUN 24 H, Creatinine 0.69 L, Estim Creat Clear Calc 59.37, Est GFR (MDRD) Af Amer 145, Est GFR (MDRD) Non-Af 119, BUN/Creatinine Ratio 34.8 H, Glucose 105, Calcium 8.0 L, Total Bilirubin 3.60 H, AST 123 H, ALT 77 H, Alkaline Phosphatase 1280 H, Total Protein 5.4 L, Albumin 1.2 L, Globulin 4.2, Albumin/Globulin Ratio 0.3 L Physical Exam Const alert, oriented x3 and no apparent distress General Appearance: cooperative Orientation / Consciousness: lethargic HEENT normocephalic, head/scalp atraumatic and hearing grossly normal bilaterally Eyes PERRL, EOMs intact bilaterally, conjunctivae normal and no scleral icterus Eyes Narrative: jaundiced sclera Neck full ROM, no lymphadenopathy and supple Resp normal respiratory effort, normal air movement, no retractions, no use of accessory muscles and clear to auscultation bilaterally Cardio regular rate, regular rhythm, S1 normal heart sound, S2 normal heart sound and no murmurs GI normal to inspection, nondistended, normoactive bowel sounds, soft to palpation, non-tender and non-distended Extremity normal to inspection, full ROM and no clubbing, cyanosis or edema Skin no rashes or lesions noted, no wounds and skin turgor normal Neuro oriented x3, CN's II-XII intact bilaterally, moves all extremities, no focal motor deficits and no sensory deficits noted Sensorium / Orientation: awake and alert Psych affect normal Assessment & Plan Assessment/Plan (1) Generalized weakness: (2) Primary pancreatic cancer with metastasis to other site: PLAN: 1. Debility secondary to metastatic pancreatic cancer -Hospice consulted -Continue IV hydration -PT and OT to eval and treat -CBC and CMP ordered daily 2. Diabetes mellitus type 2 -Continue home regimen Lantus -AC at bedtime blood sugars with sliding scale insulin ordered 3. Chronic pain -Oxycodone reordered due to patient reports of increased breakthrough pain -Continue fentanyl patch We will continue patient's other chronic medications in relation to chronic diseases including depression kind of mild hyperlipidemia, hypothyroidism, CAD DVT prophylaxis-Lovenox This patient was seen by LATRELL Baez under the supervision of Dr. Lopez Documented by User: Dr. Lisa Lopez MD 02/21/21 16:10 Objective Data Lab / Micro Data Result Diagrams: 02/21/21 06:40 02/21/21 06:40 Charges/Coding Addendum Addendum: Patient seen by Liane SAMS under my supervision Patient seen and examined. He has no active complaints. Review of systems otherwise negative. He has remained hemodynamically stable. O/E: Const alert and oriented x3 General Appearance: cooperative. very frail HEENT normocephalic, head/scalp atraumatic and hearing grossly normal bilaterally HEENT Narrative: dry mucosal membranes Eyes PERRL, EOMs intact bilaterally and conjunctivae normal Eyes Narrative: jaundiced sclera Neck no lymphadenopathy and supple Resp normal respiratory effort, no retractions, no use of accessory muscles and clear to auscultation bilaterally Cardio regular rate, regular rhythm, S1 normal heart sound, S2 normal heart sound and no murmurs GI normal to inspection, nondistended, normoactive bowel sounds, soft to palpation, non-tender and non-distended Extremity normal to inspection, full ROM and no clubbing, cyanosis, 2+ pitting pedal edema bilaterally Peripheral Pulses: Yes pulses 2+ throughout Skin no rashes or lesions noted Neuro oriented x3 and CN's II-XII intact bilaterally Sensorium / Orientation: awake and alert Psych affect normal Patient awaiting discharge to hospice medical facility for metastatic pancreatic cancer. On lantus 6 units qhs. ISS. Accuchecks ACHS. On lovenox for DVT prophylaxis. Anticipate discharge to hospice medical facility tomorrow. Rest as per Liane Bartlett NP-C under my supervision. Visit Charges Inpatient E&M: 37486 Subs Hosp L2
[2021-02-21] MEDS: oxyCODONE 5 MG Tablet PO (12:07)
[2021-02-21 12:20] LABS: Bedside Glucose 107 mg/dL (70-110)
[2021-02-21 16:00] VITALS: BP 129/75; PULSE 88; RESP 20; TEMP 36.6; O2SAT 96
[2021-02-21 16:25] LABS: Bedside Glucose 99 mg/dL (70-110)
[2021-02-21 21:30] VITALS: BP 115/62; PULSE 84; RESP 14; TEMP 37.2; O2SAT 96
--- NOTE | 2021-02-21 22:51 | NURSING ---
patient did not want his blood sugar checked and also refused all meds.
[2021-02-22 04:00] VITALS: BP 107/67; PULSE 85; RESP 16; TEMP 36.7; O2SAT 94
[2021-02-22] MEDS: Menthol/Lanolin/Calamine/Znox 113 GM Tube 1 APPLIC TOPICAL (04:03)
[2021-02-22] MEDS: 0.9% Saline Lock 10 ML Syringe IV ×3 (04:05→15:24)
[2021-02-22] MEDS: Ondansetron 4 MG/2 ML Vial IV (04:06)
[2021-02-22 06:03] LABS: Hematocrit 28.6 % (40-54); Hemoglobin 9.1 g/dL (13.0-16.5); Mean Corp Hgb Conc 31.8 g/dL (32-36); Mean Corpuscular Hgb 30.6 pg (27.0-32.0); Mean Corpuscular Volume 96.3 fL (80-94); Mean Platelet Vol. 9.8 fl (6.2-12.0); POSITIVE COUNT YES; POSITIVE MORPHOLOGY YES; Platelet Count 172 K/mm3 (150-450); RBC Distribution Width CV 22.7 % (11.6-14.6); RBC Distribution Width SD 75.8 fl (35.1-43.9); Red Blood Count 2.97 M/mm3 (4.6-6.2); White Blood Count 14.1 K/mm3 (4.4-11.0)
[2021-02-22 06:24] LABS: Differential Indicated MANUAL DIFF
[2021-02-22 07:03] LABS: ALB/GLOB Ratio 0.3 RATIO (0.9-2.4); AST(SGOT) 130 U/L (15-37); Alanine Aminotransfer ALT/SGPT 81 U/L (16-61); Albumin, Serum 1.2 g/dL (3.2-5.0); Alkaline Phosphatase 1326 U/L (45-117); Anion Gap 7 (5-15); BUN 23 mg/dL (7-18); BUN/Creat Ratio 33.7 RATIO (10-20); Calcium,Total 8.5 mg/dL (8.5-10.1); Chloride 116 mmol/L (98-107); Creatinine, Serum 0.68 mg/dL (0.70-1.30); EST Glomerular Filtration Rate 121 mL/min (>60); Est Glom Filt Rate - Afr Amer 146 mL/min (>60); Estimated Creatinine Clearance 59.37 ml/min; Globulin 4.5 g/dL (2.2-4.2); Glucose 94 mg/dL (74-106); Potassium 3.4 mmol/L (3.5-5.1); Protein, Total 5.7 g/dL (6.4-8.2); Sodium Level 143 mmol/L (136-145)
[2021-02-22 07:20] LABS: Anisocytosis 3+
[2021-02-22] MEDS: 0.9% Normal Saline 1,000 ML 100 ML IV (07:23)
[2021-02-22 07:24] LABS: Absolute Neutrophil Count 10.4 X10^3/uL (2.0-7.7)
[2021-02-22 07:25] LABS: Absolute Lymphocyte Count 0.71 X10^3/uL (0.83-4.51); Lymphocyte 5 % (19-41); Metamyelocyte 5 % (0-1); Monocyte 5 % (0-10); Myelocyte 5 % (0-0); Neutrophil-Band 7 % (0-5); Neutrophil-Segmented 67 % (47-70); Platelet Estimate ADEQUATE (ADEQ); Promyelocyte 6 % (0-0)
[2021-02-22 07:26] LABS: Polychromasia RARE; Red Cell Morphology NORM C+C NORMAL (NORM C&C)
[2021-02-22 08:37] VITALS: BP 119/66; PULSE 81; RESP 18; TEMP 36.8; O2SAT 94
--- NOTE | 2021-02-22 10:21 | CASEMGMT ---
Addendum entered by Lilo Lopez 02/22/21 10:41: HELDER received call from Kathi at [facility] stating [facility] can accept pt today. HELDER informed Kathi that family also wanted this worker to send referral to [facility] so this worker is waiting for call back from [facility]. Kathi states understanding. Original Note: Social Work Note HELDER placed a call to Kathi at [facility] [place], no beds available. SW reviewed chart. Pt's son directed staff to call him as pt's is hard of hearing. HELDER placed a call to pt's son Ed. Ed states he would prefer [facility] now. SW informed Ed that [facility] currently has a COVID outbreak and they are not accepting admissions at this time. SW informed Ed that the other SNF in [place] are [facility], [facility], and [facility]. Ed states definitely not [facility]. Ed states to try [facility] first and if they cannot accept pt, then try [facility]. HELDER placed a call to [facility] and left message for admissions. SW faxed referral to [facility]. HELDER placed a call to Kathi at [facility], asked for [facility] to review referral. Plan: ECF with Hospice services pending acceptance from ECF Lilo Lopez CLIENT PROFESSIONAL, HOUSEKEEPING ASSISTANT
--- NOTE | 2021-02-22 11:28 | TREXTCAR_ITS ---
Documented by User: Wilton WAGNER 02/22/21 13:04 Diet 02/19/21 13:06 Diet: Regular - General Food consistency:: Mechanical (Minced/Moist) Type of Dietary Supplement:: Glucerna Shake Is pt able to select menu?: No Wound(s) right buttocks- shearing chronic wound: Wound Type: Shearing Problem/Diagnosis (1) Generalized weakness: Status: Acute (2) Primary pancreatic cancer with metastasis to other site: Status: Acute Allergies/Procedures Done in Hospital Allergies phenazopyridine [From Pyridium] Adverse Reaction (Unknown, Verified 02/04/21 08:20) Vomiting beta blockers Adverse Reaction (Unknown, Uncoded 01/05/21 08:57) Intolerant- Extreme fatigue Type of Care/Length of Stay Estimated LOS: More Than 30 Days Type of Care Needed: Inpt Hospice Facility Rehab Potential: Poor Prognosis: Poor Additional Orders/Day of Discharge Day of Discharge: 02/22/21 Dietary and Speech Recommendations Dietitian Recommendations/Changes: regular diet given malnutrition, pending hospice consult. Ensure w/ medpass if pt agreeable to supplement. Discharge Plan Admission Admit Date/Time: 02/19/21 10:50 Primary Reason for Your Visit: Weakness Attending Provider: Roverto Martinez Primary Care Provider: Jamie Humphrey Consulting Providers: Savannah Villatoro ; Domingo Dietz ; Divina Lamas ; Chelita Zapata ; Carla Galvan ; Brandee Fagan SOCIOLOGY ADJUNCT INSTRUCTOR Discharge Orders/Prescriptions Prescriptions: Continued aspirin [Adult Low Dose Aspirin] 81 mg tablet,delayed release (DR/EC) 81 mg PO DAILY RF: 0 nitroglycerin 0.4 mg tablet, sublingual 0.4 mg SL Q5-15M PRN (Reason: Pain) Qty: 90 RF: 3 Lantus Solostar U-100 Insulin 100 unit/mL (3 mL) insulin pen 6 unit SC QHS RF: 0 citalopram 20 mg tablet 20 mg PO DAILY RF: 0 latanoprost 0.005 % drops 1 drp EACH EYE QPM RF: 0 fentanyl 25 mcg/hr patch 72 hour 1 patch transdermal RF: 0 levothyroxine 100 MCG tablet 100 mcg PO DAILY RF: 0 prochlorperazine maleate 10 MG tablet 10 mg PO Q6H PRN PRN (Reason: Not Specified) 10 Days Qty: 30 RF: 2 ondansetron 8 MG tablet,disintegrating 8 mg PO Q8H PRN PRN (Reason: Nausea) 10 Days Qty: 30 RF: 3 lidocaine-prilocaine 30 GM cream 1 applic TP DAILY PRN PRN (Reason: Not Specified) 30 Days Qty: 1 RF: 2 insulin aspart U-100 [Novolog Flexpen U-100 Insulin] 100 unit/mL (3 mL) Insulin Pen TIDCM RF: 0 oxycodone-acetaminophen 5-325 mg tablet 5 - 325 tab PO TID PRN PRN (Reason: Pain) RF: 0 amoxicillin-pot clavulanate [Augmentin] 875-125 mg tablet 1 tab PO BID Qty: 6 RF: 0 doxycycline hyclate 100 mg capsule 100 mg PO BID Qty: 6 RF: 0 atorvastatin 40 mg tablet 40 mg PO QHS Qty: 90 RF: 3 Referrals / Follow Up: Jamie Humphrey MD [Primary Care Provider] - Within 2 Weeks Disposition Disposition (needs filled in before D/C Order can be placed): Hospice in Medical Facility Documented by User: Dr. Roverto Martinez MD 02/22/21 15:51 Allergies/Procedures Done in Hospital Allergies phenazopyridine [From Pyridium] Adverse Reaction (Unknown, Verified 02/04/21 08:20) Vomiting beta blockers Adverse Reaction (Unknown, Uncoded 01/05/21 08:57) Intolerant- Extreme fatigue Discharge Plan Admission Admit Date/Time: 02/19/21 10:50 Primary Reason for Your Visit: Weakness Attending Provider: Roverto Martinez Primary Care Provider: Jamie Hmuphrey Consulting Providers: Savannah Villatoro ; Domingo Dietz ; Divina Lamas ; Chelita Zapata ; Carla Galvan ; Brandee Fagan SOCIOLOGY ADJUNCT INSTRUCTOR Discharge Orders/Prescriptions Prescriptions: Continued aspirin [Adult Low Dose Aspirin] 81 mg tablet,delayed release (DR/EC) 81 mg PO DAILY RF: 0 nitroglycerin 0.4 mg tablet, sublingual 0.4 mg SL Q5-15M PRN (Reason: Pain) Qty: 90 RF: 3 Lantus Solostar U-100 Insulin 100 unit/mL (3 mL) insulin pen 6 unit SC QHS RF: 0 citalopram 20 mg tablet 20 mg PO DAILY RF: 0 latanoprost 0.005 % drops 1 drp EACH EYE QPM RF: 0 fentanyl 25 mcg/hr patch 72 hour 1 patch transdermal RF: 0 levothyroxine 100 MCG tablet 100 mcg PO DAILY RF: 0 prochlorperazine maleate 10 MG tablet 10 mg PO Q6H PRN PRN (Reason: Not Specified) 10 Days Qty: 30 RF: 2 ondansetron 8 MG tablet,disintegrating 8 mg PO Q8H PRN PRN (Reason: Nausea) 10 Days Qty: 30 RF: 3 lidocaine-prilocaine 30 GM cream 1 applic TP DAILY PRN PRN (Reason: Not Specified) 30 Days Qty: 1 RF: 2 insulin aspart U-100 [Novolog Flexpen U-100 Insulin] 100 unit/mL (3 mL) Insulin Pen TIDCM RF: 0 oxycodone-acetaminophen 5-325 mg tablet 5 - 325 tab PO TID PRN PRN (Reason: Pain) RF: 0 amoxicillin-pot clavulanate [Augmentin] 875-125 mg tablet 1 tab PO BID Qty: 6 RF: 0 doxycycline hyclate 100 mg capsule 100 mg PO BID Qty: 6 RF: 0 atorvastatin 40 mg tablet 40 mg PO QHS Qty: 90 RF: 3 Referrals / Follow Up: Jamie Humphrey MD [Primary Care Provider] - Within 2 Weeks Disposition Disposition (needs filled in before D/C Order can be placed): Hospice in Medical Facility
--- NOTE | 2021-02-22 11:55 | PHA.DC.MR ---
Pharmacy Service has performed discharge medication reconciliation for this patient. The patient's discharge medication list was reviewed for discrepancies and discrepancies were resolved. Home Medications levothyroxine 100 mcg PO DAILY 05/24/18 atorvastatin 40 mg tablet 40 mg PO QHS #90 tablet 07/20/18 aspirin 81 mg tablet,delayed release 81 mg PO DAILY 11/16/18 nitroglycerin 0.4 mg sublingual tablet 0.4 mg SL Q5-15M PRN #90 tablet 11/15/19 citalopram 20 mg tablet 20 mg PO DAILY 05/14/20 insulin glargine 100 unit/mL (3 mL) subcutaneous pen 6 unit SC QHS ml 05/14/20 latanoprost 0.005 % eye drops 1 drp EACH EYE QPM 05/14/20 lidocaine-prilocaine 1 applic TP DAILY PRN PRN 30 Days #1 tube 07/20/20 ondansetron 8 mg PO Q8H PRN PRN 10 Days #30 tab.rapdis 07/20/20 prochlorperazine maleate 10 mg PO Q6H PRN PRN 10 Days #30 tablet 07/20/20 insulin aspart U-100 [Novolog Flexpen U-100 Insulin] sliding scale dose TIDCM 11/17/20 fentanyl 25 mcg/hr transdermal patch 1 patch TRANSDERMAL ea 02/04/21 oxycodone-acetaminophen 5 - 325 tab PO TID PRN PRN 02/06/21 amoxicillin-pot clavulanate [Augmentin] 1 tab PO BID #6 tab 02/17/21 doxycycline hyclate 100 mg PO BID #6 cap 02/17/21
--- NOTE | 2021-02-22 13:06 | DS.PCM_ITS ---
Documented by User: Wilton WAGNER 02/22/21 13:13 Providers Date of Admission: 02/19/21 Primary Care Physician: Dr. Jamie Humphrey MD Consultations 02/19/21 12:26 Consult: Hospice / Palliative Care Routine Consulting Provider: [facility] Reason for Consult: worsening debility due to metastatic pancreatic cancer EMERGENT Consult: No MD Notified: Yes Date Notified: 02/19/21 Time Notified: 12:26 Method of Notification: Answering Service Reason For Visit: DEBILITY DUE TO METASTATIC PANCREATIC CANCER Diagnosis Discharge Diagnosis (1) Generalized weakness: Status: Acute Code(s): R53.1 - Weakness (2) Primary pancreatic cancer with metastasis to other site: Status: Acute Code(s): C25.9 - Malignant neoplasm of pancreas, unspecified Medications at Discharge Home Medications levothyroxine 100 mcg PO DAILY 05/24/18 atorvastatin 40 mg tablet 40 mg PO QHS #90 tablet 07/20/18 aspirin 81 mg tablet,delayed release 81 mg PO DAILY 11/16/18 nitroglycerin 0.4 mg sublingual tablet 0.4 mg SL Q5-15M PRN #90 tablet 11/15/19 citalopram 20 mg tablet 20 mg PO DAILY 05/14/20 insulin glargine 100 unit/mL (3 mL) subcutaneous pen 6 unit SC QHS ml 05/14/20 latanoprost 0.005 % eye drops 1 drp EACH EYE QPM 05/14/20 lidocaine-prilocaine 1 applic TP DAILY PRN PRN 30 Days #1 tube 07/20/20 ondansetron 8 mg PO Q8H PRN PRN 10 Days #30 tab.rapdis 07/20/20 prochlorperazine maleate 10 mg PO Q6H PRN PRN 10 Days #30 tablet 07/20/20 insulin aspart U-100 [Novolog Flexpen U-100 Insulin] sliding scale dose TIDCM 11/17/20 fentanyl 25 mcg/hr transdermal patch 1 patch TRANSDERMAL ea 02/04/21 oxycodone-acetaminophen 5 - 325 tab PO TID PRN PRN 02/06/21 amoxicillin-pot clavulanate [Augmentin] 1 tab PO BID #6 tab 02/17/21 doxycycline hyclate 100 mg PO BID #6 cap 02/17/21 Hospital Course Summary of Care Provided Minutes Spent on Discharge: 35 Hospital Course: Patient is a 71-year-old male who was admitted to the hospital on 02/19/2021 for adult failure to thrive and increasing debility due to metastatic pancreatic cancer. Patient's primary pancreatic cancer has now spread to his liver and patient was experiencing increased debility in the setting of recent discharge for acute UTI and acute metabolic encephalopathy. Patient agreed to hospice consult who concurred that patient was hospice appropriate. Patient will be discharged to [facility] with hospice. All home medications were continued. Patient is to follow-up with primary care provider within the next 2 weeks. Physical Exam Narrative Patient is a 71-year-old male lying in bed, alert and orient x3. Patient denies any change in symptoms overnight. Does not appear in acute distress. Const alert, oriented x3 and no apparent distress HEENT normocephalic, head/scalp atraumatic and hearing grossly normal bilaterally Eyes PERRL, EOMs intact bilaterally and conjunctivae normal Neck no lymphadenopathy, supple and no JVD Resp normal respiratory effort, no retractions and no use of accessory muscles Cardio regular rate, regular rhythm, no murmurs and no JVD GI normal to inspection, nondistended, normoactive bowel sounds, soft to palpation and non-tender Extremity normal to inspection, full ROM and no clubbing, cyanosis or edema Skin no rashes or lesions noted, no wounds and skin turgor normal Neuro CN's II-XII intact bilaterally Psych affect normal Medical Records Data Medical Nutrition Assessment Dietitian: Malnutrition Criteria Met Start: 02/19/21 14:43 Freq: Status: Active Protocol: Document 02/19/21 14:43 (Rec: 02/19/21 14:43 [id number]) Nutrition Malnutrition Evidence of Malnutrition Exists Yes Malnutrition (severe): Chronic Evidenced By Suboptimal Energy Intake ( Severe),Weight Loss (Severe) Clinical Problem Chronic Disease or Condition Related Malnutrition Etiology severe, chronic malnutrition r /t inadequate energy intake w/ increased energy needs d/t metastatic disease Signs/Symptoms as evidenced by estimated PO intake meeting <75% of estimated nutritional needs >3 months, unintentional wt loss of 21.7#/12.76% x 4 months Status Active Problem Recommendation Dietitian Recommendations/Changes regular diet given malnutrition, pending hospice consult. Ensure w/ medpass if pt agreeable to supplement. Weight / BMI Weight Weight: 148 lb 5.161 oz Body Mass Index (BMI) 23.9 ABG / Lab / Microbiology Data Result Diagrams: 02/22/21 05:40 02/22/21 05:40 Laboratory: Laboratory Results - last 24 hr 02/21/21 16:18: POC Glucose 99 02/22/21 05:40: WBC 14.1 H, RBC 2.97 L, Hgb 9.1 L, Hct 28.6 L, MCV 96.3 H, MCH 30.6, MCHC 31.8 L, RDW Std Deviation 75.8 H, RDW Coeff of Mary Ann 22.7 H, Plt Count 172, MPV 9.8, Neut % (Auto) Not Reportable, Absolute Neuts (auto) 10.4 H, Absolute Lymphs (auto) 0.71 L, Neutrophils % (Manual) 67, Band Neutrophils % 7 H , Lymphocytes % (Manual) 5 L, Monocytes % (Manual) 5, Metamyelocytes % 5 H, Myelocytes % 5 H, Promyelocytes % 6 H, Diff Path Review May foll, Platelet Estimate ADEQUATE, RBC Morphology NORM C+C, Polychromasia RARE, Anisocytosis 3+ 02/22/21 05:40: Sodium 143, Potassium 3.4 L, Chloride 116 H, Carbon Dioxide 20.0 L, Anion Gap 7, BUN 23 H, Creatinine 0.68 L, Estim Creat Clear Calc 59.37, Est GFR (MDRD) Af Amer 146, Est GFR (MDRD) Non-Af 121, BUN/Creatinine Ratio 33.7 H, Glucose 94, Calcium 8.5, Total Bilirubin 3.60 H, AST 130 H, ALT 81 H, Alkaline Phosphatase 1326 H, Total Protein 5.7 L, Albumin 1.2 L, Globulin 4.5 H, Albumin/Globulin Ratio 0.3 L Meaningful Use Info Meaningful Use Diagnoses (Choose all that apply): None applicable Discharge Plan Admission Admit Date/Time: 02/19/21 10:50 Primary Reason for Your Visit: Weakness Attending Provider: Roverto Martinez Primary Care Provider: Jamie Humphrey Consulting Providers: Savannah Villatoro ; Domingo Dietz ; Divina Lamas ; Chelita Zapata ; Carla Galvan ; Brandee Fagan IT SENIOR SOFTWARE ENGINEER JAVA Discharge Orders/Prescriptions Prescriptions: Continued aspirin [Adult Low Dose Aspirin] 81 mg tablet,delayed release (DR/EC) 81 mg PO DAILY RF: 0 nitroglycerin 0.4 mg tablet, sublingual 0.4 mg SL Q5-15M PRN (Reason: Pain) Qty: 90 RF: 3 Lantus Solostar U-100 Insulin 100 unit/mL (3 mL) insulin pen 6 unit SC QHS RF: 0 citalopram 20 mg tablet 20 mg PO DAILY RF: 0 latanoprost 0.005 % drops 1 drp EACH EYE QPM RF: 0 fentanyl 25 mcg/hr patch 72 hour 1 patch transdermal RF: 0 levothyroxine 100 MCG tablet 100 mcg PO DAILY RF: 0 prochlorperazine maleate 10 MG tablet 10 mg PO Q6H PRN PRN (Reason: Not Specified) 10 Days Qty: 30 RF: 2 ondansetron 8 MG tablet,disintegrating 8 mg PO Q8H PRN PRN (Reason: Nausea) 10 Days Qty: 30 RF: 3 lidocaine-prilocaine 30 GM cream 1 applic TP DAILY PRN PRN (Reason: Not Specified) 30 Days Qty: 1 RF: 2 insulin aspart U-100 [Novolog Flexpen U-100 Insulin] 100 unit/mL (3 mL) Insulin Pen TIDCM RF: 0 oxycodone-acetaminophen 5-325 mg tablet 5 - 325 tab PO TID PRN PRN (Reason: Pain) RF: 0 amoxicillin-pot clavulanate [Augmentin] 875-125 mg tablet 1 tab PO BID Qty: 6 RF: 0 doxycycline hyclate 100 mg capsule 100 mg PO BID Qty: 6 RF: 0 atorvastatin 40 mg tablet 40 mg PO QHS Qty: 90 RF: 3 Referrals / Follow Up: Jamie Humphrey MD [Primary Care Provider] - Within 2 Weeks Disposition Disposition (needs filled in before D/C Order can be placed): Hospice in Medical Facility Documented by User: Dr. Roverto Martinez MD 02/22/21 15:56 Providers Date of Admission: 02/19/21 Date of Discharge: 02/22/21 Reason For Visit: DEBILITY DUE TO METASTATIC PANCREATIC CANCER Medications at Discharge Home Medications levothyroxine 100 mcg PO DAILY 05/24/18 atorvastatin 40 mg tablet 40 mg PO QHS #90 tablet 07/20/18 aspirin 81 mg tablet,delayed release 81 mg PO DAILY 11/16/18 nitroglycerin 0.4 mg sublingual tablet 0.4 mg SL Q5-15M PRN #90 tablet 11/15/19 citalopram 20 mg tablet 20 mg PO DAILY 05/14/20 insulin glargine 100 unit/mL (3 mL) subcutaneous pen 6 unit SC QHS ml 05/14/20 latanoprost 0.005 % eye drops 1 drp EACH EYE QPM 05/14/20 lidocaine-prilocaine 1 applic TP DAILY PRN PRN 30 Days #1 tube 07/20/20 ondansetron 8 mg PO Q8H PRN PRN 10 Days #30 tab.rapdis 07/20/20 prochlorperazine maleate 10 mg PO Q6H PRN PRN 10 Days #30 tablet 07/20/20 insulin aspart U-100 [Novolog Flexpen U-100 Insulin] sliding scale dose TIDCM 11/17/20 fentanyl 25 mcg/hr transdermal patch 1 patch TRANSDERMAL ea 02/04/21 oxycodone-acetaminophen 5 - 325 tab PO TID PRN PRN 02/06/21 amoxicillin-pot clavulanate [Augmentin] 1 tab PO BID #6 tab 02/17/21 doxycycline hyclate 100 mg PO BID #6 cap 02/17/21 Hospital Course Summary of Care Provided Hospital Course: This patient was seen in conjunction with KRISTY Hansen. I have independently interviewed and examined the patient and reviewed pertinent history, examination findings, laboratory and plan of management. I have reviewed the note and agree with the documented findings with the few additional points. In brief, patient was admitted for generalized weakness unable to take care of himself.Failure to thrive, increasing debility with decreased activities of daily life. Patient was discharged from the hospital a few days ago after being treated for UTI. Patient has metastatic pancreatic cancer with loss of weight, decreased appetite. Liver enzymes are chronically elevated. Total bilirubin 4.5, DP 3.67, alkaline phosphatase 1452. Albumin 1.4. Patient agreeable for hospice care and accepted and discharged to inpatient hospice center. Patient has other multiple comorbidities including coronary artery status post CABG and stents, hypothyroidism, type 2 diabetes mellitus, dyslipidemia and depression. Discharge medication reconciliation done. Discharge follow-up instructions completed. Discharge process discussed with the patient and all questions were answered to patient's satisfaction. Total time spent, exact 35 minutes on discharge meds reconciliation, examination, coordination of care with nurses and ancillary staff, review of imaging and blood test and discussion with the patient on follow-up instructions I have discussed my assessment with KRISTY Hansen and orders have been reviewed. Physical Exam Narrative General: Alert, Oriented x3, Cooperative, malnourished. HEENT: Atraumatic, PERRLA, EOMI, Normocephalic Oral: No Gingival or Mucosal Lesions/ Ulcerations Neck: Supple, No JVD, Negative Carotid Bruits Lungs: Air entry diminished in bilateral lung bases. No crepitation/rhonchi Cardiovascular: Regular rate, Regular Rhythm, Normal S1, Normal S2, No murmurs Abdomen: Bowel Sounds Present, Soft, Non Tender, Non-Distended : No renal angle tenderness. No suprapubic tenderness. Extremities: No edema, Capillary Refill Less than 3 Seconds Skin: No rashes, No breakdown Musculoskeletal: No Tenderness to Palpation of Joints or Extremities Neurological: Cranial nerves II-XII grossly intact, DTR 2+/4 and Symmetrical, Neuro grossly intact Psych/Mental Status: Flat affect. ABG / Lab / Microbiology Data Result Diagrams: 02/22/21 05:40 02/22/21 05:40 Discharge Plan Admission Admit Date/Time: 02/19/21 10:50 Primary Reason for Your Visit: Weakness Attending Provider: Roverto Martinez Primary Care Provider: Jamie Humphrey Consulting Providers: Savannah Villatoro ; Domingo Dietz ; Divina Lamas ; Chelita Zapata ; Carla Galvan ; Brandee Fagan IT SENIOR SOFTWARE ENGINEER JAVA Discharge Orders/Prescriptions Prescriptions: Continued aspirin [Adult Low Dose Aspirin] 81 mg tablet,delayed release (DR/EC) 81 mg PO DAILY RF: 0 nitroglycerin 0.4 mg tablet, sublingual 0.4 mg SL Q5-15M PRN (Reason: Pain) Qty: 90 RF: 3 Lantus Solostar U-100 Insulin 100 unit/mL (3 mL) insulin pen 6 unit SC QHS RF: 0 citalopram 20 mg tablet 20 mg PO DAILY RF: 0 latanoprost 0.005 % drops 1 drp EACH EYE QPM RF: 0 fentanyl 25 mcg/hr patch 72 hour 1 patch transdermal RF: 0 levothyroxine 100 MCG tablet 100 mcg PO DAILY RF: 0 prochlorperazine maleate 10 MG tablet 10 mg PO Q6H PRN PRN (Reason: Not Specified) 10 Days Qty: 30 RF: 2 ondansetron 8 MG tablet,disintegrating 8 mg PO Q8H PRN PRN (Reason: Nausea) 10 Days Qty: 30 RF: 3 lidocaine-prilocaine 30 GM cream 1 applic TP DAILY PRN PRN (Reason: Not Specified) 30 Days Qty: 1 RF: 2 insulin aspart U-100 [Novolog Flexpen U-100 Insulin] 100 unit/mL (3 mL) Insulin Pen TIDCM RF: 0 oxycodone-acetaminophen 5-325 mg tablet 5 - 325 tab PO TID PRN PRN (Reason: Pain) RF: 0 amoxicillin-pot clavulanate [Augmentin] 875-125 mg tablet 1 tab PO BID Qty: 6 RF: 0 doxycycline hyclate 100 mg capsule 100 mg PO BID Qty: 6 RF: 0 atorvastatin 40 mg tablet 40 mg PO QHS Qty: 90 RF: 3 Referrals / Follow Up: Jamie Humphrey MD [Primary Care Provider] - Within 2 Weeks Disposition Disposition (needs filled in before D/C Order can be placed): Hospice in Medical Facility Charges/Coding Visit Charges Inpatient E&M: 48059 Disch Hosp
--- NOTE | 2021-02-22 14:01 | CASEMGMT ---
Social Work Note HELDER placed a call to [facility] and spoke with Miriam in admissions. Miriam states [facility] is not accepting admissions at this time. HELDER placed a call to Kathi at [facility] and updated her that pt will be discharged to [facility] today. SW placed a call to pt's son Ed and updated him that [facility] is not accepting admissions at this time, informed Ed that pt can discharge to [facility] today. Ed states understanding. SW updated physician. HELDER placed a call to [facility] and spoke with Ami. SW updated Ami that pt will be discharged to [facility] today. SW completed PAS/RR in HENS. HELDER faxed completed discharge paperwork to [facility] including transfer to extended care facility, signed medication list, any scripts, COVID test/tool, and PAS/RR. Original in SNF folder and copy on pt's chart. HELDER spoke with RN, pt to transport via cot. SW accessed trip assist and arranged transportation for 4:00pm. Transportation form completed and placed on SNF folder and copy on pt's chart. HELDER updated RN on transportation time. HELDER placed a call to pt's son Ed and left message updating him on transportation time to [facility]. SW in to speak with pt. SW informed pt on discharge and transportation time to [facility]. Pt states understanding. HELDER placed a call to Kathi at [facility] and updated her on transportation time. HELDER placed a call to Fe at [facility] and updated her on pt's discharge to [facility] at 4:00pm. Plan: [facility] with Hospice services under intermediate level of care with Physician's transporting pt at 4:00pm via cot. Lilo Lopez CREDENTIALING MANAGER, LICENSING OFFICER
--- NOTE | 2021-02-22 15:14 | NURSING ---
Report called the [facility].
--- NOTE | 2021-02-22 15:14 | NURSING ---
Report given to Hospice nurse.
[2021-02-22 15:18] VITALS: BP 115/72; PULSE 91; RESP 14; TEMP 36.6; O2SAT 95
[2021-02-24 09:01] LABS: Pathologist Review Reviewed
[2021-02-24 09:15] LABS: Pathologist Review Reviewed
[2021-02-24 10:03] LABS: Pathologist Review Reviewed
[2021-02-24 10:15] LABS: Pathologist Review Reviewed
== END 2021-02-22 16:10 | disposition hospice, inpatient (51) ==
LOC: ED 11:02 → MS3 11:06
PROVIDERS: Admitting Provider Student in an Organized Health Care Education/Training Program; Emergency Provider Emergency Medicine; PCP Family Medicine; Visit Provider Internal Medicine
DX: C25.9 Malignant neoplasm of pancreas, unspecified (principal); R19.7 Diarrhea, unspecified; E03.9 Hypothyroidism, unspecified; I25.10 Atherosclerotic heart disease of native coronary artery without angina pectoris; K21.9 Gastro-esophageal reflux disease without esophagitis; N40.1 Benign prostatic hyperplasia with lower urinary tract symptoms; C79.89 Secondary malignant neoplasm of other specified sites; C78.7 Secondary malignant neoplasm of liver and intrahepatic bile duct; E11.9 Type 2 diabetes mellitus without complications; E78.5 Hyperlipidemia, unspecified; R33.8 Other retention of urine; I10 Essential (primary) hypertension; R62.7 Adult failure to thrive; G93.41 Metabolic encephalopathy; G89.3 Neoplasm related pain (acute) (chronic); Z79.899 Other long term (current) drug therapy; Z79.4 Long term (current) use of insulin; Z79.82 Long term (current) use of aspirin; Z79.890 Hormone replacement therapy; Z87.440 Personal history of urinary (tract) infections
CPT/HCPCS: 36415; 36591; 80048; 80053; 80076; 81001; 82962; 84484; 85025; 87426; 93005; 96361; 96372; 96374; 96375; 97802; 99218; 99285; J7030; A4216; G0378; J2405

== ENCOUNTER 2021-02-28 23:03 | Emergency (ER) | payer MEDICARE, SELFPAY ==
[2021-02-28 23:05] VITALS: BP 112/77; PULSE 93; RESP 18; TEMP 36.7; O2SAT 96; BMI 24.3
[2021-02-28] MEDS: HYDROmorphone 1 MG/ML Syringe 2 MG IM (23:33)
[2021-02-28] MEDS: Ondansetron ODT 4 MG Tablet PO (23:34)
--- NOTE | 2021-02-28 23:34 | EDS_ITS ---
HPI History of Present Illness Chief Complaint: Mental Health Narrative Narrative: Patient is a 71-year-old male with past medical history of metastatic pancreatic cancer. He is a DNR comfort care only no intubation who is currently on hospice and stays at a custodial. He states that he is tired of being in chronic pain and knows that his diagnosis is terminal. He states that he does not want to live any longer secondary to this. However he denies any active suicidal intent. Reported this evening he was upset at the custodial and stating that he did not want to live any longer and thought of trying to harm himself with his nasal cannula oxygen. Patient states that he said this simply out of frustration and has no true suicidal ideation at this time. However with the report being so the custodial he was sent to the hospital for evaluation. [facility] Medical History Acquired hypothyroidism Anxiety and depression Atherosclerotic heart disease of [place] coronary artery without angina pectoris Benign neoplasm of colon BPH (benign prostatic hyperplasia) CAD (coronary artery disease) Cancer related pain Chemotherapy induced neutropenia Constipation Encounter for education Essential hypertension GERD (gastroesophageal reflux disease) History of agent [place] exposure Hypokalemia Normocytic anemia Pancreatic cancer Pancreatic cancer Pancytopenia Port-A-Cath in place Presence of stent in coronary artery (~09/19/05) Type 2 diabetes mellitus Urinary retention Home Medications levothyroxine 100 mcg PO DAILY 05/24/18 [History Last Taken 02/13/21] atorvastatin 40 mg tablet 40 mg PO QHS #90 tablet 07/20/18 [Rx Last Taken 02/13/21] aspirin 81 mg tablet,delayed release 81 mg PO DAILY 11/16/18 [History Last Taken 02/13/21] nitroglycerin 0.4 mg sublingual tablet 0.4 mg SL Q5-15M PRN #90 tablet 11/15/19 [Rx Last Taken Unknown] citalopram 20 mg tablet 20 mg PO DAILY 05/14/20 [History Last Taken 02/13/21] insulin glargine 100 unit/mL (3 mL) subcutaneous pen 6 unit SC QHS ml 05/14/20 [History Last Taken 02/05/21] latanoprost 0.005 % eye drops 1 drp EACH EYE QPM 05/14/20 [History Last Taken 11/16/20] lidocaine-prilocaine 1 applic TP DAILY PRN PRN 30 Days #1 tube 07/20/20 [Rx Last Taken Unknown] ondansetron 8 mg PO Q8H PRN PRN 10 Days #30 tab.rapdis 07/20/20 [Rx Last Taken U nknown] prochlorperazine maleate 10 mg PO Q6H PRN PRN 10 Days #30 tablet 07/20/20 [Rx Last Taken Unknown] insulin aspart U-100 [Novolog Flexpen U-100 Insulin] sliding scale dose TIDCM 11/17/20 [History Last Taken 02/05/21] fentanyl 25 mcg/hr transdermal patch 1 patch TRANSDERMAL ea 02/04/21 [History Last Taken 02/18/21 12:00] oxycodone-acetaminophen 5 - 325 tab PO TID PRN PRN 02/06/21 [History Last Taken 02/13/21] amoxicillin-pot clavulanate [Augmentin] 1 tab PO BID #6 tab 02/17/21 [Rx Last Taken Unknown] doxycycline hyclate 100 mg PO BID #6 cap 02/17/21 [Rx Last Taken Unknown] Allergy/AdvReac Type Severity Reaction Status Date / Time phenazopyridine AdvReac Unknown Vomiting Verified 02/28/21 23:14 [From Pyridium] beta blockers AdvReac Unknown Intolerant- Uncoded 02/28/21 23:14 Extreme fatigue Family History Mother CHF (congestive heart failure) Hypertension Cancer Cervical Father CAD (coronary artery disease) Myocardial infarction Cancer Colon Surgical History History of colonoscopy (~01/2020) History of left heart catheterization (LHC) Hx of heart artery stent Presence of coronary angioplasty implant and graft Status post coronary artery bypass graft (~09/12/18) Social History Smoking Status: Never smoker alcohol intake: current details: occasional substance use type: does not use ROS ROS ED Constitutional Constitutional ED: Reports weight loss; Denies chills or fever(s) ENT ENT ED: Denies sore throat Cardiovascular Cardiovascular: Denies chest pain Respiratory/Chest Respiratory/Chest: Reports dyspnea; Denies cough Gastrointestinal Gastrointestinal: Reports abdominal pain, nausea and vomiting; Denies diarrhea Genitourinary Genitourinary ED: Denies dysuria Musculoskeletal Musculoskeletal: Reports back pain and myalgias Integumentary Denies rash Neurologic Neurologic: Reports weakness; Denies headache(s) Psychiatric Psychiatric: Reports depression and suicidal thoughts; Denies suicidal ideation Hematologic/Lymphatic Hematologic/Lymphatic: Denies easy bleeding or easy bruising EXAM Physical Exam Const Vital Signs: 02/28/21 23:05 Temperature 98.0 F Temperature Source Temporal Pulse Rate 93 Respiratory Rate 18 Blood Pressure 112/77 Blood Pressure Mean 88 Pulse Ox 96 Oxygen Delivery Method Nasal Cannula Oxygen Flow Rate (L/min) 2 Positive cachectic General Appearance ED: cachectic Nutritional Appearance: cachectic HEENT Reports dry mucous membranes Mouth ED: Yes dry mucous membranes Mouth: dry mucous membranes Eyes PERRL and EOMs intact bilaterally General Eye ED: Yes scleral icterus Neck supple Chest Wall palpation of chest normal Resp Resp Narrative: Breath sounds are diminished throughout with rhonchi in the bases but no signs of acute respiratory distress Cardio regular rate and regular rhythm Rate: other Other Details: Radial pulses are plus 2 out of 4 bilaterally are equal and symmetric GI GI Narrative: Abdomen is soft and distended with fluid wave consistent with ascites but no voluntary guarding or rigidity no pulsatile mass Extremity Extremity Narrative: There is trace to +1 pitting edema to the bilateral lower extremities that is equal and symmetric Neuro oriented x3 and CN's II-XII intact bilaterally Sensorium / Orientation: alert Psych Psych Narrative: Patient has a depressed/flat affect with suicidal thoughts but no true suicidal or homicidal ideation Mood & Affect: depressed Skin Skin Narrative: Patient skin turgor is increased and he is jaundiced in color consistent with his history of pancreatic mass MDM MDM MDM Narrative Medical decision making narrative: Patient was sent to the ER because of his statement no longer wanting to live at the custodial. However patient is a DNR comfort care only with no intubation. He also states that he said these things but he is frustrated with his current situation and his chronic pain but while he has suicidal thoughts has no suicidal ideation. The case was discussed with his hospice care team as well as his son who is power of ip attorney. Both agree that he does not need further observation in the ER and it would not be in his best interest to seek placement in a psychiatric facility. Therefore at this time patient will be discharged back to his custodial and hospice can see him as previously directed to help control his pain Discharge Plan Triage Chief Complaint: Mental Health ED Provider: Santos Sarah Dx/Rx/DC Orders Clinical Impression: Pancreatic mass, Cancer related pain, Depression Instructions: Depression: Tips to Help Yourself, Chronic Pain Therapies Mind Body Prescriptions: No Action aspirin [Adult Low Dose Aspirin] 81 mg tablet,delayed release (DR/EC) 81 mg PO DAILY RF: 0 nitroglycerin 0.4 mg tablet, sublingual 0.4 mg SL Q5-15M PRN (Reason: Pain) Qty: 90 RF: 3 Lantus Solostar U-100 Insulin 100 unit/mL (3 mL) insulin pen 6 unit SC QHS RF: 0 citalopram 20 mg tablet 20 mg PO DAILY RF: 0 latanoprost 0.005 % drops 1 drp EACH EYE QPM RF: 0 fentanyl 25 mcg/hr patch 72 hour 1 patch transdermal RF: 0 levothyroxine 100 MCG tablet 100 mcg PO DAILY RF: 0 prochlorperazine maleate 10 MG tablet 10 mg PO Q6H PRN PRN (Reason: Not Specified) 10 Days Qty: 30 RF: 2 ondansetron 8 MG tablet,disintegrating 8 mg PO Q8H PRN PRN (Reason: Nausea) 10 Days Qty: 30 RF: 3 lidocaine-prilocaine 30 GM cream 1 applic TP DAILY PRN PRN (Reason: Not Specified) 30 Days Qty: 1 RF: 2 insulin aspart U-100 [Novolog Flexpen U-100 Insulin] 100 unit/mL (3 mL) Insulin Pen TIDCM RF: 0 oxycodone-acetaminophen 5-325 mg tablet 5 - 325 tab PO TID PRN PRN (Reason: Pain) RF: 0 amoxicillin-pot clavulanate [Augmentin] 875-125 mg tablet 1 tab PO BID Qty: 6 RF: 0 doxycycline hyclate 100 mg capsule 100 mg PO BID Qty: 6 RF: 0 atorvastatin 40 mg tablet 40 mg PO QHS Qty: 90 RF: 3 Primary Care Provider: Jamie Humphrey Referrals: Jamie Humphrey MD [Primary Care Provider] - Activity Restrictions/Additional Instructions: Orders for custodial: 1) DC safety precautions 2) DC 15-minute rounding/safety checks Disposition Disposition: Home, Self Care
--- NOTE | 2021-02-28 23:59 | ED.RN ---
THIS NURSE CHANGED MIRZA CATHETER TUBING.
--- NOTE | 2021-03-01 00:13 | ED.RN ---
SPOKE TO PT SON, ED. HE FEELS HIS FATHER IS NOT SUICIDAL, BUT REALIZES HE IS DYING AND JUST WANTS IT TO BE OVER. HE FEELS THAT HIS FATHER WOULD BE SAFE TO RETURN TO THE FACILITY.
== END 2021-03-01 01:33 | disposition home or self-care (01) ==
PROVIDERS: Emergency Provider Emergency Medicine; PCP Family Medicine
DX: K86.9 Disease of pancreas, unspecified (principal); C25.9 Malignant neoplasm of pancreas, unspecified; G89.3 Neoplasm related pain (acute) (chronic); F32.A Depression, unspecified; I25.10 Atherosclerotic heart disease of native coronary artery without angina pectoris; Z66 Do not resuscitate; Z95.5 Presence of coronary angioplasty implant and graft
CPT/HCPCS: 96372; 99285